=== PATIENT | female | born 1945 | race Caucasian/White ===

== ENCOUNTER 2016-12-10 10:51 | Outpatient (CLI) | payer MEDICARE | END 2016-12-10 10:52 | disposition home or self-care (01) | DX: Z12.31 Encounter for screening mammogram for malignant neoplasm of breast (principal) ==

== ENCOUNTER 2017-08-22 15:13 | Outpatient (CLI) | payer MEDICARE ==
[2017-08-22 12:23] LABS: BASOPHILS % (AUTO) 0.4 %; EOSINOPHILS # (AUTO) 0.1 10^3/uL (0.0-0.7); EOSINOPHILS % (AUTO) 1.9 %; HCT - HEMATOCRIT 38.7 % (37.0-47.0); HGB - HEMOGLOBIN 13.8 g/dL (12.0-16.0); LYMPHOCYTES # (AUTO) 2.2 10^3/uL (1.5-3.5); LYMPHOCYTES % (AUTO) 39.2 %; MEAN CORPUSCULAR HEMOGLOBIN 34.6 pg (27.0-31.0); MEAN CORPUSCULAR HGB CONC 35.5 g/dL (32.0-36.0); MEAN CORPUSCULAR VOLUME 97.4 fL (81.0-99.0); MONOCYTES # (AUTO) 0.4 10^3/uL (0.0-1.0); MONOCYTES % (AUTO) 7.7 %; NEUTROPHILS # (AUTO) 2.8 10^3/uL (1.5-6.6); NEUTROPHILS % (AUTO) 50.8 %; NUCLEATED RED BLOOD CELLS AUTO 0.1 /100WBC; RED BLOOD COUNT 3.98 10^6/uL (4.20-5.40); RED CELL DISTRIBUTION WIDTH 12.6 % (12.0-15.0); UNCORRECTED WHITE BLOOD COUNT 5.6 x10^3/uL; WHITE BLOOD COUNT 5.6 x10^3/uL (4.8-10.8)
[2017-08-22 12:40] LABS: ALBUMIN/GLOBULIN RATIO 1.3 (1.0-2.2); BILIRUBIN,TOTAL 0.5 mg/dL (0.2-1.0); BUN - BLOOD UREA NITROGEN 15 mg/dL (6-20); CALCIUM 9.1 mg/dL (8.5-10.3); CARBON DIOXIDE - CO2 28 mmol/L (21-32); CHLORIDE 103 mmol/L (101-111); CREATININE 0.9 mg/dL (0.4-1.0); GFR - MDRD 61 (>89); GLUCOSE 92 mg/dL (70-100); POTASSIUM 3.7 mmol/L (3.5-5.0); SODIUM 138 mmol/L (135-145)
== END 2017-08-22 15:14 | disposition home or self-care (01) ==
LOC: LAB.N 15:13
PROVIDERS: ATTEND Family Medicine
DX: E03.9 Hypothyroidism, unspecified (principal); I10 Essential (primary) hypertension; J44.9 Chronic obstructive pulmonary disease, unspecified
CPT/HCPCS: 36415; 80053; 84443; 85025

== ENCOUNTER 2018-02-12 07:00 | Outpatient (CLI) | payer MEDICARE ==
--- NOTE | 2018-02-12 17:02 | Mammography Report ---
SCREENING MAMMOGRAM: 02/12/2018 CLINICAL INDICATION: A 73-year-old with history of benign biopsies, for screening. COMPARISON: 12/2016, 12/2015, 06/2014, 06/2013, 06/2012, 02/2011, 01/2010. TECHNIQUE: Routine CC and MLO projections were obtained of the breasts. FINDINGS: The breasts demonstrate fatty replacement bilaterally. Coarse, typically benign calcifications are present. In the left upper outer central breast, just superior and posterior to the previous biopsy site, there is a possible new density. Further evaluation with spot compression views and possible left breast ultrasound is recommended. No mammographically suspicious findings are appreciated in the right breast. IMPRESSION: INCOMPLETE EXAMINATION. RECOMMENDATION: Additional evaluation of the left breast as above. BI-RADS CATEGORY 0, INCOMPLETE. STANDARD QUALIFYING STATEMENTS: 1. This examination was reviewed with the aid of Computer-Aided Detection (CAD). 2. A negative or benign imaging report should not delay biopsy if clinically suspicious findings are present. Consider surgical consultation if warranted. More than 5% of cancers are not identified by imaging. 3. Dense breasts may obscure an underlying neoplasm. TD: 02/12/2018 17:01
== END 2018-02-12 07:01 | disposition home or self-care (01) ==
LOC: DI 07:00
PROVIDERS: ATTEND Family Medicine
DX: Z12.31 Encounter for screening mammogram for malignant neoplasm of breast (principal)
CPT/HCPCS: 77067

== ENCOUNTER 2018-03-07 14:54 | Outpatient (CLI) | payer MEDICARE ==
--- NOTE | 2018-03-07 17:47 | Mammography Report ---
DIGITAL DIAGNOSTIC LEFT MAMMOGRAM: 03/07/2018 CLINICAL INDICATION: Possible nodule on screening. COMPARISON: 02/12/2018 TECHNIQUE: Left true lateral and spot compression views. FINDINGS: The left breast again demonstrates fatty replacement. The possible new density partially dissipates on additional compression. No associated calcifications are seen. Please also refer to left breast ultrasound of the same day. IMPRESSION: PROBABLE BENIGN FINDINGS. RECOMMENDATION: Diagnostic left mammogram in 6 months, to assure stability. BIRADS category: 3, probable benign findings. STANDARD QUALIFYING STATEMENTS 1. This examination was reviewed with the aid of Computed-Aided Detection (CAD). 2. A negative or benign imaging report should not delay biopsy if clinically suspicious findings are present. Consider surgical consultation if warranted. More than 5% of cancers are not identified by imaging. 3. Dense breasts may obscure an underlying neoplasm. TD: 03/07/2018 16:01
--- NOTE | 2018-03-07 17:50 | Ultrasound Report ---
LEFT BREAST ULTRASOUND: 03/07/2018 CLINICAL INDICATION: Density on diagnostic mammogram. TECHNIQUE: Real-time scanning was performed with apparel trimmings sales representative static images obtained. FINDINGS: Ultrasound of the left outer breast was performed. At the 2 o'clock position, 2 cm from the nipple, the calcified fibroadenoma present on multiple previous examinations is noted. No sonographically suspicious findings are seen more lateral at the 3 o'clock position, 7 cm from the nipple. IMPRESSION: BENIGN FINDINGS. RECOMMENDATION: Diagnostic left mammogram in 6 months, to assure stability. BIRADS category 2 benign findings. STANDARD QUALIFYING STATEMENTS 1. This examination was reviewed with the aid of Computed-Aided Detection (CAD). 2. A negative or benign imaging report should not delay biopsy if clinically suspicious findings are present. Consider surgical consultation if warranted. More than 5% of cancers are not identified by imaging. 3. Dense breasts may obscure an underlying neoplasm. TD: 03/07/2018 16:07
== END 2018-03-07 14:55 | disposition home or self-care (01) ==
LOC: DI 14:54
PROVIDERS: ATTEND Family Medicine
DX: N63.0 Unspecified lump in unspecified breast (principal); R92.8 Other abnormal and inconclusive findings on diagnostic imaging of breast
CPT/HCPCS: 76642

== ENCOUNTER 2018-05-27 12:08 | Outpatient (CLI) | payer MEDICARE ==
[2018-05-27] MEDS ORDERED: IOPAMIDOL-300 50 ML VIAL ONE (12:24)
[2018-05-27] MEDS ORDERED: IOPAMIDOL-300 100 ML VIAL ONE (12:24)
[2018-05-27 12:33] LABS: BASOPHILS % (AUTO) 0.4 %; EOSINOPHILS # (AUTO) 0.1 10^3/uL (0.0-0.7); EOSINOPHILS % (AUTO) 1.4 %; HGB - HEMOGLOBIN 9.8 g/dL (12.0-16.0); LYMPHOCYTES # (AUTO) 1.8 10^3/uL (1.5-3.5); LYMPHOCYTES % (AUTO) 19.4 %; MEAN CORPUSCULAR HEMOGLOBIN 29.6 pg (27.0-31.0); MEAN CORPUSCULAR HGB CONC 34.2 g/dL (32.0-36.0); MEAN CORPUSCULAR VOLUME 86.5 fL (81.0-99.0); MEAN PLATELET VOLUME 7.2 fL (7.9-10.8); MONOCYTES # (AUTO) 0.7 10^3/uL (0.0-1.0); MONOCYTES % (AUTO) 6.9 %; NEUTROPHILS # (AUTO) 6.8 10^3/uL (1.5-6.6); NEUTROPHILS % (AUTO) 71.9 %; PLT - PLATELET COUNT 489 10^3/uL (130-450); RED BLOOD COUNT 3.32 10^6/uL (4.20-5.40); RED CELL DISTRIBUTION WIDTH 14.8 % (12.0-15.0); WHITE BLOOD COUNT 9.5 x10^3/uL (4.8-10.8)
[2018-05-27 12:55] LABS: ALBUMIN 3.5 g/dL (3.2-5.5); ALBUMIN/GLOBULIN RATIO 0.9 (1.0-2.2); BILIRUBIN,TOTAL 0.6 mg/dL (0.2-1.0); CALCIUM 9.4 mg/dL (8.5-10.3); CREATININE 0.9 mg/dL (0.4-1.0); TOTAL PROTEIN 7.4 g/dL (6.7-8.2)
[2018-05-27] MEDS ORDERED: IOPAMIDOL-300 50 ML VIAL PO ONE (13:40)
[2018-05-27] MEDS ORDERED: IOPAMIDOL-300 100 ML VIAL IVP ONE (13:40)
--- NOTE | 2018-05-27 14:14 | CT Report ---
Procedure Date: 05/27/2018 Accession Number: [id number] / [id number] Procedure: CT - Abdomen/Pelvis W/ CPT Code: FULL RESULT: EXAM: CT ABDOMEN AND PELVIS EXAM DATE: 05/27/2018 01:33 PM. CLINICAL HISTORY: ABDOMINAL PAIN,RIGHT LOWER QUADRANT. COMPARISONS: None. TECHNIQUE: Routine helical CT imaging was performed through the abdomen and pelvis. IV contrast: ISOVUE 300 100mL. Enteric contrast: No. Reconstructions: Coronal and sagittal. In accordance with CT protocol optimization, one or more of the following dose reduction techniques were utilized for this exam: automated exposure control, adjustment of mA and/or KV based on patient size, or use of iterative reconstructive technique. FINDINGS: Lung Bases: Mild dependent atelectasis. Liver: There are 2 hypoattenuating lesions in the left lobe measuring 1.5 cm and 1.3 cm respectively (image 16 and 27 series 3). 5 mm subcapsular hypoattenuating focus in the subcapsular left lobe inferiorly (image 30). Gallbladder/Bile Ducts: Unremarkable. Spleen: Normal. Pancreas: Fatty atrophy. Adrenal Glands: Normal. Kidneys: No hydronephrosis. Peritoneal Cavity/Bowel: Small hiatal hernia. There is an irregular apple core mass involving the proximal ascending colon with associated luminal narrowing. Irregular masses extend into the adjacent peritoneum/mesentery measuring up to 6.0 x 2.9 cm (image 59 series 3). There are smaller additional adjacent peritoneal nodules. Enlarged lymph nodes or metastatic implants are present in the mesentery, for example a nodule near the second/third portion of the duodenum that measures 2.4 x 1.4 cm (image 39 series 3. There is an 8 mm nodule adjacent to the fundus of the gallbladder (image 35 series 3). An aortocaval node measures 16 mm in short axis (image 35). No bowel obstruction. Small amount of pelvic free fluid. No pneumoperitoneum. No acute inflammatory process. Sigmoid diverticulosis without evidence of acute diverticulitis. The appendix is within normal limits. Pelvic Organs: The uterus is absent. No adnexal mass. Vasculature: Moderate atherosclerosis. No aneurysm. Bones: No suspicious osseous lesion. Other: None. IMPRESSION: 1. Ascending colon mass as described with adjacent peritoneal/mesenteric masses. This likely represents adenocarcinoma with local metastatic disease. Multiple additional metastatic implants or lymph nodes in the abdomen. 2. Several hypoattenuating liver lesions are suspicious for metastatic disease. 3. No acute abnormality. RAD[facility] The call report notification system was initiated by Dr. Dinesh Ferrara at 13:58 hrs on 05/27/18. The above findings were discussed with Dr. Pepper by Dr. Dinesh Ferrara at 14:13 hrs on 05/27/18.
== END 2018-05-27 12:09 | disposition home or self-care (01) ==
LOC: LAB 12:08 → DI 12:09
PROVIDERS: ATTEND Family Medicine
DX: R10.31 Right lower quadrant pain (principal); K63.89 Other specified diseases of intestine
CPT/HCPCS: 36415; 74177; 80053; 83690; 85025; Q9967

== ENCOUNTER 2018-05-28 10:59 | Outpatient (CLI) | payer MEDICARE | END 2018-05-28 11:00 | disposition home or self-care (01) | LOC: LAB 10:59 | PROVIDERS: ATTEND Internal Medicine Gastroenterology | DX: C18.2 Malignant neoplasm of ascending colon (principal) | CPT/HCPCS: 36415; 82378; 93005 ==

== ENCOUNTER 2018-05-29 11:38 | Day surgery (SDC) | payer MEDICARE ==
[2018-05-29] MEDS ORDERED: LACTATED RINGERS 1,000 ML IV ONE (12:35)
[2018-05-29] MEDS ORDERED: fentaNYL 100 MCG/2 ML VIAL IVP ONE (13:44)
[2018-05-29] MEDS ORDERED: MIDAZOLAM 2 MG/2 ML VIAL IVP ONE (13:44)
[2018-05-29 15:49] VITALS: BP 103/44
== END 2018-05-29 11:39 | disposition home or self-care (01) ==
LOC: SDS 11:38
PROVIDERS: ATTEND Internal Medicine Gastroenterology
PROC: 0DBP8ZZ Excision of Rectum, Via Natural or Artificial Opening Endoscopic (ICD-10-PCS; 2018-05-29)
PROC: 0DBK8ZX Excision of Ascending Colon, Via Natural or Artificial Opening Endoscopic, Diagnostic (ICD-10-PCS; principal; 2018-05-29 13:00)
DX: C7A.1 Malignant poorly differentiated neuroendocrine tumors (principal); K62.1 Rectal polyp; K57.30 Diverticulosis of large intestine without perforation or abscess without bleeding; I10 Essential (primary) hypertension; F32.9 Major depressive disorder, single episode, unspecified; E89.0 Postprocedural hypothyroidism; K21.9 Gastro-esophageal reflux disease without esophagitis; M81.0 Age-related osteoporosis without current pathological fracture; E78.5 Hyperlipidemia, unspecified; J44.9 Chronic obstructive pulmonary disease, unspecified; F41.1 Generalized anxiety disorder; R00.0 Tachycardia, unspecified; Z79.82 Long term (current) use of aspirin; Z90.710 Acquired absence of both cervix and uterus; Z79.899 Other long term (current) drug therapy; Z87.891 Personal history of nicotine dependence
CPT/HCPCS: 45380; J7120; 88305; 88341; 88342

== ENCOUNTER 2018-05-30 09:00 | Outpatient (CLI) | payer MEDICARE ==
[2018-05-30] MEDS ORDERED: IOPAMIDOL-300 100 ML VIAL ONE (09:19)
[2018-05-30] MEDS ORDERED: IOPAMIDOL-300 100 ML VIAL IVP ONE (09:41)
--- NOTE | 2018-05-30 10:44 | CT Report ---
Reason: COLON CA,MALIGNANT NEOPLASM OF ASCENDING COLON Procedure Date: 05/30/2018 Accession Number: [id number] / [id number] Procedure: CT - Chest W/ CPT Code: FULL RESULT: EXAM: CT CHEST EXAM DATE: 05/30/2018 09:38 AM. CLINICAL HISTORY: Question pulmonary nodule or mass COMPARISONS: Abdomen pelvis CT 05/27/2018. TECHNIQUE: Routine helical CT imaging was performed through the chest. IV contrast: 80 cc Isovue-300. Reconstructions: Coronal, sagittal, and coronal MIP. In accordance with CT protocol optimization, one or more of the following dose reduction techniques were utilized for this exam: automated exposure control, adjustment of mA and/or KV based on patient size, or use of iterative reconstructive technique. FINDINGS: Lungs/Pleura: No nodules, bronchial thickening, consolidation, or edema. Pulmonary vasculature is normal. No pericardial or pleural effusion. No pneumothorax. There is bandlike opacity of the lower lungs, likely atelectasis. Mediastinum: No adenopathy or masses. The heart and great vessels appear normal. Bones: No bone lesions. Visualized Abdomen: Low attenuating lesions of the liver are again seen, concerning for metastatic disease. IMPRESSION: Low attenuating liver lesions are concerning for metastatic disease. There is no evidence of pulmonary metastasis. RADIA
== END 2018-05-30 09:01 | disposition home or self-care (01) ==
LOC: DI 09:00
PROVIDERS: ATTEND Surgery
DX: C18.2 Malignant neoplasm of ascending colon (principal); K76.9 Liver disease, unspecified
CPT/HCPCS: 71260; Q9967

== ENCOUNTER 2018-07-03 09:20 | Outpatient (CLI) | payer MEDICARE ==
[2018-07-03 09:47] LABS: ALBUMIN 2.9 g/dL (3.2-5.5); ALBUMIN/GLOBULIN RATIO 0.6 (1.0-2.2); BILIRUBIN,TOTAL 0.3 mg/dL (0.2-1.0); CALCIUM 9.2 mg/dL (8.5-10.3); TOTAL PROTEIN 7.5 g/dL (6.7-8.2)
[2018-07-03 10:01] LABS: BASOPHILS % (AUTO) 0.4 %; EOSINOPHILS % (AUTO) 0.4 %; HGB - HEMOGLOBIN 8.2 g/dL (12.0-16.0); LYMPHOCYTES # (AUTO) 1.1 10^3/uL (1.5-3.5); LYMPHOCYTES % (AUTO) 10.2 %; MEAN CORPUSCULAR HGB CONC 32.8 g/dL (32.0-36.0); MEAN CORPUSCULAR VOLUME 79.2 fL (81.0-99.0); MEAN PLATELET VOLUME 7.3 fL (7.9-10.8); MONOCYTES # (AUTO) 0.6 10^3/uL (0.0-1.0); NEUTROPHILS # (AUTO) 8.8 10^3/uL (1.5-6.6); PLT - PLATELET COUNT 791 10^3/uL (130-450); RED BLOOD COUNT 3.15 10^6/uL (4.20-5.40); WHITE BLOOD COUNT 10.6 x10^3/uL (4.8-10.8)
[2018-07-03 10:57] LABS: INR 1.2 (0.8-1.2); PT - PROTHROMBIN TIME 13.7 secs (9.9-12.6)
== END 2018-07-03 09:21 | disposition home or self-care (01) ==
LOC: LAB 09:20
PROVIDERS: ATTEND Internal Medicine Gastroenterology
DX: Z01.812 Encounter for preprocedural laboratory examination (principal); I10 Essential (primary) hypertension; C18.2 Malignant neoplasm of ascending colon
CPT/HCPCS: 36415; 80053; 85025; 85610

== ENCOUNTER 2018-07-03 09:29 | Outpatient (CLI) | payer MEDICARE ==
--- NOTE | 2018-07-03 12:16 | XRAY Report ---
Reason: MALIGNANT NEOPLASM OF ASCENDING COLON,COPD Procedure Date: 07/03/2018 Accession Number: [id number] / [id number] Procedure: XR - Chest 2 View X-Ray CPT Code: 71073 FULL RESULT: EXAM: CHEST RADIOGRAPHY EXAM DATE: 07/03/2018 09:42 AM. CLINICAL HISTORY: MALIGNANT NEOPLASM OF ASCENDING COLON,COPD. COMPARISON: Chest CT 05/30/2018. TECHNIQUE: 2 views. FINDINGS: Lungs/Pleura: There is blunting of the right costophrenic sulcus seen to advantage on the frontal view. This appears to be a new finding compared to prior CT of 05/30/2018. Mediastinum: Heart and mediastinal contours appear otherwise unremarkable. IMPRESSION: Interval blunting of the right costophrenic sulcus. Given the history, recommend repeat chest CT RAD[facility]
== END 2018-07-03 09:30 | disposition home or self-care (01) ==
LOC: DI 09:29
PROVIDERS: ATTEND Internal Medicine Gastroenterology
DX: C18.2 Malignant neoplasm of ascending colon (principal); J44.9 Chronic obstructive pulmonary disease, unspecified; Z01.812 Encounter for preprocedural laboratory examination; I10 Essential (primary) hypertension
CPT/HCPCS: 36415; 71046; 80053; 85025; 85610

== ENCOUNTER 2018-07-04 07:09 | Emergency (ER) | payer MEDICARE ==
--- NOTE | 2018-07-04 08:24 | ED Physician Documentation ---
PD HPI ABD PAIN - Stated complaint Stated Complaint: ABD PX - Chief complaint Chief Complaint: Abd Pain - History obtained from History obtained from: Patient - History of Present Illness Timing - onset: How many months ago (Onset about one month ago.) Timing - details: Waxing and waning Quality: Indigestion, Fullness/distended Location: All over / everywhere Worsened by: Eating Associated symptoms: Nausea. No: Fever, Vomiting, Diarrhea, Dysuria Similar symptoms before: Diagnosis (Colon cancer with liver mets, lung mets, and lymph.) - Treatment prior to arrival Treatment prior to arrival: Vicodin about one hour ago. - Additional information Additional information: She is a 73-year-old female who presents with abdominal pain that has been waxing and waning for the past month or so. There is nothing specifically different today but she states, "I can't do this anymore." She was recently diagnosed with colon cancer with large liver mass, pulmonary metastases, and ly mph node involvement. She is scheduled for Port-A-Cath placement on Saturday, 3 days from now, followed by liver biopsy, and then treatment of the tumor. She has been using Vicodin for pain, and took one tablet about one hour prior to arrival. She reports associated nausea, but denies vomiting. She denies fever, diarrhea, or dysuria. She has been able to eat only very small amounts at a time, and reports that eating makes her symptoms worse. Blood work was performed yesterday in anticipation of the upcoming procedures. Review of Systems Constitutional: denies: Fever Nose: denies: Congestion Throat: denies: Sore throat Cardiac: denies: Chest pain / pressure Respiratory: denies: Dyspnea, Cough GI: reports: Abdominal Pain, Nausea. denies: Vomiting, Constipation, Diarrhea : denies: Dysuria Skin: denies: Rash Musculoskeletal: denies: Back pain, Extremity pain Neurologic: denies: Focal weakness, Numbness, Headache PD PAST MEDICAL HISTORY - Past Medical History Past Medical History: Yes Cardiovascular: High cholesterol Respiratory: COPD Neuro: None Endocrine/Autoimmune: HyPOthyroidism GI: GERD : None HEENT: Chronic vision loss, Chronic hearing loss Psych: Depression, Anxiety Musculoskeletal: Osteoporosis Derm: None Other Past Medical History: colon CA with mets - Past Surgical History Past Surgical History: Yes General: Colonoscopy /VASCULAR TECHNOLOGIST SONOGRAPHER: Tubal ligation, Hysterectomy, Other HEENT: Cataracts, Tonsil/Adenoidectomy, Other - Present Medications Home Medications: Ambulatory Orders Medication Instructions Recorded Confirmed Alprazolam [Xanax] 0.25 mg PO TID PRN 05/29/18 07/04/18 Aspirin [Aspirin EC] 81 mg PO DAILY 05/29/18 07/04/18 Atenolol 25 mg PO DAILY 05/29/18 07/04/18 Calcium Carbonate [Tums (Calcium 500 mg PO PRN PRN 05/29/18 07/04/18 Carbonate 500mg)] Cyanocobalamin (Vitamin B-12) 1,000 mcg PO DAILY 05/29/18 07/04/18 [Vitamin B-12] Fluticasone/Salmeterol [Advair 1 inhaler PO BID 05/29/18 07/04/18 100-50 Diskus] Levothyroxine [Synthroid] 100 mcg PO DAILY 05/29/18 07/04/18 Losartan [Cozaar] 50 mg PO DAILY 05/29/18 07/04/18 [place]-3/Dha/Epa/Fish Oil [Fish Oil 1 each PO BID 05/29/18 07/04/18 1,000 mg Softgel] buPROPion [Wellbutrin Sr] 150 mg PO DAILY 05/29/18 07/04/18 HYDROcod/ACETAM 5/325 [[place] 5/325] 1 tab PO Q6H PRN 07/01/18 07/04/18 Ondansetron HCl [Zofran] 4 mg PO Q6HR PRN #20 tablet 07/04/18 07/04/18 oxyCODONE/ACET 5/325 [Percocet 5 1 - 2 tab PO Q4-6H PRN #30 tablet 07/04/18 07/04/18 mg/325 mg] - Allergies Allergies/Adverse Reactions: Allergies Allergy/AdvReac Type Severity Reaction Status Date / Time No Known Drug Allergies Allergy Verified 07/04/18 11:43 - Social History Does the pt smoke?: No Smoking Status: Never smoker Does the pt drink ETOH?: No Does the pt have substance abuse?: No - Immunizations Immunizations are current?: Yes - POLST Patient has POLST: No PD ED PE NORMAL - Vitals Vital signs reviewed: Yes (normal) - General General: Alert and oriented X 3, Well developed/nourished - HEENT HEENT: Atraumatic, Moist mucous membranes, Pharynx benign - Neck Neck: No adenopathy, No JVD - Cardiac Cardiac: RRR, No murmur - Respiratory Respiratory: No respiratory distress, Clear bilaterally - Abdomen Abdomen: Normal bowel sounds, Soft, Other (Mild tenderness to palpation in the right lower quadrant and right upper quadrant, without rebound tenderness or guarding.) - Back Back: No CVA TTP - Derm Derm: No rash - Extremities Extremities: No edema, No calf tenderness / cord - Neuro Neuro: Alert and oriented X 3, No motor deficit, Normal speech Results - Vitals Vitals: Vital Signs - 24 hr 07/04/18 09:04 Heart Rate 81 Respiratory 14 Rate Blood Pressure 120/51 L O2 Saturation 96 Oxygen O2 Source Room air PD MEDICAL DECISION MAKING - ED course Complexity details: reviewed old records, reviewed results, re-evaluated patient, considered differential, d/w patient, d/w family, d/w training consultant ED course: The patient's presentation is significant for abdominal symptoms associated with colon cancer with associated liver mass. There is no evidence of bowel obstruction, dehydration, or infectious process at this time. I reviewed the lab work that was performed yesterday, revealing anemia with a hemoglobin of 8.2 and hematocrit 25.0. This compares with a hemoglobin and hematocrit one month ago of 9.8 and 28.7. Liver enzymes are within normal limits, with bilirubin of 0.3 and alkaline phosphatase 64. I discussed her condition with the oncologist who is on-call for Dr. Jean. He agrees with symptomatic treatment at this time, and proceeding with the planned course of intervention. There is no clinical indication at this time for emergent intervention or hospitalization. I discussed this with the patient and her daughter, who appeared to be appropriately coming to terms with the severity of the underlying disease process. She is being discharged with prescriptions for Zofran and for Percocet. I discussed with them potentially worrisome signs or symptoms that should prompt reevaluation in the emergency department. - Sepsis Event Vital Signs: Vital Signs - 24 hr 07/04/18 09:04 Heart Rate 81 Respiratory 14 Rate Blood Pressure 120/51 L O2 Saturation 96 Oxygen O2 Source Room air Departure - Departure Disposition: 01 Home, Self Care Clinical Impression: Colon cancer metastasized to liver Abdominal pain Qualifiers: Abdominal location: generalized Qualified Code(s): R10.84 - Generalized abdominal pain Condition: Stable Instructions: Abdominal Pain Follow-Up: Justyn Saucedo MD [Provider Admit Priv/Credential] - Park Jean MD [Physician No Access] - Prescriptions: Ondansetron HCl [Zofran] 4 mg PO Q6HR PRN #20 tablet PRN Reason: Nausea / Vomiting oxyCODONE/ACET 5/325 [Percocet 5 mg/325 mg] 1 - 2 tab PO Q4-6H PRN #30 tablet PRN Reason: Pain Comments: You can use Percocet (oxycodone) instead of Vicodin hydrocodone) if needed for abdominal pain. Drink Ensure shakes or eat Ensure pudding to help with nutrition. Follow-up next week as scheduled for port placement, liver biopsy, and oncology follow-up. Return to the emergency department if you develop increasing abdominal pain, persistent vomiting, dehydration, or otherwise worsening symptoms. Discharge Date/Time: 07/04/18 09:05
[2018-07-04 09:05] VITALS: BP 120/51
== END 2018-07-04 09:05 | disposition home or self-care (01) ==
LOC: ED 07:09
DX: C18.9 Malignant neoplasm of colon, unspecified (principal); C78.7 Secondary malignant neoplasm of liver and intrahepatic bile duct; R10.84 Generalized abdominal pain; J44.9 Chronic obstructive pulmonary disease, unspecified
CPT/HCPCS: 99283

== ENCOUNTER 2018-07-07 09:37 | Day surgery (SDC) | payer MEDICARE ==
[2018-07-07] MEDS ORDERED: ceFAZolin 2 GM/50 ML 2 GM/50 ML BAG IV ONE (09:59)
[2018-07-07] MEDS ORDERED: LACTATED RINGERS 1,000 ML IV ONE ×2 (10:25→13:37)
[2018-07-07] MEDS ORDERED: PHENYLEPHRINE 50 MG/5 ML VIAL IV ONE (10:48)
[2018-07-07] MEDS ORDERED: LIDOCAINE-MPF 2% 5 ML VIAL IM ONE (10:48)
[2018-07-07] MEDS ORDERED: MIDAZOLAM 2 MG/2 ML VIAL IVP ONE (10:48)
[2018-07-07] MEDS ORDERED: ePHEDrine 50 MG/ML VIAL IVP ONE (10:48)
[2018-07-07] MEDS ORDERED: fentaNYL 100 MCG/2 ML VIAL IVP ONE (10:48)
[2018-07-07] MEDS ORDERED: KETOROLAC 30 MG/ML VIAL IVP ONE (10:48)
--- NOTE | 2018-07-07 10:48 | ANESTHESIA ---
Pre-Anesthesia VS, & Labs - Diagnosis colon cancer - Procedure portacath placement Vital Signs: Temp Pulse Resp BP Pulse Ox 36.5 C 81 15 114/41 L 98 07/07/18 09:50 07/07/18 09:50 07/07/18 09:50 07/07/18 09:50 07/07/18 09:50 Height 5 ft 3 in Weight (kg) 69.3 kg Body Mass Index 27.3 - NPO >8 hours - Is Patient ?: Not Applicable - Lab Results Lab results reviewed: Yes Home Medications and Allergies Home Medications: Ambulatory Orders Medication Instructions Recorded Confirmed Alprazolam [Xanax] 0.25 mg PO TID PRN 05/29/18 07/07/18 Aspirin [Aspirin EC] 81 mg PO DAILY 05/29/18 07/07/18 Atenolol 25 mg PO DAILY 05/29/18 07/07/18 Calcium Carbonate [Tums (Calcium 500 mg PO PRN PRN 05/29/18 07/07/18 Carbonate 500mg)] Cyanocobalamin (Vitamin B-12) 1,000 mcg PO DAILY 05/29/18 07/07/18 [Vitamin B-12] Fluticasone/Salmeterol [Advair 1 inhaler PO BID 05/29/18 07/07/18 100-50 Diskus] Levothyroxine [Synthroid] 100 mcg PO DAILY 05/29/18 07/07/18 Losartan [Cozaar] 50 mg PO DAILY 05/29/18 07/07/18 [place]-3/Dha/Epa/Fish Oil [Fish Oil 1 each PO BID 05/29/18 07/07/18 1,000 mg Softgel] buPROPion [Wellbutrin Sr] 150 mg PO DAILY 05/29/18 07/07/18 HYDROcod/ACETAM 5/325 [[place] 5/325] 1 tab PO Q6H PRN 07/01/18 07/04/18 Ondansetron HCl [Zofran] 4 mg PO Q6HR PRN #20 tablet 07/04/18 07/07/18 oxyCODONE/ACET 5/325 [Percocet 5 1 - 2 tab PO Q4-6H PRN #30 tablet 07/04/18 07/07/18 mg/325 mg] Alprazolam [Xanax] 0.25 mg PO TID PRN 05/29/18 Aspirin [Aspirin EC] 81 mg PO DAILY 05/29/18 Atenolol 25 mg PO DAILY 05/29/18 Calcium Carbonate [Tums (Calcium Carbonate 500mg)] 500 mg PO PRN PRN 05/29/18 Cyanocobalamin (Vitamin B-12) [Vitamin B-12] 1,000 mcg PO DAILY 05/29/18 Fluticasone/Salmeterol [Advair 100-50 Diskus] 1 inhaler PO BID 05/29/18 Levothyroxine [Synthroid] 100 mcg PO DAILY 05/29/18 Losartan [Cozaar] 50 mg PO DAILY 05/29/18 [place]-3/Dha/Epa/Fish Oil [Fish Oil 1,000 mg Softgel] 1 each PO BID 05/29/18 buPROPion [Wellbutrin Sr] 150 mg PO DAILY 05/29/18 HYDROcod/ACETAM 5/325 [[place] 5/325] 1 tab PO Q6H PRN 07/01/18 Allergies/Adverse Reactions: Allergies Allergy/AdvReac Type Severity Reaction Status Date / Time No Known Drug Allergies Allergy Verified 07/04/18 11:43 Anes History & Medical History - Anesthetic History Anesthesia Complications: reports: No previous complications Family history of Anesthesia Complications: Denies Family history of Malignant Hyperthermia: Denies - Medical History Cardiovascular: reports: High cholesterol Pulmonary: reports: COPD Gastrointestinal: reports: GERD, Other (colon cancer) Urinary: reports: None Neuro: reports: None Musculoskeletal: reports: Osteoporosis Endocrine/Autoimmune: reports: HyPOthyroidism Skin: reports: None Smoking Status: Never smoker - Surgical History General: Colonoscopy Eyes Ears Nose Throat (EENT): Cataracts, Tonsil/Adenoidectomy, Other Gynecologic: Tubal ligation, Hysterectomy, Other Exam General: Alert, Oriented x3, Cooperative, No acute distress Dental: Other (caps) Mouth Openin Fingerbreadth Mallampati classification: III Thyromental Distance: 4-6 cm Respiratory: Decreased breath sounds Cardiovascular: Regular rate, Normal S1, Normal S2, No murmurs Mental/Cognitive Status: Alert/Oriented X3, Normal for patient Cognitive Status: Within normal limits Plan Anesthesia Type: MAC Consent for Procedure(s) Verified and Reviewed: Yes Code Status: Attempt Resuscitation ASA classification: 3-Severe systemic disease Is this case an emergency?: No
[2018-07-07] MEDS ORDERED: ceFAZolin 1 GM VIAL ONE (11:57)
[2018-07-07] MEDS ORDERED: SODIUM CHLORIDE 0.9% 10 ML ONE (11:57)
[2018-07-07] MEDS ORDERED: LIDOCAINE 1% 50 ML MDV ONE (11:58)
[2018-07-07] MEDS ORDERED: LIDOCAINE 1% 50 ML MDV SUBQ ONE ×2 (13:46)
[2018-07-07] MEDS ORDERED: ceFAZolin 1 GM VIAL IR ONE (13:47)
[2018-07-07] MEDS ORDERED: IBUPROFEN 600 MG TABLET PO PRN (14:05)
[2018-07-07] MEDS ORDERED: ONDANSETRON 4 MG/2 ML VIAL IVP PRN (14:05)
[2018-07-07] MEDS ORDERED: oxyCODONE 5 MG TABLET PO PRN (14:05)
[2018-07-07] MEDS ORDERED: ACETAMINOPHEN 325 MG TABLET PO PRN (14:05)
--- NOTE | 2018-07-07 14:38 | XRAY Report ---
Reason: port placement Procedure Date: 07/07/2018 Accession Number: [id number] / [id number] Procedure: FL - OR C-Arm Procedure CPT Code: FULL RESULT: EXAM: FLUOROSCOPIC GUIDANCE EXAM DATE: 07/07/2018 12:36 PM. CLINICAL HISTORY: Port placement. COMPARISON: None. FINDINGS: The radiologist was not present. The single fluoroscopic view demonstrates the right lower hemithorax with a catheter tip projecting at the presumed juncture of the brachiocephalic vein and SVC. IMPRESSION: Fluoroscopic guidance provided for a port placement. Total fluoroscopy time: 3 seconds. Number of images: 1. RAD[facility]
--- NOTE | 2018-07-07 14:47 | XRAY Report ---
Reason: s/p port placement Procedure Date: 07/07/2018 Accession Number: [id number] / [id number] Procedure: XR - Chest 1 View X-Ray CPT Code: 69972 FULL RESULT: EXAM: CHEST RADIOGRAPHY EXAM DATE: 07/07/2018 02:40 PM. CLINICAL HISTORY: Status post port placement. COMPARISON: Chest 2 view 07/03/2018 9:33 AM. TECHNIQUE: 1 view. FINDINGS: Interval placement of a left subclavian vein chest port with the tip in the region of the superior cavoatrial junction. The remaining radiograph is normal and without pneumothorax, pleural effusion or pulmonary findings. IMPRESSION: Port placement without evidence of complication. RADIA
[2018-07-07] MEDS ORDERED: oxyCODONE 5 MG TABLET ONE (15:08)
[2018-07-07 15:38] VITALS: BP 112/44
--- NOTE | 2018-07-08 02:18 | OPERATIVE REPORT ---
DATE OF SERVICE: 07/07/2018 Physician: John Nguyễn MD PREOPERATIVE DIAGNOSIS: Stage IV colon carcinoma. POSTOPERATIVE DIAGNOSIS: Stage IV colon carcinoma. PROCEDURE PERFORMED: Insertion of PowerPort implantable port. ANESTHESIA: General LMA by Michelet Live CRNA, plus local. SURGEON: John Nguyễn MD ESTIMATED BLOOD LOSS: Minimal. COMPLICATIONS: None. FINDINGS: The left subclavian vein was used for access. Catheter tip was confirmed in the superior vena cava near its junction with the right atrium on fluoroscopy. A standard profile single-lumen Po werPort implantable port was used with the reservoir in the left infraclavicular fossa subcutaneous l ocation. INDICATIONS: Patient is a 73-year-old woman with a recent diagnosis of Stage IV colon cancer. To fa cilitate chemotherapy, she was interested in and advised to undergo placement of an implantable venou s access device. TECHNIQUE: After informed consent, the patient was taken to the operating room, where she was placed under general anesthesia. She was placed in the supine position. Preoperative preparation included application of sequential calf compression boots, administration of 2 grams of cefazolin intravenous ly within an hour of the incision. The anterior chest wall and left neck were prepared with ChloraPr ep solution and draped in the usual sterile fashion. Lidocaine plain 1% was used for local infiltrat ion anesthesia. Approximately 15 mL of the mixture was used. Using a percutaneous infraclavicular approach, needle and syringe were used to access the left subcla vian vein laterally in a percutaneous approach. The vein was accessed on the first pass. A guidewir e was passed into the central venous circulation. The guidewire tip was confirmed by fluoroscopy to be in the right atrium. The needle was replaced with a dilator and sheath. The guidewire was remove d, and the single-lumen 8-Persian catheter was then passed into the central venous circulation through the sheath, with the tip confirmed in the junction of the superior vena cava and right atrium. Excess catheter was trimmed and was connected to the reservoir in the appropriate fashion. The reser voir was placed in a subcutaneous pocket that was created adjacent to the exit site for the catheter. The reservoir was secured with two 3-0 Prolene sutures to the pectoral fascia. The pocket was irri gated with antibiotic solution containing 1 gram of cefazolin per liter. After hemostasis was assure d, wound closure was accomplished in layers using continuous 3-0 Vicryl to reapproximate subcutaneous tissue, followed by 4-0 Monocryl subcuticular skin closure and Dermabond. The reservoir was accessed percutaneously using a Ortiz needle where it was seen to aspirate blood an d flushed easily. The system was flushed with 10 mL of heparinized saline. The procedure was then t erminated, and the patient was transferred to the recovery room in satisfactory condition. Sponge an d needle counts were correct x2, and no drains were used. Followup upright portable chest x-ray is p ending to confirm catheter location and absence of complications. cc: Justyn Saucedo MD TD: 07/07/2018 14:25
== END 2018-07-07 09:38 | disposition home or self-care (01) ==
LOC: SDS 09:37
PROVIDERS: ATTEND Internal Medicine Gastroenterology
PROC: 02HV33Z Insertion of Infusion Device into Superior Vena Cava, Percutaneous Approach (ICD-10-PCS; 2018-07-07)
PROC: 0JH63WZ Insertion of Totally Implantable Vascular Access Device into Chest Subcutaneous Tissue and Fascia, Percutaneous Approach (ICD-10-PCS; principal; 2018-07-07 10:45)
DX: C18.2 Malignant neoplasm of ascending colon (principal); I10 Essential (primary) hypertension; J44.9 Chronic obstructive pulmonary disease, unspecified; F41.1 Generalized anxiety disorder; E89.0 Postprocedural hypothyroidism; E78.5 Hyperlipidemia, unspecified; K21.9 Gastro-esophageal reflux disease without esophagitis; Z79.899 Other long term (current) drug therapy; Z79.82 Long term (current) use of aspirin; Z87.891 Personal history of nicotine dependence
CPT/HCPCS: 36561; 71045; A9270; C1788; J0690; J7120

== ENCOUNTER 2018-07-17 16:07 | Emergency (ER) | payer MEDICARE ==
--- NOTE | 2018-07-17 16:36 | ED Physician Documentation ---
PD HPI ALTERED MENTAL STATUS - Stated complaint Stated Complaint: LOW HEMAGLOBIN - Chief complaint Chief Complaint: General - History obtained from History obtained from: Patient - History of Present Illness Timing - onset: How many days ago (few) Timing - duration: Days Timing - details: Gradual onset (She has had increasing general weakness over the past several days to a week. She is known to be anemic and is getting iron transfusions. She had a iron transfusion today at the [facility] and had a blood count showing hemoglobin 6.2. Her blood pressure was also slightly low at 91/45. She was referred to the ER for presumed transfusion. She denies any chest pain or dyspnea.), Still present Quality / character: Other (general weakness) Associated symptoms: Dyspnea, NVD (some loose stool, but not overt diarrhea. Denies melena. States some red blood with wiping at times.), General weakness. No: Fever, Headache, Cough Contributing factors: Cancer. No: Anticoagulated, Diabetic, Recent med change Basline status: Alert and oriented X 3, Ambulatory, Walker Similar symptoms before: Has not had sx before Recently seen: Clinic ([facility] with iron transfusion today.) Review of Systems Constitutional: reports: Fatigue. denies: Fever, Chills, Myalgias Nose: denies: Rhinorrhea / runny nose, Congestion Throat: denies: Sore throat Cardiac: denies: Chest pain / pressure Respiratory: reports: Dyspnea. denies: Cough GI: reports: Nausea. denies: Abdominal Pain, Vomiting, Hematemesis, Bloody / black stool (notes trace blood with wiping after BMs.) : denies: Dysuria, Frequency Neurologic: reports: Generalized weakness. 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: Tubal ligation, Hysterectomy, Other HEENT: Cataracts, Tonsil/Adenoidectomy, Other - Present Medications Home Medications: Ambulatory Orders Medication Instructions Recorded Confirmed Alprazolam [Xanax] 0.25 mg PO TID PRN 05/29/18 07/15/18 Aspirin [Aspirin EC] 81 mg PO DAILY 05/29/18 07/15/18 Atenolol 25 mg PO DAILY 05/29/18 07/15/18 Calcium Carbonate [Tums (Calcium 500 mg PO PRN PRN 05/29/18 07/15/18 Carbonate 500mg)] Cyanocobalamin (Vitamin B-12) 1,000 mcg PO DAILY 05/29/18 07/15/18 [Vitamin B-12] Fluticasone/Salmeterol [Advair 1 inhaler PO BID 05/29/18 07/15/18 100-50 Diskus] Levothyroxine [Synthroid] 100 mcg PO DAILY 05/29/18 07/15/18 Losartan [Cozaar] 50 mg PO DAILY 05/29/18 07/15/18 [place]-3/Dha/Epa/Fish Oil [Fish Oil 1 each PO BID 05/29/18 07/15/18 1,000 mg Softgel] buPROPion [Wellbutrin Sr] 150 mg PO DAILY 05/29/18 07/15/18 Ondansetron HCl [Zofran] 4 mg PO Q6HR PRN #20 tablet 07/04/18 07/15/18 oxyCODONE/ACET 5/325 [Percocet 5 1 - 2 tab PO Q4-6H PRN #30 tablet 07/04/18 07/15/18 mg/325 mg] - Allergies Allergies/Adverse Reactions: Allergies Allergy/AdvReac Type Severity Reaction Status Date / Time No Known Drug Allergies Allergy Verified 07/17/18 16:23 - Living Situation Living Situation: reports: With family Living Arrangement: reports: At home - Social History Does the pt smoke?: No Smoking Status: Never smoker Does the pt drink ETOH?: No Does the pt have substance abuse?: No - Immunizations Immunizations are current?: Yes - POLST Patient has POLST: No PD ED PE NORMAL - Vitals Vital signs reviewed: Yes - General General: Alert and oriented X 3, Well developed/nourished - HEENT HEENT: Pharynx benign - Neck Neck: Supple, no meningeal sign, No adenopathy, No JVD - Cardiac Cardiac: RRR, No murmur - Respiratory Respiratory: Clear bilaterally - Abdomen Abdomen: Normal bowel sounds, Soft, Non distended, No organomegaly - Rectal Rectal: Other (external normal. Small lump on digital c/w small hemorrhoid. Stool is brown and guiac negative. Trace of red on exam finger c/w hemorrhoid. ) - Derm Derm: Normal color, Warm and dry - Extremities Extremities: No tenderness to palpate, Normal ROM s pain - Neuro Neuro: Alert and oriented X 3, No motor deficit, Normal speech Eye Opening: Spontaneous Motor: Obeys Commands Verbal: Oriented GCS Score: 15 - Psych Psych: Normal mood Results - Vitals Vitals: Vital Signs - 24 hr 07/17/18 16:20 Temperature 36.0 C L Heart Rate 82 Respiratory 16 Rate Blood Pressure 91/45 L O2 Saturation 97 Oxygen O2 Source Room air Departure - Departure Disposition: Home, Self Care Clinical Impression: Generalized weakness Anemia Qualifiers: Anemia type: unspecified type Qualified Code(s): D64.9 - Anemia, unspecified Condition: Stable Record reviewed to determine appropriate education?: Yes Instructions: ED Anemia Type Not Specified Follow-Up: Justyn Saucedo MD [Primary Care Provider] - Comments: Continue usual medications. Drink lots of fluids. Follow-up with the [facility] as planned.
[2018-07-17] MEDS ORDERED: SODIUM CHLORIDE 0.9% 1,000 ML IV ONE (17:09)
[2018-07-17] MEDS ORDERED: ALPRAZolam 0.25 MG TABLET PO STA (20:41)
[2018-07-17] MEDS ORDERED: ACETAMINOPHEN 325 MG TABLET PO STA (21:51)
[2018-07-17 23:56] VITALS: BP 117/50
[2018-07-18 00:02] LABS: HGB - HEMOGLOBIN 7.6 g/dL (12.0-16.0)
== END 2018-07-18 01:00 | disposition home or self-care (01) ==
LOC: ED 16:07
DX: D64.9 Anemia, unspecified (principal); R53.1 Weakness; Z79.82 Long term (current) use of aspirin
CPT/HCPCS: 85014; 85018; 86850; 86900; 86901; 86920; 99284

== ENCOUNTER 2018-07-23 10:58 | Outpatient (CLI) | payer MEDICARE ==
--- NOTE | 2018-07-23 17:03 | CONSULTATION NOTE ---
Palliative Care Consultation - Referral Referring Provider: Dr. 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 She attributed it to advanced age, reports she had about 10 pound weight loss since onset. On CT scan and workup, was found to have an apple core mass of 6.0 x 2.9 cm as well as in follow-up PET/CT Scan 06/12 which showed large hyper metabolic mass in right lower quadrant of the abdomen consistent with known history of carcinoma. There were hypermetabolic lymph nodes in the chest and abdomen consistent with metastases. There were known pulmonary nodules, presumably metastatic. 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 Patient did have a liver biopsy 3. She has had a port placed, and is scheduled for paracentesis upcoming. The plan currently is for her to have FOLFOX6. She presented with severe anemia on 07/17, received 2 units of blood in the ED. Patient does understand she has s erious disease, and accepts treatment for palliative intent. On presentation, patient continues to complain of fairly severe right upper quadrant pain. She reports she is using 1-2 Percocet every 3-4 hours, with her most distressing symptom actually fatigue at 8/10. She reports she had been somewhat functional, though weak up to about 2 days ago. She did need the wheelchair to come in today. She does report mild shortness of breath, as well as depression and anxiety, and does perceive her quality of life is worsening. Palliative care consult to provide pain and symptom management as well as anticipatory guidance in the setting of Stage IV disease, with high symptom burden. 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 They have been taking turns staying with her. She does identify many friends and support in the community, but does live on a second story apartment with stairs, an then upstairs to her bedroom as well. Family History - Family History Family History: Mother: ( old age;heart dx; no cancer history), Father: Medications/Allergies - Medications Home Medications: Ambulatory Orders Medication Instructions Recorded Confirmed Alprazolam [Xanax] 0.25 mg PO TID PRN 05/29/18 07/22/18 Aspirin [Aspirin EC] 81 mg PO DAILY 05/29/18 07/22/18 Atenolol 25 mg PO DAILY 05/29/18 07/22/18 Calcium Carbonate [Tums (Calcium 500 mg PO PRN PRN 05/29/18 07/22/18 Carbonate 500mg)] Cyanocobalamin (Vitamin B-12) 1,000 mcg PO DAILY 05/29/18 07/22/18 [Vitamin B-12] Fluticasone/Salmeterol [Advair 1 inhaler PO BID 05/29/18 07/22/18 100-50 Diskus] Levothyroxine [Synthroid] 100 mcg PO DAILY 05/29/18 07/22/18 Losartan [Cozaar] 50 mg PO DAILY 05/29/18 07/22/18 [place]-3/Dha/Epa/Fish Oil [Fish Oil 1 each PO BID 05/29/18 07/22/18 1,000 mg Softgel] buPROPion [Wellbutrin Sr] 150 mg PO DAILY 05/29/18 07/22/18 Ondansetron HCl [Zofran] 4 mg PO Q6HR PRN #20 tablet 07/04/18 07/22/18 Dexamethasone 2 tab PO QDBREAKFAST #36 tablet 07/23/18 Prochlorperazine Maleate 10 mg PO Q6H PRN #30 tablet 07/23/18 [Compazine] fentaNYL 12 MCG PATCH [Duragesic 12 mcg TOP .Q3 DAYS MDD start 07/2407/25/18 07/25/18 12mcg patch] oxyCODONE [Roxicodone] 5 - 10 mg PO Q4HR PRN 07/25/18 07/25/18 - Allergies Allergies/Adverse Reactions: Allergies Allergy/AdvReac Type Severity Reaction Status Date / Time No Known Drug Allergies Allergy Verified 07/17/18 16:23 Review of Systems - Constitutional Constitutional: reports: Fatigue, Weakness, Poor appetite, Weight gain (Patient with weight gain the most likely related to ascites, does have some increased temporal and muscle wasting in her upper arms.). denies: Fever, Chills - Eyes Eyes: reports: Vision loss - Ears, Nose & Throat Ears, Nose & Throat: reports: Hearing loss (mild) - Cardiovascular Cardiovascular: reports: Exertional dyspnea, Decr. exercise tolerance - Respiratory Respiratory: reports: SOB with exertion. denies: Cough, Sputum production - Gastrointestinal Gastrointestinal: reports: Abdominal pain, Abdominal distention, Diarrhea (intermittent), Reflux/heartburn, Bloating, Poor appetite, Early satiety - Musculoskeletal Musculoskeletal: reports: Muscle weakness, Transfer issues (needed wheelchair yesterday and today secondary to weakness) - Integumentary Integumentary: reports: Dryness - Neurological Neurological: reports: General weakness, Memory problems (feels overwhelmed; difficulty tracking things; needs information written down) - Psychiatric Psychiatric: reports: Depression (Reports has history of depression, feels like she is doing okay right now. This was exacerbated by the of her 3 years ago. Denies any suicidality.), Anxiety - Endocrine Endocrine: reports: Hypothyroidism - Hematologic/Lymphatic Hematologic/Lymphatic: reports: Anemia (Patient on 07/17 WBC 25.2; hematocrit 23.5; 7.6 hemoglobin.). denies: Recurrent infections - All Other Systems All Other Systems: reports: Reviewed and negative Physical Exam - Vital Signs Temperature: 37.2 C Pulse Rate: 96 Respiratory Rate: 18 Blood Pressure: 110/57 - Physical Exam General Appearance: positive: Mild distress Eyes Bilateral: positive: Normal inspection Neck: positive: Trachea midline Cardiovascular: positive: Tachycardia Respiratory: positive: No respiratory distress, Diminished in bases. negative: Wheezes, Rales, Rhonchi Abdomen: positive: Abnml bowel sounds, Tenderness, Distended Skin: positive: Pallor, Dryness Extremities: positive: Pedal edema (1+ bilat) Neurologic/Psychiatric: positive: Oriented x3, Weakness, Depressed mood/affect, Flat affect Palliative Care - POLST Patient has POLST: Yes POLST Status: DNR, Comfort Measures Pain: Pain worsening, Location (right upper quadrant; radiating across abdomen) Tiredness/Fatigue: Severe (7-10) Drowsiness/Sedation: Severe (7-10) Nausea: Mild (1-3) Depression: Moderate (4-6) Anxiety: Moderate (4-6) Dyspnea: Moderate (4-6) Anorexia: Severe (7-10), Weight loss Sleep: Variable sleep pattern Constipation: No Feelings of wellbeing/Perceived Quality of Life: Poor, Worsening Performance Status: Patient has had declining functional status, does take a significant amount time to get up and get going. Everything needs to be paced secondary to her fatigue, pain, and weakness. She is unable to ambulate in the last 2 days, has needed the wheelchair. Is worried about how she is going to manage in her ap artment, is 1 flight up, and then again stairs to her bedroom where the shower is. - Palliative Care Discussion: Patient does recognize that she has very serious illness, she is hoping to get some reprieve as far as weeks to months. Her September 29 3 years ago, of a catastrophic stroke. She did take care of her at home with hospice, he had lasted about 7 or 8 days. They have been 55 years. This stays clear in her mind in the context of what is happening to herself and her family. She reports she has somewhat given this up as "God's plan for me". She says she will no when she is ready to quit. She does have a RUPALI ST with DNA R and comfort measures completed with Dr. Jean on 07-15-2018. As well as DPO A with Michelet Reyes [phone], and alteranative if unwillling or unable to serve stephanie [place] [phone]. Her directive also directs that she wants at near comfort care, not in a long term, and hospice until her . Results - Lab Results Lab results reviewed: Yes Lab and Imaging Results: Given patient's severe weakness, increased shortness of breath, and functional decline follow-up H&H was drawn with 8.6/26.5. Her WBC had dropped from 25.2 on 07/17-16.8. Patient denies dysuria, shortness of breath, or cough unclear etiology at this time. 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 She presents with high symptom burden of severe fatigue, functional decline, uncontrolled pain, anorexia, and generalized anxiety disorder. Palliative care to provide support regarding pain and symptom management, and anticipatory guidance. Recommendations/Counseling Done: 1. Anorexia. Patient reports early satiety, increased feeling of fullness, appears has having difficulty with food preparation. Denies nausea as part of it. Will revisit if needs to be on persistent Decadron, currently has some for post chemo, may have be assistance to patient longer term. 2. Pain of neoplastic origin. Patient with persistent and increasing pain, will initiate fentanyl 12 mcg patch, with oxycodone 1-2 tabs for breakthrough pain. This was reviewed with patient, regarding application, long-acting and short acting medications. This was written out for her. Prescriptions were provided for 12 mcg patch #10 and oxycodone 5 mg tabs 1-2 every 4 hours as needed for breakthrough pain #120. Patient to receive paracentesis, with goal to decrease discomfort. 3. Depression. Patient able to identify her high risk for recurrent depression, she does understand persistent depressive feelings. She reports currently now she is fluctuating, is feeling somewhat overwhelmed with the current process. But feeling grateful everything is moving so fast. Will reexplore and off for both medical palliative care social work coordinator as well as controls project engineer at next visit. 4. Advanced care planning. Patient does have DPOAE and RUPALI ST in place. Patient presents with poor prognostic factors, including high symptom burden, high tumor burden, and functional decline. We will continue to monitor and provide anticipatory guidance, at high risk for sequela of an event, fall, and/or hospitalization Time Spent: 60 minutes with greater than 50% of this done in counseling for pain and symptom management, setting rapport, and anticipatory guidance
== END 2018-07-23 10:59 | disposition home or self-care (01) ==
LOC: PC 10:58
PROVIDERS: ATTEND Nurse Practitioner Adult Health
DX: Z51.5 Encounter for palliative care (principal); R63.0 Anorexia; G89.3 Neoplasm related pain (acute) (chronic); C18.2 Malignant neoplasm of ascending colon; C78.7 Secondary malignant neoplasm of liver and intrahepatic bile duct; C77.8 Secondary and unspecified malignant neoplasm of lymph nodes of multiple regions; R91.8 Other nonspecific abnormal finding of lung field; F32.9 Major depressive disorder, single episode, unspecified; R06.02 Shortness of breath; F41.9 Anxiety disorder, unspecified; Z87.891 Personal history of nicotine dependence; Z79.82 Long term (current) use of aspirin; R18.8 Other ascites; R53.1 Weakness; Z66 Do not resuscitate
CPT/HCPCS: 99205

== ENCOUNTER 2018-07-28 10:36 | Emergency (ER) | payer MEDICARE ==
[2018-07-28 11:10] LABS: BASOPHILS % (AUTO) 0.6 %; EOSINOPHILS % (AUTO) 0.6 %; HGB - HEMOGLOBIN 9.4 g/dL (12.0-16.0); LYMPHOCYTES # (AUTO) 0.6 10^3/uL (1.5-3.5); MEAN CORPUSCULAR HEMOGLOBIN 26.4 pg (27.0-31.0); MEAN CORPUSCULAR HGB CONC 32.8 g/dL (32.0-36.0); MEAN CORPUSCULAR VOLUME 80.4 fL (81.0-99.0); MEAN PLATELET VOLUME 7.1 fL (7.9-10.8); MONOCYTES # (AUTO) 0.1 10^3/uL (0.0-1.0); MONOCYTES % (AUTO) 0.7 %; NEUTROPHILS # (AUTO) 7.3 10^3/uL (1.5-6.6); NEUTROPHILS % (AUTO) 91.1 %; PLT - PLATELET COUNT 635 10^3/uL (130-450); RED BLOOD COUNT 3.57 10^6/uL (4.20-5.40); RED CELL DISTRIBUTION WIDTH 21.5 % (12.0-15.0)
[2018-07-28 11:16] LABS: CALCIUM 8.1 mg/dL (8.5-10.3); CREATININE 0.6 mg/dL (0.4-1.0)
[2018-07-28 11:50] LABS: BILIRUBIN,URINE NEGATIVE (NEGATIVE); GLUCOSE, URINE (UA) NEGATIVE (NEGATIVE); KETONES,URINE (UA) NEGATIVE (NEGATIVE); LEUKOCYTE ESTERASE, URINE NEGATIVE (NEGATIVE); NITRITE,URINE NEGATIVE (NEGATIVE); OCCULT BLOOD,URINE TRACE-INTA (NEGATIVE); PROTEIN,URINE NEGATIVE (NEGATIVE); UROBILINOGEN,URINE 0.2 (NORMAL) E.U./dL (NORMAL)
[2018-07-28 11:51] LABS: CLARITY,URINE CLEAR (CLEAR)
--- NOTE | 2018-07-28 12:09 | ED Physician Documentation ---
History of Present Illness - Stated complaint Stated Complaint: WEAKNESS - Chief complaint Chief Complaint: Abd Pain - Additonal information Additional information: hx from pt 73 female reports she was from [facility] to ER for eval for possible SBO per EMR she was dx with metastatic cancer of large cell neuroendocrine origin about 1 m ago she had a liver bx 07/09 she had a port placed she was transfused 07/17 she was scheduled for paracentesis but no fluid per pt she had a Jen Gonzalez palliative care consult 07/24 she is DNR comfort care she is getting chemo she has only has small minimal BM with blood mucous for a few days and inc abd discomfort (though she also states her abd pain due to cancer is not new) pt denies fever and shaking chills no CP no cough no SOA no NV had dysuria but now better Review of Systems Constitutional: denies: Fever, Chills Cardiac: denies: Chest pain / pressure Respiratory: denies: Dyspnea, Cough GI: reports: Abdominal Pain, Constipation. 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) : None HEENT: Chronic vision loss, Chronic hearing loss Psych: Depression, Anxiety Musculoskeletal: Osteoporosis Derm: None - Past Surgical History Past Surgical History: Yes General: 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: Tubal ligation, Hysterectomy, Other (recent neg breast bx) HEENT: Cataracts, Tonsil/Adenoidectomy, Other - Present Medications Home Medications: Ambulatory Orders Medication Instructions Recorded Confirmed Alprazolam [Xanax] 0.25 mg PO TID PRN 05/29/18 07/22/18 Aspirin [Aspirin EC] 81 mg PO DAILY 05/29/18 07/22/18 Atenolol 25 mg PO DAILY 05/29/18 07/22/18 Calcium Carbonate [Tums (Calcium 500 mg PO PRN PRN 05/29/18 07/22/18 Carbonate 500mg)] Cyanocobalamin (Vitamin B-12) 1,000 mcg PO DAILY 05/29/18 07/22/18 [Vitamin B-12] Fluticasone/Salmeterol [Advair 1 inhaler PO BID 05/29/18 07/22/18 100-50 Diskus] Levothyroxine [Synthroid] 100 mcg PO DAILY 05/29/18 07/22/18 Losartan [Cozaar] 50 mg PO DAILY 05/29/18 07/22/18 [place]-3/Dha/Epa/Fish Oil [Fish Oil 1 each PO BID 05/29/18 07/22/18 1,000 mg Softgel] buPROPion [Wellbutrin Sr] 150 mg PO DAILY 05/29/18 07/22/18 Ondansetron HCl [Zofran] 4 mg PO Q6HR PRN #20 tablet 07/04/18 07/22/18 Dexamethasone 2 tab PO QDBREAKFAST #36 tablet 07/23/18 Prochlorperazine Maleate 10 mg PO Q6H PRN #30 tablet 07/23/18 [Compazine] fentaNYL 12 MCG PATCH [Duragesic 12 mcg TOP .Q3 DAYS MDD start 07/2407/25/18 07/25/18 12mcg patch] oxyCODONE [Roxicodone] 5 - 10 mg PO Q4HR PRN 07/25/18 07/25/18 Methylnaltrexone [place] [Relistor] 150 mg PO DAILY #30 tablet 07/28/18 Polyethylene Glycol 3350 [Miralax] 17 gm PO DAILY #60 packet 07/28/18 - Allergies Allergies/Adverse Reactions: Allergies Allergy/AdvReac Type Severity Reaction Status Date / Time No Known Drug Allergies Allergy Verified 07/28/18 10:49 - Social History Does the pt smoke?: No Smoking Status: Never smoker Does the pt drink ETOH?: No Does the pt have substance abuse?: No - Immunizations Immunizations are current?: Yes - POLST Patient has POLST: No PD ED PE NORMAL - Vitals Vital signs reviewed: Yes - General General: Alert and oriented X 3 - Cardiac Cardiac: RRR - Respiratory Respiratory: No respiratory distress - Abdomen Abdomen: Other (+ BS but dec, mod distension, TTP diffusely but mostly RLQ) - Derm Derm: Normal color - Neuro Neuro: Alert and oriented X 3 Results - Vitals Vitals: Vital Signs - 24 hr 07/28/18 07/28/18 10:47 12:32 Temperature 36.8 C 36.8 C Heart Rate 81 84 Respiratory 16 15 Rate Blood Pressure 130/45 L 142/61 H O2 Saturation 95 92 Oxygen O2 Source Room air - Labs Labs: Laboratory Tests 07/28/18 07/28/18 07/28/18 10:55 10:55 10:55 WBC 8.0 RBC 3.57 L Hgb 9.4 L Hct 28.7 L MCV 80.4 L MCH 26.4 L MCHC 32.8 RDW 21.5 H Plt Count 635 H MPV 7.1 L Neut # (Auto) 7.3 H Lymph # (Auto) 0.6 L [place] # (Auto) 0.1 Eos # (Auto) 0.0 Baso # (Auto) 0.0 Absolute Nucleated RBC 0.00 Nucleated RBC % 0.0 Sodium 134 L Potassium 3.6 Chloride 97 L Carbon Dioxide 28 Anion Gap 9.0 BUN 17 Creatinine 0.6 Estimated GFR (MDRD) 98 Glucose 110 H Calcium 8.1 L Troponin I < 0.04 Urine Color Urine Clarity Urine pH Ur Specific Reader Urine Protein Urine Glucose (UA) Urine Ketones Urine Occult Blood Urine Nitrite Urine Bilirubin Urine Urobilinogen Ur Leukocyte Esterase Ur Microscopic Review Urine Culture Comments 07/28/18 11:21 WBC RBC Hgb Hct MCV MCH MCHC RDW Plt Count MPV Neut # (Auto) Lymph # (Auto) [place] # (Auto) Eos # (Auto) Baso # (Auto) Absolute Nucleated RBC Nucleated RBC % Sodium Potassium Chloride Carbon Dioxide Anion Gap BUN Creatinine Estimated GFR (MDRD) Glucose Calcium Troponin I Urine Color YELLOW Urine Clarity CLEAR Urine pH 7.0 Ur Specific Reader 1.015 Urine Protein NEGATIVE Urine Glucose (UA) NEGATIVE Urine Ketones NEGATIVE Urine Occult Blood TRACE-INTA Urine Nitrite NEGATIVE Urine Bilirubin NEGATIVE Urine Urobilinogen 0.2 (NORMAL) Ur Leukocyte Esterase NEGATIVE Ur Microscopic Review NOT INDICATED Urine Culture Comments NOT INDICATED - Rads (name of study) CT AP Radiology: See rad report (see rad report - new pleural effusons, new pulm mets, prgression of hepatic disease, increased colon mass, increased omental mass, increased adenopathy, trace ascites - but no bowel osbtruction) Departure - Departure Disposition: 01 Home, Self Care Clinical Impression: Metastatic cancer Constipation Qualifiers: Constipation type: unspecified constipation type Qualified Code(s): K59.00 - Constipation, unspecified Condition: Good Instructions: ED Constipation Follow-Up: Justyn Saucedo MD [Primary Care Provider] - Park Jean MD [Physician No Access] - Prescriptions: Methylnaltrexone [place] [Relistor] 150 mg PO DAILY #30 tablet Polyethylene Glycol 3350 [Miralax] 17 gm PO DAILY #60 packet Comments: You were sent to the ER to evaluate for a bowel obstruction The CT does not show a bowel obstruction But the CT does show your cancer is spreading and worsening It is OK for you to go home for today I have prescribed medication to ease the constipation Start taking the relistor 150 once a day - the dose can be increased if needed to a max of 450 mg per day If not relief with the relistor, then you can add the miralax
--- NOTE | 2018-07-28 13:24 | CT Report ---
Reason: sent by MAC to eval for SBO Procedure Date: 07/28/2018 Accession Number: [id number] / [id number] Procedure: CT - Abdomen/Pelvis W/O CPT Code: FULL RESULT: EXAM: CT ABDOMEN AND PELVIS EXAM DATE: 07/28/2018 01:02 PM. CLINICAL HISTORY: Ascending colon mass diagnosed 05/27/2018. Abdominal distention. Limited bowel movements for the last several days. COMPARISONS: ABDOMEN/PELVIS W 05/27/2018 1:32 PM. TECHNIQUE: Routine helical CT imaging was performed through the abdomen and pelvis. IV contrast: None. Enteric contrast: Oral contrast. Reconstructions: Coronal and sagittal. In accordance with CT protocol optimization, one or more of the following dose reduction techniques were utilized for this exam: automated exposure control, adjustment of mA and/or KV based on patient size, or use of iterative reconstructive technique. FINDINGS: Lung Bases: Interval development of multiple 1.5 cm and smaller non-cavitating lung lesions bilaterally. New moderate right and small left pleural effusions. Liver: Numerous 4 cm and smaller aggressive ill-defined low densities throughout the normal-caliber liver. Index lesion left lobe axial image 15 series 3 currently measures 4.0 x 2.4 cm, previously 1.5 x 1.3 cm. Gallbladder/Bile Ducts: Unremarkable. Spleen: Normal. Pancreas: Normal. Adrenal Glands: Normal. Kidneys: Normal. No masses or hydronephrosis. Peritoneal Cavity/Bowel: Interval development of a small amount of free fluid. No free air. Marked interval increase in the retroperitoneal and mesenteric adenopathy. Oral contrast extends through to the rectum. Increasing caliber of an aggressive poorly defined mass proximal ascending colon immediately superior to the level of the ileocecal valve, difficult to measure, roughly 10 x 7.3 x 6.7 cm. Increasing satellite nodules in the adjacent mesentery and antimesenteric soft tissues. Increasing number and caliber of multiple omental masses, greatest right lower quadrant. Appendix not visualized. No free air. Pelvic Organs: New small amount of free pelvic fluid. No stones in the small caliber urinary bladder. Hysterectomy. No adnexal mass lesions. Vasculature: No aneurysms or other significant abnormality. Bones: No bony metastatic disease. Tarlov cyst left S1. Other: None. IMPRESSION: 1. New moderate right and small left pleural effusions. 2. New pulmonary metastases. Please note that septic emboli also included in the differential. 3. Progression of hepatic metastatic disease. 4. Increasing caliber of a large invasive ascending colon mass lesion with increasing satellite masses. 5. No bowel obstruction. 6. Increasing malignant appearing omental masses, retroperitoneal and mesenteric adenopathy. 7. Small amount of ascites. RADIA
[2018-07-28 15:26] VITALS: BP 146/62
== END 2018-07-28 15:24 | disposition home or self-care (01) ==
LOC: ED 10:36
DX: C7A.8 Other malignant neuroendocrine tumors (principal); C7B.8 Other secondary neuroendocrine tumors; K59.00 Constipation, unspecified; E78.00 Pure hypercholesterolemia, unspecified; E03.9 Hypothyroidism, unspecified; Z79.82 Long term (current) use of aspirin
CPT/HCPCS: 36415; 74176; 80048; 81001; 81003; 84484; 85025; 87086; 99283

== ENCOUNTER 2018-07-30 14:00 | Outpatient (CLI) | payer MEDICARE ==
--- NOTE | 2018-07-30 19:39 | CONSULTATION NOTE ---
Palliative Care Follow Up - Referral Referring Provider: Dr. Opal Jean Time of Visit: [id number] Referral setting: Home (Patient is seen in her home setting to facilitate family conference, daughter was at work unfortunately. 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 Palliative care met with her last week to initiate more aggressive pain management, with fentanyl 12 mcg patch and oxycodone for breakthrough pain. She was seen on 07/28/18 in the ED for concerns about constipation, weakness, and feeling poorly. At that point in time they had repeated a CT of the abdomen showing new pleural effusions, new pulmonary metastases, progression of her hepatic disease and increased colon and omental mass. She did not at that point in time have a bowel obstruction, she is continued to eat and drink, though she does have a anorexia, and her bowels move this morning. Patient received her first chemotherapy on 07/23, she is on modified FOLFOX6. She remains anemic, she is unable to get paracentesis as there is not enough ascitic fluid, it is mostly tumor burden. She reports her pain is improved somewhat, though she still needing oxycodone 5 mg every 3-4 hours. She is feeling overwhelmed with the news of progressive disease, and continues to struggle with adequate fluid and calorie intake. Social History - Living Situation Living arrangement: At home Living Situation: With family (lives with daughter and MARIA L in their home, for about a year. It is a two story townhouse with stairs up to main level and then again to her room. Her grandson and his are moving up to [place], and will be living at home short term anyway.) Medications/Allergies - Medications Home Medications: Ambulatory Orders Medication Instructions Recorded Confirmed Alprazolam [Xanax] 0.25 mg PO TID PRN 05/29/18 07/30/18 Aspirin [Aspirin EC] 81 mg PO DAILY 05/29/18 07/30/18 Atenolol 25 mg PO DAILY 05/29/18 07/30/18 Calcium Carbonate [Tums (Calcium 500 mg PO PRN PRN 05/29/18 07/30/18 Carbonate 500mg)] Cyanocobalamin (Vitamin B-12) 1,000 mcg PO DAILY 05/29/18 07/30/18 [Vitamin B-12] Fluticasone/Salmeterol [Advair 1 inhaler PO BID 05/29/18 07/30/18 100-50 Diskus] Levothyroxine [Synthroid] 100 mcg PO DAILY 05/29/18 07/30/18 [place]-3/Dha/Epa/Fish Oil [Fish Oil 1 each PO BID 05/29/18 07/30/18 1,000 mg Softgel] buPROPion [Wellbutrin Sr] 150 mg PO DAILY 05/29/18 07/30/18 Ondansetron HCl [Zofran] 4 mg PO Q6HR PRN #20 tablet 07/04/18 07/30/18 Dexamethasone 2 tab PO QDBREAKFAST #36 tablet 07/23/18 07/30/18 Prochlorperazine Maleate 10 mg PO Q6H PRN #30 tablet 07/23/18 07/30/18 [Compazine] fentaNYL 12 MCG PATCH [Duragesic 25 mcg TOP .Q3 DAYS MDD start 07/2407/25/18 07/30/18 12mcg patch] oxyCODONE [Roxicodone] 5 - 10 mg PO Q4HR PRN 07/25/18 07/30/18 Polyethylene Glycol 3350 [Miralax] 17 gm PO DAILY #60 packet 07/28/18 07/30/18 - Allergies Allergies/Adverse Reactions: Allergies Allergy/AdvReac Type Severity Reaction Status Date / Time No Known Drug Allergies Allergy Verified 07/28/18 10:49 Review of Systems - Constitutional Constitutional: reports: Fatigue, Weakness, Poor appetite, Weight loss. denies: Fever - Eyes Eyes: reports: Vision loss, Corrective lenses - Ears, Nose & Throat Ears, Nose & Throat: reports: Dry mouth - Cardiovascular Cardiovascular: reports: Edema, Exertional dyspnea, Decr. exercise tolerance. denies: Chest pain - Respiratory Respiratory: reports: Cough, SOB with exertion. denies: Wheezing, SOB at rest - Gastrointestinal Gastrointestinal: reports: Abdominal pain, Abdominal distention, Constipation, Bloating, Poor appetite, Early satiety. denies: Nausea - Genitourinary Genitourinary: denies: Incontinence - Musculoskeletal Musculoskeletal: reports: Muscle aches, Stiffness, Limited range of motion, Muscle weakness - Integumentary Integumentary: reports: Dryness - Neurological Neurological: reports: General weakness, Dizziness, Memory problems (with medications at times STM issues) - Psychiatric Psychiatric: reports: Depression, Anxiety - Endocrine Endocrine: reports: Hypothyroidism - Hematologic/Lymphatic Hematologic/Lymphatic: reports: Anemia - All Other Systems All Other Systems: reports: Reviewed and negative Physical Exam - Vital Signs Temperature: 98.0 C Pulse Rate: 73 Respiratory Rate: 18 O2 Saturation: 92 (ra @ rest) Blood Pressure: 120/58 - Physical Exam General Appearance: positive: Moderate distress, Anxious Eyes Bilateral: positive: Normal inspection ENT: negative: Pharyngeal erythema Neck: positive: No JVD, Trachea midline Cardiovascular: positive: Regular rate & rhythm Respiratory: positive: Diminished in bases. negative: Wheezes, Rales, Rhonchi Abdomen: positive: Nml bowel sounds, Tenderness, Distended, Other (firm; no fluid wave) Skin: positive: Pallor, Dryness Extremities: positive: Pedal edema (1-2+ up to knees) Neurologic/Psychiatric: positive: Oriented x3, Weakness, Depressed mood/affect, Flat affect Palliative Care - POLST Patient has POLST: Yes POLST Status: DNR, Comfort Measures Pain: Pain worsening, Location (right lower quadrant; radiating through groin. Some improvement with Fentanyl 12 mcg patch, but still needing oxycodone 5 mg every 4 hours 5-6 tab=30 mg oxycodone=45 Morphine equivalents.) Tiredness/Fatigue: Severe (7-10) Drowsiness/Sedation: Mild (1-3) Nausea: Mild (1-3) Depression: Moderate (4-6) Anxiety: Severe (7-10) Dyspnea: Moderate (4-6) Anorexia: Moderate (4-6), Weight loss Sleep: Sleeps well Constipation: Yes, Opoid induced, Unmanaged (Patient reports she had been passing hard pellets, had not been taking any of the bowel meds. Still had not picked up senna, nor the prescription of Relistor. She has [employer] insurance, reviewed most likely not paid for, recommended initiating senna first. She reports she had some fresh fruit this morning, and had loose bowels with relief of abdominal discomfort of constipation.) Feelings of wellbeing/Perceived Quality of Life: Poor, Worsening Performance Status: Patient is able to ambulate short distances, she is mostly spending time in her bedroom. They are looking at a lift track system for the stairways. She has poor activity tolerance, she is able currently to attend to her ADLs. - Palliative Care Discussion: Patient quite tearful through visit, was overwhelmed with the news her disease is progressing so quickly. She had not shared this information with her daughter, unclear how to even sit with it. We did have a long discussion given the context I had followed up with Dr. Jean her oncologist. It would be not unusual to see progressive disease given the seriousness of her cancer, and it is too soon to measure or predict response to her current chemo, she had only had 5 days previously. She does understand, though feeling quite overwhelmed, regarding her cancer. She expresses struggle, and uses her luis for coping "I need to be okay with God's plan". She has had multiple life changes over the last few years with her 's , including moving in with her daughter this last year. She has been very active and involved both physically going to [employer] exercises, and in the community with her spiritual "group" of friends. She feels like things are changing fairly quickly and difficult keeping up with this emotionally. 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 She continues with high symptom burden of fatigue, functional decline, pain, anorexia, and generalized anxiety disorder. Palliative care to provide support for pain and symptom management and anticipatory guidance. Recommendations/Counseling Done: 1.Pain of neoplastic origin. We have made some progress, but pain is still uncontrolled. Will increase fentanyl patch to 25 mcg patch. Instructed to put 212 mcg patches on tomorrow, and obtain prescription. Will use a 12 mcg patches later to titrate. Counseling provided again regarding using oxycodone 5 mg tablets for breakthrough pain, goals to decrease need to 2-3 tabs a day at most. Patient able to verbalize these instructions back. Her daughter is assisting her with patch application. 2. Constipation. Patient having difficulty following through, this point of the barriers is concerned regarding incontinence. She does have difficulty taking the MiraLAX given the volume of the water, did instruct can put in 4 ounces. Written instructions again to hot die picker senna, and start 1-2 tabs twice daily. Not to stop if has a bowel movement, but hold only for loose stools. 3. Anorexia. Patient continues to report early satiety, does have nutritional shakes in the house. Kitchen is downstairs from bedroom. Reviewed need to have food more readily available, small frequent meals through the day. Patient is attempting to push fluids to stay hydrated. 4. Depression. Patient is feeling overwhelmed with her current news, we did discuss in the context of expected disease progression, timing of scans to measu re response from chemotherapy. Patient currently still interested as far as her goals in pursuing chemotherapy and extending her quantity of life, hoping for improved quality as well. Agreed to medical palliative care social science instructor for counseling, given the aggressive nature of her disease, would suggest getting up there as soon as possible. Counseling provided to normalize current grief and loss feelings. 5. Advanced care planning. Patient does have DPO AA and RUPALI ST in place. Patient does present with poor prognostic factors, including high symptom burden, high tumor burden, and functional decline. Did initiate conversation as patient has had experience with her with hospice. Answered patient's questions that she is initiated the conversation. We will continue to monitor provide anticipatory guidance, remains at high risk for sequela of an event, fall, and/or/hospitalization. Patient's goals currently are continue to pursue palliative interventions to treat reversible conditions. Time Spent: 60 minutes with greater than 50% of this done in counseling regarding pain and symptom management, addressing depression, anticipatory guidance.
== END 2018-07-30 14:01 | disposition home or self-care (01) ==
LOC: PC 14:00
PROVIDERS: ATTEND Nurse Practitioner Adult Health
DX: Z51.5 Encounter for palliative care (principal); G89.3 Neoplasm related pain (acute) (chronic); C7A.8 Other malignant neuroendocrine tumors; C18.2 Malignant neoplasm of ascending colon; C78.7 Secondary malignant neoplasm of liver and intrahepatic bile duct; K59.03 Drug induced constipation; T40.2X5A Adverse effect of other opioids, initial encounter; R63.0 Anorexia; F32.9 Major depressive disorder, single episode, unspecified; C78.00 Secondary malignant neoplasm of unspecified lung; Z79.899 Other long term (current) drug therapy; Z79.82 Long term (current) use of aspirin; F41.9 Anxiety disorder, unspecified; Z91.14 Patient's other noncompliance with medication regimen; Z66 Do not resuscitate
CPT/HCPCS: 99350

== ENCOUNTER 2018-08-04 16:54 | Outpatient (CLI) | payer MEDICARE | END 2018-08-04 16:55 | disposition critical access hospital (66) | LOC: EMS 16:54 | PROVIDERS: ATTEND Surgery | DX: R53.1 Weakness (principal); R41.82 Altered mental status, unspecified | CPT/HCPCS: A0425; A0429 ==

== ENCOUNTER 2018-08-04 17:08 | Inpatient (IN) | payer MEDICARE ==
--- NOTE | 2018-08-04 17:21 | ED Physician Documentation ---
PD HPI ALTERED MENTAL STATUS - Stated complaint Stated Complaint: NEAR SYNCOPE - Chief complaint Chief Complaint: Neuro - History obtained from History obtained from: Patient, EMS - History of Present Illness Timing - onset: How many days ago (The patient has a general weakness, fatigue, difficulty walking and no appetite for the last 2 weeks since chemotherapy but the last few days in particular. She has not had any fevers cough or cold type symptoms. She was found by her daughter slumped on the floor awake but unable to get up today. She denied any injury from from it.) Timing - details: Gradual onset, Still present Quality / character: Less responsive, Other (general weakness) Associated symptoms: NVD, General weakness. No: Fever, Headache, Dyspnea, Cough Contributing factors: New medication (chemotherapy 13 days ago). No: Anticoagulated, Diabetic, Recent med change Basline status: Alert and oriented X 3, Ambulatory Similar symptoms before: Has not had sx before Recently seen: [place] [place] 13 [place], with general weakness and poor intake subsequently. Is due for Chemo again tomorrow.) Review of Systems Constitutional: denies: Fever Nose: denies: Rhinorrhea / runny nose, Congestion Throat: denies: Sore throat Cardiac: denies: Chest pain / pressure, Palpitations Respiratory: denies: Cough GI: reports: Nausea, Vomiting, Other (poor intake). denies: Abdominal Pain, Diarrhea, Bloody / black stool : denies: Dysuria, Frequency Skin: denies: Abrasion (s), Laceration (s) Neurologic: reports: Generalized weakness, Near syncope, Confused (for couple of weeks). 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 UTILITY: Tubal ligation, Hysterectomy, Other (recent neg breast bx) HEENT: Cataracts, Tonsil/Adenoidectomy, Other - Present Medications Home Medications: Ambulatory Orders Medication Instructions Recorded Confirmed Alprazolam [Xanax] 0.25 mg PO TID PRN 05/29/18 08/04/18 Aspirin [Aspirin EC] 81 mg PO DAILY 05/29/18 07/30/18 Atenolol 25 mg PO DAILY 05/29/18 08/04/18 Levothyroxine [Synthroid] 100 mcg PO DAILY 05/29/18 08/04/18 [place]-3/Dha/Epa/Fish Oil [Fish Oil 1 each PO BID 05/29/18 07/30/18 1,000 mg Softgel] buPROPion [Wellbutrin Sr] 150 mg PO DAILY 05/29/18 08/04/18 Ondansetron HCl [Zofran] 4 mg PO Q6HR PRN #20 tablet 07/04/18 08/04/18 Prochlorperazine Maleate 10 mg PO Q6H PRN #30 tablet 07/23/18 08/04/18 [Compazine] fentaNYL 12 MCG PATCH [Duragesic 25 mcg TOP .Q3 DAYS MDD start 07/2407/25/18 08/04/18 12mcg patch] oxyCODONE [Roxicodone] 5 - 10 mg PO Q4HR PRN 07/25/18 08/04/18 Polyethylene Glycol 3350 [Miralax] 17 gm PO DAILY #60 packet 07/28/18 07/30/18 - Allergies Allergies/Adverse Reactions: Allergies Allergy/AdvReac Type Severity Reaction Status Date / Time No Known Drug Allergies Allergy Verified 08/04/18 17:15 - Social History Does the pt smoke?: No Smoking Status: Never smoker Does the pt drink ETOH?: No Does the pt have substance abuse?: No - Immunizations Immunizations are current?: Yes - POLST Patient has POLST: Yes PD ED PE NORMAL - Vitals Vital signs reviewed: Yes - General General: Alert and oriented X 3, Well developed/nourished, Other (pale color) - HEENT HEENT: Pharynx benign. No: Moist mucous membranes - Neck Neck: Supple, no meningeal sign, No adenopathy - Cardiac Cardiac: RRR (tachycardic), No murmur - Respiratory Respiratory: Clear bilaterally - Abdomen Abdomen: Soft, Non tender - Female Female : Deferred - Rectal Rectal: Deferred - Back Back: No CVA TTP - Derm Derm: Warm and dry. No: Normal color (pale) - Extremities Extremities: No tenderness to palpate, Normal ROM s pain, No calf tenderness / cord, Other (2+ edema in both legs) - Neuro Neuro: Alert and oriented X 3, No motor deficit, Normal speech Eye Opening: Spontaneous Motor: Obeys Commands Verbal: Oriented GCS Score: 15 Results - Vitals Vitals: Vital Signs - 24 hr 08/04/18 17:10 Temperature 37.5 C Heart Rate 101 H Respiratory 20 Rate Blood Pressure 107/51 L O2 Saturation 94 Oxygen O2 Source Room air - Labs Labs: Laboratory Tests 08/04/18 08/04/18 08/04/18 18:20 18:20 18:20 WBC 1.6 L* RBC 2.73 L Hgb 7.0 L* Hct 21.7 L MCV 79.7 L MCH 25.9 L MCHC 32.4 RDW 23.0 H Plt Count 288 MPV 7.4 L Neut # (Auto) Not Reportable Lymph # (Auto) Not Reportable [place] # (Auto) Not Reportable Eos # (Auto) Not Reportable Baso # (Auto) Not Reportable Absolute Nucleated RBC Not Reportable Total Counted 100 Band Neuts % (Manual) 7 Abnorm Lymph % (Manual) 0 Nucleated RBC % Not Reportable Neutrophils # (Manual) 0.3 L* Lymphocytes # (Manual) 0.8 L Monocytes # (Manual) 0.5 Eosinophils # (Manual) 0.0 Basophils # (Manual) 0.0 Differential Comment MANUAL DIFFERENTIAL Manual Slide Review Indicated WBC Morphology TOXIC GRANULATION Platelet Estimate NORMAL (130-450,000) Platelet Morphology NORMAL APPEARANCE RBC Morph Micro Appear 1+ POLYCHROMASIA Sodium 129 L Potassium 2.9 L Chloride 91 L Carbon Dioxide 28 Anion Gap 10.0 BUN 18 Creatinine 1.1 H Estimated GFR (MDRD) 49 L Glucose 102 H Lactic Acid 0.8 Calcium 7.6 L Magnesium 1.6 L Total Bilirubin 0.8 AST 31 ALT 20 Alkaline Phosphatase 71 Total Protein 5.3 L Albumin 1.9 L Globulin 3.4 Albumin/Globulin Ratio 0.6 L Lipase 16 L Ethyl Alcohol < 5.0 - Rads (name of study) chest xray Radiology: Prelim report reviewed (infiltrates in lower lobes) head CT Radiology: Prelim report reviewed, Discussed with rads (no bleed. There is Right frontal mass with slight mass-effect consistent with metastatic brain tumor.) PD MEDICAL DECISION MAKING - ED course Complexity details: reviewed results (There are some infiltrative lesions on the chest x-ray which most likely represent the known lung metastases. There is not have obvious pneumonia type symptoms. There is a newly found brain metastasis on CT scan. There is no signs of intracranial bleeding from the fall. She has had a low blood count as well as white count. Her electrolytes are off with a low potassium as well as magnesium. She does appear dehydrated. These are all new findings on lab for her. We will give her IV fluids as well as electrolyte replacement. I asked her about blood transfusion and she is agreeable and will give her a unit of blood. I think she needs continued treatment with these beyond the typical ER timeframe and so I talked to the hospitalist for ongoing treatment. The patient is due for chemotherapy tomorrow and hospitalist can consult with oncology at the [facility] to see if that is an appropriate treatment. I talked with the patient and her daughter about their goals of care and they are both aware that her cancer is not curative and the current chemotherapy is to try to reduce tumor burden in a palliative way.), d/w patient, d/w family (The family and the patient are aware of her metastatic cancer and the goals of chemotherapy began symptomatic and palliative and not curative. She has a pulsed which directs comfort measures. At this point I think her symptoms are related to dehydration, electrolyte disorder, anemia and effects of chemotherapy. She is scheduled for chemotherapy tomorrow. However she still has general weakness and several abnormalities on blood tests. I think her goal of comfort and to keep her from having more falls can be achieved with overnight hospitalization with continued IV fluids and correction of the electrolyte abnormality and likely transfusion of a unit of blood. The family and patient are in line with this goal of treatment. They can follow-up with oncology tomorrow as was planned for here at [facility].) Departure - Departure Disposition: 66 [facility] DC/Xfer Clinical Impression: Generalized weakness, Electrolyte and fluid disorder, Dehydration, Colon cancer metastasized to multiple sites, Near syncope Anemia Qualifiers: Anemia type: other cause Other causes of anemia: antineoplastic chemotherapy Qualified Code(s): D64.81 - Anemia due to antineoplastic chemotherapy Condition: Stable Record reviewed to determine appropriate education?: Yes
[2018-08-04] MEDS ORDERED: SODIUM CHLORIDE 0.9% 1,000 ML IV ONE (17:44)
--- NOTE | 2018-08-04 18:19 | XRAY Report ---
Reason: near syncope today Procedure Date: 08/04/2018 Accession Number: [id number] / [id number] Procedure: XR - Chest 1 View X-Ray CPT Code: 78482 FULL RESULT: EXAM: CHEST RADIOGRAPHY EXAM DATE: 08/04/2018 05:55 PM. CLINICAL HISTORY: Near syncope today. COMPARISON: CHEST 1 VIEW 07/07/2018 2:30 PM CHEST W/ 05/30/2018 9:33 AM. TECHNIQUE: 1 view. FINDINGS: Lungs/Pleura: Bronchial wall thickening noted. Patchy densities present at the right lung base. No large effusions or pneumothorax. Mediastinum: Stable cardiomediastinal silhouette. Left sided port terminates in the lower SVC. Other: None. IMPRESSION: 1. Patchy bilateral lobe opacities. 2. No effusions or pneumothorax. 3. Stable port. RADIA
--- NOTE | 2018-08-04 18:37 | CT Report ---
Reason: near syncope; altered mentation today Procedure Date: 08/04/2018 Accession Number: [id number] / [id number] Procedure: CT - Head W/O CPT Code: FULL RESULT: EXAM: CT HEAD EXAM DATE: 08/04/2018 05:58 PM. CLINICAL HISTORY: Near syncope; altered mentation today. COMPARISON: CHEST 1 VIEW 08/04/2018 5:45 PM. TECHNIQUE: Multiaxial CT images were obtained from the foramen magnum to the vertex. Reformats: Sagittal and coronal. IV contrast: None. In accordance with CT protocol optimization, one or more of the following dose reduction techniques were utilized for this exam: automated exposure control, adjustment of mA and/or KV based on patient size, or use of iterative reconstructive technique. FINDINGS: Parenchyma: No intraparenchymal hemorrhage. No evidence of midline shift or CT findings of acute infarction. Martines-white differentiation is distinct. Diffuse chronic microangiopathic white matter changes are evident. 3 cm hypodense region in the right frontal lobe, image 3, 23. No midline shift or parenchymal hemorrhage. Potentially, this could be expansile raising the possibility for an underlying mass. Extraaxial Spaces: Normal for age. No subdural or epidural collections identified. Ventricles: The ventricles and cortical sulci are enlarged, consistent with age-related tissue loss. Sinuses and orbits: Imaged paranasal sinuses, orbits, and mastoids show no significant abnormality. Bones: No evidence of fracture or calvarial defect. Other: Status post bilateral cataract procedures. IMPRESSION: 1. Possible expansile right frontal lesion measuring 3 cm. Recommend MRI with and without contrast for definitive characterization. Subacute infarct would also be on the differential. 2. No midline shift. RADIA The above findings were discussed with Grabiel Shipley by Dr. Sylvie Jacques at 18:36 hrs on 08/04/18.
[2018-08-04 18:40] LABS: BASOPHILS % (AUTO) 1.2 %; EOSINOPHILS % (AUTO) 0.9 %; MEAN CORPUSCULAR HEMOGLOBIN 25.9 pg (27.0-31.0); MEAN CORPUSCULAR HGB CONC 32.4 g/dL (32.0-36.0); MEAN CORPUSCULAR VOLUME 79.7 fL (81.0-99.0); MEAN PLATELET VOLUME 7.4 fL (7.9-10.8); MONOCYTES % (AUTO) 40.4 %; NEUTROPHILS % (AUTO) 20.5 %; PLT - PLATELET COUNT 288 10^3/uL (130-450); RED BLOOD COUNT 2.73 10^6/uL (4.20-5.40)
[2018-08-04 18:43] LABS: ALBUMIN 1.9 g/dL (3.2-5.5); ALBUMIN/GLOBULIN RATIO 0.6 (1.0-2.2); ALKALINE PHOSPHATASE 71 IU/L (42-121); ALT ALANINE AMINOTRANSFERASE 20 IU/L (10-60); AST ASPARTATE AMINOTRANSFERASE 31 IU/L (10-42); BILIRUBIN,TOTAL 0.8 mg/dL (0.2-1.0); BUN - BLOOD UREA NITROGEN 18 mg/dL (6-20); CALCIUM 7.6 mg/dL (8.5-10.3); CARBON DIOXIDE - CO2 28 mmol/L (21-32); CHLORIDE 91 mmol/L (101-111); CREATININE 1.1 mg/dL (0.4-1.0); GFR - MDRD 49 (>89); GLUCOSE 102 mg/dL (70-100); LIPASE 16 U/L (22-51); MAGNESIUM 1.6 mg/dL (1.7-2.8); SODIUM 129 mmol/L (135-145); TOTAL PROTEIN 5.3 g/dL (6.7-8.2)
[2018-08-04 18:44] LABS: WHITE BLOOD COUNT 1.6 x10^3/uL (4.8-10.8)
[2018-08-04 18:46] LABS: ABNORMAL LYMPHS % (MANUAL) 0 %
[2018-08-04 19:07] LABS: BAND NEUTROPHILS % (MANUAL) 7 %; BASOPHILS % (MANUAL) 1 %; LYMPHOCYTES # (MANUAL) 0.8 10^3/uL (1.5-3.5); LYMPHOCYTES % (MANUAL) 50 %; MONOCYTES # (MANUAL) 0.5 10^3/uL (0.0-1.0); NEUTROPHILS % (MANUAL) 9 %
[2018-08-04] MEDS ORDERED: DEXAMETHASONE 10 MG/ML VIAL IVP STA (19:07)
[2018-08-04] MEDS ORDERED: ONDANSETRON 4 MG/2 ML VIAL IVP STA (19:07)
[2018-08-04] MEDS ORDERED: POTASSIUM CHLOR 10 MEQ/100 ML 10 MEQ/100 ML BAG IV ONE (19:07)
[2018-08-04] MEDS ORDERED: MAGNESIUM SULFATE 2 GRAM 2 GM/50 ML BAG IV ONE (19:07)
[2018-08-04 19:08] LABS: NEUTROPHILS # (MANUAL) 0.3 10^3/uL (1.5-6.6); PLATELET ESTIMATE, MANUAL NORMAL (130-450,000) (NORMAL); PLATELET MORPHOLOGY NORMAL APPEARANCE (NORMAL)
[2018-08-04 19:09] LABS: DIFFERENTIAL COMMENT MANUAL DIFFERENTIAL
[2018-08-04] MEDS ORDERED: MORPHINE 2 MG/ML CARPUJECT IVP PRN (20:12)
[2018-08-04] MEDS ORDERED: ACETAMINOPHEN 325 MG TABLET PO PRN (20:12)
[2018-08-04] MEDS ORDERED: oxyCODONE 5 MG TABLET PO PRN (20:26)
[2018-08-04] MEDS ORDERED: SODIUM CHLORIDE 0.9% 500 ML IV ONE (20:34)
[2018-08-04] MEDS: D5NS W/20 MEQ KCL 1,000 ML IV SCH (21:20)
[2018-08-04] MEDS: fentaNYL 25 MCG PATCH TOP SCH (21:50)
[2018-08-04 22:53] LABS: BILIRUBIN,URINE NEGATIVE (NEGATIVE); GLUCOSE, URINE (UA) NEGATIVE (NEGATIVE); KETONES,URINE (UA) NEGATIVE (NEGATIVE); LEUKOCYTE ESTERASE, URINE NEGATIVE (NEGATIVE); NITRITE,URINE NEGATIVE (NEGATIVE); OCCULT BLOOD,URINE TRACE-LYSE (NEGATIVE); PROTEIN,URINE NEGATIVE (NEGATIVE); UROBILINOGEN,URINE 0.2 (NORMAL) E.U./dL (NORMAL)
[2018-08-04 22:54] LABS: CLARITY,URINE CLEAR (CLEAR)
--- NOTE | 2018-08-05 00:39 | HISTORY & PHYSICAL EXAMINATION ---
DATE OF SERVICE: 08/04/2018 Physician: Talia Casanova MD HISTORY OF PRESENT ILLNESS: This is a 73-year-old white female with a history of colon cancer with metastasis to the lung and liver who underwent her first course of chemotherapy 13 days ago at the [facility] here. She is followed by Dr. Jean. The patient has not had blood tests in the 13 days. She is scheduled to have lab tests, doctor's visit and chemotherapy again tomorrow. Over the last several days, she has been veru weak. Over the last several weeks, she has been anorexic, hardly drinks any liquids, and eats very little, like a fruit cup for an entire meal. She lives with her daughter. This morning, the daughter went to find her mother and found her slumped against the door of the bathroom, was able to pry the door open to get in and then called an ambulance. The patient was extremely weak, awake and communicating but could not describe how she ended up on the floor. In the emergency room, she was also foggy and appeared very fatigued. The workup in the emergency room included a head CT because of the marked weakness and change in mentation, and this found a new brain mass, which is probably a metastasis. The patient was also found to have hyponatremia with a sodium of 129, hypokalemia with a potassium of 2.9, a chest x-ray that shows bilateral lung infiltrates, and also marked neutropenia with an absolute neutrophil count of 300. The patient is being admitted for management of all of the above. PAST MEDICAL HISTORY 1. 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 2. Chronic vision and hearing loss. 3. COPD. 4. Hypothyroidism. 5. GERD. 6. Depression and anxiety. 7. DJD. 8. Elevated cholesterol. PAST SURGICAL HISTORY 1. Colonoscopy. 2. Tubal ligation. 3. Hysterectomy. 4. Tonsils and adenoids removed 5. Cataract surgery ALLERGIES: NONE. MEDICATIONS 1. Alprazolam 0.25 mg t.i.d. p.r.n. anxiety. 2. Baby aspirin daily. 3. Atenolol 25 mg daily. 4. Synthroid 100 mcg daily. 5. [place]-3 fish oil capsule b.i.d. 6. Wellbutrin SR 100 mg daily. 7. Zofran p.r.n. 8. Compazine p.r.n. 9. Duragesic patch every 3 days topically. 10. Roxicodone p.r.n. 11. MiraLax daily. FAMILY HISTORY: No inherited diseases. SOCIAL HISTORY: The patient is a nonsmoker who never smoked, drinks no alcohol, uses no illicit drugs. REVIEW OF SYSTEMS: A comprehensive review of systems was performed by speaking to the daughter and from chart review, and the pertinent positives are in the HPI; the rest are negative. PHYSICAL EXAMINATION GENERAL: Pale and fatigued white female. She is supine in bed sleeping. She awakens to her name. She is appropriate, oriented x3. VITAL SIGNS: Current Blood pressure 119/40 with pulse of 84 in sinus rhythm, but in the ER blood pressure was 107/51 with a pulse of 101. She has had no fever, and room air saturation is 94%. HEENT: Mouth reveals severe mucous membrane dryness, otherwise unremarkable. NECK: No JVD or carotid bruits. CHEST: Clear. HEART: Heart sounds normal. No murmur. No RV heave. ABDOMEN: Soft, nontender. No organomegaly. Normal bowel sounds. EXTREMITIES: No clubbing, cyanosis or edema. NEUROLOGIC: Lethargic but otherwise grossly intact. LABORATORY DATA: Sodium 129, potassium 2.9, BUN 18, creatinine 1.1. Lactic acid 0.8. Magnesium 1.6. Normal bilirubin, AST, ALT and alkaline phosphatase. Albumin 1.9. Normal lipase. White blood count 1.6 with a differential showing 0.3% neutrophils, hemoglobin 7.0 with an MCV of 79, platelet count normal at 288. There was no INR done. Toxicology showed no blood alcohol level. Urinalysis shows pH of 6, specific gravity of 1.01, negative ketones, negative nitrites, negative leukocyte esterase, and no bacteria. DIAGNOSTIC STUDIES 1. Chest x-ray: Bilateral opacities in the bases. 2. CT of the head: A new mass in the right frontal area measuring 3 cm. No EKG was done. IMPRESSION/DIAGNOSES: 1. Syncope, unwitnessed. 2. Brain mass, probable metastasis.. 3. Bilateral community-acquired pneumonia (CAP). 4. Hypokalemia. 5. Neutropenia, after chemotherapy. 6. Anemia, after chemotherapy. 7. Dehydration. 8. Failure to thrive in adult. 9. Colon cancer with metastasis, on palliative chemotherapy. PLAN: Admit the patient to medical/surgical status on telemetry. Begin IV fluids. Begin a blood transfusion, given her symptomatic anemia; this was started in the ER. Obtain an Oncology consult regarding further plans regarding her chemotherapy given the current neutropenia, infection, and new brain mass, which is probably metastasis. Obtain a nutrition consult regarding improved protein calorie intake and fluid intake. Her diet should be neutropenia specific. Start reverse isolation because of the neutropenia. Replace her potassium IV and orally if she can take it. Replace her magnesium and follow this daily. Follow her electrolytes daily, and CBC daily. Obtain blood cultures. Begin IV antibiotics with iv Ceftriaxone and Zithromax for the pneumonia, along with Florastor. She will eventually need PT and OT evaluation, given the marked weakness. I discussed the plan with her daughter, who was at bedside. CODE STATUS: DNR. There is a POLST scanned into her record. DEEP VENOUS THROMBOSIS PROPHYLAXIS: SCDs. ATTESTATION: The patient is expected to be discharged or transferred to another facility within 96 hours: Yes. TD: 08/04/2018 23:59 HEATHER
[2018-08-05] MEDS: FAMOTIDINE 20 MG TABLET PO SCH ×3 (01:54→22:20)
[2018-08-05] MEDS: SODIUM CHLORIDE FLUSH 0.9% 10 ML SYRINGE IVP SCH ×3 (01:55→17:22)
[2018-08-05] MEDS ORDERED: SODIUM CHLORIDE FLUSH 0.9% 10 ML SYRINGE IVP PRN (02:42)
[2018-08-05] MEDS: SODIUM CHLORIDE FLUSH 0.9% 10 ML SYRINGE IVP PRN (03:25)
[2018-08-05 03:31] LABS: BASOPHILS % (AUTO) 0.7 %; EOSINOPHILS % (AUTO) 0.4 %; HGB - HEMOGLOBIN 7.5 g/dL (12.0-16.0); LYMPHOCYTES # (AUTO) 0.4 10^3/uL (1.5-3.5); LYMPHOCYTES % (AUTO) 31.6 %; MEAN CORPUSCULAR HGB CONC 33.4 g/dL (32.0-36.0); MEAN PLATELET VOLUME 7.3 fL (7.9-10.8); MONOCYTES # (AUTO) 0.4 10^3/uL (0.0-1.0); MONOCYTES % (AUTO) 30.3 %; PLT - PLATELET COUNT 268 10^3/uL (130-450); RED BLOOD COUNT 2.77 10^6/uL (4.20-5.40); RED CELL DISTRIBUTION WIDTH 21.7 % (12.0-15.0)
[2018-08-05 03:33] LABS: NEUTROPHILS # (AUTO) 0.5 10^3/uL (1.5-6.6); WHITE BLOOD COUNT 1.2 x10^3/uL (4.8-10.8)
[2018-08-05] MEDS: cefTRIAXone 1 GM in SODIUM CHLORIDE 0.9% MINIBAG 100 ML IV SCH ×2 (03:37→08:10)
[2018-08-05 03:41] LABS: ALBUMIN 1.9 g/dL (3.2-5.5); ALBUMIN/GLOBULIN RATIO 0.6 (1.0-2.2); BILIRUBIN,TOTAL 0.8 mg/dL (0.2-1.0); CALCIUM 7.5 mg/dL (8.5-10.3); CREATININE 0.7 mg/dL (0.4-1.0)
[2018-08-05 04:06] LABS: PLATELET ESTIMATE, MANUAL NORMAL (130-450,000) (NORMAL); PLATELET MORPHOLOGY NORMAL APPEARANCE (NORMAL)
[2018-08-05] MEDS: AZITHROMYCIN INJ 500 MG in SODIUM CHLORIDE 0.9% 250 ML IV SCH ×2 (04:16→09:07)
[2018-08-05] MEDS ORDERED: SACCHAROMYCES BOULARDII 250 MG CAPSULE PO SCH (08:00)
[2018-08-05] MEDS: POTASSIUM CHLORIDE 20 MEQ/15 ML UDC PO SCH (08:07)
[2018-08-05] MEDS: MAGNESIUM OXIDE 400 MG TABLET PO SCH (08:07)
[2018-08-05] MEDS: POLYETHYLENE GLYCOL 3350 17 GM PACKET PO SCH (09:03)
[2018-08-05] MEDS: ASPIRIN EC 81 MG TABLET PO SCH (09:03)
[2018-08-05] MEDS: LEVOTHYROXINE 100 MCG TABLET PO SCH (09:03)
[2018-08-05] MEDS: buPROPion SR 150 MG TABLET PO SCH (09:03)
[2018-08-05] MEDS: ALPRAZolam 0.25 MG TABLET PO PRN ×2 (11:21→19:19)
--- NOTE | 2018-08-05 13:56 | PROVIDER PROGRESS NOTE ---
Subjective - Prog Note Date Prog Note Date: 08/05/18 Prog Note Time: 13:53 - Subjective Pt reports feeling: No change Subjective: She and her daughter have had a very long talk with Jen Gonzalez. They have also been in contact with Sariah Eller, part of the medical ambulatory clinic for oncology. Current Medications - Current Medications Current Medications: Active Medications Acetaminophen (Tylenol) 650 mg PO Q4HR PRN PRN Reason: Pain or Fever > 38C (100.4F) Last Admin: 08/05/18 05:25 Dose: 650 mg Alprazolam (Xanax) 0.25 mg PO TID PRN PRN Reason: Anxiety Last Admin: 08/05/18 11:21 Dose: 0.25 mg Aspirin (Ecotrin) 81 mg PO DAILY ISABEL Last Admin: 08/05/18 09:03 Dose: 81 mg Bupropion HCl (Wellbutrin Sr) 150 mg PO DAILY ISABEL Last Admin: 08/05/18 09:03 Dose: 150 mg Famotidine (Pepcid) 20 mg PO BID ISABEL Last Admin: 08/05/18 09:03 Dose: 20 mg Fentanyl (Duragesic) 1 patch TOP Q3D ISABEL Last Admin: 08/04/18 21:50 Dose: 1 patch Heparin Sodium (Beef Lung) () 30 - 50 unit IVP PRN PRN PRN Reason: Port Protocol (<24 hours) Potassium Chloride/Dextrose/Sod Cl () 1,000 mls @ 100 mls/hr IV .Q10H ISABEL Last Infusion: 08/05/18 05:24 Dose: 100 mls/hr Azithromycin 500 mg/ Sodium (Chloride) 250 mls @ 250 mls/hr IV DAILY ISABEL Last Infusion: 08/05/18 10:50 Dose: Infused Ceftriaxone Sodium 1 gm/ (Sodium Chloride) 100 mls @ 200 mls/hr IV DAILY ISABEL Last Infusion: 08/05/18 09:07 Dose: Infused Levothyroxine Sodium (Synthroid) 100 mcg PO DAILY ISABEL Last Admin: 08/05/18 09:03 Dose: 100 mcg Magnesium Oxide (Mag Ox) 400 mg PO DAILYWM ISABEL Last Admin: 08/05/18 08:07 Dose: 400 mg Morphine Sulfate (Morphine (Carpuject)) 2 mg IVP Q2HR PRN PRN Reason: Pain 8 to 10 Oxycodone HCl (Roxicodone) 5 mg PO Q4HR PRN PRN Reason: PAIN Polyethylene Glycol (Miralax) 17 gm PO DAILY [facility] Last Admin: 08/05/18 09:03 Dose: 17 gm Potassium Chloride () [facility] Last Admin: 08/05/18 08:07 Dose: 20 meq Prochlorperazine Edisylate (Compazine Inj) 10 mg IVP Q6HR PRN PRN Reason: Nausea / Vomiting Sodium Chloride (Normal Saline Flush 0.9%) 10 ml IVP PRN PRN PRN Reason: NEEDED PER PROVIDER ORDERS Last Admin: 08/05/18 03:25 Dose: 10 ml Sodium Chloride (Normal Saline Flush 0.9%) 10 ml IVP 0100,0900,1700 [facility] Last Admin: 08/05/18 09:08 Dose: Not Given Sodium Chloride (Normal Saline Flush 0.9%) 20 ml IVP PRN PRN PRN Reason: After Blood Draw Last Admin: 08/05/18 03:25 Dose: 20 ml Alprazolam [Xanax] 0.25 mg PO Q8H PRN 05/29/18 Aspirin [Aspirin EC] 81 mg PO DAILY 05/29/18 Atenolol 25 mg PO DAILY 05/29/18 Levothyroxine [Synthroid] 100 mcg PO QDAC 05/29/18 [place]-3/Dha/Epa/Fish Oil [Fish Oil 1,000 mg Softgel] 1 gm PO BID 05/29/18 buPROPion [Wellbutrin Sr] 150 mg PO DAILY 05/29/18 fentaNYL 12 MCG PATCH [Duragesic 12mcg patch] 25 mcg TOP Q72H MDD start 07/2407/25/18 oxyCODONE [Roxicodone] 5 - 10 mg PO Q4HR PRN 07/25/18 Cyanocobalamin (Vitamin B-12) [Vitamin B-12 (500 mcg sublingual)] 500 mcg PO DAILY 08/05/18 Multivitamin [Theragran] 1 tab PO DAILY 08/05/18 Sennosides/Docusate Sodium [Senna-Docusate Sodium Tablet] 1 tab PO PRN PRN 08/05/18 raNITIdine HCl [Ranitidine HCl] 150 mg PO BID 08/05/18 Objective - Vital Signs/Intake & Output Reviewed Vital Signs: Yes Vital Signs: Vital Signs x48h Temp Pulse Resp BP BP Pulse Ox 08/05/18 12:00 36.3 C L 87 16 132/66 H 99 08/05/18 08:00 35.5 C L 65 16 100/44 L 97 Intake & Output: Intake & Output 08/02/18 08/03/18 08/04/18 08/05/18 23:59 23:59 23:59 23:59 Intake Total 027.928 9430.333 Output Total 900 Balance -061.771 8875.333 - Objective General Appearance: positive: Alert, Other (Psychomotor slowing is present but she is still participating in the conversation) Eyes Bilateral: positive: PERRL, EOMI ENT: positive: Pharynx nml Neck: positive: No JVD. negative: Stiff neck, Carotid bruit Respiratory: positive: Chest non-tender. negative: Wheezes, Rales, Rhonchi Cardiovascular: positive: Regular rate & rhythm. negative: Gallop/S4, Friction rub Abdomen: positive: Other (Mild diffuse abdominal distention, hypoactive bowel sounds, and no fluid wave right now. Liver edge is palpable below the costal margin. Mildly tender.) Skin: positive: Warm, Dry, Pallor Extremities: positive: Full ROM, Pedal edema Neurologic/Psychiatric: positive: Oriented x3, CN's nml (2-12), Motor nml, Slurred/abnml speech - Lab Results Fish Bones: 08/05/18 03:20 08/05/18 03:20 Other Labs: Lab Results x24hrs 08/05/18 08/05/18 08/05/18 Range/Units 03:20 03:20 03:20 WBC 1.2 L* (4.8-10.8) x10^3/uL RBC 2.77 L (4.20-5.40) 10^6/uL Hgb 7.5 L (12.0-16.0) g/dL Hct 22.4 L (37.0-47.0) % MCV 81.0 (81.0-99.0) fL MCH 27.0 (27.0-31.0) pg MCHC 33.4 (32.0-36.0) g/dL RDW 21.7 H (12.0-15.0) % Plt Count 268 (130-450) 10^3/uL MPV 7.3 L (7.9-10.8) fL Neut # (Auto) 0.5 L* Lymph # (Auto) 0.4 L [place] # (Auto) 0.4 Eos # (Auto) 0.0 Baso # (Auto) 0.0 Absolute Nucleated RBC 0.00 Total Counted Band Neuts % (Manual) (0 - 10) % Abnorm Lymph % (Manual) % Nucleated RBC % 0.1 Neutrophils # (Manual) (1.5-6.6) 10^3/uL Lymphocytes # (Manual) (1.5-3.5) 10^3/uL Monocytes # (Manual) (0.0-1.0) 10^3/uL Eosinophils # (Manual) (0-0.7) 10^3/uL Basophils # (Manual) (0-0.1) 10^3/uL Differential Comment Manual Slide Review Indicated WBC Morphology (NORMAL) Platelet Estimate NORMAL (130-450,000) (NORMAL) Platelet Morphology NORMAL APPEARANCE (NORMAL) RBC Morph Micro Appear 1+ MACROCYTOSIS (NORMAL) Sodium 134 L (135-145) mmol/L Potassium 3.2 L (3.5-5.0) mmol/L Chloride 97 L (101-111) mmol/L Carbon Dioxide 29 (21-32) mmol/L Anion Gap 8.0 (6-13) BUN 14 (6-20) mg/dL Creatinine 0.7 (0.4-1.0) mg/dL Estimated GFR (MDRD) 82 L (>89) Glucose 178 H (70-100) mg/dL Lactic Acid (0.5-2.2) mmol/L Calcium 7.5 L (8.5-10.3) mg/dL Magnesium 2.6 (1.7-2.8) mg/dL Total Bilirubin 0.8 (0.2-1.0) mg/dL AST 27 (10-42) IU/L ALT 19 (10-60) IU/L Alkaline Phosphatase 68 (42-121) IU/L Total Protein 5.0 L (6.7-8.2) g/dL Albumin 1.9 L (3.2-5.5) g/dL Globulin 3.1 (2.1-4.2) g/dL Albumin/Globulin Ratio 0.6 L (1.0-2.2) Lipase (22-51) U/L Urine Color Urine Clarity (CLEAR) Urine pH (5.0-7.5) PH Ur Specific [place] (1.002-1.030) Urine Protein (NEGATIVE) mg/dL Urine Glucose (UA) (NEGATIVE) mg/dL Urine Ketones (NEGATIVE) mg/dL Urine Occult Blood (NEGATIVE) Urine Nitrite (NEGATIVE) Urine Bilirubin (NEGATIVE) Urine Urobilinogen (NORMAL) E.U./dL Ur Leukocyte Esterase (NEGATIVE) Ur Microscopic Review Urine Culture Comments Ethyl Alcohol mg/dL Blood Type Antibody Screen Crossmatch IS Only 08/04/18 08/04/18 08/04/18 Range/Units 22:00 20:20 18:20 WBC (4.8-10.8) x10^3/uL RBC (4.20-5.40) 10^6/uL Hgb (12.0-16.0) g/dL Hct (37.0-47.0) % MCV (81.0-99.0) fL MCH (27.0-31.0) pg MCHC (32.0-36.0) g/dL RDW (12.0-15.0) % Plt Count (130-450) 10^3/uL MPV (7.9-10.8) fL Neut # (Auto) Lymph # (Auto) [place] # (Auto) Eos # (Auto) Baso # (Auto) Absolute Nucleated RBC Total Counted Band Neuts % (Manual) (0 - 10) % Abnorm Lymph % (Manual) % Nucleated RBC % Neutrophils # (Manual) (1.5-6.6) 10^3/uL Lymphocytes # (Manual) (1.5-3.5) 10^3/uL Monocytes # (Manual) (0.0-1.0) 10^3/uL Eosinophils # (Manual) (0-0.7) 10^3/uL Basophils # (Manual) (0-0.1) 10^3/uL Differential Comment Manual Slide Review WBC Morphology (NORMAL) Platelet Estimate (NORMAL) Platelet Morphology (NORMAL) RBC Morph Micro Appear (NORMAL) Sodium (135-145) mmol/L Potassium (3.5-5.0) mmol/L Chloride (101-111) mmol/L Carbon Dioxide (21-32) mmol/L Anion Gap (6-13) BUN (6-20) mg/dL Creatinine (0.4-1.0) mg/dL Estimated GFR (MDRD) (>89) Glucose (70-100) mg/dL Lactic Acid 0.8 (0.5-2.2) mmol/L Calcium (8.5-10.3) mg/dL Magnesium (1.7-2.8) mg/dL Total Bilirubin (0.2-1.0) mg/dL AST (10-42) IU/L ALT (10-60) IU/L Alkaline Phosphatase (42-121) IU/L Total Protein (6.7-8.2) g/dL Albumin (3.2-5.5) g/dL Globulin (2.1-4.2) g/dL Albumin/Globulin Ratio (1.0-2.2) Lipase (22-51) U/L Urine Color YELLOW Urine Clarity CLEAR (CLEAR) Urine pH 6.0 (5.0-7.5) PH Ur Specific [place] 1.010 (1.002-1.030) Urine Protein NEGATIVE (NEGATIVE) mg/dL Urine Glucose (UA) NEGATIVE (NEGATIVE) mg/dL Urine Ketones NEGATIVE (NEGATIVE) mg/dL Urine Occult Blood TRACE-LYSE (NEGATIVE) Urine Nitrite NEGATIVE (NEGATIVE) Urine Bilirubin NEGATIVE (NEGATIVE) Urine Urobilinogen 0.2 (NORMAL) (NORMAL) E.U./dL Ur Leukocyte Esterase NEGATIVE (NEGATIVE) Ur Microscopic Review NOT INDICATED Urine Culture Comments NOT INDICATED Ethyl Alcohol mg/dL Blood Type A POSITIVE Antibody Screen NEGATIVE Crossmatch IS Only See Detail 08/04/18 08/04/18 Range/Units 18:20 18:20 WBC 1.6 L* (4.8-10.8) x10^3/uL RBC 2.73 L (4.20-5.40) 10^6/uL Hgb 7.0 L* (12.0-16.0) g/dL Hct 21.7 L (37.0-47.0) % MCV 79.7 L (81.0-99.0) fL MCH 25.9 L (27.0-31.0) pg MCHC 32.4 (32.0-36.0) g/dL RDW 23.0 H (12.0-15.0) % Plt Count 288 (130-450) 10^3/uL MPV 7.4 L (7.9-10.8) fL Neut # (Auto) Not Reportable Lymph # (Auto) Not Reportable [place] # (Auto) Not Reportable Eos # (Auto) Not Reportable Baso # (Auto) Not Reportable Absolute Nucleated RBC Not Reportable Total Counted 100 Band Neuts % (Manual) 7 (0 - 10) % Abnorm Lymph % (Manual) 0 % Nucleated RBC % Not Reportable Neutrophils # (Manual) 0.3 L* (1.5-6.6) 10^3/uL Lymphocytes # (Manual) 0.8 L (1.5-3.5) 10^3/uL Monocytes # (Manual) 0.5 (0.0-1.0) 10^3/uL Eosinophils # (Manual) 0.0 (0-0.7) 10^3/uL Basophils # (Manual) 0.0 (0-0.1) 10^3/uL Differential Comment MANUAL DIFFERENTIAL Manual Slide Review Indicated WBC Morphology TOXIC GRANULATION (NORMAL) Platelet Estimate NORMAL (130-450,000) (NORMAL) Platelet Morphology NORMAL APPEARANCE (NORMAL) RBC Morph Micro Appear 1+ POLYCHROMASIA (NORMAL) Sodium 129 L (135-145) mmol/L Potassium 2.9 L (3.5-5.0) mmol/L Chloride 91 L (101-111) mmol/L Carbon Dioxide 28 (21-32) mmol/L Anion Gap 10.0 (6-13) BUN 18 (6-20) mg/dL Creatinine 1.1 H (0.4-1.0) mg/dL Estimated GFR (MDRD) 49 L (>89) Glucose 102 H (70-100) mg/dL Lactic Acid (0.5-2.2) mmol/L Calcium 7.6 L (8.5-10.3) mg/dL Magnesium 1.6 L (1.7-2.8) mg/dL Total Bilirubin 0.8 (0.2-1.0) mg/dL AST 31 (10-42) IU/L ALT 20 (10-60) IU/L Alkaline Phosphatase 71 (42-121) IU/L Total Protein 5.3 L (6.7-8.2) g/dL Albumin 1.9 L (3.2-5.5) g/dL Globulin 3.4 (2.1-4.2) g/dL Albumin/Globulin Ratio 0.6 L (1.0-2.2) Lipase 16 L (22-51) U/L Urine Color Urine Clarity (CLEAR) Urine pH (5.0-7.5) PH Ur Specific [place] (1.002-1.030) Urine Protein (NEGATIVE) mg/dL Urine Glucose (UA) (NEGATIVE) mg/dL Urine Ketones (NEGATIVE) mg/dL Urine Occult Blood (NEGATIVE) Urine Nitrite (NEGATIVE) Urine Bilirubin (NEGATIVE) Urine Urobilinogen (NORMAL) E.U./dL Ur Leukocyte Esterase (NEGATIVE) Ur Microscopic Review Urine Culture Comments Ethyl Alcohol < 5.0 mg/dL Blood Type Antibody Screen Crossmatch IS Only ABX Reporting Has patient been on IV antibiotics over the past 48 hours?: Yes Assessment/Plan - Problem List (1) Pneumonia Impression: Presented as near syncope. Very weak, tired. Blood cultures received and results pending. Chest x-ray with bilateral patchy infiltrates. She is 94% on room air, and occasionally nursing will put her on 2 L which makes her 99%. Plan: IV antibiotics, day #2 Rocephin and azithromycin Qualifiers: Pneumonia type: due to unspecified organism Laterality: bilateral Lung location: unspecified part of lung Qualified Code(s): J18.9 - Pneumonia, unspecified organism (2) Colon cancer metastasized to multiple sites Impression: She had known metastatic disease to liver and lung. On palliative chemotherapy and had her first course of chemotherapy 14 days ago. Was to get another course of chemotherapy this week. CT of the brain in the emergency room now shows metastatic disease to brain. But her oncologist is not here this week. Instead we spoke to oncology on-call, Dr. Corona. The patient and her daughter have a decision to make. They spent quite a bit of time speaking to Jen Gonzalez as well as Sariah Eller. They are trying to weigh continued palliative chemotherapy with now the addition of brain radiation therapy versus radiation therapy alone to the brain versus doing nothing. They are hoping to get some information and data that would let them help make this decisions. With Dr. Jean being out of town, Dr. Corona will be here tomorrow in clinic. She may come by and speak to the patient then. Plan: Start Decadron 4 mg 4 times daily per Sariah Eller Start Keppra 500 mg p.o. twice daily per Dr. Corona Consultation with Dr. Corona tomorrow to help this patient and her daughter decide which branch of a decision tree they will go down (3) Drug induced neutropenia Impression: ANC was 300 yesterday and 500 today. We will continue to monitor for fever. Under neutropenic precautions. (4) Dehydration Impression: Improved. BUN was 18 with creatinine 1.1 yesterday. Today, after IV fluids, 14 and 0.7. GFR is gone from 49-82. Plan: Continue IV fluids for 1 more liter. Assess to see if patient can do enough p.o. intake on her own. If she can, stop IV fluids. (5) Electrolyte and fluid disorder Impression: Hypokalemic at 2.9 yesterday, she is 3.2 today. Sodium was 129 and is now 134. Plan: Sodium has improved. Continue IV fluids for dehydration. Supplement p.o. potassium. (6) Moderate protein-calorie malnutrition Impression: Her nutritional intake has been less than 50% of recommended intake for over a week. She has had reduced functional capacity resulting in generalized weakness and falls. Weight has come down. Plan: Dietary consult. PT if appropriate Palliative care consult.
[2018-08-05] MEDS: D5NS W/20 MEQ KCL 1,000 ML IV SCH (14:00)
--- NOTE | 2018-08-05 16:59 | CONSULTATION NOTE ---
Palliative Care Follow Up - Referral Referring Provider: Ni Linton MD Time of Visit: [id number] Referral setting: Hospitalized patient Referral Reason: Met Colon Cancer Liver, Lung, now brain mets/goals of care - Information Sources Records reviewed: RN notes reviewed, Previous records reviewed History/Review of Systems obtained from: Patient, Family (daughter April at bedside) Exam limitations: Clinical condition (patient still with some difficulty tra cking conversation; STM issues; but able to engage and partipate) - History of Present Illness Update Brief HPI Update: This is a 73-year-old woman who was 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 She was doing poorly and was admitted to the ED on 07/28 and found to have on CT scan progressive disease with a CT of the abdomen showing new pleural effusions, new pulmonary metastases, and progression of her hepatic disease and increased in colon and omental masses. They had ruled out a bowel obstruction, she went home, but con tinued to do poorly. I did see her at her home setting on 07/30, she had uncontrolled pain, increased difficulty with her depression, anorexia, and ongoing functional decline. Unfortunately she continued to progress, with some increased confusion, altered mental status, we had increased her fentanyl from 12-25, they had removed the patch but did not end up resolving the problem. She did get admitted on 08/04 with acute confusion, had fallen at home, unknown if she had a seizure. They did find a 3 cm right frontal lobe mass, and alterations in her metabolic abnormalities, anemia, and a chest x-ray that showed bilateral lung infiltrates and neutropenia with a neutrophil count of 300. She has been transfused for her anemia, put on neutropenic precautions and being treated with antibiotics. I am meeting with patient and daughter, to discuss goals of care, have had 2 previous conversations with patient regarding goals and concerns. Her biggest worry has been the being a burden on her daughter and family, as well as how quickly things are going. She does understand that she has diagnosed with brain metastases, neither she nor her daughter understand the implications as far as future prognosis, but are weighing benefits and burdens as far as looking forward into care at transition home. They are hoping for more concrete information to be able to inform their decision. Patient currently has fentanyl 25 mcg patch on, reports she is not needing anything for breakthrough pain. As best she knows her bowels have not moved since 07/30, and has long-term been dealing with intermittent constipation. She continues with anorexia, taste changes, and overall generalized weakness and severe fatigue Social History - Living Situation Living arrangement: At home Living Situation: With family Support System: Patient has a bedroom on a second story of her daughter's house, she has been living there about a year. She has been for about 3 years, lost her to an acute stroke around Prem time which has informed her goals. Daughter does work full-time, and most recently grandson and his girlfriend moved in, is hoping to come up with a plan to be able to have patient return home Medications/Allergies - Medications Active Medication List: Active Medications Acetaminophen (Tylenol) 650 mg PO Q4HR PRN PRN Reason: Pain or Fever > 38C (100.4F) Last Admin: 08/05/18 05:25 Dose: 650 mg Alprazolam (Xanax) 0.25 mg PO TID PRN PRN Reason: Anxiety Last Admin: 08/05/18 11:21 Dose: 0.25 mg Aspirin (Ecotrin) 81 mg PO DAILY [facility] Last Admin: 08/05/18 09:03 Dose: 81 mg Bupropion HCl (Wellbutrin Sr) 150 mg PO DAILY [facility] Last Admin: 08/05/18 09:03 Dose: 150 mg Dexamethasone (Decadron) 4 mg PO QID [facility] Docusate Sodium (Colace 250mg Capsule) 250 - 500 mg PO DAILY [facility] Famotidine (Pepcid) 20 mg PO BID [facility] Last Admin: 08/05/18 09:03 Dose: 20 mg Fentanyl (Duragesic) 1 patch TOP Q3D [facility] Last Admin: 08/04/18 21:50 Dose: 1 patch Heparin Sodium (Beef Lung) () 30 - 50 unit IVP PRN PRN PRN Reason: Port Protocol (<24 hours) Potassium Chloride/Dextrose/Sod Cl () 1,000 mls @ 100 mls/hr IV .Q10H [facility] Last Admin: 08/05/18 14:00 Dose: 100 mls/hr Azithromycin 500 mg/ Sodium (Chloride) 250 mls @ 250 mls/hr IV DAILY [facility] Last Infusion: 08/05/18 10:50 Dose: Infused Ceftriaxone Sodium 1 gm/ (Sodium Chloride) 100 mls @ 200 mls/hr IV DAILY [facility] Last Infusion: 08/05/18 09:07 Dose: Infused Levetiracetam (Keppra) 500 mg PO BID [facility] Levothyroxine Sodium (Synthroid) 100 mcg PO DAILY [facility] Last Admin: 08/05/18 09:03 Dose: 100 mcg Magnesium Oxide (Mag Ox) 400 mg PO DAILYWM [facility] Last Admin: 08/05/18 08:07 Dose: 400 mg Morphine Sulfate (Morphine (Carpuject)) 2 mg IVP Q2HR PRN PRN Reason: Pain 8 to 10 Oxycodone HCl (Roxicodone) 5 mg PO Q4HR PRN PRN Reason: PAIN Polyethylene Glycol (Miralax) 17 gm PO DAILY [facility] Last Admin: 08/05/18 09:03 Dose: 17 gm Potassium Chloride () 20 meq PO DAILYWM [facility] Last Admin: 08/05/18 08:07 Dose: 20 meq Prochlorperazine Edisylate (Compazine Inj) 10 mg IVP Q6HR PRN PRN Reason: Nausea / Vomiting Senna (Senokot) 8.6 - 17.2 mg PO DAILY [facility] Sodium Chloride (Normal Saline Flush 0.9%) 10 ml IVP PRN PRN PRN Reason: NEEDED PER PROVIDER ORDERS Last Admin: 08/05/18 03:25 Dose: 10 ml Sodium Chloride (Normal Saline Flush 0.9%) 10 ml IVP 0100,0900,1700 [facility] Last Admin: 08/05/18 09:08 Dose: Not Given Sodium Chloride (Normal Saline Flush 0.9%) 20 ml IVP PRN PRN PRN Reason: After Blood Draw Last Admin: 08/05/18 03:25 Dose: 20 ml Alprazolam [Xanax] 0.25 mg PO Q8H PRN 05/29/18 Aspirin [Aspirin EC] 81 mg PO DAILY 05/29/18 Atenolol 25 mg PO DAILY 05/29/18 Levothyroxine [Synthroid] 100 mcg PO QDAC 05/29/18 [place]-3/Dha/Epa/Fish Oil [Fish Oil 1,000 mg Softgel] 1 gm PO BID 05/29/18 buPROPion [Wellbutrin Sr] 150 mg PO DAILY 05/29/18 fentaNYL 12 MCG PATCH [Duragesic 12mcg patch] 25 mcg TOP Q72H MDD start 07/2407/25/18 oxyCODONE [Roxicodone] 5 - 10 mg PO Q4HR PRN 07/25/18 Cyanocobalamin (Vitamin B-12) [Vitamin B-12 (500 mcg sublingual)] 500 mcg PO DAILY 08/05/18 Multivitamin [Theragran] 1 tab PO DAILY 08/05/18 Sennosides/Docusate Sodium [Senna-Docusate Sodium Tablet] 1 tab PO PRN PRN 08/05/18 raNITIdine HCl [Ranitidine HCl] 150 mg PO BID 08/05/18 - Allergies Allergies/Adverse Reactions: Allergies Allergy/AdvReac Type Severity Reaction Status Date / Time No Known Drug Allergies Allergy Verified 08/04/18 17:15 Review of Systems - Constitutional Constitutional: reports: Fatigue, Weakness, Poor appetite, Weight loss - Eyes Eyes: reports: Vision loss - Ears, Nose & Throat Ears, Nose & Throat: reports: Hearing loss (mild), Dry mouth - Cardiovascular Cardiovascular: reports: Decr. exercise tolerance. denies: Chest pain - Respiratory Respiratory: denies: Cough, Sputum production, SOB at rest - Gastrointestinal Gastrointestinal: reports: Constipation (last BM ), Bloating, Poor appetite, Early satiety. denies: Nausea, Reflux/heartburn - Musculoskeletal Musculoskeletal: reports: Muscle weakness - Integumentary Integumentary: reports: Dryness - Neurological Neurological: reports: General weakness, Memory problems (has been having trouble staying on task; some recall problems; but aware of situation but "missing" some details/conversations). denies: Headache, Seizures (patient denies seizure at time of fall/syncope; but does not recall details) - Psychiatric Psychiatric: reports: Depression, Anxiety - Hematologic/Lymphatic Hematologic/Lymphatic: reports: Anemia, Recurrent infections (new pneumonia; no respiratory symptoms/fever/ or chills prior to admission) - All Other Systems All Other Systems: reports: Reviewed and negative Physical Exam - Vital Signs Vital Signs: Vital Signs x48h Temp Pulse Resp BP BP Pulse Ox 08/05/18 15:46 36.3 C L 92 18 116/55 L 98 08/05/18 12:00 36.3 C L 87 16 132/66 H 99 - Physical Exam General Appearance: positive: No acute distress Eyes Bilateral: positive: Normal inspection Neck: positive: Trachea midline Respiratory: positive: No respiratory distress Skin: positive: Pallor, Dryness Neurologic/Psychiatric: positive: Disoriented to time, Depressed mood/affect, Flat affect Palliative Care - POLST Patient has POLST: Yes POLST Status: DNR, Comfort Measures Pain: Pain improved, Location (baseline pain has been abdominal; denies pain at time of visit) Tiredness/Fatigue: Severe (7-10) Drowsiness/Sedation: Moderate (4-6) Nausea: Mild (1-3) Depression: Moderate (4-6) Anxiety: Moderate (4-6) Constipation: Yes, Opoid induced, Unmanaged Feelings of wellbeing/Perceived Quality of Life: Poor, Worsening Performance Status: Patient's functional status has been declining over the last couple weeks, most acutely over the last few days. Patient has been bedbound since admitted to hospital, up once to bathroom with a maximum assist. Concerned about patient managing as she transition home, most likely is going to need assistance with bathing. Would benefit from physical therapy assessment to see patient's current baseline, depending on patient's goals of care, would recommend follow- up therapy in the home if does not transition to hospice - Palliative Care Discussion: Patient and daughter appropriately tearful, discussed current situation, patient with aggressive cancer, now with metastatic disease not only to the lung, increased metastases in the liver, but now to the brain worried about quality of Of life, not wanting to extend suffering, patient just wants to "go to sleep". We did discuss moving forward weighing benefits and burdens of treatment, patient expressing if continued to have severe side effects, feeling poorly, does not want to continue. We did discuss in the context of the brain metastases, may need to consider radiation which will add to the complexity of already stressed home situation. Both patient and daughter feel if have more information regarding prognosis, which she may or may not gain from interventions/treatment may better able to make a decision about transitioning either home with further treatment and/or home with hospice. Patient is expressed multiple times her concerns about being a burden on her family, adding more stress to her daughter, her daughter does need to work, would need to put together a plan where she would have support and supervision. Patient's coping is often defaulted to her spiritual journey, has put this in the context of "God's plan for her". But remains very tearful. It is for difficulty to keep patient on track regarding conversation, but is wanting to participate in the decision making. We did discuss in the context of two roads of the continuum, to discharge home, continue with treatment and follow-up for brain metastases versus home with hospice and focus on comfort. If patient were to be discharged home with further palliative treatment involved, would need to be followed by home health, daughter would feel better if patient was having ongoing monitoring and more close symptom management. Agreed exploring feelings and options, as well as fdc care options reviewed with daughter. Daughter feels strongly at this time does not want her place in group home. Family conference with daughter, Sariah Roger oncology nurse practitioner, is following up with Dr. Corona given family's request for increased information to assist with decision-making. Will treat with presumed brain metastases, with feedback for steroids and seizure medications. Will try and follow-up with Dr. Corona if can see patient or give more information for helping with decision- making tomorrow Results - Lab Results Lab results reviewed: Yes Fish Bones: 08/05/18 03:20 08/05/18 03:20 Lab and Imaging Results: Lab Results x24hrs 08/05/18 08/05/18 08/05/18 Range/Units 03:20 03:20 03:20 WBC 1.2 L* (4.8-10.8) x10^3/uL RBC 2.77 L (4.20-5.40) 10^6/uL Hgb 7.5 L (12.0-16.0) g/dL Hct 22.4 L (37.0-47.0) % MCV 81.0 (81.0-99.0) fL MCH 27.0 (27.0-31.0) pg MCHC 33.4 (32.0-36.0) g/dL RDW 21.7 H (12.0-15.0) % Plt Count 268 (130-450) 10^3/uL MPV 7.3 L (7.9-10.8) fL Neut # (Auto) 0.5 L* Lymph # (Auto) 0.4 L [place] # (Auto) 0.4 Eos # (Auto) 0.0 Baso # (Auto) 0.0 Absolute Nucleated RBC 0.00 Total Counted Band Neuts % (Manual) (0 - 10) % Abnorm Lymph % (Manual) % Nucleated RBC % 0.1 Neutrophils # (Manual) (1.5-6.6) 10^3/uL Lymphocytes # (Manual) (1.5-3.5) 10^3/uL Monocytes # (Manual) (0.0-1.0) 10^3/uL Eosinophils # (Manual) (0-0.7) 10^3/uL Basophils # (Manual) (0-0.1) 10^3/uL Differential Comment Manual Slide Review Indicated WBC Morphology (NORMAL) Platelet Estimate NORMAL (130-450,000) (NORMAL) Platelet Morphology NORMAL APPEARANCE (NORMAL) RBC Morph Micro Appear 1+ MACROCYTOSIS (NORMAL) Sodium 134 L (135-145) mmol/L Potassium 3.2 L (3.5-5.0) mmol/L Chloride 97 L (101-111) mmol/L Carbon Dioxide 29 (21-32) mmol/L Anion Gap 8.0 (6-13) BUN 14 (6-20) mg/dL Creatinine 0.7 (0.4-1.0) mg/dL Estimated GFR (MDRD) 82 L (>89) Glucose 178 H (70-100) mg/dL Lactic Acid (0.5-2.2) mmol/L Calcium 7.5 L (8.5-10.3) mg/dL Magnesium 2.6 (1.7-2.8) mg/dL Total Bilirubin 0.8 (0.2-1.0) mg/dL AST 27 (10-42) IU/L ALT 19 (10-60) IU/L Alkaline Phosphatase 68 (42-121) IU/L Total Protein 5.0 L (6.7-8.2) g/dL Albumin 1.9 L (3.2-5.5) g/dL Globulin 3.1 (2.1-4.2) g/dL Albumin/Globulin Ratio 0.6 L (1.0-2.2) Lipase (22-51) U/L Urine Color Urine Clarity (CLEAR) Urine pH (5.0-7.5) PH Ur Specific [place] (1.002-1.030) Urine Protein (NEGATIVE) mg/dL Urine Glucose (UA) (NEGATIVE) mg/dL Urine Ketones (NEGATIVE) mg/dL Urine Occult Blood (NEGATIVE) Urine Nitrite (NEGATIVE) Urine Bilirubin (NEGATIVE) Urine Urobilinogen (NORMAL) E.U./dL Ur Leukocyte Esterase (NEGATIVE) Ur Microscopic Review Urine Culture Comments Ethyl Alcohol mg/dL Blood Type Antibody Screen Crossmatch IS Only 08/04/18 08/04/18 08/04/18 Range/Units 22:00 20:20 18:20 WBC (4.8-10.8) x10^3/uL RBC (4.20-5.40) 10^6/uL Hgb (12.0-16.0) g/dL Hct (37.0-47.0) % MCV (81.0-99.0) fL MCH (27.0-31.0) pg MCHC (32.0-36.0) g/dL RDW (12.0-15.0) % Plt Count (130-450) 10^3/uL MPV (7.9-10.8) fL Neut # (Auto) Lymph # (Auto) [place] # (Auto) Eos # (Auto) Baso # (Auto) Absolute Nucleated RBC Total Counted Band Neuts % (Manual) (0 - 10) % Abnorm Lymph % (Manual) % Nucleated RBC % Neutrophils # (Manual) (1.5-6.6) 10^3/uL Lymphocytes # (Manual) (1.5-3.5) 10^3/uL Monocytes # (Manual) (0.0-1.0) 10^3/uL Eosinophils # (Manual) (0-0.7) 10^3/uL Basophils # (Manual) (0-0.1) 10^3/uL Differential Comment Manual Slide Review WBC Morphology (NORMAL) Platelet Estimate (NORMAL) Platelet Morphology (NORMAL) RBC Morph Micro Appear (NORMAL) Sodium (135-145) mmol/L Potassium (3.5-5.0) mmol/L Chloride (101-111) mmol/L Carbon Dioxide (21-32) mmol/L Anion Gap (6-13) BUN (6-20) mg/dL Creatinine (0.4-1.0) mg/dL Estimated GFR (MDRD) (>89) Glucose (70-100) mg/dL Lactic Acid 0.8 (0.5-2.2) mmol/L Calcium (8.5-10.3) mg/dL Magnesium (1.7-2.8) mg/dL Total Bilirubin (0.2-1.0) mg/dL AST (10-42) IU/L ALT (10-60) IU/L Alkaline Phosphatase (42-121) IU/L Total Protein (6.7-8.2) g/dL Albumin (3.2-5.5) g/dL Globulin (2.1-4.2) g/dL Albumin/Globulin Ratio (1.0-2.2) Lipase (22-51) U/L Urine Color YELLOW Urine Clarity CLEAR (CLEAR) Urine pH 6.0 (5.0-7.5) PH Ur Specific [place] 1.010 (1.002-1.030) Urine Protein NEGATIVE (NEGATIVE) mg/dL Urine Glucose (UA) NEGATIVE (NEGATIVE) mg/dL Urine Ketones NEGATIVE (NEGATIVE) mg/dL Urine Occult Blood TRACE-LYSE (NEGATIVE) Urine Nitrite NEGATIVE (NEGATIVE) Urine Bilirubin NEGATIVE (NEGATIVE) Urine Urobilinogen 0.2 (NORMAL) (NORMAL) E.U./dL Ur Leukocyte Esterase NEGATIVE (NEGATIVE) Ur Microscopic Review NOT INDICATED Urine Culture Comments NOT INDICATED Ethyl Alcohol mg/dL Blood Type A POSITIVE Antibody Screen NEGATIVE Crossmatch IS Only See Detail 08/04/18 08/04/18 Range/Units 18:20 18:20 WBC 1.6 L* (4.8-10.8) x10^3/uL RBC 2.73 L (4.20-5.40) 10^6/uL Hgb 7.0 L* (12.0-16.0) g/dL Hct 21.7 L (37.0-47.0) % MCV 79.7 L (81.0-99.0) fL MCH 25.9 L (27.0-31.0) pg MCHC 32.4 (32.0-36.0) g/dL RDW 23.0 H (12.0-15.0) % Plt Count 288 (130-450) 10^3/uL MPV 7.4 L (7.9-10.8) fL Neut # (Auto) Not Reportable Lymph # (Auto) Not Reportable [place] # (Auto) Not Reportable Eos # (Auto) Not Reportable Baso # (Auto) Not Reportable Absolute Nucleated RBC Not Reportable Total Counted 100 Band Neuts % (Manual) 7 (0 - 10) % Abnorm Lymph % (Manual) 0 % Nucleated RBC % Not Reportable Neutrophils # (Manual) 0.3 L* (1.5-6.6) 10^3/uL Lymphocytes # (Manual) 0.8 L (1.5-3.5) 10^3/uL Monocytes # (Manual) 0.5 (0.0-1.0) 10^3/uL Eosinophils # (Manual) 0.0 (0-0.7) 10^3/uL Basophils # (Manual) 0.0 (0-0.1) 10^3/uL Differential Comment MANUAL DIFFERENTIAL Manual Slide Review Indicated WBC Morphology TOXIC GRANULATION (NORMAL) Platelet Estimate NORMAL (130-450,000) (NORMAL) Platelet Morphology NORMAL APPEARANCE (NORMAL) RBC Morph Micro Appear 1+ POLYCHROMASIA (NORMAL) Sodium 129 L (135-145) mmol/L Potassium 2.9 L (3.5-5.0) mmol/L Chloride 91 L (101-111) mmol/L Carbon Dioxide 28 (21-32) mmol/L Anion Gap 10.0 (6-13) BUN 18 (6-20) mg/dL Creatinine 1.1 H (0.4-1.0) mg/dL Estimated GFR (MDRD) 49 L (>89) Glucose 102 H (70-100) mg/dL Lactic Acid (0.5-2.2) mmol/L Calcium 7.6 L (8.5-10.3) mg/dL Magnesium 1.6 L (1.7-2.8) mg/dL Total Bilirubin 0.8 (0.2-1.0) mg/dL AST 31 (10-42) IU/L ALT 20 (10-60) IU/L Alkaline Phosphatase 71 (42-121) IU/L Total Protein 5.3 L (6.7-8.2) g/dL Albumin 1.9 L (3.2-5.5) g/dL Globulin 3.4 (2.1-4.2) g/dL Albumin/Globulin Ratio 0.6 L (1.0-2.2) Lipase 16 L (22-51) U/L Urine Color Urine Clarity (CLEAR) Urine pH (5.0-7.5) PH Ur Specific [place] (1.002-1.030) Urine Protein (NEGATIVE) mg/dL Urine Glucose (UA) (NEGATIVE) mg/dL Urine Ketones (NEGATIVE) mg/dL Urine Occult Blood (NEGATIVE) Urine Nitrite (NEGATIVE) Urine Bilirubin (NEGATIVE) Urine Urobilinogen (NORMAL) E.U./dL Ur Leukocyte Esterase (NEGATIVE) Ur Microscopic Review Urine Culture Comments Ethyl Alcohol < 5.0 mg/dL Blood Type Antibody Screen Crossmatch IS Only Impression and Recommendations - Palliative Care Impression: This is a 73-year-old woman who has metastatic large cell neuroendocrine carcinoma arising from the ascending colon, progressive liver metastases, pulmonary nodules and lymph nodes in chest and abdomen. She has increasing confusion and functional decline, newly diagnosed most likely brain metastases. She has been hospitalized With neutropenia after chemotherapy, dehydration, failure to thrive, as well as bilateral community-acquired pneumonia. Palliative care to provide ongoing support for pain and symptom management as well as goals of care Recommendations/Counseling Done: 1. Pain of neoplastic origin. Patient currently on fentanyl 25 mcg patch, does feel she is much more comfortable, denies abdominal pain or discomfort other than symptoms of constipation. She does have oxycodone for breakthrough pain, has not felt necessary to use it at this point in time. 2. Constipation. Patient is best we know has not had a bowel movement since 07/30. She is going to need a more aggressive bowel program, would recommend to senna every 4-6 hours until her bowels have moved to as well as adding MiraLAX 17 g 1 capful daily. Patient does have significant tumor burden, concern for obstruction. 3. Presumed brain metastases dx on CT. Follow-up with oncologist/radiation oncologist if further workup to began as far as recommendations to follow-up on MRI. Patient has been started on Decadron 4 mg 4 times daily, as well as Keppra. We will recheck radiation oncologist regarding which treatment schedule and recommendations would be to be able to better inform daughter and patient tomorrow. 4. Advanced care planning. Daughter and patient struggling with acute hospitalization, now progressive disease with brain metastases, patient was just diagnosed in the last 2 months, still whirling as far as new diagnosis and the severity of her illness. Ongoing discussion regarding goals of care, home health with palliative treatment versus hospice. We will continue to weigh benefits and burdens of both options moving forward, hopefully patient will improve her clarity, though able to participate in conversation, unclear how much can weight the benefits/burdens in the context of her goals. Hopefully, Dr. Corona will be able to add to the information/conversation tomorrow. Time Spent: 60 minutes with greater than 50% of this done in counseling and family counseling as well as anticipatory guidance and review of symptoms.
[2018-08-05] MEDS: PROCHLORPERAZINE 10 MG/2 ML VIAL IVP PRN (17:22)
[2018-08-05] MEDS: DEXAMETHASONE 4 MG TABLET PO SCH ×2 (17:52→22:21)
[2018-08-05] MEDS ORDERED: DOCUSATE SODIUM 250 MG CAPSULE PO SCH (19:00)
[2018-08-05] MEDS: SENNA 8.6 MG TABLET PO SCH (19:13)
[2018-08-05] MEDS: DOCUSATE SODIUM 250 MG CAPSULE PO SCH (19:13)
[2018-08-05] MEDS ORDERED: levETIRAcetam 100 MG/ML 473ML BOTTLE PO SCH (21:00)
[2018-08-05] MEDS: levETIRAcetam 250 MG TABLET PO SCH (22:21)
[2018-08-06] MEDS: D5NS W/20 MEQ KCL 1,000 ML IV SCH (00:33)
[2018-08-06] MEDS: SODIUM CHLORIDE FLUSH 0.9% 10 ML SYRINGE IVP SCH ×3 (02:59→19:00)
--- NOTE | 2018-08-06 04:16 | ONCOLOGY / HEMATOLOGY ---
DATE OF SERVICE: 08/05/2018 Physician: Sariah Roger, ORDER PICKER/ASSEMBLER, [place], [facility] ONCOLOGY CONSULTATION DIAGNOSES 1. Metastatic large cell neuroendocrine carcinoma from the ascending colon with liver metastasis. 2. Abdominal pain, fatigue, lack of appetite. 3. New onset confusion and brain metastasis. INTERVAL HISTORY: The patient was due to be here in the clinic for evaluation prior to her second cycle of chemotherapy. She was due for her second cycle of chemotherapy with oxaliplatin, leucovorin, and 5-FU. She was admitted with pneumonia and neutropenic fever, and a CT scan showed that she has new brain metastasis with a 3 cm lesion in the right frontal lobe. There is no midline shift, but this certainly explained some of her intermittent confusion and difficulty with tracking over the last several weeks. I was called to consult and discuss next steps in treatment. Clearly with her pneumonia and neutropenia, she is not a candidate for chemotherapy this week. Jen Gonzalez of palliative care has also been following her. Jen spent more time with the daughter, and they have some questions and concerns about prognosis, the efficacy of treatment and what are the upcoming options with regards to the new brain metastasis. I consulted with Dr. Corona, who is covering for Dr. Jean today, and a radiation consult would certainly be an option if the patient and daughter are interested. In the meantime, with her confusion, we can go ahead and treat that with dexamethasone. If she is not symptomatic, and it does not show there is any cerebral edema, we could start her off with dexamethasone 4 mg b.i.d. If she is more symptomatic, we can start her with dexamethasone with 4 mg 4 times a day. Since she is more confused and has difficulty tracking, we will start it at 16 mg a day in 4 doses, 4 mg 4 times a day. We will also start her on Keppra 500 mg b.i.d. as prophylaxis for potential for seizure activity. I will have Dr. Corona review the chart more tomorrow for additional recommendations. Clearly she is not able to do radiation consult until her current illness is resolved and, if she chooses, we can do that. We did have discussion with the daughter about the action of radiation. The radiation could potentially, because of the action on the brain metastasis, add 3 months to her lifespan. However, she cannot receive any chemotherapy while she is neutropenic or ill to deal with the abdominal neuroendocrine cancer. She is unfortunately in a hard position along with her daughter in trying to figure out what the plans are. Patient had wanted to try to be alive through the holidays, and we will continue to have discussion about what her goals of treatment are in collaboration with Jen with palliative care. cc: DO Ni Reyes MD TD: 08/05/2018 18:31 MTDD
[2018-08-06 06:14] LABS: BASOPHILS % (AUTO) 0.2 %; EOSINOPHILS % (AUTO) 0.2 %; LYMPHOCYTES % (AUTO) 24.2 %; MEAN CORPUSCULAR HEMOGLOBIN 26.2 pg (27.0-31.0); MEAN CORPUSCULAR HGB CONC 31.6 g/dL (32.0-36.0); MEAN CORPUSCULAR VOLUME 82.8 fL (81.0-99.0); MEAN PLATELET VOLUME 7.4 fL (7.9-10.8); MONOCYTES % (AUTO) 21.9 %; NEUTROPHILS % (AUTO) 53.5 %; PLT - PLATELET COUNT 332 10^3/uL (130-450); RED BLOOD COUNT 3.04 10^6/uL (4.20-5.40); RED CELL DISTRIBUTION WIDTH 21.8 % (12.0-15.0); WHITE BLOOD COUNT 3.1 x10^3/uL (4.8-10.8)
[2018-08-06 06:22] LABS: ALBUMIN 1.7 g/dL (3.2-5.5); ALBUMIN/GLOBULIN RATIO 0.6 (1.0-2.2); BILIRUBIN,TOTAL 0.4 mg/dL (0.2-1.0); CALCIUM 7.3 mg/dL (8.5-10.3); CREATININE 0.5 mg/dL (0.4-1.0); TOTAL PROTEIN 4.6 g/dL (6.7-8.2)
[2018-08-06 06:25] LABS: ABNORMAL LYMPHS % (MANUAL) 0 %
[2018-08-06 06:46] LABS: BAND NEUTROPHILS % (MANUAL) 15 %; DIFFERENTIAL COMMENT MANUAL DIFFERENTIAL; LYMPHOCYTES # (MANUAL) 0.7 10^3/uL (1.5-3.5); LYMPHOCYTES % (MANUAL) 24 %; METAMYELOCYTES % (MANUAL) 2 %; MONOCYTES # (MANUAL) 0.3 10^3/uL (0.0-1.0); MYELOCYTES % (MANUAL) 2 %; NEUTROPHILS # (MANUAL) 1.9 10^3/uL (1.5-6.6); NEUTROPHILS % (MANUAL) 46 %; PLATELET ESTIMATE, MANUAL NORMAL (130-450,000) (NORMAL)
[2018-08-06] MEDS: POTASSIUM CHLORIDE 20 MEQ/15 ML UDC PO SCH (08:42)
[2018-08-06] MEDS: POLYETHYLENE GLYCOL 3350 17 GM PACKET PO SCH (08:42)
[2018-08-06] MEDS: DOCUSATE SODIUM 250 MG CAPSULE PO SCH (08:43)
[2018-08-06] MEDS: buPROPion SR 150 MG TABLET PO SCH (08:43)
[2018-08-06] MEDS: FAMOTIDINE 20 MG TABLET PO SCH ×2 (08:43→22:07)
[2018-08-06] MEDS: DEXAMETHASONE 4 MG TABLET PO SCH ×4 (08:43→22:07)
[2018-08-06] MEDS: SENNA 8.6 MG TABLET PO SCH (08:43)
[2018-08-06] MEDS: ASPIRIN EC 81 MG TABLET PO SCH (08:43)
[2018-08-06] MEDS: LEVOTHYROXINE 100 MCG TABLET PO SCH (08:43)
[2018-08-06] MEDS: levETIRAcetam 250 MG TABLET PO SCH ×2 (08:43→22:06)
[2018-08-06] MEDS: MAGNESIUM OXIDE 400 MG TABLET PO SCH (08:43)
[2018-08-06] MEDS: cefTRIAXone 1 GM in SODIUM CHLORIDE 0.9% MINIBAG 100 ML IV SCH (08:46)
[2018-08-06] MEDS ORDERED: SENNA 8.6 MG TABLET PO SCH (09:00)
--- NOTE | 2018-08-06 09:00 | PROVIDER PROGRESS NOTE ---
Subjective - Prog Note Date Prog Note Date: 08/06/18 Prog Note Time: 09:08 - Subjective Pt reports feeling: No change Subjective: She denies fever, chills. Appetite comes and goes. This morning she actually liked her breakfast. No abdominal pain. However she has pain in the left lower rib cage mid axillary line. Mildly pleuritic. Is been chronic and constant for over a week now. Nonradiating. Hurts to lay on that side. Current Medications - Current Medications Current Medications: Active Medications Acetaminophen (Tylenol) 650 mg PO Q4HR PRN PRN Reason: Pain or Fever > 38C (100.4F) Last Admin: 08/05/18 05:25 Dose: 650 mg Alprazolam (Xanax) 0.25 mg PO TID PRN PRN Reason: Anxiety Last Admin: 08/05/18 19:19 Dose: 0.25 mg Aspirin (Ecotrin) 81 mg PO DAILY [facility] Last Admin: 08/06/18 08:43 Dose: 81 mg Bupropion HCl (Wellbutrin Sr) 150 mg PO DAILY [facility] Last Admin: 08/06/18 08:43 Dose: 150 mg Dexamethasone (Decadron) 4 mg PO QID [facility] Last Admin: 08/06/18 08:43 Dose: 4 mg Docusate Sodium (Colace 250mg Capsule) 250 - 500 mg PO DAILY [facility] Last Admin: 08/06/18 08:43 Dose: 250 mg Famotidine (Pepcid) 20 mg PO BID [facility] Last Admin: 08/06/18 08:43 Dose: 20 mg Fentanyl (Duragesic) 1 patch TOP Q3D [facility] Last Admin: 08/04/18 21:50 Dose: 1 patch Heparin Sodium (Beef Lung) () 30 - 50 unit IVP PRN PRN PRN Reason: Port Protocol (<24 hours) Azithromycin 500 mg/ Sodium (Chloride) 250 mls @ 250 mls/hr IV DAILY [facility] Last Infusion: 08/05/18 10:50 Dose: Infused Ceftriaxone Sodium 1 gm/ (Sodium Chloride) 100 mls @ 200 mls/hr IV DAILY [facility] Last Admin: 08/06/18 08:46 Dose: 100 mls/hr Levetiracetam (Keppra) 500 mg PO BID [facility] Last Admin: 08/06/18 08:43 Dose: 500 mg Levothyroxine Sodium (Synthroid) 100 mcg PO DAILY [facility] Last Admin: 08/06/18 08:43 Dose: 100 mcg Magnesium Oxide (Mag Ox) 400 mg PO DAILYWM [facility] Last Admin: 08/06/18 08:43 Dose: 400 mg Morphine Sulfate (Morphine (Carpuject)) 2 mg IVP Q2HR PRN PRN Reason: Pain 8 to 10 Oxycodone HCl (Roxicodone) 5 mg PO Q4HR PRN PRN Reason: PAIN Polyethylene Glycol (Miralax) 17 gm PO DAILY [facility] Last Admin: 08/06/18 08:42 Dose: 17 gm Potassium Chloride () 20 meq PO DAILYWM [facility] Last Admin: 08/06/18 08:42 Dose: 20 meq Prochlorperazine Edisylate (Compazine Inj) 10 mg IVP Q6HR PRN PRN Reason: Nausea / Vomiting Last Admin: 08/05/18 17:22 Dose: 10 mg Senna (Senokot) 8.6 - 17.2 mg PO DAILY [facility] Last Admin: 08/06/18 08:43 Dose: 8.6 mg Sodium Chloride (Normal Saline Flush 0.9%) 10 ml IVP PRN PRN PRN Reason: NEEDED PER PROVIDER ORDERS Last Admin: 08/05/18 03:25 Dose: 10 ml Sodium Chloride (Normal Saline Flush 0.9%) 10 ml IVP 0100,0900,1700 [facility] Last Admin: 08/06/18 08:44 Dose: Not Given Sodium Chloride (Normal Saline Flush 0.9%) 20 ml IVP PRN PRN PRN Reason: After Blood Draw Last Admin: 08/05/18 03:25 Dose: 20 ml Alprazolam [Xanax] 0.25 mg PO Q8H PRN 05/29/18 Aspirin [Aspirin EC] 81 mg PO DAILY 05/29/18 Atenolol 25 mg PO DAILY 05/29/18 Levothyroxine [Synthroid] 100 mcg PO QDAC 05/29/18 Blanchard-3/Dha/Epa/Fish Oil [Fish Oil 1,000 mg Softgel] 1 gm PO BID 05/29/18 buPROPion [Wellbutrin Sr] 150 mg PO DAILY 05/29/18 fentaNYL 12 MCG PATCH [Duragesic 12mcg patch] 25 mcg TOP Q72H MDD start 07/2407/25/18 oxyCODONE [Roxicodone] 5 - 10 mg PO Q4HR PRN 07/25/18 Cyanocobalamin (Vitamin B-12) [Vitamin B-12 (500 mcg sublingual)] 500 mcg PO DAILY 08/05/18 Multivitamin [Theragran] 1 tab PO DAILY 08/05/18 Sennosides/Docusate Sodium [Senna-Docusate Sodium Tablet] 1 tab PO PRN PRN 08/05/18 raNITIdine HCl [Ranitidine HCl] 150 mg PO BID 08/05/18 Objective - Vital Signs/Intake & Output Reviewed Vital Signs: Yes Vital Signs: Vital Signs x48h Temp Pulse Resp BP BP Pulse Ox 08/06/18 08:00 36.3 C L 68 16 127/57 L 97 08/06/18 05:45 36.2 C L 77 16 104/47 L 95 Intake & Output: Intake & Output 08/03/18 08/04/18 08/05/18 08/06/18 23:59 23:59 23:59 23:59 Intake Total 748.555 1439.667 1300 Output Total 900 300 250 Balance -230.568 6950.667 1050 - Objective General Appearance: positive: No acute distress, Alert, Other (Pale appearing, slow psychomotor appearance with speech, white female) Eyes Bilateral: positive: PERRL Eyes: OU Scleral icterus (Very early, mild) Neck: positive: No JVD. negative: Stiff neck, Carotid bruit Respiratory: positive: Chest non-tender, Other (Slow, shallow, unlabored respiration). negative: Breath sounds nml (Diminished at the bases), Wheezes, Rales, Rhonchi Cardiovascular: positive: Regular rate & rhythm. negative: Systolic murmur, Gallop/S4, Friction rub Abdomen: positive: No organomegaly (But liver edge palpable below the costal margin), Nml bowel sounds, No distention, Tenderness (Over the left upper quadrant and into the left mid axillary line). negative: Guarding, Rebound Skin: positive: Warm, Dry. negative: Color nml Extremities: positive: Full ROM, No pedal edema Neurologic/Psychiatric: positive: Oriented x3, CN's nml (2-12), Motor nml, Slurred/abnml speech - Lab Results Fish Bones: 08/06/18 05:45 08/06/18 05:45 Other Labs: Lab Results x24hrs 08/06/18 08/06/18 08/06/18 Range/Units 05:45 05:45 05:45 WBC 3.1 L (4.8-10.8) x10^3/uL RBC 3.04 L (4.20-5.40) 10^6/uL Hgb 8.0 L (12.0-16.0) g/dL Hct 25.2 L (37.0-47.0) % MCV 82.8 (81.0-99.0) fL MCH 26.2 L (27.0-31.0) pg MCHC 31.6 L (32.0-36.0) g/dL RDW 21.8 H (12.0-15.0) % Plt Count 332 (130-450) 10^3/uL MPV 7.4 L (7.9-10.8) fL Neut # (Auto) Not Reportable Lymph # (Auto) Not Reportable Edgar # (Auto) Not Reportable Eos # (Auto) Not Reportable Baso # (Auto) Not Reportable Absolute Nucleated RBC Not Reportable Total Counted 100 Band Neuts % (Manual) 15 H (0 - 10) % Abnorm Lymph % (Manual) 0 % Metamyelocytes % 2 H ( - 0) % Myelocytes % 2 H ( - 0) % Nucleated RBC % Not Reportable Neutrophils # (Manual) 1.9 (1.5-6.6) 10^3/uL Lymphocytes # (Manual) 0.7 L (1.5-3.5) 10^3/uL Monocytes # (Manual) 0.3 (0.0-1.0) 10^3/uL Eosinophils # (Manual) 0.0 (0-0.7) 10^3/uL Basophils # (Manual) 0.0 (0-0.1) 10^3/uL Differential Comment MANUAL DIFFERENTIAL Platelet Estimate NORMAL (130-450,000) (NORMAL) RBC Morph Micro Appear 1+ MICROCYTOSIS (NORMAL) Sodium 136 (135-145) mmol/L Potassium 4.2 (3.5-5.0) mmol/L Chloride 103 (101-111) mmol/L Carbon Dioxide 27 (21-32) mmol/L Anion Gap 6.0 (6-13) BUN 13 (6-20) mg/dL Creatinine 0.5 (0.4-1.0) mg/dL Estimated GFR (MDRD) 121 (>89) Glucose 169 H (70-100) mg/dL Calcium 7.3 L (8.5-10.3) mg/dL Magnesium 2.5 (1.7-2.8) mg/dL Total Bilirubin 0.4 (0.2-1.0) mg/dL AST 22 (10-42) IU/L ALT 21 (10-60) IU/L Alkaline Phosphatase 60 (42-121) IU/L Total Protein 4.6 L (6.7-8.2) g/dL Albumin 1.7 L (3.2-5.5) g/dL Globulin 2.9 (2.1-4.2) g/dL Albumin/Globulin Ratio 0.6 L (1.0-2.2) Blood Type Antibody Screen Crossmatch IS Only 08/04/18 Range/Units 20:20 WBC (4.8-10.8) x10^3/uL RBC (4.20-5.40) 10^6/uL Hgb (12.0-16.0) g/dL Hct (37.0-47.0) % MCV (81.0-99.0) fL MCH (27.0-31.0) pg MCHC (32.0-36.0) g/dL RDW (12.0-15.0) % Plt Count (130-450) 10^3/uL MPV (7.9-10.8) fL Neut # (Auto) Lymph # (Auto) Edgar # (Auto) Eos # (Auto) Baso # (Auto) Absolute Nucleated RBC Total Counted Band Neuts % (Manual) (0 - 10) % Abnorm Lymph % (Manual) % Metamyelocytes % ( - 0) % Myelocytes % ( - 0) % Nucleated RBC % Neutrophils # (Manual) (1.5-6.6) 10^3/uL Lymphocytes # (Manual) (1.5-3.5) 10^3/uL Monocytes # (Manual) (0.0-1.0) 10^3/uL Eosinophils # (Manual) (0-0.7) 10^3/uL Basophils # (Manual) (0-0.1) 10^3/uL Differential Comment Platelet Estimate (NORMAL) RBC Morph Micro Appear (NORMAL) Sodium (135-145) mmol/L Potassium (3.5-5.0) mmol/L Chloride (101-111) mmol/L Carbon Dioxide (21-32) mmol/L Anion Gap (6-13) BUN (6-20) mg/dL Creatinine (0.4-1.0) mg/dL Estimated GFR (MDRD) (>89) Glucose (70-100) mg/dL Calcium (8.5-10.3) mg/dL Magnesium (1.7-2.8) mg/dL Total Bilirubin (0.2-1.0) mg/dL AST (10-42) IU/L ALT (10-60) IU/L Alkaline Phosphatase (42-121) IU/L Total Protein (6.7-8.2) g/dL Albumin (3.2-5.5) g/dL Globulin (2.1-4.2) g/dL Albumin/Globulin Ratio (1.0-2.2) Blood Type A POSITIVE Antibody Screen NEGATIVE Crossmatch IS Only See Detail ABX Reporting Has patient been on IV antibiotics over the past 48 hours?: Yes Assessment/Plan - Problem List (1) Pneumonia Impression: Presented as near syncope. Very weak, tired. Blood cultures received And 2 sets of peripheral blood cultures with one set from the port are negative. Chest x-ray with bilateral patchy infiltrates. She is 97% on 3 liters today where she was 94% on RA yesterday am. Plan: IV antibiotics, day #3 Rocephin and azithromycin. Consider change to po today or tomorrow am. Qualifiers: Pneumonia type: due to unspecified organism Laterality: bilateral Lung location: unspecified part of lung Qualified Code(s): J18.9 - Pneumonia, unspecified organism (2) Colon cancer metastasized to multiple sites Impression: She had known metastatic disease to liver and lung. On palliative chemotherapy and had her first course of chemotherapy 15 days ago. Was to get another course of chemotherapy this week. CT of the brain in the emergency room now shows metastatic disease to brain. But her oncologist is not here this week. Instead we spoke to oncology on-call, Dr. Corona 08/05. The patient and her daughter have a decision to make. They spent quite a bit of time speaking to Jen Gonzalez as well as Sariah Eller on 08/05. They are trying to weigh continued palliative chemotherapy with now the addition of brain radiation therapy versus radiation therapy alone to the brain versus doing nothing. They are hoping to get some information and data that would let them help make this decisions. With Dr. Jean being out of town, Dr. Corona will be here today in clinic. She may come by and speak to the patient then. Plan: Started Decadron 4 mg 4 times daily on 08/05 per Sariah Eller Start Keppra 500 mg p.o. twice daily 0n 08/[address] Corona Consultation with Dr. Corona today to help this patient and her daughter decide which branch of a decision tree they will go down (3) Drug induced neutropenia Impression: ANC was 300>500>465 today. We will continue to monitor for fever. Under neutropenic precautions. (4) Dehydration Impression: Improved. BUN was 18 with creatinine 1.1 08/04. After IV fluids went to 14 and 0.7>13 and 0.5. GFR is gone from 49-82. Plan: Continue IV fluids for 1 more liter. Can do enough p.o. intake on her own. Stop IV fluids. (5) Electrolyte and fluid disorder Impression: Hypokalemic at 2.9 >3.2 > 4.2 today. Sodium was 129 > 134 >136. Plan: Sodium has improved. Stop IV fluids for dehydration. Supplement p.o. potassium prn (6) Moderate protein-calorie malnutrition Impression: Her nutritional intake has been less than 50% of recommended intake for over a week. She has had reduced functional capacity resulting in generalized weakness and falls. Weight has come down. Eating anywhere from 25% to 100% of meals here in last day. Plan: Dietary consult. PT if appropriate Palliative care consult.
[2018-08-06] MEDS: AZITHROMYCIN INJ 500 MG in SODIUM CHLORIDE 0.9% 250 ML IV SCH (10:05)
[2018-08-06] MEDS: ALPRAZolam 0.25 MG TABLET PO PRN ×2 (10:17→18:47)
[2018-08-06] MEDS: SODIUM CHLORIDE FLUSH 0.9% 10 ML SYRINGE IVP PRN ×2 (11:20→19:00)
--- NOTE | 2018-08-06 13:44 | CONSULTATION NOTE ---
Palliative Care Follow Up - Referral Referring Provider: Ni Linton Time of Visit: [id number] Referral setting: Hospitalized patient Referral Reason: Met Colon Cancer with liver/brain mets - Information Sources Records reviewed: Previous records reviewed History/Review of Systems obtained from: Patient Exam limitations: Clinical condition (patient still with mild intermittent confusion/STM issues but improved) - History of Present Illness Update Brief HPI Update: This is a 73-year-old woman with metastatic colon cancer to the liver, lung, now with new identified brain lesion on CT. Patient has improved in the last 24 hours, with some increase in clarity, though still has some short-term memory issues and intermittent and fluctuating confusion. She is speaking clear, has poor recall of the previous day's events, but is able to engage and converse. She reports she is feeling somewhat stronger, she is sitting in the chair eating lunch, reports her pain is fairly well controlled with the lower abdomen, but has left rib thoracic pain, but not enough to ask for some breakthrough pain medication. She remains quite conflicted as far as whether to continue treatment or focus on supportive/comfort care. Social History - Living Situation Living arrangement: At home Living Situation: With family Support System: She lives with her daughter who works full-time, she has been with them about a year. This is been an adjustment for both of them. Her grandson recently moved in in the last few days with his girlfriend, hopes will be increased support in the home as well as wanting to spend as much time as possible with his grandmother. She does have a daughter in [place], awaiting on decision, family supportive of patient per report of which ever way she decides to go. [place] does [place], reports there is a way to get to second floor, making arrangements for lift to top floor where her bedroom is. Medications/Allergies - Medications Active Medication List: Active Medications Acetaminophen (Tylenol) 650 mg PO Q4HR PRN PRN Reason: Pain or Fever > 38C (100.4F) Last Admin: 08/05/18 05:25 Dose: 650 mg Alprazolam (Xanax) 0.25 mg PO TID PRN PRN Reason: Anxiety Last Admin: 08/06/18 10:17 Dose: 0.25 mg Aspirin (Ecotrin) 81 mg PO DAILY [facility] Last Admin: 10/31/18 08:43 Dose: 81 mg Bupropion HCl (Wellbutrin Sr) 150 mg PO DAILY [facility] Last Admin: 08/06/18 08:43 Dose: 150 mg Dexamethasone (Decadron) 4 mg PO QID [facility] Last Admin: 08/06/18 13:19 Dose: 4 mg Docusate Sodium (Colace 250mg Capsule) 250 - 500 mg PO DAILY [facility] Last Admin: 08/06/18 08:43 Dose: 250 mg Famotidine (Pepcid) 20 mg PO BID [facility] Last Admin: 08/06/18 08:43 Dose: 20 mg Fentanyl (Duragesic) 1 patch TOP Q3D [facility] Last Admin: 08/04/18 21:50 Dose: 1 patch Heparin Sodium (Beef Lung) () 30 - 50 unit IVP PRN PRN PRN Reason: Port Protocol (<24 hours) Last Admin: 08/06/18 11:19 Dose: 50 unit Azithromycin 500 mg/ Sodium (Chloride) 250 mls @ 250 mls/hr IV DAILY [facility] Last Infusion: 08/06/18 11:06 Dose: Infused Ceftriaxone Sodium 1 gm/ (Sodium Chloride) 100 mls @ 200 mls/hr IV DAILY [facility] Last Infusion: 08/06/18 11:01 Dose: Infused Levetiracetam (Keppra) 500 mg PO BID [facility] Last Admin: 08/06/18 08:43 Dose: 500 mg Levothyroxine Sodium (Synthroid) 100 mcg PO DAILY [facility] Last Admin: 08/06/18 08:43 Dose: 100 mcg Magnesium Oxide (Mag Ox) 400 mg PO DAILYWM [facility] Last Admin: 08/06/18 08:43 Dose: 400 mg Morphine Sulfate (Morphine (Carpuject)) 2 mg IVP Q2HR PRN PRN Reason: Pain 8 to 10 Oxycodone HCl (Roxicodone) 5 mg PO Q4HR PRN PRN Reason: PAIN Polyethylene Glycol (Miralax) 17 gm PO DAILY [facility] Last Admin: 08/06/18 08:42 Dose: 17 gm Potassium Chloride () 20 meq PO DAILYWM [facility] Last Admin: 08/06/18 08:42 Dose: 20 meq Prochlorperazine Edisylate (Compazine Inj) 10 mg IVP Q6HR PRN PRN Reason: Nausea / Vomiting Last Admin: 08/05/18 17:22 Dose: 10 mg Senna (Senokot) 8.6 - 17.2 mg PO DAILY [facility] Last Admin: 08/06/18 08:43 Dose: 8.6 mg Sodium Chloride (Normal Saline Flush 0.9%) 10 ml IVP PRN PRN PRN Reason: NEEDED PER PROVIDER ORDERS Last Admin: 08/06/18 11:20 Dose: 10 ml Sodium Chloride (Normal Saline Flush 0.9%) 10 ml IVP 0100,0900,1700 [facility] Last Admin: 08/06/18 08:44 Dose: Not Given Sodium Chloride (Normal Saline Flush 0.9%) 20 ml IVP PRN PRN PRN Reason: After Blood Draw Last Admin: 08/05/18 03:25 Dose: 20 ml Alprazolam [Xanax] 0.25 mg PO Q8H PRN 05/29/18 Aspirin [Aspirin EC] 81 mg PO DAILY 05/29/18 Atenolol 25 mg PO DAILY 05/29/18 Levothyroxine [Synthroid] 100 mcg PO QDAC 05/29/18 Tenmile-3/Dha/Epa/Fish Oil [Fish Oil 1,000 mg Softgel] 1 gm PO BID 05/29/18 buPROPion [Wellbutrin Sr] 150 mg PO DAILY 05/29/18 fentaNYL 12 MCG PATCH [Duragesic 12mcg patch] 25 mcg TOP Q72H MDD start 07/2407/25/18 oxyCODONE [Roxicodone] 5 - 10 mg PO Q4HR PRN 07/25/18 Cyanocobalamin (Vitamin B-12) [Vitamin B-12 (500 mcg sublingual)] 500 mcg PO DAILY 08/05/18 Multivitamin [Theragran] 1 tab PO DAILY 08/05/18 Sennosides/Docusate Sodium [Senna-Docusate Sodium Tablet] 1 tab PO PRN PRN 08/05/18 raNITIdine HCl [Ranitidine HCl] 150 mg PO BID 08/05/18 - Allergies Allergies/Adverse Reactions: Allergies Allergy/AdvReac Type Severity Reaction Status Date / Time No Known Drug Allergies Allergy Verified 08/04/18 17:15 Review of Systems - Constitutional Constitutional: reports: Fatigue, Poor appetite. denies: Fever - Eyes Eyes: reports: Vision loss, Corrective lenses - Ears, Nose & Throat Ears, Nose & Throat: reports: Hearing loss, Dry mouth - Cardiovascular Cardiovascular: reports: Decr. exercise tolerance. denies: Chest pain - Respiratory Respiratory: reports: Other (still on oxygen). denies: Cough, SOB at rest - Gastrointestinal Gastrointestinal: reports: Constipation (bowels moved but still hard), Bloating, Early satiety. denies: Abdominal pain (pain controlled), Nausea - Genitourinary Genitourinary: reports: Incontinence - Musculoskeletal Musculoskeletal: reports: Stiffness, Muscle weakness, Assistive devices (using walker) - Integumentary Integumentary: reports: Dryness - Neurological Neurological: reports: General weakness, Memory problems. denies: Headache, Dizziness, Slurred speech - Psychiatric Psychiatric: reports: Depression (very tearful) - Hematologic/Lymphatic Hematologic/Lymphatic: reports: Anemia Physical Exam - Vital Signs Vital Signs: Vital Signs x48h Temp Pulse Resp BP BP Pulse Ox 08/06/18 13:42 36.4 C L 80 18 122/55 L 98 08/06/18 08:00 36.3 C L 68 16 127/57 L 97 08/06/18 05:45 36.2 C L 77 16 104/47 L 95 - Physical Exam General Appearance: positive: No acute distress Eyes Bilateral: positive: Normal inspection ENT: negative: Pharyngeal erythema Neck: positive: No JVD, Trachea midline Respiratory: positive: No respiratory distress Skin: positive: Pallor Extremities: positive: Pedal edema (trace bila) Neurologic/Psychiatric: positive: Oriented x3, Weakness Palliative Care - POLST Patient has POLST: Yes POLST Status: DNR, Comfort Measures Pain: Pain improved, Location (lower abdominal pain controlled; c/o some L rib pain) Tiredness/Fatigue: Severe (7-10) Drowsiness/Sedation: Mild (1-3) Nausea: None Depression: Moderate (4-6) Anxiety: Moderate (4-6) (improved) Constipation: Yes, Opoid induced, Unmanaged - Palliative Care Discussion: Met with patient, though she is much more clear, though does have some short- term memory issues and some scattered thinking. She is able to track, engage, and answer questions appropriately. She is oriented x3, has poor recall of the last couple days, but is able to ask appropriate questions today. We reviewed her goals of care, currently she is still weighing benefits and burdens of moving forward with treatment, she is hoping for information from oncology to be able to help with this decision making. She understands her days are "limited", wants is to be of quality, does not want to be a burden on her family, as well as does not want to be experiencing side effects of chemotherapy that might impact her ability to enjoy what time she has left. She does want to have time to be able to say goodbye to her friends and family, is feeling some urgency in the context of her new diagnosis of brain metastases. Daughter is supportive of patient no matter what decision she makes. Spoke briefly to daughter on phone, plan is for them to meet with Dr. Corona at 4:00 today. Feel that this would help them as far as her decision-making, and better understanding of where they are heading next. Did creep patient will need follow-up on discharge, please see previous note, recommend home health services on discharge. Results - Lab Results Lab results reviewed: Yes Fish Bones: 08/06/18 05:45 08/06/18 05:45 Lab and Imaging Results: Lab Results x24hrs 08/06/18 08/06/18 08/06/18 Range/Units 05:45 05:45 05:45 WBC 3.1 L (4.8-10.8) x10^3/uL RBC 3.04 L (4.20-5.40) 10^6/uL Hgb 8.0 L (12.0-16.0) g/dL Hct 25.2 L (37.0-47.0) % MCV 82.8 (81.0-99.0) fL MCH 26.2 L (27.0-31.0) pg MCHC 31.6 L (32.0-36.0) g/dL RDW 21.8 H (12.0-15.0) % Plt Count 332 (130-450) 10^3/uL MPV 7.4 L (7.9-10.8) fL Neut # (Auto) Not Reportable Lymph # (Auto) Not Reportable Rogers # (Auto) Not Reportable Eos # (Auto) Not Reportable Baso # (Auto) Not Reportable Absolute Nucleated RBC Not Reportable Total Counted 100 Band Neuts % (Manual) 15 H (0 - 10) % Abnorm Lymph % (Manual) 0 % Metamyelocytes % 2 H ( - 0) % Myelocytes % 2 H ( - 0) % Nucleated RBC % Not Reportable Neutrophils # (Manual) 1.9 (1.5-6.6) 10^3/uL Lymphocytes # (Manual) 0.7 L (1.5-3.5) 10^3/uL Monocytes # (Manual) 0.3 (0.0-1.0) 10^3/uL Eosinophils # (Manual) 0.0 (0-0.7) 10^3/uL Basophils # (Manual) 0.0 (0-0.1) 10^3/uL Differential Comment MANUAL DIFFERENTIAL Platelet Estimate NORMAL (130-450,000) (NORMAL) RBC Morph Micro Appear 1+ MICROCYTOSIS (NORMAL) Sodium 136 (135-145) mmol/L Potassium 4.2 (3.5-5.0) mmol/L Chloride 103 (101-111) mmol/L Carbon Dioxide 27 (21-32) mmol/L Anion Gap 6.0 (6-13) BUN 13 (6-20) mg/dL Creatinine 0.5 (0.4-1.0) mg/dL Estimated GFR (MDRD) 121 (>89) Glucose 169 H (70-100) mg/dL Calcium 7.3 L (8.5-10.3) mg/dL Magnesium 2.5 (1.7-2.8) mg/dL Total Bilirubin 0.4 (0.2-1.0) mg/dL AST 22 (10-42) IU/L ALT 21 (10-60) IU/L Alkaline Phosphatase 60 (42-121) IU/L Total Protein 4.6 L (6.7-8.2) g/dL Albumin 1.7 L (3.2-5.5) g/dL Globulin 2.9 (2.1-4.2) g/dL Albumin/Globulin Ratio 0.6 L (1.0-2.2) Blood Type Antibody Screen Crossmatch IS Only 08/04/18 Range/Units 20:20 WBC (4.8-10.8) x10^3/uL RBC (4.20-5.40) 10^6/uL Hgb (12.0-16.0) g/dL Hct (37.0-47.0) % MCV (81.0-99.0) fL MCH (27.0-31.0) pg MCHC (32.0-36.0) g/dL RDW (12.0-15.0) % Plt Count (130-450) 10^3/uL MPV (7.9-10.8) fL Neut # (Auto) Lymph # (Auto) Rogers # (Auto) Eos # (Auto) Baso # (Auto) Absolute Nucleated RBC Total Counted Band Neuts % (Manual) (0 - 10) % Abnorm Lymph % (Manual) % Metamyelocytes % ( - 0) % Myelocytes % ( - 0) % Nucleated RBC % Neutrophils # (Manual) (1.5-6.6) 10^3/uL Lymphocytes # (Manual) (1.5-3.5) 10^3/uL Monocytes # (Manual) (0.0-1.0) 10^3/uL Eosinophils # (Manual) (0-0.7) 10^3/uL Basophils # (Manual) (0-0.1) 10^3/uL Differential Comment Platelet Estimate (NORMAL) RBC Morph Micro Appear (NORMAL) Sodium (135-145) mmol/L Potassium (3.5-5.0) mmol/L Chloride (101-111) mmol/L Carbon Dioxide (21-32) mmol/L Anion Gap (6-13) BUN (6-20) mg/dL Creatinine (0.4-1.0) mg/dL Estimated GFR (MDRD) (>89) Glucose (70-100) mg/dL Calcium (8.5-10.3) mg/dL Magnesium (1.7-2.8) mg/dL Total Bilirubin (0.2-1.0) mg/dL AST (10-42) IU/L ALT (10-60) IU/L Alkaline Phosphatase (42-121) IU/L Total Protein (6.7-8.2) g/dL Albumin (3.2-5.5) g/dL Globulin (2.1-4.2) g/dL Albumin/Globulin Ratio (1.0-2.2) Blood Type A POSITIVE Antibody Screen NEGATIVE Crossmatch IS Only See Detail Impression and Recommendations - Palliative Care Impression: This is a 73-year-old woman with metastatic colon cancer to the liver lung and now brain. She presents with functional and cognitive decline, weight loss, fatigue, anorexia, and pain. Patient with chemotherapy-induced neutropenia, community-acquired pneumonia, and admitted with altered mental status is improving. Palliative care to provide support for pain and symptom management and counseling for transitions and anticipatory guidance Recommendations/Counseling Done: 1. Pain of neoplastic origin, patient currently being managed with fentanyl 25 mcg patch, has been fairly well controlled. Would continue current plan on discharge. 2. Constipation. Patient did move her bowels, but hard and small. Given patient's tumor burden and high risk for obstruction, patient continues to need aggressive bowel regimen, continue with the MiraLAX and increase the senna to 2 tabs twice daily. 3. Advanced care planning. Patient awaiting input from oncologist, counseling provided regarding the continuum of care from home health and hospice, addressed patient's questions and follow-up questions with daughter on the phone. Would recommend home health care if patient does not transition to hospice. Palliative care can continue to follow. [id number] patient is homebound secondary is considerable and taxing effort for the patient leave the home related to fatigue, lower extremity weakness, and dyspnea on exertion. Patient would benefit from home health nursing, for oversight for pain and symptom management, management of bowels, and medication adherence. PT for home safety, strengthening program, and equipment recommendations. Home health aide for bathing services secondary considerable effort at this point in time for patient to bathe independently.SENSORY SCIENTIST for long- term care planning, follow-up on [employer] application, as well as counseling for adjustment to illness Time Spent: 45 minutes was given 50% of this done in counseling regarding goals of care, c ontinuum of care and anticipatory guidance
[2018-08-07] MEDS: SODIUM CHLORIDE FLUSH 0.9% 10 ML SYRINGE IVP SCH ×2 (00:57→08:38)
[2018-08-07] MEDS: ALPRAZolam 0.25 MG TABLET PO PRN ×2 (02:03→08:56)
[2018-08-07] MEDS ORDERED: GADOBUTROL 10 MMOL/10 ML VIAL ONE (07:02)
[2018-08-07] MEDS ORDERED: GADOBUTROL 10 MMOL/10 ML VIAL IVP ONE ×2 (07:54)
[2018-08-07] MEDS: PROCHLORPERAZINE 10 MG/2 ML VIAL IVP PRN (08:38)
[2018-08-07] MEDS: cefTRIAXone 1 GM in SODIUM CHLORIDE 0.9% MINIBAG 100 ML IV SCH (08:43)
[2018-08-07] MEDS: POLYETHYLENE GLYCOL 3350 17 GM PACKET PO SCH (08:56)
[2018-08-07] MEDS: POTASSIUM CHLORIDE 20 MEQ/15 ML UDC PO SCH (08:56)
[2018-08-07] MEDS: SENNA 8.6 MG TABLET PO SCH (08:57)
[2018-08-07] MEDS: MAGNESIUM OXIDE 400 MG TABLET PO SCH (08:57)
[2018-08-07] MEDS: FAMOTIDINE 20 MG TABLET PO SCH (08:57)
[2018-08-07] MEDS: ASPIRIN EC 81 MG TABLET PO SCH (08:57)
[2018-08-07] MEDS: levETIRAcetam 250 MG TABLET PO SCH (08:57)
[2018-08-07] MEDS: buPROPion SR 150 MG TABLET PO SCH (08:57)
[2018-08-07] MEDS: DEXAMETHASONE 4 MG TABLET PO SCH ×2 (08:57→13:41)
[2018-08-07] MEDS: DOCUSATE SODIUM 250 MG CAPSULE PO SCH (08:57)
[2018-08-07] MEDS: LEVOTHYROXINE 100 MCG TABLET PO SCH (08:57)
--- NOTE | 2018-08-07 09:02 | MRI Report ---
Reason: new mets to brain Procedure Date: 08/07/2018 Accession Number: [id number] / [id number] Procedure: MRI - Brain W/WO CPT Code: FULL RESULT: EXAM: MRI BRAIN WITHOUT AND WITH CONTRAST EXAM DATE: 08/07/2018 07:59 AM. CLINICAL HISTORY: New metastatic disease to brain COMPARISON: HEAD W/O 08/04/2018 5:59 PM. TECHNIQUE: Multiplanar, multisequence T1-weighted and fluid-sensitive MR sequences of the brain were performed. Sequences optimized for routine evaluation. Other: None. IV Contrast: Yes 8 mL Gadavist. FINDINGS: Brain Volume: Normal for age. Parenchyma: There is no restricted diffusion to suggest acute infarct. In the right superior medial frontal lobe there is a ring-enhancing nodule measuring 11 x 12 mm. There is an 18 x 33 mm area of adjacent vasogenic edema. No additional enhancing abnormality and no additional areas of edema. No evidence of prior large vascular territory infarct. Ventricles/Cisterns: No hydrocephalus. No abnormal extra-axial fluid collection or hemorrhage. Orbits: Symmetric and unremarkable. Sella Turcica: Unremarkable. IAC: Symmetric and unremarkable. Vasculature: Normal signal flow void is seen in the major arterial structures at the skull base. The dural sinuses are patent and enhance normally. Sinuses: No acute sinus disease. Bones: There is a 6 mm enhancing focus in the left frontal calvarium (series 1103, image 46). Other: None. IMPRESSION: 1. 1.2 cm right frontal brain metastasis. 2. Indeterminate 6 mm left frontal skull enhancing focus. RADIA
[2018-08-07 09:21] LABS: ALBUMIN 2.2 g/dL (3.2-5.5); ALBUMIN/GLOBULIN RATIO 0.6 (1.0-2.2); BILIRUBIN,TOTAL 0.5 mg/dL (0.2-1.0); CREATININE 0.6 mg/dL (0.4-1.0); TOTAL PROTEIN 5.7 g/dL (6.7-8.2)
[2018-08-07 09:23] LABS: BASOPHILS % (AUTO) 0.2 %; EOSINOPHILS % (AUTO) 0.2 %; HGB - HEMOGLOBIN 10.3 g/dL (12.0-16.0); MEAN CORPUSCULAR HEMOGLOBIN 26.8 pg (27.0-31.0); MEAN CORPUSCULAR HGB CONC 32.4 g/dL (32.0-36.0); MEAN CORPUSCULAR VOLUME 82.6 fL (81.0-99.0); MEAN PLATELET VOLUME 7.5 fL (7.9-10.8); NEUTROPHILS % (AUTO) 71.6 %; PLT - PLATELET COUNT 462 10^3/uL (130-450); RED BLOOD COUNT 3.85 10^6/uL (4.20-5.40); RED CELL DISTRIBUTION WIDTH 21.7 % (12.0-15.0); WHITE BLOOD COUNT 8.4 x10^3/uL (4.8-10.8)
[2018-08-07 09:28] LABS: ABNORMAL LYMPHS % (MANUAL) 0 %
--- NOTE | 2018-08-07 09:32 | Discharge Plan ---
Discharge Plan Disposition: Home Health Service Condition: Poor Prescriptions: Amoxicillin 500 mg PO BID #8 capsule Azithromycin 250 mg PO DAILY #2 tablet Dexamethasone [Decadron] 4 mg PO BID #60 tablet levETIRAcetam [Keppra] 500 mg PO BID #60 tablet Diet: Regular Activity Restrictions: Activity as Tolerated Shower Restrictions: No Driving Restrictions: No Assistance Devices: Walker No Smoking: If you smoke, Please STOP! Call for help. Follow-up with: Jen Gonzalez ARNP [Provider Admit Priv/Credential] -
[2018-08-07 10:30] LABS: BAND NEUTROPHILS % (MANUAL) 7 %; LYMPHOCYTES # (MANUAL) 2.4 10^3/uL (1.5-3.5); LYMPHOCYTES % (MANUAL) 28 %; METAMYELOCYTES % (MANUAL) 1 %; MONOCYTES # (MANUAL) 0.9 10^3/uL (0.0-1.0); MYELOCYTES % (MANUAL) 6 %; NEUTROPHILS # (MANUAL) 4.5 10^3/uL (1.5-6.6); NEUTROPHILS % (MANUAL) 47 %
[2018-08-07 10:31] LABS: DIFFERENTIAL COMMENT MANUAL DIFFERENTIAL
[2018-08-07] MEDS: AZITHROMYCIN INJ 500 MG in SODIUM CHLORIDE 0.9% 250 ML IV SCH (11:00)
[2018-08-07] MEDS: fentaNYL 25 MCG PATCH TOP SCH (11:03)
--- NOTE | 2018-08-07 11:06 | DISCHARGE SUMMARY ---
"Discharge Summary Admit Date: 08/04/18 Discharge Date: 08/07/18 Discharging Provider: iN Linton MD Primary Care Provider: Justyn Saucedo MD Code Status: Do Not Attempt Resuscitation Condition at Discharge: Poor Discharge Disposition: 06 Home Health Service - DIAGNOSES Discharge Diagnoses with Status of Each Condition: 1. Community-acquired pneumonia, resolving 2. Colon cancer metastasized to multiple sites including lung liver and now brain 3. Neutropenia and anemia secondary to neoplastic drugs 4. Dehydration, resolved 5. Acute kidney injury, resolved 6. Electrolyte and fluid disorder with hypokalemia and hyponatremia, resolved 7. Moderate protein calorie malnutrition ongoing 8. Failure to thrive as an adult ongoing 9. Orthostatic syncope resolved - HPI History of Present Illness: 73-year-old white female with a history of colon cancer with metastases to the lung and liver who underwent her first course of chemotherapy 13 days ago at the medical oncology ambulatory clinic here. She is followed by [facility] oncology, Dr. Burr. She was scheduled to have follow-up labs and a doctor visit tomorrow. But over the last several days she has been very weak. Over the last several weeks she has had decreasing p.o. intake, drinking hardly anything, and will eat a fruit cup as an entire meal. She does live with her daughter. This morning, the daughter went to go find her mother when she was not responding to her voice. She found her mother slumped against the door of the bathroom, was able to pry the door open and to get in and then call an ambulance. The patient was extremely weak, but awake and communicating. She could not describe how she ended up on the floor. In the emergency room she was confused, lethargic and very fatigued. On examination there were no focal deficits and she appeared to be encephalopathic. Labs showed a sodium of 129, potassium 2.9, a chest x-ray with bilateral lower lung infiltrates, marked neutropenia with an ANC of 300. CT of the head showed a new brain mass which is probably metastatic disease. - CONSULTS | PROCEDURES Consultations: 1. Palliative care, Jen Gonzalez 2. Oncology visit by Dr. Marcie Corona Procedures: 1. Chest x-ray with patchy bilateral lower lobe opacities, no effusions or pneumothorax, stable port 2. Head CT with no intraparenchymal hemorrhage. No midline shift. No evidence of acute infarct. 3 cm hypodense region in the right frontal lobe. 3. Brain MRI with and without contrast looking for edema showing no restricted diffusion signal to suggest acute infarct. Right superior medial frontal lobe there is a ring-enhancing nodule measuring 11 x 12 mm. There is an 18 x 33 mm area of adjacent vasogenic edema. No additional enhancing abnormality and no additional areas of edema. 4. Blood cultures x3 sets negative after 3 days, one blood culture from port - HOSPITAL COURSE Hospital Course: She was admitted with pneumonia causing orthostatic syncope from dehydration, electrolyte disorders from her dehydration including acute kidney injury, hyponatremia and hypokalemia. She was also found to have a new metastatic focus in her brain from her colon cancer. Treatment consisted of Rocephin and azithromycin for the pneumonia and IVF for the dehydration. She has been normotensive and afebrile throughout her stay. Oxygen requirement was minimal. She is 96% on room air at discharge. She is to complete her therapy for pneumonia in the outpatient setting with 2 more days of azithromycin to complete 2000 mg of azithromycin therapy. And she will need 4 more days of Amoxil. Sodium was initially 129 and admission. Normalized to 136 on August 05 and was 136 on the day of discharge. Potassium was 2.9 on admission and with multiple K riders and oral supplementation her potassium was 4 on the day of discharge. The patient lives with her daughter. She has a very good support system with family and daughter. This new diagnosis of metastatic disease to the brain was very upsetting to her. There would be moments of tearfulness and depression. Eventually, a physician representing her oncologist was able to see her. Options were discussed whether she should continue the chemotherapy, and radiation therapy to the brain, or transition to hospice. The patient is still not sure what she would like to do. She wants to go home. She already has palliative care consultation with Jen Gonzalez and will be followed up with her. It is anticipated that she will most likely transition to hospice. The daughter and she are doubtful that they would [place] the patient has not completely ruled out out at the time of discharge. It was interesting that she did not want to discuss the MRI report. She said that getting the report from the CT of the head was upsetting enough and she did not want to discuss the MRI report until next week. She is sent home on Keppra and Decadron. Initially she was started on Decadron 4 times daily. It has been decreased to twice daily. Dr. Corona or Dr. Burr [place] [facility] - ALLERGIES Allergies/Adverse Reactions: Allergies Allergy/AdvReac Type Severity Reaction Status Date / Time No Known Drug Allergies Allergy Verified 08/04/18 17:15 - MEDICATIONS Home Medications: Ambulatory Orders Medication Instructions Recorded Confirmed Alprazolam [Xanax] 0.25 mg PO Q8H PRN 05/29/18 08/05/18 Aspirin [Aspirin EC] 81 mg PO DAILY 05/29/18 08/05/18 Atenolol 25 mg PO DAILY 05/29/18 08/05/18 Levothyroxine [Synthroid] 100 mcg PO QDAC 05/29/18 08/05/18 Dunnegan-3/Dha/Epa/Fish Oil [Fish Oil 1 gm PO BID 05/29/18 08/05/18 1,000 mg Softgel] buPROPion [Wellbutrin Sr] 150 mg PO DAILY 05/29/18 08/05/18 Ondansetron HCl [Zofran] 4 mg PO Q6HR PRN #20 tablet 07/04/18 08/05/18 Prochlorperazine Maleate 10 mg PO Q6H PRN #30 tablet 07/23/18 08/05/18 [Compazine] fentaNYL 12 MCG PATCH [Duragesic 25 mcg TOP Q72H MDD start 07/2407/25/18 08/05/18 12mcg patch] oxyCODONE [Roxicodone] 5 - 10 mg PO Q4HR PRN 07/25/18 08/05/18 Cyanocobalamin (Vitamin B-12) 500 mcg PO DAILY 08/05/18 08/05/18 [Vitamin B-12 (500 mcg sublingual)] Multivitamin [Theragran] 1 tab PO DAILY 08/05/18 08/05/18 Sennosides/Docusate Sodium 1 tab PO PRN PRN 08/05/18 08/05/18 [Senna-Docusate Sodium Tablet] raNITIdine HCl [Ranitidine HCl] 150 mg PO BID 08/05/18 08/05/18 Amoxicillin 500 mg PO BID #8 capsule 08/07/18 Azithromycin 250 mg PO DAILY #2 tablet 08/07/18 Dexamethasone [Decadron] 4 mg PO BID #60 tablet 08/07/18 levETIRAcetam [Keppra] 500 mg PO BID #60 tablet 08/07/18 - PHYSICAL EXAM AT DISCHARGE General Appearance: positive: No acute distress, Alert, Other (She is not lethargic but she has psychomotor slowing, slow cognitive responses) Eyes Bilateral: positive: PERRL ENT: positive: Pharynx nml Neck: positive: No JVD. negative: Stiff neck, Carotid bruit Respiratory: positive: Chest non-tender. negative: Wheezes, Rales, Rhonchi Cardiovascular: positive: Regular rate & rhythm, Systolic murmur. negative: Gallop/S4, Friction rub Peripheral Pulses: positive: 1+ Abdomen: positive: Non-tender, No organomegaly, Nml bowel sounds, No distention Skin: positive: Warm, Dry Extremities: positive: Full ROM, Pedal edema Neurologic/Psychiatric: positive: Oriented x3, CN's nml (2-12), Motor nml (But generalized weakness causes her to require standby assist, sometimes 1 person assist to get out of bed. Needs a walker for balance. Again, severe psycho motor slowing that is new for her), Depressed mood/affect (I had wanted to discuss the findings of the MRI report with her. She is adamant that she does not want to know the results of that report until she gets home, and has been home a few days. So she will be looking toward Dr. Saucedo or Jen Gonzalez to share with her what that showed.) - LABS Result Diagrams: 08/07/18 09:02 08/07/18 09:02 - FOLLOW UP Follow Up: I am having her follow-up with Dr. Saucedo in the next 1-2 weeks. Jen Gonzalez will most likely see her in the next week. Plan is to transition her to hospice when she is ready. - TIME SPENT Time Spent in Discharge (Minutes): 40"
[2018-08-07 15:55] VITALS: BP 138/56
--- NOTE | 2018-08-09 15:58 | ONCOLOGY / HEMATOLOGY ---
DATE OF SERVICE: 08/06/2018 Physician: Marcie Corona MD INPATIENT CONSULT NOTE HISTORY OF PRESENT ILLNESS: Patient is an unfortunate female who has known metastatic large cell neuroendocrine carcinoma. Patient is status post 1 cycle of chemotherapy. She has been admitted in the hospital for confusion and neutropenia. The patient had a CT head done which was consistent with a 3 cm metastatic lesion in the brain. Ppatient was started on dexamethasone and Keppra with some improvement in her confusion. Her neutrophil count is now improving. Oncology was called in to discuss further treatment options and also for prognostic discussion. Patient reports feeling a bit better today. She denies any headache. No new weakness or numbness in any part of the body. Patient voiced that she does not want to be sick, especially with nausea with the chemotherapy. She did relate that she tolerated the last cycle of chemotherapy fairly well without any nausea issues. REVIEW OF SYSTEMS: As per HPI, all others negative. ECOG performance status 2. PAST MEDICAL HISTORY Significant for: 1. Hypertension and hyperparathyroidism. 2. Hypercholesterolemia. 3. Osteoporosis. 4. GERD. 5. Dyslipidemia. 6. Hypothyroidism. 7. COPD. 8. Anxiety. FAMILY HISTORY AND SOCIAL HISTORY: Reviewed and as per Dr. Jean's note from 07/08/2018. PHYSICAL EXAMINATION VITAL SIGNS: Reviewed as per chart. GENERAL: Patient pale looking, lying in bed. HEENT: Pallor present. Oral mucosa moist. LYMPHATICS: No cervical or supraclavicular lymphadenopathy noted. HEART: S1 and S2 heard. Regular rate and rhythm. LUNGS: Bilateral air entry equal and adequate. ABDOMEN: Soft, nontender. No organomegaly. SKIN: No rash, no bruising. EXTREMITIES: Arthritic changes present. Trace bilateral ankle edema. PSYCHIATRIC: The patient is very anxious and tearful during the conversation. NEUROLOGIC: No focal findings. RESULTS REVIEWED: I reviewed the results of the CT brain, which was consistent with new metastases from her known large cell neuroendocrine cancer. ASSESSMENT AND PLAN 1. Patient is a pleasant female with large cell neuroendocrine carcinoma, BRAF V600 mutation negative, KRAS mutation negative. Patient is status post cycle 1 FOLFOX. She has been admitted for confusion and neutropenia. Unfortunately, she has new brain metastases. I agree with the primary team to get a better picture of her brain and doing an MRI of the brain. Patient should be referred to Radiation Oncology. Patient would like to go to [facility]. We will make arrangements for the same. Patient will see Dr. Jean in clinic in 1 week for consideration of further chemotherapy. 2. Neutropenia. This is improving, this is secondary to the chemotherapy. Going forward she might need G-CSF support, given severe neutropenia with cycle 1 of FOLFOX-6. 3. Anemia. This is stable. 4. Malignant ascites. Patient had a PET therapeutic paracentesis in July and has been doing fine with abdominal distention since then. Ppatient was reassured. I discussed with her and her daughter about her prognosis, possible further treatment options and treatment plan going forward, which should include Radiation Oncology consult and going back to the clinic for further consideration of chemotherapy. At this point, patient would like to continue with the treatments. Patient was reassured. All questions and concerns answered. I spent 60 minutes, more than 50% of which was face to face in direct patient consultation and formulating a treatment plan. TD: 08/09/2018 13:01 HEATHER
== END 2018-08-07 17:20 | disposition home health service (06) | DRG 194 ==
LOC: EDUNIT# → ED 17:08 → MS2 20:12
PROVIDERS: ADMIT Internal Medicine; ATTEND Specialist
PROC: 30243N1 Transfusion of Nonautologous Red Blood Cells into Central Vein, Percutaneous Approach (ICD-10-PCS; principal; 2018-08-04)
DX: R53.1 Weakness (principal); J18.9 Pneumonia, unspecified organism; N17.9 Acute kidney failure, unspecified; E87.8 Other disorders of electrolyte and fluid balance, not elsewhere classified; E87.1 Hypo-osmolality and hyponatremia; E44.0 Moderate protein-calorie malnutrition; C7A.8 Other malignant neuroendocrine tumors; C7B.8 Other secondary neuroendocrine tumors; J44.0 Chronic obstructive pulmonary disease with (acute) lower respiratory infection; R18.0 Malignant ascites; G89.3 Neoplasm related pain (acute) (chronic); E86.0 Dehydration; D70.1 Agranulocytosis secondary to cancer chemotherapy; D64.81 Anemia due to antineoplastic chemotherapy; T45.1X5A Adverse effect of antineoplastic and immunosuppressive drugs, initial encounter; E87.6 Hypokalemia; R62.7 Adult failure to thrive; R55 Syncope and collapse; K59.03 Drug induced constipation; T40.2X5A Adverse effect of other opioids, initial encounter; E03.9 Hypothyroidism, unspecified; I10 Essential (primary) hypertension; E78.5 Hyperlipidemia, unspecified; K21.9 Gastro-esophageal reflux disease without esophagitis; F32.9 Major depressive disorder, single episode, unspecified; F41.9 Anxiety disorder, unspecified; Z51.5 Encounter for palliative care; Z66 Do not resuscitate; Z79.82 Long term (current) use of aspirin; Z68.28 Body mass index [BMI] 28.0-28.9, adult; Z79.899 Other long term (current) drug therapy; Z79.891 Long term (current) use of opiate analgesic; Z91.81 History of falling; Z74.01 Bed confinement status
CPT/HCPCS: 36415; 70450; 70553; 71045; 80053; 80320; 81001; 81003; 82272; 83605; 83690; 83735; 85025; 86850; 86900; 86901; 86920; 87040; 87086; 96365; 96368; 96375; 99233; 99283; 99284

== ENCOUNTER 2018-08-08 14:30 | Outpatient (CLI) | payer MEDICARE ==
--- NOTE | 2018-08-09 15:31 | CONSULTATION NOTE ---
Palliative Care Follow Up - Referral Referring Provider: Dr. Opal Jean Time of Visit: Saturday08/08/2018 [id number] Referral setting: Home - Information Sources Records reviewed: RN notes reviewed, Previous records reviewed History/Review of Systems obtained from: Patient, Family (met with daughter April end of visit) Exam limitations: Clinical condition (patient with STM issues;) - History of Present Illness Update Brief HPI Update: This is a 73-year-old woman with metastatic colon cancer to the liver, lung, now identified with brain metastases. She did have an MRI without and with contrast that did confirm a 1.2 cm right frontal brain metastases, and an indeterminate 6 mm left frontal skull enhancing focus. Patient was hospitalized from 08/04- 1 after she presented with significant weakness, and was found on the floor. She had decreased intake, increasing confusion, and was admitted with community- acquired pneumonia, neutropenia and anemia secondary to chemotherapy, dehydration, acute kidney injury, metabolic abnormalities, and ongoing moderate protein calorie malnutrition. I am seeing patient in the home setting to follow-up, secondary to patient's failure to thrive and poor functional status. She has been weighing benefits and burdens of moving forward with treatment, currently is planning to meet with her oncologist next week Dr. Opal Robledo as well as has an appointment on 08/14 with a radiation oncologist Dr. Orlando. Patient still presents with decreased intake, poor appetite, her pain though is currently controlled on fentanyl 25 mcg patch, continues with underlying anxiety disorder, daughter is monitoring her use of alprazolam as she does tend to overuse. She does have support in the home, she is currently receiving supervision. She presents today is quite weak, still somewhat overwhelmed, and still tearful. She does have decreased breath sounds in her bases, her O2 sats are 90%, no crackles or wheezing. She continues on antibiotic, she does present with oral candidiasis, she also reveals to me today, that she does have significant rectal prolapse and struggles with managing bowel movements regarding this. Social History - Living Situation Living arrangement: At home Living Situation: With family Support System: Patient's daughter April, came home at end of visit. She does work full-time this is been very stressful and trying to manage the balance of work and mother's needs. Her grandson recently moved in, with her girlfriend so there is some increased help in the home but not for personal care. Patient does live in daughter's house, they have had this arrangement for about a year. Patient has many friends from her hindu community, she has been for about 3 years, struggles with being a burden on her family. Medications/Allergies - Medications Home Medications: Ambulatory Orders Medication Instructions Recorded Confirmed Alprazolam [Xanax] 0.25 mg PO Q8H PRN 05/29/18 08/11/18 Aspirin [Aspirin EC] 81 mg PO DAILY 05/29/18 08/11/18 Atenolol 25 mg PO DAILY MDD finish 08/0905/29/18 08/11/18 Levothyroxine [Synthroid] 100 mcg PO QDAC 05/29/18 08/11/18 Bruington-3/Dha/Epa/Fish Oil [Fish Oil 1 gm PO BID 05/29/18 08/11/18 1,000 mg Softgel] buPROPion [Wellbutrin Sr] 150 mg PO DAILY 05/29/18 08/11/18 Ondansetron HCl [Zofran] 4 mg PO Q6HR PRN #20 tablet 07/04/18 08/11/18 Prochlorperazine Maleate 10 mg PO Q6H PRN #30 tablet 07/23/18 08/11/18 [Compazine] oxyCODONE [Roxicodone] 5 - 10 mg PO Q4HR PRN 07/25/18 08/11/18 Cyanocobalamin (Vitamin B-12) 500 mcg PO DAILY 08/05/18 08/11/18 [Vitamin B-12 (500 mcg sublingual)] Multivitamin [Theragran] 1 tab PO DAILY 08/05/18 08/11/18 Sennosides/Docusate Sodium 1 tab PO PRN PRN 08/05/18 08/11/18 [Senna-Docusate Sodium Tablet] raNITIdine HCl [Ranitidine HCl] 150 mg PO BID 08/05/18 08/11/18 Amoxicillin 500 mg PO BID #8 capsule MDD 4 days 08/07/18 08/11/18 Azithromycin 250 mg PO DAILY #2 tablet 08/07/18 08/11/18 Dexamethasone [Decadron] 4 mg PO BID #60 tablet 08/07/18 08/11/18 levETIRAcetam [Keppra] 500 mg PO BID #60 tablet 08/07/18 08/11/18 Nystatin 5 ml PO QID 08/11/18 08/11/18 fentaNYL [Fentanyl 25mcg patch] 25 mcg TOP .3DAYS 08/11/18 08/11/18 - Allergies Allergies/Adverse Reactions: Allergies Allergy/AdvReac Type Severity Reaction Status Date / Time No Known Drug Allergies Allergy Verified 08/04/18 17:15 Review of Systems - Constitutional Constitutional: reports: Fatigue, Weakness, Poor appetite. denies: Fever - Eyes Eyes: reports: Vision loss, Corrective lenses - Ears, Nose & Throat Ears, Nose & Throat: reports: Hearing loss, Nasal congestion, Dry mouth - Cardiovascular Cardiovascular: reports: Lightheadedness, Decr. exercise tolerance - Respiratory Respiratory: reports: SOB with exertion. denies: Cough, Wheezing, SOB at rest - Gastrointestinal Gastrointestinal: reports: Constipation, Poor appetite, Early satiety, Other (admits today about rectal prolapse; difficulty with bowel incontinence and managing). denies: Abdominal pain, Nausea, Vomiting - Genitourinary Genitourinary: reports: Frequency - Musculoskeletal Musculoskeletal: reports: Stiffness, Muscle weakness - Integumentary Integumentary: reports: Dryness - Neurological Neurological: reports: General weakness, Memory problems - Psychiatric Psychiatric: reports: Depression, Anxiety - Hematologic/Lymphatic Hematologic/Lymphatic: reports: Anemia, Recurrent infections (recent dx of CAP in the setting of neutropenia) - All Other Systems All Other Systems: reports: Reviewed and negative Physical Exam - Vital Signs Temperature: 97.3 C Pulse Rate: 75 Respiratory Rate: 18 O2 Saturation: 90 (ra @ rest) - Physical Exam General Appearance: positive: Alert Eyes Bilateral: positive: Normal inspection ENT: positive: Other (patient with white patches on tongue and buccally; bright red; peeling lips) Neck: positive: No JVD, Trachea midline Cardiovascular: positive: Regular rate & rhythm Respiratory: positive: Diminished in bases. negative: Wheezes, Rales, Rhonchi Abdomen: positive: Nml bowel sounds, Distended, Taut, Other (lemon size rectal prolapse when patient stands; easily reduced; swollen but no bleeding) Skin: positive: Pallor, Dryness Extremities: positive: Pedal edema (1-2 + up to mid calf; some sacral edema) Neurologic/Psychiatric: positive: Oriented x3, Weakness, Depressed mood/affect Palliative Care - POLST Patient has POLST: Yes POLST Status: DNR, Comfort Measures Pain: Pain improved, Location (lower abdomen; Fentanyl 25 mcg patch effective; no need for BTP) Tiredness/Fatigue: Severe (7-10) Drowsiness/Sedation: Moderate (4-6) Nausea: None Depression: Moderate (4-6) Anxiety: Severe (7-10) (Discussion with daugther; has overused alprazalom in past; is monitoring for supervision as presecribed; has used from before husbands ; alcohol use has been problematic as well) Dyspnea: Moderate (4-6) Anorexia: Severe (7-10) Sleep: Sleeps poorly (feeling very "jumpy" legs restless;) Constipation: Yes, Opoid induced, Unmanaged Feelings of wellbeing/Perceived Quality of Life: Poor, Worsening Performance Status: Patient is quite weak, some difficulty getting sitting to stand. Has been able to ambulate to the bathroom, but is unable to bathe independently feels too shaky. Patient was able to make it up the stairs with frequent rest periods continue to be discouraged, encouraged to increase activity slowly. First concern is definitely safety. - Palliative Care Discussion: Patient remains somewhat ambivalent regarding continuing treatment, is willing to have further conversation with her oncologist as well as radiation oncologist. Her goal is not to be miserable, and sick for the last part of her life journey. She did understand from Dr. Corona, could modify treatment, and still could extend both quantity of life and improve quality of life. Patient though functional status is of concern, patient continues with high symptom burden, and symptoms of progressive disease. Patient remains quite tearful, though much less confused and able to be present during the current conversation. Met with daughter, reviewed medications, daughter's concern regarding patient's coping in future. Discussed the continuum of care, home health is currently pending, is committed to keeping mother at home, but is somewhat confused regarding weighing benefits and burdens of moving towards defining prognosis so can plan for future, and care needs. Impression and Recommendations - Palliative Care Impression: This is a 73-year-old woman with metastatic colon cancer to the liver, lung, and now brain. She presents with functional decline, improved cognitive status, weight loss, fatigue, anorexia, and oral candidiasis. She does reveal today she has had ongoing trouble with rectal prolapse, which is now a quality of life issue. She is recovering from community-acquired pneumonia, her O2 sats are sitting at 90%, and counts are improving from her neutropenia. Palliative care to continue provide support for pain and symptom management as well as anticip atory guidance Recommendations/Counseling Done: 1. Community-acquired pneumonia. Patient is scheduled to finish her antibiotics, she does not present with shortness of breath, productive cough, but she does have diminished breath sounds in the bases. Her O2 sats are 90%, using incentive spirometer can get them up to 92%. Patient has been instructed on using incentive spirometer at least 4 times a day, and rationale. 2. Oral candidiasis. Patient's poor intake certainly impacted by her sore mouth, taste changes, will go ahead and initiate nystatin 5 mils 4 times daily. Counseling provided regarding proper use of swish and swallow, and to continue for 10-14 days. 3. Pain of neoplastic origin. Patient currently pain well controlled on fentanyl 25 mcg patch, has not needed anything for breakthrough pain. 4. Rectal prolapse. Counseling provided regarding managing with depends, baby wipes, keeping her bowels soft and moving on a regular basis, as well as managing personal care. 5. Metastases to the brain. Patient currently on Decadron 4 mg twice daily, as well as new Keppra. Patient is much clearer today, though does have short-term memory issues and easily distracted. Patient has pending appointment on , is somewhat worried about "an mask", and concern about adding further burden with appointments for her daughter. Patient though has agreed to follow- up on consult. We will continue Decadron 4 mg twice daily until meets with radiation oncologist. 6. Anorexia. Patient may get some benefit from being on the Decadron with her appetite, encourage small frequent meals, pushing fluid intake to avoid dehydration, as well as use of oral supplements. 7. Generalized weakness. Encourage patient to be ambulatory to the bathroom, encouraged to come down for at least one meal a day, decrease social isolation as long as patient feels safe. Will have home health PT, pending also chair lift. Daughter has obtained [employer], awaiting delivery. 8. Advanced care planning. Patient does have RUPALI ST in place, continue to gather information and making decisions for the future, currently is choosing to proceed with treatment and follow-up with oncology and radiation oncology. Home health RN, home health aide, PT, and BANK CONSULTANT to be starting in the next week. Time Spent: Time spent 60 minutes with getting 50% of this done in counseling regarding management of symptoms, rectal prolapse, anticipatory guidance.
== END 2018-08-08 14:31 | disposition home or self-care (01) ==
LOC: PC 14:30
PROVIDERS: ATTEND Nurse Practitioner Adult Health
DX: Z51.5 Encounter for palliative care (principal); J18.9 Pneumonia, unspecified organism; B37.0 Candidal stomatitis; G89.3 Neoplasm related pain (acute) (chronic); C18.9 Malignant neoplasm of colon, unspecified; C78.7 Secondary malignant neoplasm of liver and intrahepatic bile duct; C78.00 Secondary malignant neoplasm of unspecified lung; C79.31 Secondary malignant neoplasm of brain; K62.3 Rectal prolapse; R63.0 Anorexia; R53.1 Weakness; R62.7 Adult failure to thrive; F41.9 Anxiety disorder, unspecified; Z79.82 Long term (current) use of aspirin; F32.9 Major depressive disorder, single episode, unspecified; K59.03 Drug induced constipation; T40.2X5D Adverse effect of other opioids, subsequent encounter; Z66 Do not resuscitate
CPT/HCPCS: 99350

== ENCOUNTER 2018-08-26 10:32 | Outpatient (CLI) | payer MEDICARE ==
--- NOTE | 2018-08-26 13:30 | CONSULTATION NOTE ---
Palliative Care Follow Up - Referral Referring Provider: Dr. 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 She is going to receive her third treatment of FOL-JEAN-6, tomorrow. She is somewhat stressed as they have rescheduled her chemo for tomorrow, she does have significant transportation issues. She had met with radiation oncology, had her simulation and MRI on Saturday, and review of the MRI still shows in her medial right frontal lobe a 12 by 10 mm x 11 cm area, similar to previous scan, but does say it is associated with some edema. She currently is not on prednisone, will follow up with radiation oncologist on his recommendations. Patient continues to have kind of vague abdominal pain across her lower abdomen, has been managed on fentanyl 25 mcg patch, has only needed intermittent oxycodone 5 mg tabs. She does have intermittent constipation, but has been managed with senna 1 tab twice daily, reports it is formed and manageable despite her rectal prolapse. She is learning to manage this better. She is being seen by home health, though with all her frequent appointments have yet to really establish ongoing program. Patient continues to have intermittent difficulty tracking, some mild confusion, patient does have some insight into this. She continues with high anxiety, she uses alprazolam on at least 3 times a day. She reports her most significant symptom continues to be fatigue. She is feeling somewhat more encouraged and bright, less depressed and feels like she and her daughter are doing better. Social History - Living Situation Living arrangement: At home Living Situation: With family (lives with daughter/MARIA L and grandson and girlfriend) Medications/Allergies - Medications Home Medications: Ambulatory Orders Medication Instructions Recorded Confirmed Alprazolam [Xanax] 0.25 mg PO Q8H PRN 05/29/18 08/26/18 Aspirin [Aspirin EC] 81 mg PO DAILY 05/29/18 08/26/18 Atenolol 25 mg PO DAILY MDD finish 08/0905/29/18 08/26/18 Levothyroxine [Synthroid] 100 mcg PO QDAC 05/29/18 08/26/18 [place]-3/Dha/Epa/Fish Oil [Fish Oil 1 gm PO BID 05/29/18 08/26/18 1,000 mg Softgel] buPROPion [Wellbutrin Sr] 150 mg PO DAILY 05/29/18 08/26/18 Ondansetron HCl [Zofran] 4 mg PO Q6HR PRN #20 tablet 07/04/18 08/26/18 Prochlorperazine Maleate 10 mg PO Q6H PRN #30 tablet 07/23/18 08/26/18 [Compazine] oxyCODONE [Roxicodone] 5 - 10 mg PO Q4HR PRN 07/25/18 08/26/18 Cyanocobalamin (Vitamin B-12) 500 mcg PO DAILY 08/05/18 08/26/18 [Vitamin B-12 (500 mcg sublingual)] Multivitamin [Theragran] 1 tab PO DAILY 08/05/18 08/26/18 Sennosides/Docusate Sodium 1 tab PO BID 08/05/18 08/26/18 [Senna-Docusate Sodium Tablet] raNITIdine HCl [Ranitidine HCl] 150 mg PO BID 08/05/18 08/26/18 Nystatin 5 ml PO QID 08/11/18 08/26/18 fentaNYL [Fentanyl 25mcg patch] 25 mcg TOP .3DAYS 08/11/18 08/26/18 Dexamethasone [Decadron] 4 mg PO DAILY 08/15/18 08/26/18 - Allergies Allergies/Adverse Reactions: Allergies Allergy/AdvReac Type Severity Reaction Status Date / Time No Known Drug Allergies Allergy Verified 08/04/18 17:15 Review of Systems - Constitutional Constitutional: reports: Fatigue, Weakness, Poor appetite, Weight loss (145 today; 08/04 on discharge from hospital 161). denies: Fever, Chills - Eyes Eyes: reports: Vision loss - Ears, Nose & Throat Ears, Nose & Throat: reports: Hearing loss (mild), Dry mouth (improved with nystatin) - Cardiovascular Cardiovascular: reports: Lightheadedness, Decr. exercise tolerance - Respiratory Respiratory: reports: SOB with exertion. denies: Cough, SOB at rest - Gastrointestinal Gastrointestinal: reports: Abdominal pain (vague; controlled currently with Fentanyl), Nausea (intermittent using ondansetron 1-2 / day), Bloating, Poor appetite, Early satiety. denies: Constipation, Diarrhea, Vomiting, Reflux/heartburn - Genitourinary Genitourinary: reports: Frequency, Urgency (no new) - Musculoskeletal Musculoskeletal: reports: Stiffness, Muscle weakness, Transfer issues (using wheelchair for extended distances; has chair lift now in home helping manage a bit more independently) - Integumentary Integumentary: reports: Dryness, Hair changes - Neurological Neurological: reports: General weakness, Memory problems, Slurred speech (slight) - Psychiatric Psychiatric: reports: Anxiety - Hematologic/Lymphatic Hematologic/Lymphatic: reports: Anemia, Recurrent infections (recent pneumonia) - All Other Systems All Other Systems: reports: Reviewed and negative Physical Exam - Vital Signs Temperature: 37.2 C Pulse Rate: 74 Respiratory Rate: 18 Blood Pressure: 108/52 - Physical Exam General Appearance: positive: No acute distress, Lethargic (reports very fatigued) Eyes Bilateral: positive: Normal inspection ENT: positive: Other (residual white on tongue from candidiasis) Neck: positive: Trachea midline Cardiovascular: positive: Regular rate & rhythm Respiratory: positive: Diminished in bases Abdomen: positive: Soft, Tenderness, Distended Skin: positive: Pallor, Dryness Extremities: positive: Pedal edema (2+ up to mid calf) Neurologic/Psychiatric: positive: Oriented x3, Weakness, Flat affect Palliative Care - POLST Patient has POLST: Yes POLST Status: DNR, Comfort Measures Pain: Pain unchanged Tiredness/Fatigue: Moderate (4-6) Drowsiness/Sedation: Moderate (4-6) Nausea: Mild (1-3) Depression: Moderate (4-6) Anxiety: Moderate (4-6) Dyspnea: Mild (1-3) Anorexia: Moderate (4-6), Weight loss Sleep: Sleeps well Constipation: Yes, Opoid induced, Intermittent constipation Feelings of wellbeing/Perceived Quality of Life: Fair, Improved Performance Status: Patient continues with significant fatigue, reports she is ambulating some around the house. For longer distances using the wheelchair. She is getting assistance from home health for bathing. I would put her at a PPS of 50% - Palliative Care Discussion: Patient reports feeling little bit more positive, has been somewhat overwhelmed with multiple appointments and services. Is hopeful to make it through the holidays without any further incident or hospitalization. Feels like she is getting along better with her daughter, that things are settling down some. Continues to hope for the best, is somewhat nervous about pending radiation, has not heard about schedule. 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 She is improved from her community-acquired pneumonia, counts are recovered, and scheduled to receive chemotherapy tomorrow. Patient continues with moderate to high symptom burden, with continued weight loss, intermittent cognitive issues. Palliative care to continue provide support for pain and symptom management as well as anticipatory guidance Recommendations/Counseling Done: 1. Community-acquired pneumonia. Patient does appear to have improved, no further cough, has some baseline shortness of breath. Patient's has completed antibiotics. 2. All candidiasis. Patient with some residual white patches, has not been totally adherent to the schedule, counseling provided to finish nystatin swish and swallow, will let me know if does not clear. Patient may need a dose of Diflucan. 3. Pain of neoplastic origin. Patient currently controlled on fentanyl 25 mcg patch, has used only intermittent oxycodone 5 mg for breakthrough pain. Counseling provided regarding safe storage and monitoring of opioids. 4. Rectal prolapse, reports better managing this, though remains somewhat problematic. Reviewed may need to increase her senna, for more frequent bowel movements. 5. Metastases to the brain. Patient has met with radiation oncology, currently is not on any Decadron. Other than her post chemotherapy Decadron. Will follow up with Dr. suarez if patient should be on baseline as MRI does show some associated edema. Patient is unclear what her schedule is going to be, will confirm with radiation oncology. 6. Anorexia. Patient continues with weight loss, reports she is trying to i ncrease calories, family is monitoring and encouraging her. Patient also being followed by home health nursing, will follow-up for further strategies. 7. Generalized weakness. Patient is finding more freedom and independence with chair lift. She is able to get to the kitchen and do some meal prep for herself. Does have home health PT, will follow up on current program. 8. Advanced care planning. Patient does have a RUPALI ST in place, patient's current goals are to enjoy the holidays, is currently proceeding with treatment. Is being followed by home health RN, aide, PT and [employer]. ADDENDUM: Call in follow-up to radiation oncologist, regarding MRI scan and edema. Reports it is not significant enough to need at this point in time Decadron, they will reevaluate that as she initiates treatment. This will be initiated next week either on or Saturday. This information was shared with patient today they will be hearing from them early next week. Time Spent: 30 minutes with greater than 50% of this done in counseling regarding opioid safety, pain and symptom management, and anticipatory guidance
== END 2018-08-26 10:33 | disposition home or self-care (01) ==
LOC: PC 10:32
PROVIDERS: ATTEND Nurse Practitioner Adult Health
DX: Z51.5 Encounter for palliative care (principal); B37.0 Candidal stomatitis; G89.3 Neoplasm related pain (acute) (chronic); C7A.022 Malignant carcinoid tumor of the ascending colon; C7B.02 Secondary carcinoid tumors of liver; C78.00 Secondary malignant neoplasm of unspecified lung; C79.31 Secondary malignant neoplasm of brain; K62.3 Rectal prolapse; R10.9 Unspecified abdominal pain; K59.03 Drug induced constipation; T40.2X5D Adverse effect of other opioids, subsequent encounter; Z79.899 Other long term (current) drug therapy; R63.0 Anorexia; R53.1 Weakness; Z79.82 Long term (current) use of aspirin; Z79.891 Long term (current) use of opiate analgesic; F32.9 Major depressive disorder, single episode, unspecified; F41.9 Anxiety disorder, unspecified
CPT/HCPCS: 99214

== ENCOUNTER 2018-09-03 08:00 | Outpatient (CLI) | payer MEDICARE ==
[2018-09-03 19:31] LABS: BILIRUBIN,URINE NEGATIVE (NEGATIVE); GLUCOSE, URINE (UA) NEGATIVE (NEGATIVE); KETONES,URINE (UA) NEGATIVE (NEGATIVE); LEUKOCYTE ESTERASE, URINE NEGATIVE (NEGATIVE); NITRITE,URINE NEGATIVE (NEGATIVE); OCCULT BLOOD,URINE NEGATIVE (NEGATIVE); PROTEIN,URINE NEGATIVE (NEGATIVE); UROBILINOGEN,URINE 0.2 (NORMAL) E.U./dL (NORMAL)
[2018-09-03 19:36] LABS: CLARITY,URINE CLEAR (CLEAR)
== END 2018-09-03 08:01 | disposition home or self-care (01) ==
LOC: LAB.R 08:00
PROVIDERS: ATTEND Nurse Practitioner Adult Health
DX: N39.0 Urinary tract infection, site not specified (principal)
CPT/HCPCS: 81001; 81003; 87086

== ENCOUNTER 2018-09-09 12:28 | Outpatient (CLI) | payer MEDICARE ==
--- NOTE | 2018-09-09 16:58 | CONSULTATION NOTE ---
Palliative Care Follow Up - Referral Referring Provider: Dr. 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 She just completed her brain irradiation, though she was quite anxious it went quite well. She denies any headache, only mild vision changes, and no change in her short-term memory or confusion at this point. She is quite disappointed with her neutropenia, unable to receive her treatment today. Her hemoglobin is 7.6, hematocrit 23.3, WBC 2.2, and 0.2 neutrophils. She reports her pain is currently controlled on her fentanyl 37.5 mcg patch, only needing oxycodone maybe once or twice a week, her bowel movements have been soft and regular, with some intermittent diarrhea. She continues to struggle with rectal prolapse, but reports no further irritation or bleeding. Her goal is to make it through [place] without any kind of trauma, she is starting to be a little bit more active at home, she continues to struggle with anorexia and attributes this to early satiety and taste changes. Social History - Living Situation Living arrangement: At home Living Situation: With family Support System: She lives with her daughter and her , currently her grandson and his girlfriend are there. This does assist as far as having supervision and assistance for her. She has enjoyed getting to know her grandson better. She also has home health nursing supervising and providing support, she has had multiple appointments, so also has social services assistant and physical therapy available but has been having difficulty not feeling overwhelmed. Medications/Allergies - Medications Home Medications: Ambulatory Orders Medication Instructions Recorded Confirmed Alprazolam [Xanax] 0.25 mg PO Q8H PRN 05/29/18 09/10/18 Aspirin [Aspirin EC] 81 mg PO DAILY 05/29/18 09/10/18 Atenolol 25 mg PO DAILY MDD finish 08/0905/29/18 09/10/18 Levothyroxine [Synthroid] 100 mcg PO QDAC 05/29/18 09/10/18 [place]-3/Dha/Epa/Fish Oil [Fish Oil 1 gm PO BID 05/29/18 09/10/18 1,000 mg Softgel] buPROPion [Wellbutrin Sr] 150 mg PO DAILY 05/29/18 09/10/18 Ondansetron HCl [Zofran] 4 mg PO Q6HR PRN #20 tablet 07/04/18 09/10/18 Prochlorperazine Maleate 10 mg PO Q6H PRN #30 tablet 07/23/18 09/10/18 [Compazine] oxyCODONE [Roxicodone] 5 - 10 mg PO Q4HR PRN 07/25/18 09/10/18 Cyanocobalamin (Vitamin B-12) 500 mcg PO DAILY 08/05/18 09/10/18 [Vitamin B-12 (500 mcg sublingual)] Multivitamin [Theragran] 1 tab PO DAILY 08/05/18 09/10/18 Sennosides/Docusate Sodium 1 tab PO BID PRN 08/05/18 09/10/18 [Senna-Docusate Sodium Tablet] raNITIdine HCl [Ranitidine HCl] 150 mg PO BID 08/05/18 09/10/18 Nystatin 5 ml PO QID 08/11/18 09/10/18 fentaNYL [Fentanyl 25mcg patch] 37.5 mcg TOP .3DAYS 08/11/18 09/10/18 Dexamethasone [Decadron] 4 mg PO DAILY MDD chemo only 08/15/18 09/10/18 - Allergies Allergies/Adverse Reactions: Allergies Allergy/AdvReac Type Severity Reaction Status Date / Time No Known Drug Allergies Allergy Verified 08/04/18 17:15 Review of Systems - Constitutional Constitutional: reports: Fatigue, Night sweats (improved), Weight loss. denies: Fever, Chills - Eyes Eyes: reports: Vision loss, Corrective lenses - Ears, Nose & Throat Ears, Nose & Throat: denies: Mouth lesions - Cardiovascular Cardiovascular: reports: Edema (improved) - Respiratory Respiratory: reports: SOB with exertion. denies: SOB at rest - Gastrointestinal Gastrointestinal: reports: Abdominal pain (right groin area radiates across to pubic area), Nausea, Early satiety. denies: Rectal bleeding - Genitourinary Genitourinary: reports: Dysuria (intermittent; urine negative) - Musculoskeletal Musculoskeletal: reports: Stiffness, Muscle weakness - Integumentary Integumentary: reports: Dryness - Neurological Neurological: reports: General weakness, Memory problems - Psychiatric Psychiatric: reports: Depression, Anxiety - Endocrine Endocrine: reports: Hypothyroidism - Hematologic/Lymphatic Hematologic/Lymphatic: reports: Anemia - All Other Systems All Other Systems: reports: Reviewed and negative Physical Exam - Vital Signs Temperature: 37.0 C Pulse Rate: 77 Respiratory Rate: 18 O2 Saturation: 98 (ra @ rest) Blood Pressure: 118/45 - Physical Exam General Appearance: positive: Mild distress Eyes Bilateral: positive: Normal inspection Neck: positive: Trachea midline Cardiovascular: positive: Regular rate & rhythm Respiratory: positive: Diminished in bases. negative: Wheezes, Rales, Rhonchi Abdomen: positive: Soft Skin: positive: Pallor Extremities: positive: Pedal edema (trace only, much improved) Neurologic/Psychiatric: positive: Oriented x3, Mood/affect nml, Flat affect Palliative Care - POLST Patient has POLST: Yes POLST Status: DNR, Comfort Measures Pain: Pain improved, Location (Pain is centered in her right groin area through the right pubis. She reports currently it is well controlled, she also has intermittent lower back pain, this comes and goes. She gives it a severity rating of 3/10 which is acceptable) Tiredness/Fatigue: Moderate (4-6) Drowsiness/Sedation: Moderate (4-6) Nausea: Mild (1-3) Depression: Moderate (4-6) Anxiety: Moderate (4-6) Dyspnea: Mild (1-3) Anorexia: Moderate (4-6) Sleep: Sleeps well Constipation: Yes, Opoid induced, Managed Feelings of wellbeing/Perceived Quality of Life: Fair, Acceptable, No change Performance Status: Patient did have a lift put in her home, she does live in a two-story townhouse. She is doing more independent meal prep and is starting to be more independent in her breathing. She is still receiving home health assistance with bathing, mostly supervision for safety. She continues with poor activity tolerance, though this is reflective in her counts today. - Palliative Care Discussion: Patient continues to express disappointment, her goal is to continue her chemo with increasing her quantity of time. Her goal is to make it through [place], this has much to do with her family and the fact her on Prem [place]. She does feel like she is moving to some normalcy, she is done a little bit of laundry. She is starting to feel better, though was very anxious about radiation, reports it was "not that bad". She admits to being introvert, not wanting to really "process". We did discuss in the context of palliative care or conversations are to provide her support, a place to discuss if wanted there were not expectations, she does have a medical palliative social services assistant following up as well. She has been working on getting her affairs in order, does have a RUPALI ST as well as her daughter is her D POA which is April Carlson [phone]. 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 She presents today with neutropenia, will have her chemotherapy delayed, she is significantly depressed regarding this. She has completed radiation for her brain metastases, is relieved that this is over and found it a positive experience. Patient's pain is currently well controlled, continues to have significant anorexia, and intermittent cognitive issues. Palliative care to continue to provide support for pain and symptom management as well as anticipatory guidance. Recommendations/Counseling Done: 1. Pain of neoplastic origin. Patient currently controlled on her fentanyl 37.5 mcg, only needing occasional breakthrough pain medication. She is satisfied with her current regimen no changes made. 2. Constipation. Patient currently only needing intermittent MiraLAX, does know how to titrate both her MiraLAX and senna. She reports she is better managing her rectal prolapse, and keeping her bowels soft. 3. Generalized weakness. Patient now presents with significant anemia, is receiving transfusion today. Hopefully this will improve her activity tolerance and strength. Patient is starting to improve as far as performance status at home. 4. Anorexia. Patient presents with taste changes, reports she is trying to improve her nutritional intake, though her total protein remains low at 5.7 and albumin 2.9. Counseling provided again regarding strategies to increase her calorie intake, she does have multiple people "nagging her" at home. She also presents with early satiety. 5. Neutropenia. Patient has been recently hospitalized with community-acquired pneumonia, patient has been instructed both by myself and ecology nurses regarding neutropenic precautions, signs and symptoms of infection, to limit exposure. 6. Anxiety. Patient continues to use her alprazolam on a regular basis, this is a lifelong pattern as well as her history of depression. Patient's perception is she is managing actually improved over her baseline. Counseling provided to normalize grief and loss process, particularly with pending holidays, recognizing this may be the last one with her family. 7. Advanced care planning. Patient does have a RUPALI ST in place, patient's current goals are to enjoy the holidays, is hoping to continue with treatment to improve both her quality and quantity of life. She is being followed by home health services as well. Time Spent: 45 minutes was given 50% of this done in counseling regarding pain and symptom management, anticipatory guidance, [facility] home health
== END 2018-09-09 12:29 | disposition home or self-care (01) ==
LOC: PC 12:28
PROVIDERS: ATTEND Nurse Practitioner Adult Health
DX: Z51.5 Encounter for palliative care (principal); G89.3 Neoplasm related pain (acute) (chronic); C7A.8 Other malignant neuroendocrine tumors; C78.7 Secondary malignant neoplasm of liver and intrahepatic bile duct; C78.00 Secondary malignant neoplasm of unspecified lung; C79.31 Secondary malignant neoplasm of brain; R53.1 Weakness; R63.0 Anorexia; D70.9 Neutropenia, unspecified; Z79.899 Other long term (current) drug therapy; K59.00 Constipation, unspecified; K62.3 Rectal prolapse; F41.9 Anxiety disorder, unspecified
CPT/HCPCS: 99215

== ENCOUNTER 2018-09-24 12:00 | Outpatient (CLI) | payer MEDICARE ==
[2018-09-24 19:26] LABS: CALCIUM 9.1 mg/dL (8.5-10.3); CREATININE 0.6 mg/dL (0.4-1.0)
[2018-09-24 19:33] LABS: BASOPHILS % (AUTO) 0.4 %; HGB - HEMOGLOBIN 11.1 g/dL (12.0-16.0); LYMPHOCYTES % (AUTO) 35.7 %; MEAN CORPUSCULAR HEMOGLOBIN 29.2 pg (27.0-31.0); MEAN CORPUSCULAR HGB CONC 32.4 g/dL (32.0-36.0); MEAN CORPUSCULAR VOLUME 90.2 fL (81.0-99.0); MEAN PLATELET VOLUME 8.4 fL (7.9-10.8); MONOCYTES % (AUTO) 4.7 %; NEUTROPHILS % (AUTO) 58.2 %; PLT - PLATELET COUNT 78 10^3/uL (130-450); RED BLOOD COUNT 3.79 10^6/uL (4.20-5.40); RED CELL DISTRIBUTION WIDTH 21.3 % (12.0-15.0); WHITE BLOOD COUNT 4.1 x10^3/uL (4.8-10.8)
[2018-09-24 19:37] LABS: ABNORMAL LYMPHS % (MANUAL) 0 %
[2018-09-24 20:04] LABS: BAND NEUTROPHILS % (MANUAL) 10 %; LYMPHOCYTES # (MANUAL) 1.6 10^3/uL (1.5-3.5); LYMPHOCYTES % (MANUAL) 38 %; MONOCYTES # (MANUAL) 0.2 10^3/uL (0.0-1.0); NEUTROPHILS # (MANUAL) 2.3 10^3/uL (1.5-6.6); NEUTROPHILS % (MANUAL) 47 %; PLATELET ESTIMATE, MANUAL DECREASED (<130,000) (NORMAL); PLATELET MORPHOLOGY NORMAL APPEARANCE (NORMAL); RBC MORPHOLOGY (MULTIPLE) 2+ ANISOCYTOSIS (NORMAL)
[2018-09-24 20:05] LABS: DIFFERENTIAL COMMENT MANUAL DIFFERENTIAL
== END 2018-09-24 23:59 | disposition home or self-care (01) ==
LOC: LAB.R 12:00
PROVIDERS: ATTEND Nurse Practitioner Adult Health
DX: C18.9 Malignant neoplasm of colon, unspecified (principal)
CPT/HCPCS: 80048; 85025

== ENCOUNTER 2018-09-26 12:30 | Outpatient (CLI) | payer MEDICARE ==
--- NOTE | 2018-09-26 19:04 | CONSULTATION NOTE ---
Palliative Care Follow Up - Referral Referring Provider: Dr. Opal Jean Time of Visit: [id number] Referral setting: Home (Patient is seen in her home setting secondary to taxing considerable effort for the patient to leave the home related to fatigue and weakness. 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 She did experience some significant diarrhea, and distress at the beginning of the week, was given instructions as far as using Imodium, pushing hydration, and management of chemotherapy side effects. Patient reports she is feeling better, no further diarrhea, she did have a bowel movement today after 2 days. Patient continues to struggle with rectal prolapse and sequela of this, denies bleeding, with recent diarrheal episodes. Given patient's report of feeling diaphoretic, weak, and dehydrated with diarrhea, labs were ordered, her potassium was 3.5, no other abnormalities found, her hemoglobin was 11.1, WBC 4.1 and neutrophils at 2.3. On exam today she actually looks much improved, her abdomen is softer, appears with less ascites, she does though have had about a 10 pound weight loss over this last week, but her lower extremity edema has resolved, her pain is remained somewhat stable. We are currently managing on fentanyl 37.5 mcg, with only occasional oxycodone use. Her pain is located in her right lower quadrant, she did have some increase in cramping and discomfort with the diarrhea earlier this week. She continues with poor appetite, feels this is improved now the diarrhea is resolved Social History - Living Situation Living arrangement: At home Living Situation: With family Support System: Patient lives in a townhouse with her daughter and her . Currently her grandson and his girlfriend are living with them her grandsons girlfriend is providing support as far as assistance with household tasks and other things that might be of help to her. Grandson is providing transportation for appo intments, this is help decrease the stress on her daughter. They are preparing for the holidays, she does have fluctuating fatigue. She is looking forward to a fairly quiet celebration. Medications/Allergies - Medications Home Medications: Ambulatory Orders Medication Instructions Recorded Confirmed Alprazolam [Xanax] 0.25 mg PO Q8H PRN 05/29/18 09/26/18 Aspirin [Aspirin EC] 81 mg PO DAILY 05/29/18 09/26/18 Atenolol 25 mg PO DAILY MDD finish 08/0905/29/18 09/26/18 Levothyroxine [Synthroid] 100 mcg PO QDAC 05/29/18 09/26/18 [place]-3/Dha/Epa/Fish Oil [Fish Oil 1 gm PO BID 05/29/18 09/26/18 1,000 mg Softgel] buPROPion [Wellbutrin Sr] 150 mg PO DAILY 05/29/18 09/26/18 Ondansetron HCl [Zofran] 4 mg PO Q6HR PRN #20 tablet 07/04/18 09/26/18 Prochlorperazine Maleate 10 mg PO Q6H PRN #30 tablet 07/23/18 09/26/18 [Compazine] oxyCODONE [Roxicodone] 5 - 10 mg PO Q4HR PRN 07/25/18 09/26/18 Cyanocobalamin (Vitamin B-12) 500 mcg PO DAILY 08/05/18 09/26/18 [Vitamin B-12 (500 mcg sublingual)] Multivitamin [Theragran] 1 tab PO DAILY 08/05/18 09/26/18 Sennosides/Docusate Sodium 1 tab PO BID PRN 08/05/18 09/26/18 [Senna-Docusate Sodium Tablet] raNITIdine HCl [Ranitidine HCl] 150 mg PO BID 08/05/18 09/26/18 fentaNYL [Fentanyl 25mcg patch] 37.5 mcg TOP .3DAYS 08/11/18 09/26/18 Dexamethasone [Decadron] 4 mg PO DAILY MDD chemo only 08/15/18 09/26/18 Loperamide HCl [Imodium A-D] 2 mg PO Q4HR PRN 09/26/18 09/26/18 - Allergies Allergies/Adverse Reactions: Allergies Allergy/AdvReac Type Severity Reaction Status Date / Time No Known Drug Allergies Allergy Verified 08/04/18 17:15 Review of Systems - Constitutional Constitutional: reports: Fatigue, Chills (Saturday since resolved), Weight loss (about 10 pounds). denies: Fever - Eyes Eyes: reports: Vision loss, Corrective lenses - Ears, Nose & Throat Ears, Nose & Throat: denies: Mouth lesions - Cardiovascular Cardiovascular: reports: Decr. exercise tolerance. denies: Chest pain - Respiratory Respiratory: reports: SOB with exertion. denies: SOB at rest - Gastrointestinal Gastrointestinal: reports: Abdominal pain, Constipation (recent BM but had not moved for 2 days), Diarrhea (last through Saturday), Reflux/heartburn, Poor appetite, Early satiety. denies: Nausea - Genitourinary Genitourinary: reports: Frequency - Musculoskeletal Musculoskeletal: reports: Muscle weakness - Integumentary Integumentary: reports: Dryness - Neurological Neurological: reports: General weakness. denies: Dizziness - Psychiatric Psychiatric: reports: Depression, Anxiety - Hematologic/Lymphatic Hematologic/Lymphatic: reports: Anemia - All Other Systems All Other Systems: reports: Reviewed and negative Physical Exam - Vital Signs Temperature: 96.9 C Pulse Rate: 75 Respiratory Rate: 18 O2 Saturation: 98 (ra @ rest) Blood Pressure: 112/62 - Physical Exam General Appearance: positive: No acute distress Eyes Bilateral: positive: Normal inspection ENT: positive: No signs of dehydration Neck: positive: No JVD, Trachea midline Cardiovascular: positive: Regular rate & rhythm Respiratory: positive: Breath sounds nml, Diminished in bases Abdomen: positive: Soft, Tenderness (LLQ), Other (decreased firmness/ascitic). negative: Guarding, Mass Skin: positive: Pallor, Dryness Extremities: positive: Pedal edema (trace in ankles only) Neurologic/Psychiatric: positive: Oriented x3, Mood/affect nml Palliative Care - POLST Patient has POLST: Yes POLST Status: DNR, Comfort Measures Pain: Pain improved Tiredness/Fatigue: Moderate (4-6) Drowsiness/Sedation: Mild (1-3) Nausea: None Depression: Mild (1-3) Anxiety: Mild (1-3) Dyspnea: None Anorexia: Moderate (4-6), Weight loss Sleep: Variable sleep pattern Constipation: Yes, Opoid induced, Intermittent constipation, Comment (difficulty finding norm, now with Chemo induced) Feelings of wellbeing/Perceived Quality of Life: Fair, Acceptable, Improved Performance Status: Patient still with assistance from home health aide for bathing, is feeling somewhat more independent. Is using lift to go up and down stairs, but is ambulating short distances in her home. She does get easily fatigue, but is feeling stronger overall. - Palliative Care Discussion: Patient feeling some relief, she is coming on the holidays and is still doing "good enough". She actually presents with some improvement, with decreased ascites, lower extremity edema resolving, and pain currently controlled. We did discuss what would be the next goal, her other daughter is retiring and coming in November for month. She does recognize the seriousness of her illness, is hoping more for more quality and quantity of time, but only if she is able to maintain some quality of life. Patient does not perceive herself as depressed but is doing fairly well emotionally, willing to talk more about her feelings regarding what is currently going on. Results - Lab Results Lab results reviewed: Yes Lab and Imaging Results: Reviewed current labs, recommended could take an extra few potassium as it is on the low normal. Currently does not present with any significant drop in hemoglobin or neutropenic, but still is not at her marissa yet. She does have a doctor's appointment next Saturday, is quite disappointed she will have to go back yet again for another appointment. Transportation is quite onerous for her, but recognizes coming into the holiday season. Impression and Recommendations - Palliative Care Impression: This is a 73-year-old woman with metastatic large cell neuroendocrine cancer of the ascending colon, metastases to liver, lung, and brain. Patient's pain is currently well controlled, does show a clinical response to her chemotherapy, continues though with significant anorexia and weight loss. Palliative care to continue provide support for pain and symptom management as well as anticipatory guidance Recommendations/Counseling Done: 1. Pain of neoplastic origin. Patient currently controlled on her fentanyl 37.5 mcg patch, only needing occasional oxycodone for breakthrough pain. No changes were made. Numerous crypts in for 37.5 mg #10 patches provided. 2. Constipation secondary to opioids. Patient has added complexity related to diarrhea induced by chemotherapy. She does feel she is better managing with her rectal prolapse, though this last round of diarrhea added some challenges and irritation. She is working on titrating her MiraLAX and senna to keep her bowels soft. 3. Generalized weakness. Patient has improved performance status, and endurance, though does fatigue quite easily. She does have physical therapy, hopefully to resume after holidays. 4. Anorexia. Patient continues present with taste changes, has been working on her nutritional intake, though lost ground with recent bout of diarrhea. Fearful to eat as she was having everything "Annie through her". Again counseling provided regarding strategies to increase her calorie intake. She also presents with early satiety. 5. Depression. Patient does report she is coping somewhat better, she does use her spiritual support as a coping mechanism. She does seem to be much clearer and able to articulate better some of her feelings. We did discuss setting new goals, she was quite anxious about making it to the holidays. The anniversary of her 's is on . 6. Advanced care planning. Patient does have a RUPALI ST in place, patient's goals are to continue to enjoy her current holidays, hoping to improve her quality of life and quantity of life, at this point in time weighing benefits and burdens wants to continue with treatment. She is being followed by home health services as well Time Spent: 60 minutes with greater than 50% of this done in counseling regarding pain and symptom management, anticipatory guidance, and coordination of care with home health [facility] home health
== END 2018-09-26 12:31 | disposition home or self-care (01) ==
LOC: PC 12:30
PROVIDERS: ATTEND Nurse Practitioner Adult Health
DX: Z51.5 Encounter for palliative care (principal); G89.3 Neoplasm related pain (acute) (chronic); C18.2 Malignant neoplasm of ascending colon; C78.00 Secondary malignant neoplasm of unspecified lung; C78.7 Secondary malignant neoplasm of liver and intrahepatic bile duct; C79.31 Secondary malignant neoplasm of brain; K59.03 Drug induced constipation; T40.2X5D Adverse effect of other opioids, subsequent encounter; K52.1 Toxic gastroenteritis and colitis; T45.1X5D Adverse effect of antineoplastic and immunosuppressive drugs, subsequent encounter; R53.1 Weakness; R63.0 Anorexia; F32.9 Major depressive disorder, single episode, unspecified; R35.0 Frequency of micturition; Z66 Do not resuscitate; Z79.82 Long term (current) use of aspirin
CPT/HCPCS: 99350

== ENCOUNTER 2018-10-21 12:18 | Outpatient (CLI) | payer MEDICARE ==
--- NOTE | 2018-10-21 17:57 | CONSULTATION NOTE ---
Palliative Care Follow Up - Referral Referring Provider: Dr. 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 She is continue to lose weight, most recently 4 pounds in last 2 weeks, she attributes this to anorexia, early satiety, and taste changes. On recent examination by home health nurse, she was found to have oral candidiasis, she is currently midway through treatment of this, with still some scattered white patches. Palliative care is seen her for her pain management. She is currently managed on fentanyl 37.5 mcg every 3 days topically, with 2-3 5 mg oxycodone for breakthrough pain. Her pain remains located in her right lower quadrant, fluctuating most often related to bowel movements. Of interest her rectal prolapse is improved, she no longer has pressure or prolapse symptoms, and her bowels have been moving without difficulty. She did have a "tweak" in her right upper thoracic area, does attribute to a twisting motion, and has slowly improved. Suspect muscle strain, but will continue to monitor. Meeting with patient in the clinic, she is initiate her sixth cycle. She is starting to complain of some fatigue regarding her chemotherapy, and has high anxiety she did have an incident where her tubing got caught, discussed with [facility] nurse regarding patient's concerns and she will address on discharge. Social History - Living Situation Living arrangement: At home Living Situation: With family Support System: Patient lives with her daughter and son-in-law, as well as grandson and girlfriend who provides support. Patient's other daughter is coming to visit on 11/17 is looking forward to this visit. Patient has supervision 24 as well as home health support Medications/Allergies - Medications Home Medications: Ambulatory Orders Medication Instructions Recorded Confirmed Alprazolam [Xanax] 0.25 mg PO Q8H PRN 05/29/18 10/21/18 Aspirin [Aspirin EC] 81 mg PO DAILY 05/29/18 10/21/18 Atenolol 25 mg PO DAILY MDD finish 08/0905/29/18 10/21/18 Levothyroxine [Synthroid] 100 mcg PO QDAC 05/29/18 10/21/18 [place]-3/Dha/Epa/Fish Oil [Fish Oil 1 gm PO BID 05/29/18 10/21/18 1,000 mg Softgel] buPROPion [Wellbutrin Sr] 150 mg PO DAILY 05/29/18 10/21/18 Ondansetron HCl [Zofran] 4 mg PO Q6HR PRN #20 tablet 07/04/18 10/21/18 Prochlorperazine Maleate 10 mg PO Q6H PRN #30 tablet 07/23/18 10/21/18 [Compazine] oxyCODONE [Roxicodone] 5 mg PO Q3HR PRN 07/25/18 10/21/18 Cyanocobalamin (Vitamin B-12) 500 mcg PO DAILY 08/05/18 10/21/18 [Vitamin B-12 (500 mcg sublingual)] Multivitamin [Theragran] 1 tab PO DAILY 08/05/18 10/21/18 Sennosides/Docusate Sodium 1 tab PO BID PRN 08/05/18 10/21/18 [Senna-Docusate Sodium Tablet] raNITIdine HCl [Ranitidine HCl] 150 mg PO BID 08/05/18 10/21/18 fentaNYL [Fentanyl 25mcg patch] 37.5 mcg TOP .3DAYS 08/11/18 10/21/18 Dexamethasone [Decadron] 4 mg PO DAILY MDD chemo only 08/15/18 10/21/18 Loperamide HCl [Imodium A-D] 2 mg PO Q4HR PRN 09/26/18 10/21/18 Nystatin 5 ml PO QID 10/21/18 10/21/18 Fluticasone/Salmeterol [Advair 1 puffs INH BID 10/22/18 10/22/18 250-50 Diskus] Potassium Chloride [Klor-Con M20] 20 meq PO BID 10/22/18 10/22/18 - Allergies Allergies/Adverse Reactions: Allergies Allergy/AdvReac Type Severity Reaction Status Date / Time No Known Drug Allergies Allergy Verified 10/03/18 10:54 Review of Systems - Constitutional Constitutional: reports: Fatigue, Poor appetite, Weight loss (141 10/06; 137 10/21). denies: Fever, Chills - Eyes Eyes: reports: Vision loss, Corrective lenses - Ears, Nose & Throat Ears, Nose & Throat: reports: Hearing loss (mild), Mouth lesions (improved with Nystatin), Dry mouth - Cardiovascular Cardiovascular: reports: Decr. exercise tolerance - Respiratory Respiratory: reports: SOB with exertion. denies: SOB at rest - Gastrointestinal Gastrointestinal: reports: Abdominal pain, Reflux/heartburn, Bloating, Early satiety, Other (attributes anorexia to taste changes/early satiety; reports rec danilo prolapse has not been problematic and improved;). denies: Constipation, Nausea - Genitourinary Genitourinary: reports: Frequency. denies: Dysuria - Musculoskeletal Musculoskeletal: reports: Back pain ("tweaked back" right side earlier in week; is improving), Muscle weakness - Integumentary Integumentary: reports: Dryness - Neurological Neurological: reports: General weakness. denies: Headache, Dizziness, Numbness - Psychiatric Psychiatric: reports: Depression (improved), Anxiety (very anxious pending pump infusion;) - Hematologic/Lymphatic Hematologic/Lymphatic: reports: Anemia. denies: Recurrent infections - All Other Systems All Other Systems: reports: Reviewed and negative Physical Exam - Vital Signs Temperature: 36.8 C Pulse Rate: 64 Respiratory Rate: 18 Blood Pressure: 110/60 - Physical Exam General Appearance: positive: No acute distress, Anxious (pending chemotherapy; "didn't want to do it today") Eyes Bilateral: positive: Normal inspection ENT: positive: No signs of dehydration, Oral lesions (continues with scattered white areas of candidiasis; will finish Nystatin) Neck: positive: No JVD, Trachea midline Respiratory: positive: No respiratory distress Abdomen: positive: Tenderness Skin: positive: Pallor, Dryness Extremities: positive: Pedal edema (trace in ankles only; much improved) Neurologic/Psychiatric: positive: Oriented x3, Mood/affect nml, Flat affect Palliative Care - POLST Patient has POLST: Yes POLST Status: DNR, Comfort Measures Pain: Pain unchanged, Location (Patient on fentanyl 37.5 mcg Since August, is using oxycodone 5 mg 2-3 tabs in 24 hours for intermittent fluctuating pain. This is often related to bowel movements. Patient does have right lower quadrant pain deep into the pelvic groin area. She does report this is manageable. She reports new pain right thoracic area, with twisting, this is improving, suspect muscle strain. Patient currently finds pain regimen acceptable no changes made) Tiredness/Fatigue: Moderate (4-6) Drowsiness/Sedation: Moderate (4-6) Nausea: None Depression: Moderate (4-6) Anxiety: Moderate (4-6) Dyspnea: Mild (1-3) Anorexia: Moderate (4-6), Weight loss Sleep: Variable sleep pattern Constipation: Yes, Opoid induced, Managed Feelings of wellbeing/Perceived Quality of Life: Good, Acceptable, Improved Performance Status: Patient uses wheelchair for visit secondary to fatigue. Patient is ambulatory in her home, does have a stair lift as does get fatigued with stairs. She is working with physical therapy home health. She continues to need assistance with bathing, I would put her at a PPS of 60% - Palliative Care Discussion: Patient does report some anxiety regarding pending CT scan. She does understand her numbers are better, her symptoms have improved, and clinically she is doing well. She is glad she is made it past Prem, she has had no further significant complications. She does profess to some depression and anxiety, particularly regarding the continuous infusion afraid of needles going to pop out. She reports her and her daughter are doing well, does get tired of constant attention and perceived "nagging". But knows it is all done in her best interest. Does profess the schedule of ongoing treatment, starting to become wearing. Results - Lab Results Lab results reviewed: Yes Impression and Recommendations - Palliative Care Impression: This is a 73-year-old woman with metastatic large cell neuroendocrine cancer of the ascending colon, with metastasis to the liver, lung, and brain. Patient's pain is currently controlled and acceptable level, is showing clinical response to chemotherapy, but is continuing to have fatigue and weight loss. Palliative care to continue provide support for pain and symptom management as well as anticipatory guidance Recommendations/Counseling Done: 1. Pain of neoplastic origin. Patient currently controlled on her fentanyl 37.5 mcg patch, only needing occasional oxycodone for breakthrough pain. No changes were made. Prescriptions provided for 37.5 mcg fentanyl patch #10, as well as oxycodone 5 mg tabs 1 tab every 4 hours as needed for breakthrough pain #90 2. Oral candidiasis. Patient is taking nystatin 5 mils 4 times daily, is having some improvement, but still with symptoms. She has been instructed to finish the whole bottle. 3. Constipation secondary to opioids. Patient has complexity related to diarrhea induced by chemotherapy alternating with opioids-induced constipation. She is working titrating her MiraLAX and senna to keep her bowels soft, reports her rectal prolapse currently is not problematic. 4. Anorexia. Patient continues to present with taste changes, early satiety, continues to work on nutritional intake. If patient continues with weight loss, make consider adding mirtazapine, she has not done well previously on high doses of Decadron, nor is she a candidate for Megace secondary to concern for from the lytic event. 5. Depression. Patient does appear doing fairly well, she does have her spiritual support as a coping mechanism. She has set new goals as her daughter is coming in November, looking forward to that visit. Is somewhat anxious regarding pending CT scan. 6. Advanced care planning. Patient does have a RUPALI ST in place, patient's goals are continue to enjoy and improve her quality of life, extended quantity of life as long as the benefits outweigh the burdens. She is also being followed by home health services. Time Spent: 45 minutes with getting 50% of this done in counseling regarding pain and symptom management, addressing depression and anxiety, as well as coordination of care with staff and anticipatory guidance cc Home health
== END 2018-10-21 12:19 | disposition home or self-care (01) ==
LOC: PC 12:18
PROVIDERS: ATTEND Nurse Practitioner Adult Health
DX: Z51.5 Encounter for palliative care (principal); G89.3 Neoplasm related pain (acute) (chronic); C18.2 Malignant neoplasm of ascending colon; C79.31 Secondary malignant neoplasm of brain; C78.7 Secondary malignant neoplasm of liver and intrahepatic bile duct; C78.00 Secondary malignant neoplasm of unspecified lung; R63.0 Anorexia; F32.9 Major depressive disorder, single episode, unspecified; B37.0 Candidal stomatitis; K59.03 Drug induced constipation; T40.2X5A Adverse effect of other opioids, initial encounter; Z66 Do not resuscitate; Z79.891 Long term (current) use of opiate analgesic; Z79.899 Other long term (current) drug therapy; Z79.82 Long term (current) use of aspirin; H54.7 Unspecified visual loss
CPT/HCPCS: 99215

== ENCOUNTER 2018-10-29 14:05 | Outpatient (CLI) | payer MEDICARE ==
[2018-10-29] MEDS ORDERED: IOVERSOL 320 50 ML VIAL ONE (14:16)
[2018-10-29] MEDS ORDERED: IOVERSOL 320 100 ML VIAL IVP ONE ×2 (14:16→15:19)
[2018-10-29] MEDS ORDERED: IOVERSOL 320 50 ML VIAL PO ONE (15:19)
--- NOTE | 2018-10-30 10:40 | CT Report ---
Reason: COLON CA Procedure Date: 10/29/2018 Accession Number: [id number] / [id number] Procedure: CT - Abdomen/Pelvis W/ CPT Code: FULL RESULT: EXAM: CT CHEST, ABDOMEN AND PELVIS EXAM DATE: 10/29/2018 02:57 PM. CLINICAL HISTORY: Colon cancer. COMPARISONS: Chest w/contrast 05/30/2018 9:33 AM. Abdomen/pelvis w/o contrast 07/28/2018 12:25 PM. Abdomen/pelvis w/contrast 05/27/2018 1:32 PM. TECHNIQUE: Routine helical CT imaging was performed through the chest, abdomen, and pelvis. IV contrast: Optiray 320, 90 mL. Enteric contrast: Yes. Reconstructions: Coronal and sagittal. In accordance with CT protocol optimization, one or more of the following dose reduction techniques were utilized for this exam: automated exposure control, adjustment of mA and/or KV based on patient size, or use of iterative reconstructive technique. FINDINGS: Lungs/Pleura: Interval progression in size and number of pulmonary nodules, for example a 7 mm nodule at the right lung base just above the diaphragm previously measured 4 mm (image 48 series 3 and image 23 series 5). Examples of possibly new nodules include a 1.1 cm diaphragm-based nodule on image 48 series 3, also seen on image 23 series 5 as well as a 5 mm right lower lobe nodule on image 41 series 3. A few nodules are possibly stable, for example in the left upper lobe on image 17 series 3, a 4 mm nodule previously measured similar in size. Mediastinum: Normal. No adenopathy or masses. Liver: Compared to May 2018, hypodense lesions have increased in number and size. For example, the segment Ayush lesion on image 51 series 2 now measures 2.6 x 1.5 cm compared to 2.1 x 1.6 cm when remeasured in similar fashion. Of note, the lesion demonstrates less exophytic capsular distention than in May and measured at least 3.6 x 3.3 cm on the noncontrast examination in July. This is most consistent with interval evolution representing a combination of progression until July and subsequent treatment response. Examples of interval development of hypodense masses in the liver include a 1.9 x 1.4 cm segment VII lesion on image 50 series 2, which was not demonstrated in May but likely measured 2.4 x 3.4 cm on the noncontrast July study within the obvious limitations without contrast. Again, apparent progression followed by treatment response. Remaining numerous liver lesions follow the same pattern over time. Gallbladder/Bile Ducts: Unremarkable. Spleen: Normal. Pancreas: Normal. Adrenal Glands: Normal. Kidneys: Normal. No masses or hydronephrosis. Peritoneal Cavity/Bowel: The primary colonic mass in the right lower quadrant and its peritoneal satellite lesions form a conglomerate which is difficult to measure accurately but has clearly decreased in size when compared to 07/28/2018, on image 53 series 3 the mass complex measured 6.2 x 5.4 cm, previously 10.6 x 9.0 cm when remeasured in similar fashion. The metastatic burden from the primary mass along the mesenteric root is best seen on image 18 series 5, prior comparison is image 26 series 5, 05/27/2018. The intraperitoneal burden is also clearly decreased, for example the mesenteric implant on image 17 series 5 now measures 1.0 x 1.9 cm, previously 1.5 x 1.9 cm on image 22 series 5. Pelvic Organs: Bladder is unremarkable and iliac chain lymph nodes are within normal limits for size. Vasculature: No aneurysms or other significant abnormality. Bones: No significant abnormality. Other: None. IMPRESSION: Compared to May 2018, progression of suspicious pulmonary nodules in the chest. Hepatic lesions notable for progression compared to May 2018, followed by treatment response when compared to 07/28/2018 despite noncontrast limitations of that study. Peritoneal/mesenteric metastases and the primary lesion demonstrate treatment response. RADIA
== END 2018-10-29 14:06 | disposition home or self-care (01) ==
LOC: DI 14:05
PROVIDERS: ATTEND Internal Medicine Hematology & Oncology
DX: C7A.1 Malignant poorly differentiated neuroendocrine tumors (principal); C78.6 Secondary malignant neoplasm of retroperitoneum and peritoneum; R91.8 Other nonspecific abnormal finding of lung field; K76.9 Liver disease, unspecified
CPT/HCPCS: 71260; 74177; Q9967

== ENCOUNTER 2018-11-04 11:07 | Outpatient (CLI) | payer MEDICARE | END 2018-11-04 11:08 | disposition home or self-care (01) | LOC: PC 11:07 | PROVIDERS: ATTEND Nurse Practitioner Adult Health | DX: Z53.9 Procedure and treatment not carried out, unspecified reason (principal) ==

== ENCOUNTER 2018-11-06 11:09 | Outpatient (CLI) | payer MEDICARE ==
--- NOTE | 2018-11-06 19:33 | CONSULTATION NOTE ---
Palliative Care Follow Up - Referral Referring Provider: Dr. 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 She remains weight neutral from 10/21 at 136, continues to struggle with early satiety, taste changes, and residual oral candidiasis. She has had some impro vement in her functional status, is trying to engage and be more active, she is limited in that she lives in a [facility]. Patient is feeling somewhat encouraged, her recent teeth CT scan of her chest abdomen and pelvis, though have mixed results, do show/demonstrate treatment response as far as her peritoneal/mesenteric metastases and primary lesion, but does have progression of suspicious pulmonary nodules in her chest.Patient's pain has remained fairly stable, she is currently managed on fentanyl 37.5 mcg topically every 72 hours, she uses 2-3 oxycodone 5 mg for breakthrough pain, with good results. She does feel though currently her depression has exacerbated, though she denies persistent tearfulness, suicidal ideation, she does perceive herself is sleeping poorly, feeling more block, is hoping to get a bit of a "perked me up" to get out. She had actually previously been on Wellbutrin 150 mg twice daily, previous to this diagnosis had been titrated down. Patient also reports some increased anxiety, is using less of her alprazolam on, but does report symptoms of jaw clenching and tightness. Patient currently denies any vision changes hearing changes or dizziness. Currently remains asymptomatic from her right frontal lobe brain metastases. Social History - Living Situation Living arrangement: At home Living Situation: With family Support System: Patient lives in [facility] with her daughter and son-in-law, grandson and his girlfriend. Her daughter from [place] who just retired, is coming for a month to stay. She is looking forward to her visit in November. Medications/Allergies - Medications Home Medications: Ambulatory Orders Medication Instructions Recorded Confirmed Alprazolam [Xanax] 0.25 mg PO Q8H PRN 05/29/18 11/06/18 Aspirin [Aspirin EC] 81 mg PO DAILY 05/29/18 11/06/18 Atenolol 25 mg PO DAILY 05/29/18 11/06/18 Levothyroxine [Synthroid] 100 mcg PO QDAC 05/29/18 11/06/18 Effort-3/Dha/Epa/Fish Oil [Fish Oil 1 gm PO BID 05/29/18 11/06/18 1,000 mg Softgel] buPROPion [Wellbutrin Sr] 150 mg PO BID 05/29/18 11/06/18 Ondansetron HCl [Zofran] 4 mg PO Q6HR PRN #20 tablet 07/04/18 11/06/18 Prochlorperazine Maleate 10 mg PO Q6H PRN #30 tablet 07/23/18 11/06/18 [Compazine] oxyCODONE [Roxicodone] 5 mg PO Q3HR PRN 07/25/18 11/06/18 Cyanocobalamin (Vitamin B-12) 500 mcg PO DAILY 08/05/18 11/06/18 [Vitamin B-12 (500 mcg sublingual)] Multivitamin [Theragran] 1 tab PO DAILY 08/05/18 11/06/18 Sennosides/Docusate Sodium 1 tab PO BID PRN 08/05/18 11/06/18 [Senna-Docusate Sodium Tablet] raNITIdine HCl [Ranitidine HCl] 150 mg PO BID 08/05/18 11/06/18 fentaNYL [Fentanyl 25mcg patch] 37.5 mcg TOP .3DAYS 08/11/18 11/06/18 Dexamethasone [Decadron] 4 mg PO DAILY MDD chemo only 08/15/18 11/03/18 Loperamide HCl [Imodium A-D] 2 mg PO Q4HR PRN 09/26/18 11/06/18 Fluticasone/Salmeterol [Advair 1 puffs INH BID 10/22/18 11/06/18 250-50 Diskus] Potassium Chloride [Klor-Con M20] 20 meq PO BID 10/22/18 11/06/18 Fluconazole [Diflucan] 100 mg PO DAILY #8 tablet MDD 7 11/03/18 11/06/18 days Polyethylene Glycol 3350 [Miralax] 17 gm PO DAILY PRN 11/06/18 11/06/18 - Allergies Allergies/Adverse Reactions: Allergies Allergy/AdvReac Type Severity Reaction Status Date / Time No Known Drug Allergies Allergy Verified 10/03/18 10:54 Review of Systems - Constitutional Constitutional: reports: Fatigue, Weight stable (136). denies: Fever - Eyes Eyes: reports: Vision loss, Corrective lenses - Ears, Nose & Throat Ears, Nose & Throat: reports: Mouth lesions (improved), Dry mouth - Respiratory Respiratory: reports: SOB with exertion. denies: SOB at rest - Gastrointestinal Gastrointestinal: reports: Bloating, Early satiety, Other (rectal prolapse currently not problematic). denies: Constipation, Nausea, Reflux/heartburn - Musculoskeletal Musculoskeletal: reports: Muscle weakness, Other (walked in today; did not use wheelchair) - Integumentary Integumentary: reports: Dryness - Neurological Neurological: reports: General weakness - Psychiatric Psychiatric: reports: Depression, Anxiety - Endocrine Endocrine: reports: Hypothyroidism - Hematologic/Lymphatic Hematologic/Lymphatic: reports: Anemia - All Other Systems All Other Systems: reports: Reviewed and negative Physical Exam - Vital Signs Pulse Rate: 68 Respiratory Rate: 18 O2 Saturation: 97 (ra @ rest) Blood Pressure: 99/61 - Physical Exam General Appearance: positive: No acute distress Eyes Bilateral: positive: Normal inspection ENT: negative: No signs of dehydration (patient with poor intake this am; given 8 ounces water at visit) Neck: positive: Trachea midline Cardiovascular: positive: Regular rate & rhythm Respiratory: positive: No respiratory distress Abdomen: positive: Non-tender, Soft Skin: positive: Pallor, Dryness Extremities: positive: Pedal edema (trace bilat up mid calf) Neurologic/Psychiatric: positive: Oriented x3, Mood/affect nml, Weakness Palliative Care - POLST Patient has POLST: Yes POLST Status: DNR, Comfort Measures Pain: Pain unchanged, Location (right groin area; radiating to back; worse today as slept in chair as worried about chemotherapy unplugging) Tiredness/Fatigue: Moderate (4-6) Drowsiness/Sedation: Moderate (4-6) Nausea: None Depression: Moderate (4-6) Anxiety: Moderate (4-6) Dyspnea: Mild (1-3) Anorexia: Mild (1-3) Sleep: Variable sleep pattern Constipation: Yes, Opoid induced, Managed Feelings of wellbeing/Perceived Quality of Life: Good, Acceptable, Improved Performance Status: Patient is able to participate more in household tasks, though does fatigue easily. She has been getting bathing assist to the home health team, she has "graduated from this". She continues to have home health RN support for this follow-up on symptom management, has home exercise program and is discharged from home PT. Patient is not interested in outpatient PT for ongoing support. - Palliative Care Discussion: Discussion today included processing feelings regarding recent scans, about continued treatment, weighing benefits and burdens of decision-making. She is encouraged and feels current quality of life does support her continuing with treatment. Discussed patient's feelings of depression and anxiety as well as pending daughter's visit. She is "glad for her kids" that she still has more time, and feels currently she is doing better managing overall. Results - Lab Results Lab results reviewed: Yes Impression and Recommendations - Palliative Care Impression: This is a erik 73-year-old woman with metastatic large cell neuroendocrine cancer of the ascending colon, with metastatic disease to liver, lung, and brain. Patient is showing both a clinical response and now confirmed though mixed regarding recent CT scans. Palliative care to continue provide support for pain and symptom management, anticipatory guidance, and counseling for depression and anxiety Recommendations/Counseling Done: 1. Pain of neoplastic origin. Counseling provided regarding weighing benefits and burdens of increasing current patch, given patient's with low breakthrough dosing, and wanting to improve functional status and decreased fatigue will leave at 37.5 mcg. She is satisfied with her current regimen will contact me if otherwise. 2. Oral candidiasis. Patient has been switched to Diflucan, has initiated this, still has white coating on her tongue, but does feel that it has improved overall. 3. Depression. Counseling regarding benefits and burdens of doubling up on her Wellbutrin, medication she is used to being on and has been effective in the past. Versus trialing new medication. Patient will go ahead and increase her Wellbutrin 250 mg SR in a.m. and p.m., prescription sent to [facility] she just recently had it filled, but will need new dosing. 4. Anorexia. Patient reports taste changes have improved somewhat, continues with early satiety, and some bloating. Patient is weight neutral compared to 2 weeks ago, will continue to monitor. 5. Anxiety. Counseling provided to normalize her current grief and loss process, particularly in the face of feelings of anxiety regarding progression of disease/treatment decisions, encouraged increasing Wellbutrin may also address some of this exacerbation. Reviewed other psychosocial supports that she can access, she is quite connected to her orthodox/spiritual community, finds her family quite supportive, and is looking forward to spending time with her daughter from [place]. 6. Advanced care planning. Patient does have a RUPALI ST in place, patient's goals are to continue to enjoy improve her quality of life, extending quantity of life as long as benefits outweigh the burdens of treatment plan. She currently still being followed by home health nursing services. Time Spent: 45 minutes with greater than 50% of this done in counseling regarding depressi on, anxiety, pain management and anticipatory guidance. [facility] home health
== END 2018-11-06 11:10 | disposition home or self-care (01) ==
LOC: PC 11:09
PROVIDERS: ATTEND Nurse Practitioner Adult Health
DX: Z51.5 Encounter for palliative care (principal); G89.3 Neoplasm related pain (acute) (chronic); C18.2 Malignant neoplasm of ascending colon; B37.0 Candidal stomatitis; C78.7 Secondary malignant neoplasm of liver and intrahepatic bile duct; C79.31 Secondary malignant neoplasm of brain; C78.00 Secondary malignant neoplasm of unspecified lung; F32.9 Major depressive disorder, single episode, unspecified; F41.9 Anxiety disorder, unspecified; R63.0 Anorexia; R68.81 Early satiety; E03.9 Hypothyroidism, unspecified; H54.7 Unspecified visual loss; Z66 Do not resuscitate; Z79.891 Long term (current) use of opiate analgesic; Z79.82 Long term (current) use of aspirin
CPT/HCPCS: 99215

== ENCOUNTER 2018-11-13 19:46 | Inpatient (IN) | payer MEDICARE ==
[2018-11-13] MEDS ORDERED: ACETAMINOPHEN 325 MG TABLET PO STA (20:00)
[2018-11-13 20:35] LABS: BASOPHILS % (AUTO) 0.6 %; EOSINOPHILS % (AUTO) 0.9 %; HGB - HEMOGLOBIN 9.8 g/dL (12.0-16.0); LYMPHOCYTES % (AUTO) 61.1 %; MEAN CORPUSCULAR HEMOGLOBIN 33.5 pg (27.0-31.0); MEAN CORPUSCULAR HGB CONC 33.9 g/dL (32.0-36.0); MEAN PLATELET VOLUME 8.5 fL (7.9-10.8); MONOCYTES % (AUTO) 21.5 %; NEUTROPHILS % (AUTO) 15.9 %; RED BLOOD COUNT 2.92 10^6/uL (4.20-5.40); RED CELL DISTRIBUTION WIDTH 19.4 % (12.0-15.0)
[2018-11-13 20:40] LABS: PLT - PLATELET COUNT 27 10^3/uL (130-450); WHITE BLOOD COUNT 0.8 x10^3/uL (4.8-10.8)
[2018-11-13 20:41] LABS: ABNORMAL LYMPHS % (MANUAL) 0 %
[2018-11-13 20:44] LABS: ALBUMIN 3.3 g/dL (3.2-5.5); ALBUMIN/GLOBULIN RATIO 1.1 (1.0-2.2); BILIRUBIN,TOTAL 0.8 mg/dL (0.2-1.0); CALCIUM 8.6 mg/dL (8.5-10.3); CREATININE 0.7 mg/dL (0.4-1.0); TOTAL PROTEIN 6.3 g/dL (6.7-8.2)
[2018-11-13] MEDS ORDERED: VANCOMYCIN INJ 1 GM in SODIUM CHLORIDE 0.9% 500 ML IV STA (20:49)
[2018-11-13] MEDS ORDERED: CEFEPIME 1 GM in SODIUM CHLORIDE 0.9% MINIBAG 100 ML IV STA (20:49)
[2018-11-13 20:53] LABS: NEUTROPHILS % (MANUAL) 18 %
[2018-11-13] MEDS ORDERED: ONDANSETRON ODT 4 MG TABLET TL PRN (20:53)
[2018-11-13 20:54] LABS: BAND NEUTROPHILS % (MANUAL) 1 %; LYMPHOCYTES # (MANUAL) 0.5 10^3/uL (1.5-3.5); LYMPHOCYTES % (MANUAL) 63 %; MONOCYTES # (MANUAL) 0.1 10^3/uL (0.0-1.0); NEUTROPHILS # (MANUAL) 0.2 10^3/uL (1.5-6.6); PLATELET ESTIMATE, MANUAL DECREASED (<130,000) (NORMAL); PLATELET MORPHOLOGY NORMAL APPEARANCE (NORMAL); RBC MORPHOLOGY (MULTIPLE) 2+ ANISOCYTOSIS (NORMAL)
[2018-11-13 20:55] LABS: DIFFERENTIAL COMMENT MANUAL DIFFERENTIAL
[2018-11-13] MEDS ORDERED: SODIUM CHLORIDE 0.9% 1,000 ML IV ONE ×2 (20:58)
--- NOTE | 2018-11-13 20:59 | ED Physician Documentation ---
PD HPI FEVER - Stated complaint Stated Complaint: FEVER - Chief complaint Chief Complaint: Fever - History obtained from History obtained from: Patient, Family - History of Present Illness Timing - onset: Today Timing duration: Hours (3) Pain level max: 5 Pain level now: 5 Associated symptoms: Abdominal pain (chronic, unchanged). No: Chills, Sweats, Nasal congestion, Rhinorrhea, Dry cough Contributing factors: Immunocompromised - Additional information Additional information: 73-year-old female presents to the emergency department stating that she had a fever of 101 degrees at home today. Denies any rhinorrhea, congestion, cough, vomiting, diarrhea. No urinary symptoms. She is on chemotherapy for a neuroendocrine carcinoma, metastatic. Last chemotherapy was a week ago. She does have a port in the left upper chest. Review of Systems Ten Systems: 10 systems reviewed and negative Constitutional: reports: Fever, Chills Throat: denies: Sore throat Cardiac: denies: Chest pain / pressure Respiratory: denies: Cough, Wheezing Skin: denies: Rash Musculoskeletal: denies: Neck pain, Back pain Neurologic: denies: Focal weakness, Numbness, Headache PD PAST MEDICAL HISTORY - Past Medical History Cardiovascular: High cholesterol Respiratory: COPD Neuro: None Endocrine/Autoimmune: HyPOthyroidism GI: GERD, Other MANAGER ALLIANCE: None : Incontinence HEENT: Chronic vision loss, Chronic hearing loss Psych: Depression, Anxiety Musculoskeletal: Osteoporosis Derm: None - Past Surgical History Past Surgical History: Yes General: Colonoscopy /MANAGER ALLIANCE: Tubal ligation, Hysterectomy, Other HEENT: Cataracts, Tonsil/Adenoidectomy, Other - Present Medications Home Medications: Ambulatory Orders Medication Instructions Recorded Confirmed Alprazolam [Xanax] 0.25 mg PO Q8H PRN 05/29/18 11/06/18 Aspirin [Aspirin EC] 81 mg PO DAILY 05/29/18 11/06/18 Atenolol 25 mg PO DAILY 05/29/18 11/06/18 Levothyroxine [Synthroid] 100 mcg PO QDAC 05/29/18 11/06/18 [place]-3/Dha/Epa/Fish Oil [Fish Oil 1 gm PO BID 05/29/18 11/06/18 1,000 mg Softgel] buPROPion [Wellbutrin Sr] 250 mg PO BID 05/29/18 11/07/18 Ondansetron HCl [Zofran] 4 mg PO Q6HR PRN #20 tablet 07/04/18 11/06/18 Prochlorperazine Maleate 10 mg PO Q6H PRN #30 tablet 07/23/18 11/06/18 [Compazine] oxyCODONE [Roxicodone] 5 mg PO Q3HR PRN 07/25/18 11/06/18 Cyanocobalamin (Vitamin B-12) 500 mcg PO DAILY 08/05/18 11/06/18 [Vitamin B-12 (500 mcg sublingual)] Multivitamin [Theragran] 1 tab PO DAILY 08/05/18 11/06/18 Sennosides/Docusate Sodium 1 tab PO BID PRN 08/05/18 11/06/18 [Senna-Docusate Sodium Tablet] raNITIdine HCl [Ranitidine HCl] 150 mg PO BID 08/05/18 11/06/18 fentaNYL [Fentanyl 25mcg patch] 37.5 mcg TOP .3DAYS 08/11/18 11/06/18 Dexamethasone [Decadron] 4 mg PO DAILY MDD chemo only 08/15/18 11/03/18 Loperamide HCl [Imodium A-D] 2 mg PO Q4HR PRN 09/26/18 11/06/18 Fluticasone/Salmeterol [Advair 1 puffs INH BID 10/22/18 11/06/18 250-50 Diskus] Potassium Chloride [Klor-Con M20] 20 meq PO BID 10/22/18 11/06/18 Fluconazole [Diflucan] 100 mg PO DAILY #8 tablet MDD 7 11/03/18 11/06/18 days Polyethylene Glycol 3350 [Miralax] 17 gm PO DAILY PRN 11/06/18 11/06/18 - Allergies Allergies/Adverse Reactions: Allergies Allergy/AdvReac Type Severity Reaction Status Date / Time No Known Drug Allergies Allergy Verified 11/13/18 19:59 - Social History Does the pt smoke?: No Smoking Status: Never smoker Does the pt drink ETOH?: No Does the pt have substance abuse?: No - Immunizations Immunizations are current?: Yes - POLST Patient has POLST: Yes PD ED PE NORMAL - Vitals Vital signs reviewed: Yes - General General: Alert and oriented X 3, No acute distress, Well developed/nourished - HEENT HEENT: PERRL, Ears normal, Moist mucous membranes, Pharynx benign - Neck Neck: Supple, no meningeal sign, No adenopathy - Cardiac Cardiac: RRR, Strong equal pulses - Respiratory Respiratory: No respiratory distress, Clear bilaterally, Other (Port in the left chest wall, no signs of infection) - Abdomen Abdomen: Soft, Non tender, Non distended - Back Back: No CVA TTP, No spinal TTP - Derm Derm: Warm and dry, No rash - Extremities Extremities: No edema, No calf tenderness / cord - Neuro Neuro: Alert and oriented X 3 - Psych Psych: Normal mood, Normal affect Results - Vitals Vitals: Vital Signs - 24 hr 11/13/18 11/13/18 19:50 20:16 Temperature 37.9 C H 37.6 C H Heart Rate 100 94 Respiratory 18 14 Rate Blood Pressure 111/46 L 123/52 L O2 Saturation 99 97 Oxygen O2 Source Room air - Labs Labs: Laboratory Tests 11/13/18 11/13/18 11/13/18 20:24 20:24 20:24 WBC 0.8 L* RBC 2.92 L Hgb 9.8 L Hct 28.9 L MCV 99.0 MCH 33.5 H MCHC 33.9 RDW 19.4 H Plt Count 27 L* MPV 8.5 Neut # (Auto) Not Reportable Lymph # (Auto) Not Reportable [place] # (Auto) Not Reportable Eos # (Auto) Not Reportable Baso # (Auto) Not Reportable Absolute Nucleated RBC Not Reportable Total Counted 100 Band Neuts % (Manual) 1 Abnorm Lymph % (Manual) 0 Nucleated RBC % Not Reportable Neutrophils # (Manual) 0.2 L* Lymphocytes # (Manual) 0.5 L Monocytes # (Manual) 0.1 Eosinophils # (Manual) 0.0 Basophils # (Manual) 0.0 Nucleated RBCs 1 Differential Comment MANUAL DIFFERENTIAL Manual Slide Review Indicated WBC Morphology 3+ TOXIC GRANULATION Platelet Estimate DECREASED (<130,000) Platelet Morphology NORMAL APPEARANCE RBC Morph Micro Appear 2+ ANISOCYTOSIS Sodium 131 L Potassium 3.6 Chloride 96 L Carbon Dioxide 25 Anion Gap 10.0 BUN 21 H Creatinine 0.7 Estimated GFR (MDRD) 82 L Glucose 128 H Lactic Acid 1.9 Calcium 8.6 Total Bilirubin 0.8 AST 27 ALT 26 Alkaline Phosphatase 78 Total Protein 6.3 L Albumin 3.3 Globulin 3.0 Albumin/Globulin Ratio 1.1 Lipase 23 - Rads (name of study) Chest x-ray Radiology: Prelim report reviewed, EMP read contemporaneously, See rad report (No acute abnormality) PD MEDICAL DECISION MAKING - ED course Complexity details: reviewed results, re-evaluated patient, considered differential, d/w patient, d/w family, d/w wig 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 ANC is 200. Blood cultures drawn. Lactate normal. Unclear source. Given IV antibiotics and will admit for further care. Discussed the case with Dr. Linton, hospitalist who accepts This document was made in part using voice recognition software. While efforts are made to proofread this document, sound alike and grammatical errors may occur. Departure - Departure Disposition: [facility] DC/[facility] Clinical Impression: Neutropenic fever Condition: Stable Discharge Date/Time: 11/13/18 22:09
[2018-11-13] MEDS ORDERED: ALPRAZolam 0.25 MG TABLET PO PRN (21:00)
--- NOTE | 2018-11-13 21:04 | HISTORY & PHYSICAL EXAMINATION ---
Chief Complaint - Chief Complaint Chief Complaint: fever and lethargy History of Present Illness - Admitted From Admitted From:: Home/ER - [facility] History obtained from: Patient, Dr. Guardado, [facility] Exam Limitations: none - History of Present Illness HPI Comment/Other: This is a erik 73-year-old female who presented with a change in bowel habits and weight loss in the summer 2017 and was found to have an apple core mass in the right lower quadrant consistent with a known history of carcinoma. She had hypermetabolic lymph nodes in the chest and abdomen consistent with metastatic disease. She was treated with FOLFOX6. She is has persistent right upper quadrant pain, right mid abdominal pain for which she is on fentanyl. She is followed by palliative patient centered care specialist, Jen Gonzalez. She has had blood transfusions in July. She was also hospitalized for pneumonia in July. While hospitalized for pneumonia she was identified as having metastatic disease to the brain. She is continued to be on her chemotherapy. She finished cycle 7 November 03. She is also had stereotactic radiation for 3 doses August 2018. Yesterday family noted that she was little bit sleepier than usual. She tends to sleep in the afternoons and has been less and less mobile over the course of the last year. But she does simple small project such as folding laundry. Helping a little bit with housework. Yesterday she slept more than usual and into today. While she has a chronic vasomotor rhinorrhea, there has been no change in that. No sore throat, no eustachian tube dysfunction. She denies cough, chest congestion. She is chronic right upper quadrant and right mid abdominal pain that is unchanged. There is no new diarrhea. No blood in her stool. She has no new joint pain. She has a new perineal rash is been treated with Diflucan. There are no headaches. No nuchal rigidity. She denies urgency, frequency, dysuria. Denies hematuria. Today she had a fever of 101 and was brought to the emergency room. She does have a port in the left upper chest that is not tender or uncomfortable. There is no axillary pain or neck pain. In the emergency room temperature was 37 9, heart rate was 100. Blood pressure 110/46 and she was oxygenating normally on room air. White cell count is 0.8 with toxic granulation seen on slide. She is also thrombocytopenic at 27 and anemic at 9.8. Her electrolytes are stable. Lactic acid is 1.9. Chest x-ray does not show any acute changes. 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 And a left IJ Port-A-Cath. While urinalysis has been ordered, she has not been able to give us a specimen. She is now admitted for neutropenic fever. History - Past Medical History Cardiovascular: reports: High cholesterol Respiratory: reports: COPD Neuro: reports: Other (Metastatic cancer to brain) Endocrine/Autoimmune: reports: HyPOthyroidism GI: reports: GERD, Other FACULTY HEAD: reports: Other () : reports: Incontinence HEENT: reports: Chronic vision loss, Chronic hearing loss Psych: reports: Depression, Anxiety Musculoskeletal: reports: Osteoporosis Derm: reports: None MRSA Hx?: No - Past Surgical History General: reports: Colonoscopy /FACULTY HEAD: reports: Tubal ligation, Hysterectomy, Other HEENT: reports: Cataracts, Tonsil/Adenoidectomy, Other - Family & Social History Family History Comment/Other: Mom at age 93 of old age. Dad at age 67 of complications of smoking with COPD. One brother of COPD. 2 sisters. One of COPD and dementia. The other sister of heart disease. 3 children are completely healthy. Living arrangement: At home Living Situation: With family Social History Notes: She is originally from [place] and then moved to [facility]. Met her when she was in her late teens, early 20s when she was living in the [place] area. After a full life, he decided he wanted to retire to the [place] because that is where his family is from and he always wanted to live here. They came to live to [facility] around 30 years ago. She started smoking at the age of 14 and smoked 1-1/2 packs/day and quit approximately 1992. She has no history of alcohol abuse or recreational substance abuse. Her 3 years ago. She is been living with her daughter for about a year and a half. - Substance History Use: Uses substance without health or social issues: NONE Abuse: Recurrent use of substance despite neg consequences: NONE Dependence: Experiences withdrawal or developed tolerances: NONE - POLST Patient has POLST: Yes POLST Status: DNR Meds/Allgy - Home Medications Home Medications: Ambulatory Orders Medication Instructions Recorded Confirmed Alprazolam [Xanax] 0.25 mg PO Q8H PRN 05/29/18 11/06/18 Aspirin [Aspirin EC] 81 mg PO DAILY 05/29/18 11/06/18 Atenolol 25 mg PO DAILY 05/29/18 11/06/18 Levothyroxine [Synthroid] 100 mcg PO QDAC 05/29/18 11/06/18 [place]-3/Dha/Epa/Fish Oil [Fish Oil 1 gm PO BID 05/29/18 11/06/18 1,000 mg Softgel] buPROPion [Wellbutrin Sr] 250 mg PO BID 05/29/18 11/07/18 Ondansetron HCl [Zofran] 4 mg PO Q6HR PRN #20 tablet 07/04/18 11/06/18 Prochlorperazine Maleate 10 mg PO Q6H PRN #30 tablet 07/23/18 11/06/18 [Compazine] oxyCODONE [Roxicodone] 5 mg PO Q3HR PRN 07/25/18 11/06/18 Cyanocobalamin (Vitamin B-12) 500 mcg PO DAILY 08/05/18 11/06/18 [Vitamin B-12 (500 mcg sublingual)] Multivitamin [Theragran] 1 tab PO DAILY 08/05/18 11/06/18 Sennosides/Docusate Sodium 1 tab PO BID PRN 08/05/18 11/06/18 [Senna-Docusate Sodium Tablet] raNITIdine HCl [Ranitidine HCl] 150 mg PO BID 08/05/18 11/06/18 fentaNYL [Fentanyl 25mcg patch] 37.5 mcg TOP .3DAYS 08/11/18 11/06/18 Dexamethasone [Decadron] 4 mg PO DAILY MDD chemo only 08/15/18 11/03/18 Loperamide HCl [Imodium A-D] 2 mg PO Q4HR PRN 09/26/18 11/06/18 Fluticasone/Salmeterol [Advair 1 puffs INH BID 10/22/18 11/06/18 250-50 Diskus] Potassium Chloride [Klor-Con M20] 20 meq PO BID 10/22/18 11/06/18 Fluconazole [Diflucan] 100 mg PO DAILY #8 tablet MDD 7 11/03/18 11/06/18 days Polyethylene Glycol 3350 [Miralax] 17 gm PO DAILY PRN 11/06/18 11/06/18 - Allergies Allergies/Adverse Reactions: Allergies Allergy/AdvReac Type Severity Reaction Status Date / Time No Known Drug Allergies Allergy Verified 11/13/18 19:59 Review of Systems - Constitutional Constitutional: reports: Fatigue, Fever, Chills, Malaise, Weakness, Poor appetite, Weight loss. denies: Diaphoresis, Night sweats - Eyes Eyes: reports: Blurred vision. denies: Pain, Irritation, Amaurosis, Spots in vision, Field loss, Vision loss - Ears, Nose & Throat Ears, Nose & Throat: reports: Hearing loss, Postnasal drainage, Mouth lesions (From candidiasis diagnosed this month). denies: Ear pain, Hearing aids, Tinnitus, Vertigo, Nasal pain, Nasal discharge, Nasal obstruction, Nasal congestion, Dentures, Sore throat, Hoarseness - Cardiovascular Cariovascular: reports: Decr. exercise tolerance. denies: Irregular heart rate, Palpitations, Chest pain, Edema, Lightheadedness, Syncope, Exertional dyspnea - Respiratory Respiratory: denies: Cough, Sputum production, Wheezing, Snoring, Hemoptysis, Orthopnea - Gastrointestinal Gastrointestinal: reports: Abdominal pain (Chronic in the right mid abdomen and right upper quadrant and right lower quadrant), Abdominal distention, Diarrhea (Occasionally. Unchanged pattern. No blood.). denies: Constipation, Change in bowel habits, Rectal bleeding, Black stools, Bloody stools, Nausea, Vomiting - Genitourinary Genitourinary: reports: Incontinence, Other (Candidiasis of the perineum). denies: Dysuria, Frequency, Urgency, Flank pain - Musculoskeletal Musculoskeletal: reports: Back pain. denies: Muscle pain, Muscle aches, Stiffness, Gout, Joint pain - Integumentary Integumentary: reports: Rash. denies: Pruritis, Lesions, Dryness - Neurological Neurological: reports: General weakness. denies: Focal weakness, Headache, Dizziness, Numbness, Memory problems, Pre-existing deficit - Psychiatric Psychiatric: reports: Depression (Started on Wellbutrin this month), Anxiety (Recent increase in alprazolam). denies: Suicidal, Delusions - Endocrine Endocrine: denies: Polyuria, Polydypsia - Hematologic/Lymphatic Hematologic/Lymphatic: reports: Anemia, Bruising, Lymphadenopathy. denies: Petechiae, Blood clots Prior Level of Functionality: She lives with her daughter. They live in their own home. She is ambulatory and does not need any durable medical goods. On a good day she is still able to do light housework such as folding laundry. She does all of her activities of daily living. She spends most of her days sitting or sleeping however. She says that she feels guilty because she knows that if she loses strength she loses ground but cannot seem to do the physical therapy exercises prescribed. Exam - Vital Signs Reviewed Vital Signs: Yes Vital Signs: Vital Signs x48h Temp Pulse Resp BP Pulse Ox 11/13/18 20:16 37.6 C H 94 14 123/52 L 97 11/13/18 19:50 37.9 C H 100 18 111/46 L 99 - Physical Exam General Appearance: positive: No acute distress, Alert, Other (Elderly, quiet, female who is sitting quietly in bed, and only discomfort is that of her abdominal pain when she rolls over) Eyes Bilateral: positive: PERRL, EOMI, Conjunctivae nml, No scleral icterus ENT: positive: No signs of dehydration, Other (Rhinorrhea that is clear and constant during my exam). negative: Purulent nasal drainage, Pharyngeal erythema, Oral lesions Neck: negative: Thyroid nml, No JVD, Stiff neck Respiratory: positive: No respiratory distress. negative: Chest non-tender, Wheezes, Rales, Rhonchi Cardiovascular: positive: Regular rate & rhythm, Systolic murmur, Other (Port-A-Cath in place in left chest wall, no fluctuance, no tenderness. No redness. No heat.). negative: Gallop/S4, Friction rub Peripheral Pulses: positive: 1+ Abdomen: positive: Nml bowel sounds, No distention, Tenderness (Right side of her abdomen), Hepatomegaly Skin: positive: Warm, Dry, Pallor Extremities: positive: Non-tender, Full ROM, No pedal edema Neurologic/Psychiatric: positive: Oriented x3, CN's nml (2-12), Motor nml, Weakness. negative: Facial droop, Slurred/abnml speech Conclusion/Plan - Problem List (1) Neutropenic fever Conclusion/Plan: This is her second episode. The first was associated with pneumonia. On current review of systems I am not able to locate an ENT, pulmonary, GI or source. We are still waiting for urine to be produced to give us a urinalysis. She has been placed on broad-spectrum antibiotics after blood cultures have been done. They were done through the line. Plan: Inpatient admission Broad-spectrum antibiotics and per [place] antibiotic guidelines are we are using cefepime and vancomycin. Monitor BUN and creatinine in the face of the use of vancomycin. Daily CBCs. If we can identify the source, we can narrow down her antibiotic coverage and possibly be done with IV antibiotics in 3-5 days for her to complete oral antibiotics for a total of 7-10 days. If we cannot identify the source, she may be on empiric antibiotic therapy for up to 7 days. If she continues to have fever, pancytopenia, she may need to be covered with antifungal therapy. (2) Pancytopenia due to antineoplastic chemotherapy Conclusion/Plan: Continue to monitor her CBC on a daily basis. She will need a platelet transfusion if she drops below 20,000 since she is febrile. Plan on transfusing if hemoglobin goes below 8 g of hemoglobin. She has been prescribed Neulasta accompanying her chemotherapy. We will verify if she got an injection last week, and will give an injection tomorrow morning. Neutropenic precautions instituted. 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 Has had 7 cycles so far. Complications include neutropenia secondary to chemotherapy requiring Neulasta support. Anemia requiring blood transfusions. She has been felt to be responding well to chemotherapy. They are planning to do radiation after her chemotherapy. Her abdominal pain, which is chronic, is followed by palliative care. At this point in time, her results of been mixed. She has had tumor shrinkage with regards to her peritoneal and mesenteric metastatic disease and her primary lesion. However she has had prog ression of suspicious pulmonary nodules. Plan:Advance care planning conversation held. Under separate dictation. Continue Decadron 4 mg p.o. daily (4) Candidiasis Conclusion/Plan: Oral. To continue Diflucan (5) Candidiasis of genitalia in female Conclusion/Plan: To continue Diflucan (6) Chronic pain due to malignant neoplastic disease Conclusion/Plan: She is due for a new fentanyl patch. That will be started tonight. She is also on oxycodone for breakthrough pain. That will be continued. (7) Generalized weakness Conclusion/Plan: She is supposed to be doing exercises at home. But just has not had the energy or the emotional wherewithal to proceed. I have gently encouraged her please get up in the room. Walk around the room. Sit up in her chair as much as possible. She is not a candidate for physical therapy and that she is ambulating without assist. There is no skilled need. (8) Moderate protein-calorie malnutrition Conclusion/Plan: Nutrition services consult. She is on neutropenic precautions and dietary has been advised. On exam she does have muscle wasting, and has had less than 50% of recommended intake for several weeks now, with more than 7.5% weight loss in the last 3 months. (9) Depression with anxiety Conclusion/Plan: Her Wellbutrin and alprazolam will be continued while here. - Lab Results Fish Bones: 11/13/18 20:24 11/13/18 20:24 - Diagnostic Imaging Results Diagnostic Imaging Results: positive: Final report reviewed Diagnostic Imaging Results Comments: CHEST RADIOGRAPHY EXAM DATE: 11/13/2018 09:00 PM. CLINICAL HISTORY: Fever. COMPARISON: CHEST 1 VIEW 08/04/2018 5:45 PM. TECHNIQUE: 1 view. FINDINGS: Lungs/Pleura: No focal opacities evident. No pleural effusion. No pneumothorax. Mediastinum: Within exam limitations, the cardiomediastinal contour is normal. Other: There is a right hemidiaphragm eventration. Left IJ Port-A-Cath device projects over the lower SVC. IMPRESSION: No acute cardiopulmonary abnormality demonstrated.
--- NOTE | 2018-11-13 21:18 | XRAY Report ---
Reason: fever Procedure Date: 11/13/2018 Accession Number: [id number] / [id number] Procedure: XR - Chest 1 View X-Ray CPT Code: 35641 FULL RESULT: EXAM: CHEST RADIOGRAPHY EXAM DATE: 11/13/2018 09:00 PM. CLINICAL HISTORY: Fever. COMPARISON: CHEST 1 VIEW 08/04/2018 5:45 PM. TECHNIQUE: 1 view. FINDINGS: Lungs/Pleura: No focal opacities evident. No pleural effusion. No pneumothorax. Mediastinum: Within exam limitations, the cardiomediastinal contour is normal. Other: There is a right hemidiaphragm eventration. Left IJ Port-A-Cath device projects over the lower SVC. IMPRESSION: No acute cardiopulmonary abnormality demonstrated. RADIA
[2018-11-13] MEDS ORDERED: fentaNYL 25 MCG PATCH TOP SCH (22:00)
[2018-11-13] MEDS ORDERED: fentaNYL 12 MCG PATCH TOP SCH (22:00)
[2018-11-13] MEDS: ACETAMINOPHEN 325 MG TABLET PO SCH (22:21)
[2018-11-13] MEDS: SODIUM CHLORIDE FLUSH 0.9% 10 ML SYRINGE IVP SCH (22:22)
[2018-11-13] MEDS: ONDANSETRON 4 MG/2 ML VIAL IVP PRN (22:22)
[2018-11-13] MEDS: SODIUM CHLORIDE 0.9% 1,000 ML IV SCH (22:22)
[2018-11-14] MEDS: SODIUM CHLORIDE FLUSH 0.9% 10 ML SYRINGE IVP SCH ×3 (01:01→18:04)
[2018-11-14 01:53] LABS: BILIRUBIN,URINE NEGATIVE (NEGATIVE); GLUCOSE, URINE (UA) NEGATIVE (NEGATIVE); KETONES,URINE (UA) NEGATIVE (NEGATIVE); LEUKOCYTE ESTERASE, URINE NEGATIVE (NEGATIVE); NITRITE,URINE NEGATIVE (NEGATIVE); OCCULT BLOOD,URINE NEGATIVE (NEGATIVE); PH,URINE 6.5 PH (5.0-7.5); PROTEIN,URINE NEGATIVE (NEGATIVE); UROBILINOGEN,URINE 0.2 (NORMAL) E.U./dL (NORMAL)
[2018-11-14 01:54] LABS: CLARITY,URINE CLEAR (CLEAR)
--- NOTE | 2018-11-14 02:42 | ADVANCE CARE PLANNING NOTE ---
Advance Care Planning - Date/Time Date: 11/13/18 Time: 21:00 - Purpose of encounter Text: Reiterate goals of care for this admission in a patient who is already seeing palliative care - Parties in attendance Parties in attendance: Patient and hospitalist - Decisional capacity Decisional capacity of: Patient is intact. Lucid. Occasional forgetfulness with word finding - Subjective/Patient's story Subjective/Patient's story: She regarded herself as a relatively healthy person. She has been sad at the loss of her and occasionally lonely. Over life is been good. She felt that overall things were going well until September 2018 when she developed weight loss that she attributed to just "getting older". Unfortunately she was found to have colon cancer from a neuroendocrine source. It is no metastatic to liver and brain. She is undergone FOLFOX6 chemotherapy and is completed 7 cycles. She says that this is left her tired, anxious. Understandably depressed. The tumor has caused chronic mid abdominal pain especially on the right side. If she lays on the wrong way really does hurt. She is been placed on fentanyl for this. She has been taking vitamins. She has had blood transfusions. Has been in the hospital a couple of times for neutropenic fever, and pneumonia. She is currently living with her daughter for the last year and a half. It is a good relationship. She notes that both her daughter and son are very good and dutiful children and are excellent caregivers of their mom. She and her da katerynahter have had extensive talks about end-of-life. While she is fearful, and wants to live life as long as possible, she has luis. She is connected to her taoist and her taoist friends. She does not believe in with dignity and that she does not want to be "euthanized". She is willing to accept some of the discomfort that will, as her disease progresses and just wants to be kept as comfortable as possible. She has not decided or discussed with her daughter what disability would cause her to stop ongoing treatment. At this point in time, the side effects, fatigue, while at times unbearable, make her grateful that she has had as much time she has had. She is mainly independent with regards to activities of daily living. Still does a few chores around the house such as folding her laundry, and needs minimal help. She spends most of her day sleeping. She knows that she is supposed to be exercising. - Objective/Medical story Objective/Medical Story: This is a erik 73-year-old female who presented with a change in bowel habits and weight loss in the summer 2017 and was found to have an apple core mass in the right lower quadrant consistent with a known history of carcinoma. She had hypermetabolic lymph nodes in the chest and abdomen consistent with metastatic disease. She was treated with FOLFOX6. She is has persistent right upper quadrant pain, right mid abdominal pain for which she is on fentanyl. She is followed by palliative palliative care nurse, Jen Gonzalez. She has had blood transfusions in July. She was also hospitalized for pneumonia in July. While hospitalized for pneumonia she was identified as having metastatic disease to the brain. She is continued to be on her chemotherapy. She finished cycle 7 November 03. She is also had stereotactic radiation for 3 doses August 2018. Yesterday family noted that she was little bit sleepier than usual. She tends to sleep in the afternoons and has been less and less mobile over the course of the last year. But she does simple small project such as folding laundry. Helping a little bit with housework. Yesterday she slept more than usual and into today. While she has a chronic vasomotor rhinorrhea, there has been no change in that. No sore throat, no eustachian tube dysfunction. She denies cough, chest congestion. She is chronic right upper quadrant and right mid abdominal pain that is unchanged. There is no new diarrhea. No blood in her stool. She has no new joint pain. She has a new perineal rash is been treated with Diflucan. There are no headaches. No nuchal rigidity. She denies urgency, frequency, dysuria. Denies hematuria. Today she had a fever of 101 and was brought to the emergency room. She does have a port in the left upper chest that is not tender or uncomfortable. There is no axillary pain or neck pain. In the emergency room temperature was 37 9, heart rate was 100. Blood pressure 110/46 and she was oxygenating normally on room air. White cell count is 0.8 with toxic granulation seen on slide. She is also thrombocytopenic at 27 and anemic at 9.8. Her electrolytes are stable. Lactic acid is 1.9. Chest x-ray does not show any acute changes. 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 And a left IJ Port-A-Cath. While urinalysis has been ordered, she has not been able to give us a specimen. She is now admitted for neutropenic fever. - Goals of Care Goals of care determinations: She would like to continue chemotherapy for as long as it is offered She might start talking to her palliative palliative care nurse, Jen Gonzalez, and her daughter about what end of life would look like - Plan Plan: Continued antibiotics during this stay to complete treatment for neutropenic fever. Continued chemotherapy depending on her next CT scan. Unfortunately she has had some progression of disease with lung nodules, but regression or stability of disease in her abdomen. - Code Status Code Status: Do Not Attempt Resuscitation - Time Spent on Advance Care Planning Time spent on advance care plannin minutes
[2018-11-14] MEDS: oxyCODONE 5 MG TABLET PO PRN (02:46)
[2018-11-14] MEDS: ACETAMINOPHEN 325 MG TABLET PO SCH ×5 (02:48→21:18)
[2018-11-14] MEDS: SODIUM CHLORIDE 0.9% 1,000 ML IV SCH (03:36)
[2018-11-14] MEDS: CEFEPIME 1 GM in SODIUM CHLORIDE 0.9% MINIBAG 100 ML IV SCH ×3 (05:55→21:18)
[2018-11-14] MEDS: LEVOTHYROXINE 100 MCG TABLET PO SCH (06:28)
[2018-11-14] MEDS ORDERED: PEGFILGRASTIM 6 MG/0.6 ML SYRINGE SUBQ ONE (08:30)
[2018-11-14] MEDS ORDERED: buPROPion SR 100 MG TABLET PO SCH (09:00)
[2018-11-14] MEDS: POLYETHYLENE GLYCOL 3350 17 GM PACKET PO SCH (09:10)
[2018-11-14] MEDS: ATENOLOL 25 MG TABLET PO SCH (09:11)
[2018-11-14] MEDS: buPROPion SR 150 MG TABLET PO SCH ×2 (09:12→21:17)
[2018-11-14] MEDS: DEXAMETHASONE 4 MG TABLET PO SCH (09:12)
[2018-11-14] MEDS: VANCOMYCIN INJ 1 GM in SODIUM CHLORIDE 0.9% 250 ML IV SCH ×2 (10:06→21:59)
[2018-11-14] MEDS: FORMOTEROL FUMARATE NEB 20 MCG/2 ML INH SCH ×2 (11:50→20:06)
[2018-11-14] MEDS: BUDESONIDE 0.5 MG/2 ML NEB INH SCH ×2 (11:50→20:06)
--- NOTE | 2018-11-14 12:41 | PROVIDER PROGRESS NOTE ---
Subjective - Prog Note Date Prog Note Date: 11/14/18 Prog Note Time: 12:30 - Subjective Subjective: Patient reports feeling OK today. Has a fair appetite. No fevers since admission. Received a dose of neulasta today Current Medications - Current Medications Current Medications: Active Medications Acetaminophen (Tylenol) 650 mg PO Q6H [facility] Stop: 11/15/18 15:01 Last Admin: 11/14/18 09:11 Dose: 650 mg Alprazolam (Xanax) 0.25 mg PO TID PRN PRN Reason: Anxiety Atenolol (Tenormin) 25 mg PO DAILY [facility] Last Admin: 11/14/18 09:11 Dose: 25 mg Budesonide (Pulmicort) 0.5 mg INH RTBID [facility] Last Admin: 11/14/18 11:50 Dose: 0.5 mg Bupropion HCl (Wellbutrin Sr) 150 mg PO BID [facility] Last Admin: 11/14/18 09:12 Dose: 150 mg Dexamethasone (Decadron) 4 mg PO DAILY [facility] Last Admin: 11/14/18 09:12 Dose: 4 mg Fentanyl (Duragesic) 1 patch TOP Q3D [facility] Last Admin: 11/13/18 23:04 Dose: 1 patch Fentanyl (Duragesic) 1 patch TOP Q3D [facility] Last Admin: 11/13/18 23:04 Dose: 1 patch Formoterol Fumarate (Perforomist) 20 mcg INH RTBID [facility] Last Admin: 11/14/18 11:50 Dose: 20 mcg Cefepime HCl 1 gm/ Sodium (Chloride) 100 mls @ 200 mls/hr IV TID [facility] Last Infusion: 11/14/18 06:41 Dose: Infused Sodium Chloride (Normal Saline 0.9%) 1,000 mls @ 100 mls/hr IV .Q10H [facility] Stop: 11/14/18 16:59 Last Infusion: 11/14/18 06:41 Dose: 100 mls/hr Vancomycin HCl 1 gm/ Sodium (Chloride) 250 mls @ 167 mls/hr IV Q12H [facility] Last Infusion: 11/14/18 12:32 Dose: Infused Levothyroxine Sodium (Synthroid) 100 mcg PO QDAC [facility] Last Admin: 11/14/18 06:28 Dose: 100 mcg Ondansetron HCl (Zofran Inj) 4 mg IVP Q6HR PRN PRN Reason: Nausea / Vomiting Last Admin: 11/13/18 22:22 Dose: 4 mg Ondansetron HCl (Zofran Odt) 4 mg TL Q6HR PRN PRN Reason: Nausea / Vomiting Oxycodone HCl (Roxicodone) 5 mg PO Q4HR PRN PRN Reason: Pain 5 to 7 Last Admin: 11/14/18 02:46 Dose: 5 mg Polyethylene Glycol (Miralax) 17 gm PO DAILY [facility] Last Admin: 11/14/18 09:10 Dose: 17 gm Sodium Chloride (Normal Saline Flush 0.9%) 10 ml IVP PRN PRN PRN Reason: NEEDED PER PROVIDER ORDERS Sodium Chloride (Normal Saline Flush 0.9%) 10 ml IVP 0100,0900,1700 [facility] Last Admin: 11/14/18 01:01 Dose: Not Given Home Medications: Alprazolam [Xanax] 0.25 mg PO Q8H PRN 05/29/18 Aspirin [Aspirin EC] 81 mg PO DAILY 05/29/18 Atenolol 25 mg PO DAILY 05/29/18 Levothyroxine [Synthroid] 100 mcg PO QDAC 05/29/18 [place]-3/Dha/Epa/Fish Oil [Fish Oil 1,000 mg Softgel] 1 gm PO BID 05/29/18 buPROPion [Wellbutrin Sr] 150 mg PO DAILY 05/29/18 oxyCODONE [Roxicodone] 5 mg PO Q3HR PRN 07/25/18 Cyanocobalamin (Vitamin B-12) [Vitamin B-12 (500 mcg sublingual)] 1,000 mcg PO DAILY 08/05/18 Multivitamin [Theragran] 1 tab PO DAILY 08/05/18 Sennosides/Docusate Sodium [Senna-Docusate Sodium Tablet] 1 tab PO BID PRN 08/05/18 raNITIdine HCl [Ranitidine HCl] 150 mg PO BID 08/05/18 fentaNYL [Fentanyl 25mcg patch] 37.5 mcg TOP .3DAYS 08/11/18 Dexamethasone [Decadron] 4 mg PO DAILY PRN MDD chemo only 08/15/18 Loperamide HCl [Imodium A-D] 2 mg PO Q4HR PRN 09/26/18 Potassium Chloride [Klor-Con M20] 20 meq PO BID 10/22/18 Polyethylene Glycol 3350 [Miralax] 17 gm PO DAILY PRN 11/06/18 Fluticasone/Salmeterol [Advair 100-50 Diskus] 1 puffs INH BID 11/14/18 Objective - Vital Signs/Intake & Output Reviewed Vital Signs: Yes Vital Signs: Vital Signs x48h Temp Pulse Pulse Resp BP Pulse Ox 11/14/18 11:50 75 12 11/14/18 08:00 36.6 C 74 18 113/48 L 100 Intake & Output: Intake & Output 11/11/18 11/12/18 11/13/18 11/14/18 23:59 23:59 23:59 23:59 Intake Total 9982.870 8838.000 Output Total 50 700 Balance 4681.010 9391.000 - Objective General Appearance: positive: No acute distress, Alert, Other (Sitting up in bed eating lunch) Eyes Bilateral: positive: Normal inspection, PERRL ENT: positive: ENT inspection nml, Pharynx nml. negative: No signs of dehydration Neck: positive: Nml inspection, Trachea midline Respiratory: positive: No respiratory distress, Breath sounds nml. negative: Wheezes, Rales, Rhonchi Cardiovascular: positive: Regular rate & rhythm, Systolic murmur Peripheral Pulses: 2+ Dorsalis pedis (R), 2+ Dorsalis pedis (L) Abdomen: positive: Non-tender, Nml bowel sounds, No distention Skin: positive: Warm, Dry Extremities: positive: Full ROM, Pedal edema Neurologic/Psychiatric: positive: Oriented x3, Motor nml, Sensation nml - Lab Results Fish Bones: 11/13/18 20:24 11/13/18 20:24 Other Labs: Lab Results x24hrs 11/14/18 11/13/18 11/13/18 Range/Units 01:43 21:36 20:24 WBC (4.8-10.8) x10^3/uL RBC (4.20-5.40) 10^6/uL Hgb (12.0-16.0) g/dL Hct (37.0-47.0) % MCV (81.0-99.0) fL MCH (27.0-31.0) pg MCHC (32.0-36.0) g/dL RDW (12.0-15.0) % Plt Count (130-450) 10^3/uL MPV (7.9-10.8) fL Neut # (Auto) Lymph # (Auto) Patrick # (Auto) Eos # (Auto) Baso # (Auto) Absolute Nucleated RBC Total Counted Band Neuts % (Manual) (0 - 10) % Abnorm Lymph % (Manual) % Nucleated RBC % Neutrophils # (Manual) (1.5-6.6) 10^3/uL Lymphocytes # (Manual) (1.5-3.5) 10^3/uL Monocytes # (Manual) (0.0-1.0) 10^3/uL Eosinophils # (Manual) (0-0.7) 10^3/uL Basophils # (Manual) (0-0.1) 10^3/uL Nucleated RBCs % Differential Comment Manual Slide Review WBC Morphology (NORMAL) Platelet Estimate (NORMAL) Platelet Morphology (NORMAL) RBC Morph Micro Appear (NORMAL) Sodium (135-145) mmol/L Potassium (3.5-5.0) mmol/L Chloride (101-111) mmol/L Carbon Dioxide (21-32) mmol/L Anion Gap (6-13) BUN (6-20) mg/dL Creatinine (0.4-1.0) mg/dL Estimated GFR (MDRD) (>89) Glucose (70-100) mg/dL Lactic Acid 1.9 (0.5-2.2) mmol/L Calcium (8.5-10.3) mg/dL Total Bilirubin (0.2-1.0) mg/dL AST (10-42) IU/L ALT (10-60) IU/L Alkaline Phosphatase (42-121) IU/L Total Protein (6.7-8.2) g/dL Albumin (3.2-5.5) g/dL Globulin (2.1-4.2) g/dL Albumin/Globulin Ratio (1.0-2.2) Lipase (22-51) U/L Urine Color YELLOW Urine Clarity CLEAR (CLEAR) Urine pH 6.5 (5.0-7.5) PH Ur Specific [place] 1.010 (1.002-1.030) Urine Protein NEGATIVE (NEGATIVE) mg/dL Urine Glucose (UA) NEGATIVE (NEGATIVE) mg/dL Urine Ketones NEGATIVE (NEGATIVE) mg/dL Urine Occult Blood NEGATIVE (NEGATIVE) Urine Nitrite NEGATIVE (NEGATIVE) Urine Bilirubin NEGATIVE (NEGATIVE) Urine Urobilinogen 0.2 (NORMAL) (NORMAL) E.U./dL Ur Leukocyte Esterase NEGATIVE (NEGATIVE) Ur Microscopic Review NOT INDICATED Urine Culture Comments NOT INDICATED Influenza A (Rapid) Negative (Negative) Influenza B (Rapid) Negative (Negative) 11/13/18 11/13/18 Range/Units 20:24 20:24 WBC 0.8 L* (4.8-10.8) x10^3/uL RBC 2.92 L (4.20-5.40) 10^6/uL Hgb 9.8 L (12.0-16.0) g/dL Hct 28.9 L (37.0-47.0) % MCV 99.0 (81.0-99.0) fL MCH 33.5 H (27.0-31.0) pg MCHC 33.9 (32.0-36.0) g/dL RDW 19.4 H (12.0-15.0) % Plt Count 27 L* (130-450) 10^3/uL MPV 8.5 (7.9-10.8) fL Neut # (Auto) Not Reportable Lymph # (Auto) Not Reportable Patrick # (Auto) Not Reportable Eos # (Auto) Not Reportable Baso # (Auto) Not Reportable Absolute Nucleated RBC Not Reportable Total Counted 100 Band Neuts % (Manual) 1 (0 - 10) % Abnorm Lymph % (Manual) 0 % Nucleated RBC % Not Reportable Neutrophils # (Manual) 0.2 L* (1.5-6.6) 10^3/uL Lymphocytes # (Manual) 0.5 L (1.5-3.5) 10^3/uL Monocytes # (Manual) 0.1 (0.0-1.0) 10^3/uL Eosinophils # (Manual) 0.0 (0-0.7) 10^3/uL Basophils # (Manual) 0.0 (0-0.1) 10^3/uL Nucleated RBCs 1 % Differential Comment MANUAL DIFFERENTIAL Manual Slide Review Indicated WBC Morphology 3+ TOXIC GRANULATION (NORMAL) Platelet Estimate DECREASED (<130,000) (NORMAL) Platelet Morphology NORMAL APPEARANCE (NORMAL) RBC Morph Micro Appear 2+ ANISOCYTOSIS (NORMAL) Sodium 131 L (135-145) mmol/L Potassium 3.6 (3.5-5.0) mmol/L Chloride 96 L (101-111) mmol/L Carbon Dioxide 25 (21-32) mmol/L Anion Gap 10.0 (6-13) BUN 21 H (6-20) mg/dL Creatinine 0.7 (0.4-1.0) mg/dL Estimated GFR (MDRD) 82 L (>89) Glucose 128 H (70-100) mg/dL Lactic Acid (0.5-2.2) mmol/L Calcium 8.6 (8.5-10.3) mg/dL Total Bilirubin 0.8 (0.2-1.0) mg/dL AST 27 (10-42) IU/L ALT 26 (10-60) IU/L Alkaline Phosphatase 78 (42-121) IU/L Total Protein 6.3 L (6.7-8.2) g/dL Albumin 3.3 (3.2-5.5) g/dL Globulin 3.0 (2.1-4.2) g/dL Albumin/Globulin Ratio 1.1 (1.0-2.2) Lipase 23 (22-51) U/L Urine Color Urine Clarity (CLEAR) Urine pH (5.0-7.5) PH Ur Specific [place] (1.002-1.030) Urine Protein (NEGATIVE) mg/dL Urine Glucose (UA) (NEGATIVE) mg/dL Urine Ketones (NEGATIVE) mg/dL Urine Occult Blood (NEGATIVE) Urine Nitrite (NEGATIVE) Urine Bilirubin (NEGATIVE) Urine Urobilinogen (NORMAL) E.U./dL Ur Leukocyte Esterase (NEGATIVE) Ur Microscopic Review Urine Culture Comments Influenza A (Rapid) (Negative) Influenza B (Rapid) (Negative) ABX Reporting Has patient been on IV antibiotics over the past 48 hours?: Yes Assessment/Plan - Problem List (1) Neutropenic fever Impression: This is her second episode. The first was associated with pneumonia. CXR and UA negative. She is on broad-spectrum antibiotics after blood cultures were completed. She has been afebrile since admission. Plan: continue broad-spectrum antibiotics cefepime and vancomycin. Monitor BUN and creatinine in the face of the use of vancomycin. Daily CBCs. If the source is identified, will narrow down her antibiotic coverage and possibly be done with IV antibiotics in 3-5 days for her to complete oral antibiotics for a total of 7-10 days. If source is not identified, she may be on empiric antibiotic therapy for up to 7 days. If she continues to have fever, pancytopenia, she may need to be covered with antifungal therapy. (2) Pancytopenia due to antineoplastic chemotherapy Plan: continue to monitor her CBC on a daily basis. platelet transfusion if she drops below 20,000 since she is febrile. transfuse if hemoglobin goes below 8 g of hemoglobin. neulasta today neutropenic precautions instituted. 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 Has had 7 cycles so far. Complications include neutropenia secondary to chemotherapy requiring Neulasta support. Anemia requiring blood transfusions. They are planning to do radiation after her chemotherapy. Her abdominal pain, which is chronic, is followed by palliative care. Plan: continue Decadron 4 mg p.o. daily (4) Candidiasis, oral (5) Candidiasis of genitalia in female Impression: Oral. Was placed on outpatient treatment 11/03/2018 (6) Chronic pain due to malignant neoplastic disease Impression: Followed by palliative care outpatient. Plan: continue fentanyl patch and oxycodone (7) Generalized weakness Plan: encourage patient to get out of the bed for meal. (8) Moderate protein-calorie malnutrition Impression: On exam she does have muscle wasting, and has had less than 50% of recommended intake for several weeks now, with more than 7.5% weight loss in the last 3 months. Plan: dietary consult (9) Depression with anxiety Impression: Plan: continue welbutrin and alprazolam
[2018-11-14] MEDS ORDERED: SODIUM CHLORIDE 0.9% 500 ML IV ONE (16:20)
[2018-11-14] MEDS: SODIUM CHLORIDE 0.9% 500 ML IV PRN (16:20)
[2018-11-14] MEDS: ONDANSETRON 4 MG/2 ML VIAL IVP PRN (18:53)
[2018-11-14] MEDS ORDERED: VANCOMYCIN INJ 0.75 GM in SODIUM CHLORIDE 0.9% 250 ML IV SCH (21:00)
[2018-11-14] MEDS ORDERED: VANCOMYCIN PER PHARMACY 100 GM in SODIUM CHLORIDE 0.9% 250 ML IV SCH (21:00)
[2018-11-15] MEDS: oxyCODONE 5 MG TABLET PO PRN ×3 (02:40→20:53)
[2018-11-15] MEDS: SODIUM CHLORIDE FLUSH 0.9% 10 ML SYRINGE IVP SCH ×3 (02:42→15:29)
[2018-11-15] MEDS: ACETAMINOPHEN 325 MG TABLET PO SCH ×3 (03:26→14:08)
[2018-11-15] MEDS: CEFEPIME 1 GM in SODIUM CHLORIDE 0.9% MINIBAG 100 ML IV SCH ×3 (05:12→21:29)
[2018-11-15 06:38] LABS: BASOPHILS % (AUTO) 0.1 %; HGB - HEMOGLOBIN 8.2 g/dL (12.0-16.0); LYMPHOCYTES # (AUTO) 0.7 10^3/uL (1.5-3.5); LYMPHOCYTES % (AUTO) 40.8 %; MEAN CORPUSCULAR HEMOGLOBIN 33.5 pg (27.0-31.0); MEAN CORPUSCULAR VOLUME 98.6 fL (81.0-99.0); MEAN PLATELET VOLUME 9.2 fL (7.9-10.8); MONOCYTES # (AUTO) 0.3 10^3/uL (0.0-1.0); NEUTROPHILS # (AUTO) 0.8 10^3/uL (1.5-6.6); NEUTROPHILS % (AUTO) 41.1 %; RED BLOOD COUNT 2.43 10^6/uL (4.20-5.40)
[2018-11-15 06:44] LABS: PLT - PLATELET COUNT 31 10^3/uL (130-450); WHITE BLOOD COUNT 1.8 x10^3/uL (4.8-10.8)
[2018-11-15 06:47] LABS: CALCIUM 7.9 mg/dL (8.5-10.3); CREATININE 0.5 mg/dL (0.4-1.0)
[2018-11-15] MEDS: DIPHENOX/ATROPINE 2.5/0.025 MG TABLET PO PRN ×2 (06:51→13:01)
[2018-11-15] MEDS ORDERED: MAGNESIUM SULFATE 2 GRAM 2 GM/50 ML BAG IV ONE (07:20)
[2018-11-15] MEDS: BUDESONIDE 0.5 MG/2 ML NEB INH SCH ×2 (07:21→20:15)
[2018-11-15] MEDS: FORMOTEROL FUMARATE NEB 20 MCG/2 ML INH SCH ×2 (07:21→20:14)
[2018-11-15] MEDS: LEVOTHYROXINE 100 MCG TABLET PO SCH (08:22)
[2018-11-15] MEDS: DEXAMETHASONE 4 MG TABLET PO SCH (08:22)
[2018-11-15] MEDS: buPROPion SR 150 MG TABLET PO SCH ×2 (08:22→20:53)
[2018-11-15] MEDS: FLUCONAZOLE 100 MG TABLET PO SCH (08:22)
[2018-11-15] MEDS: ATENOLOL 25 MG TABLET PO SCH (08:28)
[2018-11-15] MEDS: POTASSIUM CHLORIDE 20 MEQ TABLET PO SCH ×2 (08:29→12:38)
[2018-11-15] MEDS: POLYETHYLENE GLYCOL 3350 17 GM PACKET PO SCH (08:29)
[2018-11-15 08:48] LABS: RBC MORPHOLOGY (MULTIPLE) 3+ ANISOCYTOSIS (NORMAL)
[2018-11-15 10:14] LABS: VANCOMYCIN,TROUGH 13.8 ug/mL (10.0-20.0)
[2018-11-15] MEDS: VANCOMYCIN INJ 1 GM in SODIUM CHLORIDE 0.9% 250 ML IV SCH ×2 (10:17→22:00)
--- NOTE | 2018-11-15 14:27 | PROVIDER PROGRESS NOTE ---
Subjective - Prog Note Date Prog Note Date: 11/15/18 Prog Note Time: 11:30 - Subjective Subjective: Patient feels well. She has been afebrile since the night of admission. Blood cultures no growth to date. ANC 0.8 today c/o diarrhea. c. diff negative. she received a dose of lomotil Appetite is fair. Current Medications - Current Medications Current Medications: Active Medications Acetaminophen (Tylenol) 650 mg PO Q6H [facility] Stop: 11/15/18 15:01 Last Admin: 11/15/18 14:08 Dose: 650 mg Alprazolam (Xanax) 0.25 mg PO TID PRN PRN Reason: Anxiety Atenolol (Tenormin) 25 mg PO DAILY [facility] Last Admin: 11/15/18 08:28 Dose: Not Given Budesonide (Pulmicort) 0.5 mg INH RTBID [facility] Last Admin: 11/15/18 07:21 Dose: 0.5 mg Bupropion HCl (Wellbutrin Sr) 150 mg PO BID [facility] Last Admin: 11/15/18 08:22 Dose: 150 mg Dexamethasone (Decadron) 4 mg PO DAILY [facility] Last Admin: 11/15/18 08:22 Dose: 4 mg Diphenoxylate HCl/Atropine (Lomotil) 1 tab PO QID PRN PRN Reason: Diarrhea Last Admin: 11/15/18 13:01 Dose: 1 tab Fentanyl (Duragesic) 1 patch TOP Q3D [facility] Last Admin: 11/13/18 23:04 Dose: 1 patch Fentanyl (Duragesic) 1 patch TOP Q3D [facility] Last Admin: 11/13/18 23:04 Dose: 1 patch Fluconazole (Diflucan) 100 mg PO DAILY [facility] Last Admin: 11/15/18 08:22 Dose: 100 mg Formoterol Fumarate (Perforomist) 20 mcg INH RTBID [facility] Last Admin: 11/15/18 07:21 Dose: 20 mcg Cefepime HCl 1 gm/ Sodium (Chloride) 100 mls @ 200 mls/hr IV TID [facility] Last Admin: 11/15/18 14:08 Dose: 200 mls/hr Vancomycin HCl 1 gm/ Sodium (Chloride) 250 mls @ 167 mls/hr IV Q12H [facility] Last Infusion: 11/15/18 12:14 Dose: Infused Sodium Chloride (Normal Saline 0.9%) 500 mls @ 0 mls/hr IV Q24H PRN PRN Reason: TKO RATE Last Infusion: 11/15/18 05:44 Dose: 20 mls/hr Levothyroxine Sodium (Synthroid) 100 mcg PO QDAC [facility] Last Admin: 11/15/18 08:22 Dose: 100 mcg Ondansetron HCl (Zofran Inj) 4 mg IVP Q6HR PRN PRN Reason: Nausea / Vomiting Last Admin: 11/14/18 18:53 Dose: 4 mg Ondansetron HCl (Zofran Odt) 4 mg TL Q6HR PRN PRN Reason: Nausea / Vomiting Oxycodone HCl (Roxicodone) 5 mg PO Q4HR PRN PRN Reason: Pain 5 to 7 Last Admin: 11/15/18 02:40 Dose: 5 mg Polyethylene Glycol (Miralax) 17 gm PO DAILY [facility] Last Admin: 11/15/18 08:29 Dose: Not Given Sodium Chloride (Normal Saline Flush 0.9%) 10 ml IVP PRN PRN PRN Reason: NEEDED PER PROVIDER ORDERS Sodium Chloride (Normal Saline Flush 0.9%) 10 ml IVP 0100,0900,1700 [facility] Last Admin: 11/15/18 14:11 Dose: Not Given Home Medications: Alprazolam [Xanax] 0.25 mg PO Q8H PRN 05/29/18 Aspirin [Aspirin EC] 81 mg PO DAILY 05/29/18 Atenolol 25 mg PO DAILY 05/29/18 Levothyroxine [Synthroid] 100 mcg PO QDAC 05/29/18 [place]-3/Dha/Epa/Fish Oil [Fish Oil 1,000 mg Softgel] 1 gm PO BID 05/29/18 buPROPion [Wellbutrin Sr] 150 mg PO DAILY 05/29/18 oxyCODONE [Roxicodone] 5 mg PO Q3HR PRN 07/25/18 Cyanocobalamin (Vitamin B-12) [Vitamin B-12 (500 mcg sublingual)] 1,000 mcg PO DAILY 08/05/18 Multivitamin [Theragran] 1 tab PO DAILY 08/05/18 Sennosides/Docusate Sodium [Senna-Docusate Sodium Tablet] 1 tab PO BID PRN 08/05/18 raNITIdine HCl [Ranitidine HCl] 150 mg PO BID 08/05/18 fentaNYL [Fentanyl 25mcg patch] 37.5 mcg TOP .3DAYS 08/11/18 Dexamethasone [Decadron] 4 mg PO DAILY PRN MDD chemo only 08/15/18 Loperamide HCl [Imodium A-D] 2 mg PO Q4HR PRN 09/26/18 Potassium Chloride [Klor-Con M20] 20 meq PO BID 10/22/18 Polyethylene Glycol 3350 [Miralax] 17 gm PO DAILY PRN 11/06/18 Fluticasone/Salmeterol [Advair 100-50 Diskus] 1 puffs INH BID 11/14/18 Objective - Vital Signs/Intake & Output Reviewed Vital Signs: Yes Vital Signs: Vital Signs x48h Temp Pulse Pulse Resp BP Pulse Ox 11/15/18 08:00 36.4 C L 67 16 98/60 98 11/15/18 07:23 74 16 Intake & Output: Intake & Output 11/12/18 11/13/18 11/14/18 11/15/18 23:59 23:59 23:59 23:59 Intake Total 9561.751 1385.334 1312.667 Output Total 50 1550 150 Balance 1072.555 8372.334 1162.667 - Objective General Appearance: positive: No acute distress, Alert Eyes Bilateral: positive: Normal inspection, PERRL, EOMI ENT: positive: No signs of dehydration Neck: positive: Nml inspection, Trachea midline Respiratory: positive: Chest non-tender, No respiratory distress, Breath sounds nml Cardiovascular: positive: Regular rate & rhythm Peripheral Pulses: 2+ Dorsalis pedis (R), 2+ Dorsalis pedis (L) Abdomen: positive: Non-tender, Nml bowel sounds, No distention. negative: Guarding, Rebound Skin: positive: Color nml, Warm, Dry Extremities: positive: Non-tender Neurologic/Psychiatric: positive: Oriented x3, CN's nml (2-12), Motor nml, Sensation nml, Mood/affect nml - Lab Results Fish Bones: 11/15/18 05:57 11/15/18 05:57 Other Labs: Lab Results x24hrs 11/15/18 11/15/18 11/15/18 Range/Units 09:39 05:57 05:57 WBC 1.8 L* (4.8-10.8) x10^3/uL RBC 2.43 L (4.20-5.40) 10^6/uL Hgb 8.2 L (12.0-16.0) g/dL Hct 24.0 L (37.0-47.0) % MCV 98.6 (81.0-99.0) fL MCH 33.5 H (27.0-31.0) pg MCHC 34.0 (32.0-36.0) g/dL RDW 20.0 H (12.0-15.0) % Plt Count 31 L* (130-450) 10^3/uL MPV 9.2 (7.9-10.8) fL Neut # (Auto) 0.8 L (1.5-6.6) 10^3/uL Lymph # (Auto) 0.7 L (1.5-3.5) 10^3/uL Frio # (Auto) 0.3 (0.0-1.0) 10^3/uL Eos # (Auto) 0.0 (0.0-0.7) 10^3/uL Baso # (Auto) 0.0 (0.0-0.1) 10^3/uL Absolute Nucleated RBC 0.00 x10^3/uL Nucleated RBC % 0.3 /100WBC Manual Slide Review Indicated RBC Morph Micro Appear 3+ ANISOCYTOSIS (NORMAL) Sodium 133 L (135-145) mmol/L Potassium 2.6 L (3.5-5.0) mmol/L Chloride 103 (101-111) mmol/L Carbon Dioxide 24 (21-32) mmol/L Anion Gap 6.0 (6-13) BUN 15 (6-20) mg/dL Creatinine 0.5 (0.4-1.0) mg/dL Estimated GFR (MDRD) 121 (>89) Glucose 110 H (70-100) mg/dL Calcium 7.9 L (8.5-10.3) mg/dL Last Dose Date UNK Last Dose Time UNK Vancomycin Trough 13.8 (10.0-20.0) ug/mL C. difficile Tox B Gene (NEGATIVE) 11/14/18 Range/Units 18:35 WBC (4.8-10.8) x10^3/uL RBC (4.20-5.40) 10^6/uL Hgb (12.0-16.0) g/dL Hct (37.0-47.0) % MCV (81.0-99.0) fL MCH (27.0-31.0) pg MCHC (32.0-36.0) g/dL RDW (12.0-15.0) % Plt Count (130-450) 10^3/uL MPV (7.9-10.8) fL Neut # (Auto) (1.5-6.6) 10^3/uL Lymph # (Auto) (1.5-3.5) 10^3/uL Frio # (Auto) (0.0-1.0) 10^3/uL Eos # (Auto) (0.0-0.7) 10^3/uL Baso # (Auto) (0.0-0.1) 10^3/uL Absolute Nucleated RBC x10^3/uL Nucleated RBC % /100WBC Manual Slide Review RBC Morph Micro Appear (NORMAL) Sodium (135-145) mmol/L Potassium (3.5-5.0) mmol/L Chloride (101-111) mmol/L Carbon Dioxide (21-32) mmol/L Anion Gap (6-13) BUN (6-20) mg/dL Creatinine (0.4-1.0) mg/dL Estimated GFR (MDRD) (>89) Glucose (70-100) mg/dL Calcium (8.5-10.3) mg/dL Last Dose Date Last Dose Time Vancomycin Trough (10.0-20.0) ug/mL C. difficile Tox B Gene NEGATIVE (NEGATIVE) ABX Reporting Has patient been on IV antibiotics over the past 48 hours?: Yes Assessment/Plan - Problem List (1) Neutropenic fever Impression: This is her second episode. The first was associated with pneumonia. CXR , UA, and blood negative. C diff negative. She has been afebrile since admission. Plan: Continue broad-spectrum antibiotics cefepime and vancomycin. Monitor BUN and creatinine as she is on vancomycin Daily CBCs. So far, a source has not been located. She may be on empiric antibiotic therapy for up to 7 days, pending improvement in her bone marrow. (2) Pancytopenia due to antineoplastic chemotherapy Impression: She received neulasta 11/14/2018. Patient's ANC is impoving to 0.8 today from 0.2 admission. Continue to monitor her CBC on a daily basis. Platelet transfusion if she drops below 20,000 since she is febrile. Transfuse if hemoglobin goes below 8 g of hemoglobin. Neulasta today Neutropenic precautions instituted. 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 Has had 7 cycles so far. Complications include neutropenia secondary to chemotherapy requiring Neulasta support. Anemia requiring blood transfusions. They are planning to do radiation after her chemotherapy. Her abdominal pain, which is chronic, is followed by palliative care. Plan: Continue Decadron 4 mg p.o. daily (4) Candidiasis, oral (5) Candidiasis of genitalia in female Impression: Oral. Was placed on outpatient treatment 11/03/2018 Plan: Continue diflucan (6) Chronic pain due to malignant neoplastic disease Impression: Followed by palliative care outpatient. Plan: Continue fentanyl patch and oxycodone (7) Generalized weakness Plan: Encourage patient to get out of the bed for meal. (8) Moderate protein-calorie malnutrition Impression: On exam she does have muscle wasting, and has had less than 50% of recommended intake for several weeks now, with more than 7.5% weight loss in the last 3 months. Plan: Dietary consult (9) Depression with anxiety Impression: stable Plan: Continue welbutrin and alprazolam (10) Hypokalemia: Impression: K 2.6 today Plan: Replace with KCL today Repeat K level
[2018-11-15] MEDS: SODIUM CHLORIDE FLUSH 0.9% 10 ML SYRINGE IVP PRN ×2 (15:29→22:18)
[2018-11-15] MEDS ORDERED: POTASSIUM CHLORIDE 20 MEQ TABLET PO ONE (17:13)
[2018-11-15] MEDS: ONDANSETRON 4 MG/2 ML VIAL IVP PRN (22:18)
[2018-11-16] MEDS: SODIUM CHLORIDE FLUSH 0.9% 10 ML SYRINGE IVP SCH ×2 (01:08→11:44)
[2018-11-16] MEDS: oxyCODONE 5 MG TABLET PO PRN (01:14)
[2018-11-16] MEDS: SODIUM CHLORIDE 0.9% 500 ML IV PRN (01:15)
[2018-11-16] MEDS: CEFEPIME 1 GM in SODIUM CHLORIDE 0.9% MINIBAG 100 ML IV SCH (05:58)
[2018-11-16] MEDS: LEVOTHYROXINE 100 MCG TABLET PO SCH (06:02)
[2018-11-16] MEDS: BUDESONIDE 0.5 MG/2 ML NEB INH SCH (07:02)
[2018-11-16] MEDS: FORMOTEROL FUMARATE NEB 20 MCG/2 ML INH SCH (07:02)
[2018-11-16] MEDS: buPROPion SR 150 MG TABLET PO SCH (07:49)
[2018-11-16] MEDS: DEXAMETHASONE 4 MG TABLET PO SCH (07:49)
[2018-11-16] MEDS: ATENOLOL 25 MG TABLET PO SCH (07:49)
[2018-11-16] MEDS: POLYETHYLENE GLYCOL 3350 17 GM PACKET PO SCH (07:49)
[2018-11-16] MEDS: FLUCONAZOLE 100 MG TABLET PO SCH (07:49)
[2018-11-16 08:27] LABS: BASOPHILS % (AUTO) 0.1 %; HGB - HEMOGLOBIN 9.5 g/dL (12.0-16.0); LYMPHOCYTES % (AUTO) 11.7 %; MEAN CORPUSCULAR HGB CONC 34.4 g/dL (32.0-36.0); MEAN CORPUSCULAR VOLUME 98.8 fL (81.0-99.0); MEAN PLATELET VOLUME 8.8 fL (7.9-10.8); MONOCYTES % (AUTO) 6.3 %; NEUTROPHILS % (AUTO) 81.9 %; PLT - PLATELET COUNT 55 10^3/uL (130-450); RED BLOOD COUNT 2.79 10^6/uL (4.20-5.40); RED CELL DISTRIBUTION WIDTH 20.8 % (12.0-15.0); WHITE BLOOD COUNT 10.9 x10^3/uL (4.8-10.8)
[2018-11-16 08:38] LABS: CALCIUM 8.3 mg/dL (8.5-10.3); CREATININE 0.5 mg/dL (0.4-1.0)
[2018-11-16 08:42] LABS: ABNORMAL LYMPHS % (MANUAL) 0 %
[2018-11-16 08:46] LABS: BAND NEUTROPHILS % (MANUAL) 16 %; DIFFERENTIAL COMMENT MANUAL DIFFERENTIAL; LYMPHOCYTES # (MANUAL) 1.3 10^3/uL (1.5-3.5); LYMPHOCYTES % (MANUAL) 2 %; MONOCYTES # (MANUAL) 0.9 10^3/uL (0.0-1.0); NEUTROPHILS # (MANUAL) 8.7 10^3/uL (1.5-6.6); NEUTROPHILS % (MANUAL) 64 %; RBC MORPHOLOGY (MULTIPLE) 4+ ANISOCYTOSIS (NORMAL)
[2018-11-16] MEDS: VANCOMYCIN INJ 1 GM in SODIUM CHLORIDE 0.9% 250 ML IV SCH (10:00)
--- NOTE | 2018-11-16 10:55 | Discharge Plan ---
Discharge Plan Disposition: 01 Home, Self Care Condition: Fair Prescriptions: Fluconazole [Diflucan] 100 mg PO DAILY 7 Days #7 tablet Diet: Regular Activity Restrictions: No Restrictions Shower Restrictions: No Driving Restrictions: No Weight Bearing: Full Weight Instruction Topics: Neutropenia Additional Instructions or Follow Up instructions: You were admitted for neutropenic fever. You were treated with antibiotics. All cultures came back negative. No source of infection was identified. You did not have a fever and your WBC and absolute neutrophil count improved. You are discharging with a 7 day supply of fluconazole for thrush. Please make sure you wash your hands and keep your distance from sick individuals. Follow-up with your primary care provider in 7-10 days. Follow-up with your oncology provider as scheduled. If you develop fever/chills, nausea/vomitting/diarrhea please seek medical attention. No Smoking: If you smoke, Please STOP! Call for help. Follow-up with: Justyn Saucedo MD [Primary Care Provider] -
--- NOTE | 2018-11-16 10:55 | Discharge Plan ---
Discharge Plan Condition: Stable Instruction Topics: Neutropenia No Smoking: If you smoke, Please STOP! Call for help. Follow-up with: Justyn Saucedo MD [Primary Care Provider] -
--- NOTE | 2018-11-16 10:56 | DISCHARGE SUMMARY ---
"Discharge Summary Admit Date: 11/13/18 Discharge Date: 11/16/18 Discharging Provider: Priscilla eRid [facility] Primary Care Provider: Dr. Justyn Saucedo Code Status: Attempt Resuscitation Condition at Discharge: Fair Discharge Disposition: 01 Home, Self Care - DIAGNOSES Admission Diagnoses: Neutropenic Fever Pancytopenia due to antineoplastic chemotherapy Colon cancer metastasized to multiple sites Candidiasis, oral Candidiasis of genitalia in female Generalized weakness Moderate protein-calorie malnutrition Depression and anxiety Discharge Diagnoses with Status of Each Condition: Neutropenic Fever, resolved Pancytopenia due to antineoplastic chemotherapy, improved Colon cancer metastasized to multiple sites, stable Candidiasis, oral, improved Candidiasis of genitalia in female, improved Generalized weakness, ongoing Moderate protein-calorie malnutrition, ongoing Depression and anxiety, stable - HPI History of Present Illness: Per Dr. Paige's H&P dated 11/13/2018: 'This is a erik 73-year-old female who presented with a change in bowel habits and weight loss in the summer 2017 and was found to have an apple core mass in the right lower quadrant consistent with a known history of carcinoma. She had hypermetabolic lymph nodes in the chest and abdomen consistent with metastatic disease. She was treated with FOLFOX6. She is has persistent right upper quadrant pain, right mid abdominal pain for which she is on fentanyl. She is followed by palliative career development facilitator, Jen Gonzalez. She has had blood transfusions in July. She was also hospitalized for pneumonia in July. While hospitalized for pneumonia she was identified as having metastatic disease to the brain. She is continued to be on her chemotherapy. She finished cycle 7 November 03. She is also had stereotactic radiation for 3 doses August 2018. Yesterday family noted that she was little bit sleepier than usual. She tends to sleep in the afternoons and has been less and less mobile over the course of the last year. But she does simple small project such as folding laundry. Helping a little bit with housework. Yesterday she slept more than usual and into today. While she has a chronic vasomotor rhinorrhea, there has been no change in that. No sore throat, no eustachian tube dysfunction. She denies cough, chest congestion. She is chronic right upper quadrant and right mid abdo truman pain that is unchanged. There is no new diarrhea. No blood in her stool. She has no new joint pain. She has a new perineal rash is been treated with Diflucan. There are no headaches. No nuchal rigidity. She denies urgency, frequency, dysuria. Denies hematuria. Today she had a fever of 101 and was brought to the emergency room. She does have a port in the left upper chest that is not tender or uncomfortable. There is no axillary pain or neck pain. In the emergency room temperature was 37 9, heart rate was 100. Blood pressure 110/46 and she was oxygenating normally on room air. White cell count is 0.8 with toxic granulation seen on slide. She is also thrombocytopenic at 27 and anemic at 9.8. Her electrolytes are stable. Lactic acid is 1.9. Chest x-ray does not show any acute changes. 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 And a left IJ Port-A-Cath. While urinalysis has been ordered, she has not been able to give us a specimen. She is now admitted for neutropenic fever.' - CONSULTS | PROCEDURES Consultations: None - HOSPITAL COURSE Hospital Course: Ms. Davis was admitted for neutropenic fever. CXR, UA and blood cultures were negative. She complained of diarrhea and her C. diff was negative. She remained afebrile during her admission. She was treated with cefepime and vancomycin. She received neulasta 11/14/2018 for her neutropenia. Her ANC improved, as did her WBC and platelets. Empiric antibiotics were discontinued as no source of infection was found and she remained afebrile for over 48 hours. She was started on diflucan for her oral and genital wilberto. She was discharged on a 7 day course of fluconazole. Her home medications were continued during hospitalization. Her potassium was low at 2.6 and repleted with an increase in her potassium level to 3.8. She is stable for discharge today to continue close outpatient monitoring by her primary care provider and oncology specialists. - ALLERGIES Allergies/Adverse Reactions: Allergies Allergy/AdvReac Type Severity Reaction Status Date / Time No Known Drug Allergies Allergy Verified 11/13/18 19:59 - MEDICATIONS Home Medications: Ambulatory Orders Medication Instructions Recorded Confirmed Alprazolam [Xanax] 0.25 mg PO Q8H PRN 05/29/18 11/14/18 Aspirin [Aspirin EC] 81 mg PO DAILY 05/29/18 11/14/18 Atenolol 25 mg PO DAILY 05/29/18 11/14/18 Levothyroxine [Synthroid] 100 mcg PO QDAC 05/29/18 11/14/18 [place]-3/Dha/Epa/Fish Oil [Fish Oil 1 gm PO BID 05/29/18 11/14/18 1,000 mg Softgel] buPROPion [Wellbutrin Sr] 150 mg PO DAILY 05/29/18 11/14/18 Ondansetron HCl [Zofran] 4 mg PO Q6HR PRN #20 tablet 07/04/18 11/14/18 Prochlorperazine Maleate 10 mg PO Q6H PRN #30 tablet 07/23/18 11/14/18 [Compazine] oxyCODONE [Roxicodone] 5 mg PO Q3HR PRN 07/25/18 11/14/18 Cyanocobalamin (Vitamin B-12) 1,000 mcg PO DAILY 08/05/18 11/14/18 [Vitamin B-12 (500 mcg sublingual)] Multivitamin [Theragran] 1 tab PO DAILY 08/05/18 11/14/18 Sennosides/Docusate Sodium 1 tab PO BID PRN 08/05/18 11/14/18 [Senna-Docusate Sodium Tablet] raNITIdine HCl [Ranitidine HCl] 150 mg PO BID 08/05/18 11/14/18 fentaNYL [Fentanyl 25mcg patch] 37.5 mcg TOP .3DAYS 08/11/18 11/14/18 Dexamethasone [Decadron] 4 mg PO DAILY PRN MDD chemo only 08/15/18 11/14/18 Loperamide HCl [Imodium A-D] 2 mg PO Q4HR PRN 09/26/18 11/14/18 Potassium Chloride [Klor-Con M20] 20 meq PO BID 10/22/18 11/14/18 Fluconazole [Diflucan] 100 mg PO DAILY #8 tablet MDD 7 11/03/18 11/14/18 days Polyethylene Glycol 3350 [Miralax] 17 gm PO DAILY PRN 11/06/18 11/14/18 Fluticasone/Salmeterol [Advair 1 puffs INH BID 11/14/18 11/14/18 100-50 Diskus] Fluconazole [Diflucan] 100 mg PO DAILY 7 Days #7 tablet 11/16/18 - PHYSICAL EXAM AT DISCHARGE General Appearance: positive: No acute distress, Alert, Other (Sitting up in bed) Eyes Bilateral: positive: Normal inspection, PERRL, EOMI, No scleral icterus ENT: positive: ENT inspection nml, No signs of dehydration, Other (improving thrush on tongue) Respiratory: positive: No respiratory distress, Breath sounds nml. negative: Ch est non-tender, Wheezes, Rales, Rhonchi Cardiovascular: positive: Regular rate & rhythm, Systolic murmur, Other (Port-A-Cath to left chest wall -- without tenderness, erythema or fluctuance). negative: Tachycardia Peripheral Pulses: positive: 2+ Abdomen: positive: Non-tender, Nml bowel sounds, No distention. negative: Gua rding, Rebound Skin: positive: Warm, Dry, Pallor Extremities: positive: Non-tender, Full ROM, Pedal edema (YAMINI hose on) Neurologic/Psychiatric: positive: Oriented x3, CN's nml (2-12), Motor nml, Sensation nml, Weakness, Other (flat affect) - LABS Result Diagrams: 11/16/18 08:15 11/16/18 08:15 - DIAGNOSTIC IMAGING Diagnostic Imaging Results: Final report reviewed Diagnostic Imaging Results Comments: CHEST RADIOGRAPHY EXAM DATE: 11/13/2018 09:00 PM. CLINICAL HISTORY: Fever. COMPARISON: CHEST 1 VIEW 08/04/2018 5:45 PM. TECHNIQUE: 1 view. FINDINGS: Lungs/Pleura: No focal opacities evident. No pleural effusion. No pneumothorax. Mediastinum: Within exam limitations, the cardiomediastinal contour is normal. Other: There is a right hemidiaphragm eventration. Left IJ Port-A-Cath device projects over the lower SVC. IMPRESSION: No acute cardiopulmonary abnormality demonstrated. - FOLLOW UP Follow Up: Follow-up with primary care provider within 7-10 days. Follow-up with oncology specialists as scheduled. - TIME SPENT Time Spent in Discharge (Minutes): 45"
[2018-11-16 12:11] VITALS: BP 114/52
== END 2018-11-16 12:55 | disposition home or self-care (01) | DRG 809 ==
LOC: ED 19:46 → MS2 20:53
PROVIDERS: ADMIT Specialist; ATTEND Nurse Practitioner
DX: D70.9 Neutropenia, unspecified (principal); D61.810 Antineoplastic chemotherapy induced pancytopenia; C18.9 Malignant neoplasm of colon, unspecified; G89.29 Other chronic pain; C78.7 Secondary malignant neoplasm of liver and intrahepatic bile duct; C7A.8 Other malignant neuroendocrine tumors; C79.9 Secondary malignant neoplasm of unspecified site; Z79.82 Long term (current) use of aspirin; C78.6 Secondary malignant neoplasm of retroperitoneum and peritoneum; C79.31 Secondary malignant neoplasm of brain; B37.0 Candidal stomatitis; B37.49 Other urogenital candidiasis; E44.0 Moderate protein-calorie malnutrition; T45.1X5A Adverse effect of antineoplastic and immunosuppressive drugs, initial encounter; R50.81 Fever presenting with conditions classified elsewhere; Z68.23 Body mass index [BMI] 23.0-23.9, adult; F41.8 Other specified anxiety disorders; Z92.21 Personal history of antineoplastic chemotherapy; Z92.3 Personal history of irradiation; E78.00 Pure hypercholesterolemia, unspecified; J44.9 Chronic obstructive pulmonary disease, unspecified; E03.9 Hypothyroidism, unspecified; K21.9 Gastro-esophageal reflux disease without esophagitis; R32 Unspecified urinary incontinence; H54.7 Unspecified visual loss; H91.90 Unspecified hearing loss, unspecified ear; M81.0 Age-related osteoporosis without current pathological fracture; Z90.710 Acquired absence of both cervix and uterus; Z87.891 Personal history of nicotine dependence; G89.3 Neoplasm related pain (acute) (chronic); R10.9 Unspecified abdominal pain; R19.7 Diarrhea, unspecified; E87.6 Hypokalemia; R21 Rash and other nonspecific skin eruption
CPT/HCPCS: 36415; 71045; 80048; 80053; 80202; 81001; 81003; 83605; 83690; 83735; 84132; 85025; 87040; 87086; 87275; 87276; 87493; 94640; 99283; 99285

== ENCOUNTER 2018-11-21 09:46 | Emergency (ER) | payer MEDICARE ==
--- NOTE | 2018-11-21 12:57 | ED Physician Documentation ---
PD HPI Fall - Stated complaint Stated Complaint: FALL, HIT HIP SHOULDER, HEAD - Chief complaint Chief Complaint: Ext Problem - History obtained from History obtained from: Patient, Family (daughter) - History of Present Illness Mechanism of injury: Tripped, Lost balance Fall distance: Sitting position Where injury occurred: Home Injury(ies) location: Back (Across her shoulders.) Recently seen: Admitted - Additional information Additional information: The patient is a 73-year-old female who fell this morning while she was leaning over to lift a tray. She lost her balance, and had a low-impact fall. She didn't hit her head on a shelf. She denies loss of consciousness. She has been ambulatory since the incident occurred. She presents now because of soreness across her shoulders. She denies headache, neck pain, nausea or vomiting. Her medical history is significant for metastatic colon cancer for which she has been taking chemotherapy. She was hospitalized here one week ago with a neutropenic fever. Review of Systems Constitutional: denies: Fever Ears: denies: Tinnitus/ringing Nose: denies: Congestion Throat: denies: Sore throat Cardiac: denies: Chest pain / pressure Respiratory: denies: Dyspnea, Cough GI: denies: Abdominal Pain, Nausea, Vomiting : denies: Dysuria Skin: denies: Rash Musculoskeletal: reports: Back pain. denies: Neck pain, Extremity pain Neurologic: reports: Head injury. denies: Focal weakness, Numbness, Altered mental status, Headache, LOC PD PAST MEDICAL HISTORY - Past Medical History Past Medical History: Yes Cardiovascular: High cholesterol Respiratory: COPD Neuro: Other Endocrine/Autoimmune: HyPOthyroidism GI: GERD, Other SENIOR CLINICAL DATA COORDINATOR: Other : Incontinence HEENT: Chronic vision loss, Chronic hearing loss Psych: Depression, Anxiety Musculoskeletal: Osteoporosis Derm: None Other Past Medical History: Colon CA with metastases - Past Surgical History Past Surgical History: Yes General: Colonoscopy /SENIOR CLINICAL DATA COORDINATOR: Tubal ligation, Hysterectomy, Other HEENT: Cataracts, Tonsil/Adenoidectomy, Other - Present Medications Home Medications: Ambulatory Orders Medication Instructions Recorded Confirmed Alprazolam [Xanax] 0.25 mg PO Q8H PRN 05/29/18 11/18/18 Aspirin [Aspirin EC] 81 mg PO DAILY 05/29/18 11/18/18 Atenolol 25 mg PO DAILY 05/29/18 11/18/18 Levothyroxine [Synthroid] 100 mcg PO QDAC 05/29/18 11/18/18 [place]-3/Dha/Epa/Fish Oil [Fish Oil 1 gm PO BID 05/29/18 11/18/18 1,000 mg Softgel] buPROPion [Wellbutrin Sr] 150 mg PO DAILY 05/29/18 11/18/18 Ondansetron HCl [Zofran] 4 mg PO Q6HR PRN #20 tablet 07/04/18 11/18/18 Prochlorperazine Maleate 10 mg PO Q6H PRN #30 tablet 07/23/18 11/18/18 [Compazine] oxyCODONE [Roxicodone] 5 mg PO Q3HR PRN 07/25/18 11/18/18 Cyanocobalamin (Vitamin B-12) 1,000 mcg PO DAILY 08/05/18 11/18/18 [Vitamin B-12 (500 mcg sublingual)] Multivitamin [Theragran] 1 tab PO DAILY 08/05/18 11/18/18 Sennosides/Docusate Sodium 1 tab PO BID PRN 08/05/18 11/18/18 [Senna-Docusate Sodium Tablet] raNITIdine HCl [Ranitidine HCl] 150 mg PO BID 08/05/18 11/18/18 fentaNYL [Fentanyl 25mcg patch] 37.5 mcg TOP .3DAYS 08/11/18 11/18/18 Dexamethasone [Decadron] 4 mg PO DAILY PRN MDD chemo only 08/15/18 11/18/18 Loperamide HCl [Imodium A-D] 2 mg PO Q4HR PRN 09/26/18 11/18/18 Potassium Chloride [Klor-Con M20] 20 meq PO BID 10/22/18 11/18/18 Fluconazole [Diflucan] 100 mg PO DAILY #8 tablet MDD 7 11/03/18 11/14/18 days Polyethylene Glycol 3350 [Miralax] 17 gm PO DAILY PRN 11/06/18 11/18/18 Fluticasone/Salmeterol [Advair 1 puffs INH BID 11/14/18 11/18/18 100-50 Diskus] Fluconazole [Diflucan] 100 mg PO DAILY 7 Days #7 tablet 11/16/18 11/18/18 - Allergies Allergies/Adverse Reactions: Allergies Allergy/AdvReac Type Severity Reaction Status Date / Time No Known Drug Allergies Allergy Verified 11/21/18 09:54 - Social History Does the pt smoke?: No Smoking Status: Never smoker Does the pt drink ETOH?: No Does the pt have substance abuse?: No - Immunizations Immunizations are current?: Yes - POLST Patient has POLST: Yes POLST Status: DNR PD ED PE NORMAL - Vitals Vital signs reviewed: Yes (normal) - General General: Alert and oriented X 3, Well developed/nourished - HEENT HEENT: PERRL, EOMI, Pharynx benign, Other (There is slight tenderness to palpation on the right occipital scalp. There is no scalp hematoma, laceration, or bony step-off palpated.) - Neck Neck: No bony TTP, Other (Cervical range of motion, without tenderness.) - Cardiac Cardiac: RRR - Respiratory Respiratory: No respiratory distress, Clear bilaterally - Abdomen Abdomen: Soft, Non tender - Back Back: No CVA TTP, No spinal TTP, Other (There is no tenderness to palpation along the cervical, thoracic or lumbar spine.) - Derm Derm: No rash - Extremities Extremities: No tenderness to palpate, Normal ROM s pain, Other (The patient is able to raise her arms above her head, without discomfort. There is no bony tenderness to palpation of her shoulders.) - Neuro Neuro: Alert and oriented X 3, No motor deficit, No sensory deficit, Normal speech Results - Vitals Vitals: Oxygen O2 Source Room air PD MEDICAL DECISION MAKING - ED course Complexity details: re-evaluated patient, considered differential, d/w patient, d/w family ED course: On physical examination, the patient appears to have low-impact injury from her fall. I think head CT would be very low yield study. I discussed this with the patient and her daughter, advising that I could make an argument for either case. The patient decided she would prefer not to undergo CT scanning. I discussed with her and the daughter potentially worrisome signs or symptoms that should prompt reevaluation. Departure - Departure Disposition: 01 Home, Self Care Clinical Impression: Colon cancer metastasized to multiple sites Fall Qualifiers: Encounter type: initial encounter Qualified Code(s): W19.XXXA - Unspecified fall, initial encounter Scalp contusion Qualifiers: Encounter type: initial encounter Qualified Code(s): S00.03XA - Contusion of scalp, initial encounter Condition: Stable Instructions: ED Mechanical Fall Follow-Up: Derrell Baptiste DO [Provider Admit Priv/Credential] - Comments: You can use Tylenol if needed for headache or muscle discomfort. Follow-up with your primary physician as planned. Return to the emergency department if you develop increasing headache, persistent vomiting, or otherwise worsening symptoms. Discharge Date/Time: 11/21/18 13:16
[2018-11-21 13:02] VITALS: BP 115/55
== END 2018-11-21 13:16 | disposition home or self-care (01) ==
LOC: ED 09:46
DX: S00.03XA Contusion of scalp, initial encounter (principal); W01.0XXA Fall on same level from slipping, tripping and stumbling without subsequent striking against object, initial encounter; Y92.009 Unspecified place in unspecified non-institutional (private) residence as the place of occurrence of the external cause; C18.9 Malignant neoplasm of colon, unspecified; C79.9 Secondary malignant neoplasm of unspecified site; E78.00 Pure hypercholesterolemia, unspecified; E03.9 Hypothyroidism, unspecified; Z79.82 Long term (current) use of aspirin
CPT/HCPCS: 99282; 99283

== ENCOUNTER 2018-11-25 10:22 | Outpatient (CLI) | payer MEDICARE ==
--- NOTE | 2018-11-25 18:03 | CONSULTATION NOTE ---
Palliative Care Follow Up - Referral Referring Provider: Dr. 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 She was recently hospitalized 11/13-11/16/18 with neutropenic fever, pancytopenia and candidiasis. Did have to have her chemotherapy delayed a week, related to her pancytopenia. She is very anxious regarding this, as she has been having some improvement with her chemotherapy. She is here for cycle 8, her last CT scan showed mixed results. Patient presents today with a new area of discomfort, her baseline pain has mostly been her right lower quadrant, she reports increased pain and discomfort up in her left upper quadrant, this comes and goes and is most often fluctuating with bowel movements. She is on fentanyl 37.5 mcg patch, is using 2-3 oxycodone 5 mg for breakthrough pain, though does sound at this point in time in her description she is probably under medicating. We did increase her Wellbutrin last visit, she does feel like this is helped some, but she does report significant increased anxiety, though she is using less of her alprazolam, she is having more symptoms and is somewhat distressed by this. We did spend quite a bit of time exploring this, and I will refer her on to the palliative care double ending machine operator.She has had some weight loss since last visit, she was at 136, she is down to 131.34, she reports good appetite, she does have some early satiety, denies any nausea impacting this. She continues with fatigue but does interfere with her activity tolerance, she has felt like she lost some of her strength and endurance, home health is going to restart the home health aide. Social History - Living Situation Living arrangement: At home Living Situation: With family Support System: She lives with her daughter April, and her as well as her grandson and his girlfriend. Her daughter Carolynn from [place] is currently visiting for the month, she is still receiving support through RN, and now [employer]. Medications/Allergies - Medications Home Medications: Ambulatory Orders Medication Instructions Recorded Confirmed Alprazolam [Xanax] 0.25 mg PO Q8H PRN 05/29/18 11/18/18 Aspirin [Aspirin EC] 81 mg PO DAILY 05/29/18 11/18/18 Atenolol 25 mg PO DAILY 05/29/18 11/18/18 Levothyroxine [Synthroid] 100 mcg PO QDAC 05/29/18 11/18/18 [place]-3/Dha/Epa/Fish Oil [Fish Oil 1 gm PO BID 05/29/18 11/18/18 1,000 mg Softgel] buPROPion [Wellbutrin Sr] 150 mg PO DAILY 05/29/18 11/18/18 Ondansetron HCl [Zofran] 4 mg PO Q6HR PRN #20 tablet 07/04/18 11/18/18 Prochlorperazine Maleate 10 mg PO Q6H PRN #30 tablet 07/23/18 11/18/18 [Compazine] oxyCODONE [Roxicodone] 5 mg PO Q3HR PRN 07/25/18 11/18/18 Cyanocobalamin (Vitamin B-12) 1,000 mcg PO DAILY 08/05/18 11/18/18 [Vitamin B-12 (500 mcg sublingual)] Multivitamin [Theragran] 1 tab PO DAILY 08/05/18 11/18/18 Sennosides/Docusate Sodium 1 tab PO BID PRN 08/05/18 11/18/18 [Senna-Docusate Sodium Tablet] raNITIdine HCl [Ranitidine HCl] 150 mg PO BID 08/05/18 11/18/18 fentaNYL [Fentanyl 25mcg patch] 37.5 mcg TOP .3DAYS 08/11/18 11/18/18 Dexamethasone [Decadron] 4 mg PO DAILY PRN MDD chemo only 08/15/18 11/18/18 Loperamide HCl [Imodium A-D] 2 mg PO Q4HR PRN 09/26/18 11/18/18 Potassium Chloride [Klor-Con M20] 20 meq PO BID 10/22/18 11/18/18 Fluconazole [Diflucan] 100 mg PO DAILY #8 tablet MDD 7 11/03/18 11/14/18 days Polyethylene Glycol 3350 [Miralax] 17 gm PO DAILY PRN 11/06/18 11/18/18 Fluticasone/Salmeterol [Advair 1 puffs INH BID 11/14/18 11/18/18 100-50 Diskus] Fluconazole [Diflucan] 100 mg PO DAILY 7 Days #7 tablet 11/16/18 11/18/18 - Allergies Allergies/Adverse Reactions: Allergies Allergy/AdvReac Type Severity Reaction Status Date / Time No Known Drug Allergies Allergy Verified 11/21/18 09:54 Review of Systems - Constitutional Constitutional: reports: Fatigue, Weight loss (133). denies: Fever, Chills - Eyes Eyes: reports: Vision loss (feels vision has been steadily changing; has pending eye appointment), Corrective lenses - Ears, Nose & Throat Ears, Nose & Throat: reports: Dry mouth (completed diflucan). denies: Mouth lesions - Cardiovascular Cardiovascular: reports: Exertional dyspnea, Decr. exercise tolerance - Respiratory Respiratory: reports: SOB with exertion. denies: SOB at rest - Gastrointestinal Gastrointestinal: reports: Abdominal pain (LUQ new;), Rectal bleeding (intermittent; reports rectal prolapse continues to be okay), Bloating, Early satiety. denies: Diarrhea, Nausea - Musculoskeletal Musculoskeletal: reports: Muscle weakness - Integumentary Integumentary: reports: Dryness, Hair changes (noting thinning) - Neurological Neurological: reports: General weakness - Psychiatric Psychiatric: reports: Depression, Anxiety - Hematologic/Lymphatic Hematologic/Lymphatic: reports: Anemia, Recurrent infections (recent admission for neutropenic fever; no source of infection identified) - All Other Systems All Other Systems: reports: Reviewed and negative Physical Exam - Vital Signs Temperature: 36.5 C Pulse Rate: 70 Respiratory Rate: 16 Blood Pressure: 109/52 - Physical Exam General Appearance: positive: No acute distress, Alert, Anxious Eyes Bilateral: positive: Normal inspection ENT: positive: Other (still with coating on tongue but no buccal lesions) Neck: positive: No JVD, Trachea midline Cardiovascular: positive: Regular rate & rhythm Respiratory: positive: Diminished in bases. negative: Wheezes, Rales, Rhonchi Abdomen: positive: Soft, Tenderness, Distended Skin: positive: Pallor, Dryness Extremities: positive: Pedal edema (Trace in ankles) Neurologic/Psychiatric: positive: Oriented x3, Weakness, Flat affect Palliative Care - POLST Patient has POLST: Yes POLST Status: DNR, Comfort Measures Pain: Pain worsening, Location (new pain left side LUQ; see HPI) Tiredness/Fatigue: Moderate (4-6) Drowsiness/Sedation: Mild (1-3) Nausea: None Depression: Moderate (4-6) Anxiety: Severe (7-10) Dyspnea: Mild (1-3) Anorexia: Mild (1-3), Weight loss Sleep: Variable sleep pattern Constipation: Yes, Opoid induced, Intermittent constipation - Palliative Care Discussion: Patient with recent hospitalization, patient is feeling quite vulnerable and significant anxiety. Discussion ensued regarding the underlying source of her anxiety, she does understand the seriousness of her illness, she has had and been grateful for her extended and positive response. She is "waiting for the other shoe to drop". We did discuss in the context of some of her existential distress, patient was quite tearful, agreed to meet with a palliative double ending machine operator. Patient does have POLST in place it is a DNA R and comfort measures. Her D POA is her son Michelet Reyes in [place] [phone]. Results - Lab Results Lab results reviewed: Yes Impression and Recommendations - Palliative Care Impression: This is a erik 73-year-old woman with metastatic large cell neuroendocrine cancer of the ascending colon, with metastatic disease to the liver, lung, and b rain. Patient with recent hospitalization for each of the next fever and pancytopenia, she continues with some residual fatigue from this. Patient presents with fairly high symptom burden of increasing pain, depression, anxiety, anorexia, and ongoing weight loss. Palliative care to continue to provide support for pain and symptom management and anticipatory guidance, and counseling for depression and anxiety Recommendations/Counseling Done: 1. Pain of neoplastic origin. Counseling provided regarding weighing benefits and burdens of increasing current patch, patient is having some increased discomfort in her left upper quadrant, but it is intermittent and not persistent in nature. She is using heat with some relief. Patient has been encouraged to use increased oxycodone 5 mg with threshold of 20-25 mg total to bump up patch from 37.5 mcg to 50 mcg. She is currently satisfied with this regimen, she will contact me if her pain continues to escalate. 2. Weight loss. Patient has lost another 2 or 3 pounds. Patient denies it is impacted by nausea, she does have early satiety. She has been recently in the hospital. Counseling provided again regarding strategies to address with small frequent meals, increased use of health shakes, or oral candidiasis is improving so this is improved her taste. Patient is having some bloating, and abdomen is somewhat distended. Concern for re-accumulation of ascites. 3. Anxiety. Counseling provided explored some more of her existential issues, will make referral to the medical palliative care double ending machine operator. Patient using only occasional alprazolam 1-2 in 24 hours. 4. Depression. Patient has increased her Wellbutrin to 150 mg in a.m. and p.m., does feel this has helped elevate her mood some she has involved joint her visit from her daughter Carolynn who is with her today. 5. Advanced care planning. Patient does have a RUPALI ST in place, patient's goals are to continue to enjoy improve her quality of life and extending quantity as long as benefits outweigh the burdens of the treatment plan. She is exhibiting some fatigue regarding living in this space with serious illness. She is still being followed by home health nursing services. Time Spent: 45 minutes with getting 50% of this done in counseling regarding anxiety depression, pain management and coordination of care with clinical staff and referral to palliative double ending machine operator report given
== END 2018-11-25 10:23 | disposition home or self-care (01) ==
LOC: PC 10:22
PROVIDERS: ATTEND Nurse Practitioner Adult Health
DX: Z51.5 Encounter for palliative care (principal); G89.3 Neoplasm related pain (acute) (chronic); C7A.1 Malignant poorly differentiated neuroendocrine tumors; C7B.8 Other secondary neuroendocrine tumors; R63.4 Abnormal weight loss; R68.81 Early satiety; R14.0 Abdominal distension (gaseous); F32.9 Major depressive disorder, single episode, unspecified; F41.9 Anxiety disorder, unspecified; R53.83 Other fatigue; Z79.891 Long term (current) use of opiate analgesic; Z79.899 Other long term (current) drug therapy; Z66 Do not resuscitate; Z86.2 Personal history of diseases of the blood and blood-forming organs and certain disorders involving the immune mechanism
CPT/HCPCS: 99215

== ENCOUNTER 2018-12-28 08:19 | Emergency (ER) | payer MEDICARE ==
[2018-12-28] MEDS ORDERED: SODIUM CHLORIDE 0.9% 1,000 ML IV ONE (09:28)
--- NOTE | 2018-12-28 09:37 | ED Physician Documentation ---
PD HPI ABD PAIN - Stated complaint Stated Complaint: ABD PX - Chief complaint Chief Complaint: Abd Pain - History obtained from History obtained from: Patient, Family (daughter) - History of Present Illness Timing - onset: How many days ago (4) Timing - duration: Days (4) Timing - details: Waxing and waning Quality: Pain Location: RUQ, Epigastric Associated symptoms: Nausea. No: Fever, Vomiting, Diarrhea, Dysuria Similar symptoms before: Has not had sx before Recently seen: Clinic (Chemotherapy 2 weeks ago.) - Treatment prior to arrival Treatment prior to arrival: Ondansetron and Oxycodone. - Additional information Additional information: The patient is a 73-year-old female with history of neuroendocrine cancer stage IV, 2 weeks status post chemotherapy, who presents with upper abdominal pain that has been waxing and waning for the past 4 days. She reports associated nausea, without vomiting or fever. She denies diarrhea or dysuria. She took ondansetron and oxycodone this morning. She denies history of similar symptoms in the past. Review of Systems Constitutional: denies: Fever Nose: denies: Congestion Throat: denies: Sore throat Cardiac: denies: Chest pain / pressure Respiratory: denies: Dyspnea, Cough GI: reports: Abdominal Pain, Nausea. 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 MACHINE CATCHER: Other : Incontinence HEENT: Chronic vision loss, Chronic hearing loss Psych: Depression, Anxiety Musculoskeletal: Osteoporosis Derm: None Other Past Medical History: Neuroendocrine CA with mets to liver and colon - Past Surgical History Past Surgical History: Yes General: Colonoscopy /EDGING MACHINE CATCHER: Tubal ligation, Hysterectomy, Other HEENT: Cataracts, Tonsil/Adenoidectomy, Other - Present Medications Home Medications: Ambulatory Orders Medication Instructions Recorded Confirmed Alprazolam [Xanax] 0.25 mg PO Q8H PRN 05/29/18 12/09/18 Aspirin [Aspirin EC] 81 mg PO DAILY 05/29/18 12/09/18 Atenolol 25 mg PO DAILY 05/29/18 12/09/18 Levothyroxine [Synthroid] 100 mcg PO QDAC 05/29/18 12/09/18 [place]-3/Dha/Epa/Fish Oil [Fish Oil 1 gm PO BID 05/29/18 12/09/18 1,000 mg Softgel] buPROPion [Wellbutrin Sr] 150 mg PO DAILY 05/29/18 12/09/18 Ondansetron HCl [Zofran] 4 mg PO Q6HR PRN #20 tablet 07/04/18 12/09/18 Prochlorperazine Maleate 10 mg PO Q6H PRN #30 tablet 07/23/18 12/09/18 [Compazine] oxyCODONE [Roxicodone] 5 mg PO Q3HR PRN 07/25/18 12/09/18 Cyanocobalamin (Vitamin B-12) 1,000 mcg PO DAILY 08/05/18 12/09/18 [Vitamin B-12 (500 mcg sublingual)] Multivitamin [Theragran] 1 tab PO DAILY 08/05/18 12/09/18 Sennosides/Docusate Sodium 1 tab PO BID PRN 08/05/18 12/09/18 [Senna-Docusate Sodium Tablet] raNITIdine HCl [Ranitidine HCl] 150 mg PO BID 08/05/18 12/09/18 fentaNYL [Fentanyl 25mcg patch] 37.5 mcg TOP .3DAYS 08/11/18 12/09/18 Dexamethasone [Decadron] 4 mg PO DAILY PRN MDD chemo only 08/15/18 12/09/18 Loperamide HCl [Imodium A-D] 2 mg PO Q4HR PRN 09/26/18 12/09/18 Potassium Chloride [Klor-Con M20] 20 meq PO BID 10/22/18 12/09/18 Polyethylene Glycol 3350 [Miralax] 17 gm PO DAILY PRN 11/06/18 12/09/18 Fluticasone/Salmeterol [Advair 1 puffs INH BID 11/14/18 12/09/18 100-50 Diskus] Magnesium 250 mg PO DAILY 12/28/18 12/28/18 - Allergies Allergies/Adverse Reactions: Allergies Allergy/AdvReac Type Severity Reaction Status Date / Time No Known Drug Allergies Allergy Verified 11/21/18 09:54 - Social History Does the pt smoke?: No Smoking Status: Never smoker Does the pt drink ETOH?: No Does the pt have substance abuse?: No - Immunizations Immunizations are current?: Yes - POLST Patient has POLST: Yes POLST Status: DNR PD ED PE NORMAL - Vitals Vital signs reviewed: Yes (Normal) - General General: Alert and oriented X 3, Well developed/nourished - HEENT HEENT: Atraumatic, EOMI, Moist mucous membranes, Pharynx benign - Neck Neck: Supple, no meningeal sign, No adenopathy, No JVD - Cardiac Cardiac: RRR, No murmur - Respiratory Respiratory: No respiratory distress, Clear bilaterally - Abdomen Abdomen: Soft, Other (Gurgling bowel tones, soft with mild periumbilical tenderness to palpation, without rebound or guarding. No focal tenderness.) - Back Back: No CVA TTP - Derm Derm: No rash - Extremities Extremities: No edema, No calf tenderness / cord - Neuro Neuro: Alert and oriented X 3, No motor deficit, Normal speech Results - Vitals Vitals: Vital Signs - 24 hr 12/28/18 12:16 Heart Rate 87 Respiratory 16 Rate Blood Pressure 112/46 L O2 Saturation 96 Oxygen O2 Source Room air - Labs Labs: Microbiology 12/28/18 11:22 Urine Culture - Final Urine,Clean Catch >100,000 COLONIES/ML Polymicrobial growth including potential pathogens. This is suggestive of skin or other contamination. Laboratory Tests 12/28/18 12/28/18 12/28/18 09:51 09:51 11:22 WBC 6.8 RBC 3.46 L Hgb 12.6 Hct 36.4 L MCV 105.4 H MCH 36.6 H MCHC 34.7 RDW 18.1 H Plt Count 89 L MPV 8.6 Neut # (Auto) 4.8 Lymph # (Auto) 1.2 L [place] # (Auto) 0.7 Eos # (Auto) 0.0 Baso # (Auto) 0.0 Absolute Nucleated RBC 0.00 Nucleated RBC % 0.0 Sodium 135 Potassium 3.9 Chloride 99 L Carbon Dioxide 28 Anion Gap 8.0 BUN 22 H Creatinine 0.6 Estimated GFR (MDRD) 98 Glucose 133 H Calcium 8.9 Total Bilirubin 0.8 AST 24 ALT 20 Alkaline Phosphatase 81 Total Protein 5.9 L Albumin 3.3 Globulin 2.6 Albumin/Globulin Ratio 1.3 Lipase 23 Urine Color DARK YELLOW Urine Clarity HAZY Urine pH 7.0 Ur Specific [place] 1.015 Urine Protein NEGATIVE Urine Glucose (UA) NEGATIVE Urine Ketones NEGATIVE Urine Occult Blood NEGATIVE Urine Nitrite NEGATIVE Urine Bilirubin NEGATIVE Urine Urobilinogen 0.2 (NORMAL) Ur Leukocyte Esterase SMALL H Urine RBC 0-5 Urine WBC 0-3 Ur Squamous Epith Cells FEW Squamous Urine Bacteria Few Urine Mucus Few Strands Ur Microscopic Review INDICATED Urine Culture Comments INDICATED PD MEDICAL DECISION MAKING - ED course Complexity details: reviewed old records, reviewed results, re-evaluated patient, considered differential, d/w patient, d/w family ED course: The patient's presentation is significant for dehydration and chemotherapy associated gastric distress. Her CBC reveals a normal white count and differential, and her chemistry panel reveals normal liver enzymes. Her BUN is elevated at 22, with a normal creatinine of 0.6, indicative of dehydration. Her abdominal exam does not reveal evidence of bowel obstruction or peritonitis. Urinalysis is negative for urinary Treatment in the emergency department included administration of normal saline 1 L IV, Zofran 4 mg IV, oxycodone 5 mg orally, and fentanyl 25 g IV. Following the above treatment she felt subjectively improved, and demonstrate ability to drink fluids without recurrent nausea. I discussed with her and her daughter the results of her workup, symptomatic treatment and outpatient follow-up, as well as potentially worrisome signs or symptoms that should prompt reevaluation in the emergency department. Departure - Departure Disposition: 01 Home, Self Care Clinical Impression: Dehydration, Colon cancer metastasized to multiple sites, Status post chemotherapy Abdominal pain Qualifiers: Abdominal location: upper abdomen, unspecified Qualified Code(s): R10.10 - Upper abdominal pain, unspecified Condition: Stable Instructions: ED Abdominal Pain Unkn Cause Follow-Up: Justyn Saucedo MD [Provider Admit Priv/Credential] - Comments: Drink plenty of fluids. Continue taking Zofran as needed for nausea. Continue taking oxycodone as previously prescribed if needed for pain. Follow-up with your oncologist this week as scheduled. Return to the emergency department if you develop increasing abdominal pain, persistent vomiting, recurrent dehydration, or otherwise worsening symptoms. Discharge Date/Time: 12/28/18 14:00
[2018-12-28 10:11] LABS: BASOPHILS % (AUTO) 0.5 %; EOSINOPHILS % (AUTO) 0.6 %; HGB - HEMOGLOBIN 12.6 g/dL (12.0-16.0); LYMPHOCYTES # (AUTO) 1.2 10^3/uL (1.5-3.5); LYMPHOCYTES % (AUTO) 17.7 %; MEAN CORPUSCULAR HEMOGLOBIN 36.6 pg (27.0-31.0); MEAN CORPUSCULAR HGB CONC 34.7 g/dL (32.0-36.0); MEAN CORPUSCULAR VOLUME 105.4 fL (81.0-99.0); MEAN PLATELET VOLUME 8.6 fL (7.9-10.8); MONOCYTES # (AUTO) 0.7 10^3/uL (0.0-1.0); MONOCYTES % (AUTO) 9.7 %; NEUTROPHILS # (AUTO) 4.8 10^3/uL (1.5-6.6); NEUTROPHILS % (AUTO) 71.5 %; PLT - PLATELET COUNT 89 10^3/uL (130-450); RED BLOOD COUNT 3.46 10^6/uL (4.20-5.40); RED CELL DISTRIBUTION WIDTH 18.1 % (12.0-15.0); WHITE BLOOD COUNT 6.8 x10^3/uL (4.8-10.8)
[2018-12-28 10:20] LABS: ALBUMIN 3.3 g/dL (3.2-5.5); ALBUMIN/GLOBULIN RATIO 1.3 (1.0-2.2); BILIRUBIN,TOTAL 0.8 mg/dL (0.2-1.0); CALCIUM 8.9 mg/dL (8.5-10.3); CREATININE 0.6 mg/dL (0.4-1.0); TOTAL PROTEIN 5.9 g/dL (6.7-8.2)
[2018-12-28 11:44] LABS: BILIRUBIN,URINE NEGATIVE (NEGATIVE); GLUCOSE, URINE (UA) NEGATIVE (NEGATIVE); KETONES,URINE (UA) NEGATIVE (NEGATIVE); LEUKOCYTE ESTERASE, URINE SMALL (NEGATIVE); NITRITE,URINE NEGATIVE (NEGATIVE); OCCULT BLOOD,URINE NEGATIVE (NEGATIVE); PROTEIN,URINE NEGATIVE (NEGATIVE); UROBILINOGEN,URINE 0.2 (NORMAL) E.U./dL (NORMAL)
[2018-12-28 11:47] LABS: CLARITY,URINE HAZY (CLEAR)
[2018-12-28 12:01] LABS: BACTERIA,URINE Few /HPF (None Seen); RBC,URINE 0-5 /HPF (0-5); SQUAMOUS EPITHELIAL CELL,UR FEW Squamous (<= Few)
[2018-12-28 12:02] LABS: MUCUS,URINE Few Strands
[2018-12-28] MEDS ORDERED: oxyCODONE 5 MG TABLET PO STA (12:04)
[2018-12-28 12:17] VITALS: BP 112/46
[2018-12-28] MEDS ORDERED: fentaNYL 100 MCG/2 ML VIAL IVP STA (12:51)
[2018-12-28] MEDS ORDERED: ONDANSETRON 4 MG/2 ML VIAL IVP STA (12:51)
== END 2018-12-28 14:00 | disposition home or self-care (01) ==
LOC: ED 08:19
DX: E86.0 Dehydration (principal); C7A.8 Other malignant neuroendocrine tumors; C7B.8 Other secondary neuroendocrine tumors; Z79.899 Other long term (current) drug therapy
CPT/HCPCS: 36415; 80053; 81001; 83690; 85025; 87086; 96361; 96374; 99283; 99284; A9270; 81003

== ENCOUNTER 2018-12-31 12:16 | Outpatient (CLI) | payer MEDICARE | END 2018-12-31 12:17 | disposition critical access hospital (66) | LOC: EMS 12:16 | PROVIDERS: ATTEND Surgery | DX: R53.1 Weakness (principal); R11.2 Nausea with vomiting, unspecified; R61 Generalized hyperhidrosis; R10.9 Unspecified abdominal pain; R53.83 Other fatigue; Z79.899 Other long term (current) drug therapy | CPT/HCPCS: A0425; A0427 ==

== ENCOUNTER 2018-12-31 12:32 | Inpatient (IN) | payer MEDICARE ==
--- NOTE | 2018-12-31 13:34 | ED Physician Documentation ---
PD HPI ALTERED MENTAL STATUS - Stated complaint Stated Complaint: LETHARGIC - Chief complaint Chief Complaint: Neuro - History obtained from History obtained from: Patient - History of Present Illness Timing - onset: How many weeks ago (1) Timing - duration: Weeks (1) Timing - details: Gradual onset, Still present (She is 2 weeks post chemotherapy for metastatic colon cancer. She was having upper abdominal pain, bloating, nausea and some vomiting. She was seen in the emergency room 4 days ago with the symptoms and was presumed to have a gastritis. She was improved with some antiemetic and given IV fluids. Her abdominal exam was non-peritoneal at that time. She has continued with abdominal discomfort and a feeling of bloating and distention associated with now vomiting several times today. She did see Dr. Jean, oncology, yesterday who felt her abdominal discomfort was not likely to be chemo related and was ordering a chest and abdomen CT to evaluate the degree of tumor and response to chemotherapy. She has the increased distention and vomiting today.) Quality / character: Less responsive. No: Confused Associated symptoms: NVD. No: Fever, Headache, Dyspnea, Cough Contributing factors: No: Recent med change, Recent illness Basline status: Alert and oriented X 3, Ambulatory Recently seen: Clinic (yesterday in Oncology.), Emergency Dept (4 days ago for similar symptoms) Review of Systems Ten Systems: 10 systems reviewed and negative Constitutional: denies: Fever, Chills, Myalgias Nose: denies: Rhinorrhea / runny nose, Congestion Throat: denies: Sore throat Respiratory: denies: Dyspnea GI: reports: Abdominal Pain, Abdominal Swelling, Nausea, Vomiting. denies: Constipation, Diarrhea (but has just small amount loose stool), Bloody / black stool : denies: Dysuria, Frequency Neurologic: reports: Generalized weakness, Altered mental status (slow thinking). denies: Focal weakness, Numbness, Confused, Headache PD PAST MEDICAL HISTORY - Past Medical History Cardiovascular: High cholesterol Respiratory: COPD Neuro: Other Endocrine/Autoimmune: HyPOthyroidism GI: GERD, Other VEST FINISHER: Other : Incontinence HEENT: Chronic vision loss, Chronic hearing loss Psych: Depression, Anxiety Musculoskeletal: Osteoporosis Derm: None - Past Surgical History Past Surgical History: Yes General: Colonoscopy /VEST FINISHER: Tubal ligation, Hysterectomy, Other HEENT: Cataracts, Tonsil/Adenoidectomy, Other - Present Medications Home Medications: Ambulatory Orders Medication Instructions Recorded Confirmed Alprazolam [Xanax] 0.25 mg PO Q8H PRN 05/29/18 12/30/18 Atenolol 25 mg PO DAILY 05/29/18 12/30/18 Levothyroxine [Synthroid] 100 mcg PO QDAC 05/29/18 12/30/18 Cucumber-3/Dha/Epa/Fish Oil [Fish Oil 1 gm PO BID 05/29/18 12/09/18 1,000 mg Softgel] buPROPion [Wellbutrin Sr] 150 mg PO BID 05/29/18 12/30/18 Ondansetron HCl [Zofran] 4 mg PO Q6HR PRN #20 tablet 07/04/18 12/30/18 Prochlorperazine Maleate 10 mg PO Q6H PRN #30 tablet 07/23/18 12/30/18 [Compazine] oxyCODONE [Roxicodone] 5 mg PO Q3HR PRN 07/25/18 12/30/18 Sennosides/Docusate Sodium 1 tab PO BID PRN 08/05/18 12/30/18 [Senna-Docusate Sodium Tablet] raNITIdine HCl [Ranitidine HCl] 150 mg PO BID 08/05/18 12/30/18 fentaNYL [Fentanyl 25mcg patch] 50 mcg TOP Q72H 08/11/18 12/30/18 Dexamethasone [Decadron] 4 mg PO DAILY PRN MDD chemo only 08/15/18 12/30/18 Loperamide HCl [Imodium A-D] 2 mg PO Q4HR PRN 09/26/18 12/30/18 Potassium Chloride [Klor-Con M20] 20 meq PO BID 10/22/18 12/30/18 Fluticasone/Salmeterol [Advair 1 puffs INH BID 11/14/18 12/30/18 100-50 Diskus] Calcium Carbonate [Tums (Calcium 200 mg PO DAILY 12/30/18 12/30/18 Carbonate 500mg)] Omeprazole 20 mg PO BID 12/31/18 - Allergies Allergies/Adverse Reactions: Allergies Allergy/AdvReac Type Severity Reaction Status Date / Time Penicillins Allergy Rash Verified 12/31/18 12:42 - Social History Does the pt smoke?: No Smoking Status: Never smoker Does the pt drink ETOH?: No Does the pt have substance abuse?: No - Immunizations Immunizations are current?: Yes - POLST Patient has POLST: Yes POLST Status: DNR PD ED PE NORMAL - Vitals Vital signs reviewed: Yes - General General: Alert and oriented X 3, Well developed/nourished - HEENT HEENT: Pharynx benign - Neck Neck: Supple, no meningeal sign, No adenopathy - Cardiac Cardiac: RRR (tachycardic), No murmur - Respiratory Respiratory: Clear bilaterally - Abdomen Abdomen: Soft, No organomegaly, Other (general tenderness but mostly upper abd with some abd fullness. Not tense. ). No: Normal bowel sounds (increased) - Female Female : Deferred - Rectal Rectal: Deferred - Back Back: No CVA TTP - Derm Derm: Normal color Results - Vitals Vitals: Vital Signs - 24 hr 12/31/18 12/31/18 12/31/18 12:38 12:44 12:52 Temperature 36.9 C Heart Rate 114 H Respiratory 18 Rate Blood Pressure 105/55 L O2 Saturation 89 L 90 L 93 12/31/18 12/31/18 12/31/18 13:09 13:31 14:29 Temperature Heart Rate 95 101 H 96 Respiratory 16 18 18 Rate Blood Pressure 105/47 L 101/52 L O2 Saturation 96 95 93 12/31/18 12/31/18 12/31/18 15:47 16:47 17:02 Temperature Heart Rate 84 83 84 Respiratory 18 18 18 Rate Blood Pressure 120/54 L 94/53 L 104/54 L O2 Saturation 94 94 94 12/31/18 12/31/18 12/31/18 17:28 18:11 18:37 Temperature Heart Rate 87 84 87 Respiratory 18 18 18 Rate Blood Pressure 109/44 L 98/54 L 109/54 L O2 Saturation 95 94 94 12/31/18 20:07 Temperature Heart Rate 83 Respiratory 14 Rate Blood Pressure 113/52 L O2 Saturation 93 Oxygen O2 Source Nasal cannula - Labs Labs: Laboratory Tests 12/31/18 12/31/18 12/31/18 14:25 14:25 19:35 WBC 21.7 H RBC 3.60 L Hgb 12.9 Hct 37.6 MCV 104.5 H MCH 35.8 H MCHC 34.3 RDW 17.3 H Plt Count 123 L MPV 7.7 L Neut # (Auto) Not Reportable Lymph # (Auto) Not Reportable [place] # (Auto) Not Reportable Eos # (Auto) Not Reportable Baso # (Auto) Not Reportable Absolute Nucleated RBC Not Reportable Total Counted 100 Band Neuts % (Manual) 24 H Abnorm Lymph % (Manual) 0 Nucleated RBC % Not Reportable Neutrophils # (Manual) 20.6 H Lymphocytes # (Manual) 0.2 L Monocytes # (Manual) 0.9 Eosinophils # (Manual) 0.0 Basophils # (Manual) 0.0 Differential Comment MANUAL DIFFERENTIAL Manual Slide Review Indicated WBC Morphology TOXIC GRANULATION Platelet Estimate DECREASED (<130,000) Platelet Morphology 1+ LARGE PLATELETS RBC Morph Micro Appear 1+ POLYCHROMASIA Sodium 137 Potassium 3.4 L Chloride 102 Carbon Dioxide 23 Anion Gap 12.0 BUN 23 H Creatinine 0.8 Estimated GFR (MDRD) 70 L Glucose 93 Lactic Acid 1.2 Calcium 7.9 L Magnesium 1.5 L Total Bilirubin 1.0 AST 29 ALT 19 Alkaline Phosphatase 65 Total Protein 4.9 L Albumin 2.9 L Globulin 2.0 L Albumin/Globulin Ratio 1.5 Lipase 19 L - Rads (name of study) abd CT Radiology: Prelim report reviewed (Stable appearance of majority of the tumor and metastases of the colon spine lungs and liver. There is additional new nodules in the right lung with some small right pulmonary effusion. There is a mild amount of ascites. The main abnormality is partial bowel obstruction with dilation of small bowel and transition at the tumor bulk of the colon.), See rad report PD MEDICAL DECISION MAKING - ED course Complexity details: reviewed results (Minimal change in the major amount of tumor in the got spine liver and lung with the exception of some increased nodules in the right lung field and a small right effusion. The main issue was a partial obstruction with dilated small bowel and transitioning at the tumor bulk in the colon.), considered differential, d/w patient, d/w family (daughter), d/w erp implementation consultant (Talked with on-call oncology (Dr. Jean was not still in the office) who said the treatment that they would do at their facility would be IV fluids and clear liquids and some gut rest to see if the partial obstruction would clear. Pain medication as needed. However given that the obstruction is coming from the tumor mass, if is not resolving or worsening then the option would be diverting colostomy rather than any attempt at debulking. This would need to be offered to the patient as palliative acutely if she does develop obstruction. Alternatively would be supportive care with NG tube and IV fluids but would be rather short-term. Alternative than would be just hospice with pain control and no hydration or such. I presented this range of options and's or alternatives to the patient and her daughter again with the initial approach being got rest and IV fluids. However they do need to consider the alternatives should she not improve or worsen.) Departure - Departure Disposition: 66 [facility] DC/Xfer Clinical Impression: Partial small bowel obstruction, Colon cancer metastasized to multiple sites Nausea & vomiting Qualifiers: Vomiting type: unspecified Vomiting Intractability: non-intractable Qualified Code(s): R11.2 - Nausea with vomiting, unspecified Abdominal pain Qualifiers: Abdominal location: upper abdomen, unspecified Qualified Code(s): R10.10 - Upper abdominal pain, unspecified Condition: Stable Record reviewed to determine appropriate education?: Yes Discharge Date/Time: 12/31/18 21:24
[2018-12-31] MEDS ORDERED: LIDOCAINE VISCOUS 2% 15 ML UDC MM STA (14:03)
[2018-12-31] MEDS ORDERED: SODIUM CHLORIDE 0.9% 1,000 ML IV ONE ×2 (14:03→14:04)
[2018-12-31] MEDS ORDERED: ONDANSETRON 4 MG/2 ML VIAL IVP STA (14:03)
[2018-12-31] MEDS ORDERED: MAG HYDROX/AL HYDROX/SIMETH 30 ML UDC PO STA (14:03)
[2018-12-31] MEDS ORDERED: FAMOTIDINE 20 MG/2 ML VIAL IVP STA (14:03)
[2018-12-31] MEDS ORDERED: DEXAMETHASONE 10 MG/ML VIAL IVP STA (14:06)
[2018-12-31] MEDS ORDERED: fentaNYL 100 MCG/2 ML VIAL IVP STA (14:06)
[2018-12-31] MEDS ORDERED: IOPAMIDOL-300 50 ML VIAL ONE (14:22)
[2018-12-31] MEDS ORDERED: IOPAMIDOL-300 100 ML VIAL ONE (14:22)
[2018-12-31 14:33] LABS: BASOPHILS % (AUTO) 0.2 %; HGB - HEMOGLOBIN 12.9 g/dL (12.0-16.0); LYMPHOCYTES % (AUTO) 2.1 %; MEAN CORPUSCULAR HEMOGLOBIN 35.8 pg (27.0-31.0); MEAN CORPUSCULAR HGB CONC 34.3 g/dL (32.0-36.0); MEAN CORPUSCULAR VOLUME 104.5 fL (81.0-99.0); MEAN PLATELET VOLUME 7.7 fL (7.9-10.8); MONOCYTES % (AUTO) 1.1 %; NEUTROPHILS % (AUTO) 96.6 %; PLT - PLATELET COUNT 123 10^3/uL (130-450); RED CELL DISTRIBUTION WIDTH 17.3 % (12.0-15.0); WHITE BLOOD COUNT 21.7 x10^3/uL (4.8-10.8)
[2018-12-31 14:45] LABS: ALBUMIN 2.9 g/dL (3.2-5.5); ALBUMIN/GLOBULIN RATIO 1.5 (1.0-2.2); CALCIUM 7.9 mg/dL (8.5-10.3); CREATININE 0.8 mg/dL (0.4-1.0); MAGNESIUM 1.5 mg/dL (1.7-2.8); TOTAL PROTEIN 4.9 g/dL (6.7-8.2)
[2018-12-31 15:00] LABS: ABNORMAL LYMPHS % (MANUAL) 0 %
[2018-12-31 15:01] LABS: BAND NEUTROPHILS % (MANUAL) 24 %; LYMPHOCYTES # (MANUAL) 0.2 10^3/uL (1.5-3.5); LYMPHOCYTES % (MANUAL) 1 %; MONOCYTES # (MANUAL) 0.9 10^3/uL (0.0-1.0); NEUTROPHILS # (MANUAL) 20.6 10^3/uL (1.5-6.6); NEUTROPHILS % (MANUAL) 71 %
[2018-12-31 15:02] LABS: DIFFERENTIAL COMMENT MANUAL DIFFERENTIAL; PLATELET ESTIMATE, MANUAL DECREASED (<130,000) (NORMAL); PLATELET MORPHOLOGY 1+ LARGE PLATELETS (NORMAL)
[2018-12-31] MEDS ORDERED: IOPAMIDOL-300 100 ML VIAL IVP ONE (15:30)
--- NOTE | 2018-12-31 15:53 | CT Report ---
Reason: eval of progression of colon CA/mets Procedure Date: 12/31/2018 Accession Number: [id number] / [id number] Procedure: CT - CHEST W CPT Code: FULL RESULT: EXAM: CT CHEST EXAM DATE: 12/31/2018 03:25 PM. CLINICAL HISTORY: Upper abdominal pain. Restaging of metastatic colon cancer. COMPARISONS: 10/29/2018. TECHNIQUE: Routine helical CT imaging was performed through the chest. IV contrast: 100 cc Isovue-300. This is the total amount of contrast utilized for the CT scans of the chest, abdomen and pelvis. Reconstructions: Coronal and sagittal. In accordance with CT protocol optimization, one or more of the following dose reduction techniques were utilized for this exam: automated exposure control, adjustment of mA and/or KV based on patient size, or use of iterative reconstructive technique. FINDINGS: Lungs/Pleura: Several 3-4 mm stable left upper lobe pulmonary nodules. No new left lung findings. New small to moderate right pleural effusion. Internal density measures 15 HU. New airspace and reticular nodular densities throughout the right middle and right lower lobes without endobronchial obstruction. Subsegmental peripheral density/infiltrate posterior segment right upper lobe. Obscuration of the previously noted discrete right lung nodules. Mediastinum: Increasing right posterior mediastinal adenopathy, axial image 33 series 2. Heart is of normal caliber. Interval development of a tiny pericardial effusion. Thoracic aorta is of normal caliber. Stable necrotic dominant right precarinal lymph node measuring 1.5 x 1.2 cm, axial image 27 series 2. Bones: Unremarkable. Visualized Abdomen: Please see separately dictated CT abdomen and pelvis report. Other: Left Port-A-Cath. IMPRESSION: 1. Several stable tiny left lung nodules. 2. Stable dominant necrotic precarinal node. 3. Increasing shotty right posterior mediastinal adenopathy. 4. New small to moderate right pleural effusion. 5. Extensive nonspecific reticular nodular and airspace opacities right lung, relatively sparing the right upper lobe, obscuring the previously noted discrete lung nodules. Indeterminate as to whether this represents progression of metastatic disease and/or superimposed infection. 6. New tiny pericardial effusion. RADIA
--- NOTE | 2018-12-31 16:06 | CT Report ---
Reason: upper abd pain; also eval on progress of colon CA Procedure Date: 12/31/2018 Accession Number: [id number] / [id number] Procedure: CT - Abdomen/Pelvis W CPT Code: FULL RESULT: EXAM: CT ABDOMEN AND PELVIS EXAM DATE: 12/31/2018 03:25 PM. CLINICAL HISTORY: Upper abdominal pain; also evaluate on progress of colon CA. COMPARISONS: None. TECHNIQUE: Routine helical CT imaging was performed through the abdomen and pelvis. IV contrast: ISOVUE 300 100mL. Enteric contrast: No. Reconstructions: Coronal and sagittal. In accordance with CT protocol optimization, one or more of the following dose reduction techniques were utilized for this exam: automated exposure control, adjustment of mA and/or KV based on patient size, or use of iterative reconstructive technique. FINDINGS: Lung Bases: Please see separately dictated CT chest report. Liver: Small caliber. Approximately 1 dozen stable well-defined low density lesions throughout both lobes of the liver measuring 2.5 cm and smaller. No new hepatic lesions. Gallbladder/Bile Ducts: Unremarkable. Spleen: Normal. Pancreas: Normal. Adrenal Glands: Normal. Kidneys: Normal. No masses or hydronephrosis. Peritoneal Cavity/Bowel: New small amount of free fluid. No free air. Grossly stable spiculated density right lower quadrant at the surgical site, suspect prior cecectomy. Diverticula off the colon. The colon is small in caliber. Interval development of moderate dilatation of the entirety of the small bowel without appreciable wall. Appendix not visualized. Pelvic Organs: New small amount of free fluid. Probable hysterectomy. The bladder and visualized pelvic organs are within normal limits. Vasculature: No aneurysms or other significant abnormality. Bones: Stable 3 cm sclerotic lesion left side L5 vertebral body. Large right S1 perineural cyst, incidental finding. Other: Left Port-A-Cath in place. New mild anasarca. IMPRESSION: 1. Stable hepatic lesions. 2. New mild anasarca. 3. New mild ascites. 4. New partial distal small bowel obstruction due to nonspecific spiculated mass and/or postoperative fibrosis right lower quadrant. 5. Bony metastatic disease. 6. Colonic diverticulosis. RADIA
[2018-12-31] MEDS ORDERED: CIPROFLOXACIN 400 MG/200 ML 200 ML IV ONE (19:23)
[2018-12-31] MEDS ORDERED: metroNIDAZOLE 500 MG/100 ML 500 MG/100 ML BAG IV ONE (19:23)
[2018-12-31] MEDS ORDERED: ONDANSETRON 4 MG/2 ML VIAL IVP PRN (20:44)
[2018-12-31] MEDS ORDERED: SODIUM CHLORIDE 0.9% 1,000 ML IV SCH (21:00)
[2018-12-31 22:46] LABS: GLUCOSE, URINE (UA) NEGATIVE (NEGATIVE); KETONES,URINE (UA) 15 mg/dL (NEGATIVE); LEUKOCYTE ESTERASE, URINE NEGATIVE (NEGATIVE); NITRITE,URINE NEGATIVE (NEGATIVE); OCCULT BLOOD,URINE NEGATIVE (NEGATIVE); PH,URINE 5.5 PH (5.0-7.5); PROTEIN,URINE NEGATIVE (NEGATIVE); UROBILINOGEN,URINE 0.2 (NORMAL) E.U./dL (NORMAL)
[2018-12-31 22:49] LABS: BILIRUBIN,URINE NEGATIVE (NEGATIVE); CLARITY,URINE CLEAR (CLEAR); ICTOTEST,URINE NEGATIVE
[2018-12-31] MEDS ORDERED: fentaNYL 50 MCG PATCH TOP SCH (23:00)
[2018-12-31] MEDS ORDERED: SODIUM CHLORIDE FLUSH 0.9% 10 ML SYRINGE ONE (23:00)
--- NOTE | 2019-01-01 00:42 | HISTORY & PHYSICAL EXAMINATION ---
Chief Complaint - Chief Complaint Chief Complaint: vomiting History of Present Illness - Admitted From Admitted From:: [facility] ED - History Obtained From Records Reviewed: yes History obtained from: patient - History of Present Illness HPI Comment/Other: Patient seen on 12/31/18 at 2000pm Patient is a 73 y/o female who presented to the ED with complain of nausea and vomiting which started yesterday. She also reports upper abdominal pain. She denies chest pain, LINETTE or fever. Her last bowel movement was while she was in the ED today and she described it as diarrhea. She has a background history of metastatic colon cancer with mets to liver, lungs, brain and bone. She did not undergo surgery for this. She is on palliative chemotherapy managed by Dr Jean. Last chemo was 2 weeks ago. Her scheduled chemotherapy for 12/30/18 was cancelled. She presented to the ED 4 days ago with upper abdominal pain, nausea and bloating but she was not vomiting at the time. At that time she had a WBC of 6. Today her WBC was 21.7 and she was mildly hypot ensive. CT scan of abd/pelvis showed tumor about the same. It also showed partial small bowel obstruction just proximal to the tumor with dilated small bowel loops. As a result of these, the patient is being admitted. History - Past Medical History Cardiovascular: reports: High cholesterol Respiratory: reports: COPD Neuro: reports: Other Endocrine/Autoimmune: reports: HyPOthyroidism GI: reports: GERD, Other PARANORMAL INVESTIGATOR: reports: Other : reports: Incontinence HEENT: reports: Chronic vision loss, Chronic hearing loss Psych: reports: Depression, Anxiety Musculoskeletal: reports: Osteoporosis Derm: reports: None MRSA Hx?: No Other Past Medical History: MET's to brain, lungs, spine, liver; neuroendocrine cancer. Last chemo 2 weeks ago - Past Surgical History General: reports: Colonoscopy /PARANORMAL INVESTIGATOR: reports: Tubal ligation, Hysterectomy, Other HEENT: reports: Cataracts, Tonsil/Adenoidectomy, Other - Family & Social History Family History Comment/Other: Mom at age 93 of old age. Dad at age 67 of complications of smoking with COPD. One brother of COPD. 2 sisters. One of COPD and dementia. The other sister of heart disease. 3 children are completely healthy. Living arrangement: At home (comfort measures) Living Situation: With family (daughter) Social History Notes: She is originally from [place] and then moved to [place]. Met her when she was in her late teens, early 20s when she was living in the [place] area. After a full life, he decided he wanted to retire to the [place] because that is where his family is from and he always wanted to live here. They came to live to [facility] around 30 years ago. She started smoking at the age of 14 and smoked 1-1/2 packs/day and quit approximately 1992. She has no history of alcohol abuse or recreational substance abuse. Her 3 years ago. She is been living with her daughter for about a year and a half. - Substance History Use: Uses substance without health or social issues: NONE - POLST Patient has POLST: Yes POLST Status: DNR Meds/Allgy - Home Medications Home Medications: Ambulatory Orders Medication Instructions Recorded Confirmed Alprazolam [Xanax] 0.25 mg PO Q8H PRN 05/29/18 12/30/18 Atenolol 25 mg PO DAILY 05/29/18 12/30/18 Levothyroxine [Synthroid] 100 mcg PO QDAC 05/29/18 12/30/18 Marcell-3/Dha/Epa/Fish Oil [Fish Oil 1 gm PO BID 05/29/18 12/09/18 1,000 mg Softgel] buPROPion [Wellbutrin Sr] 150 mg PO BID 05/29/18 12/30/18 Ondansetron HCl [Zofran] 4 mg PO Q6HR PRN #20 tablet 07/04/18 12/30/18 Prochlorperazine Maleate 10 mg PO Q6H PRN #30 tablet 07/23/18 12/30/18 [Compazine] oxyCODONE [Roxicodone] 5 mg PO Q3HR PRN 07/25/18 12/30/18 Sennosides/Docusate Sodium 1 tab PO BID PRN 08/05/18 12/30/18 [Senna-Docusate Sodium Tablet] raNITIdine HCl [Ranitidine HCl] 150 mg PO BID 08/05/18 12/30/18 fentaNYL [Fentanyl 25mcg patch] 50 mcg TOP Q72H 08/11/18 12/30/18 Dexamethasone [Decadron] 4 mg PO DAILY PRN MDD chemo only 08/15/18 12/30/18 Loperamide HCl [Imodium A-D] 2 mg PO Q4HR PRN 09/26/18 12/30/18 Potassium Chloride [Klor-Con M20] 20 meq PO BID 10/22/18 12/30/18 Fluticasone/Salmeterol [Advair 1 puffs INH BID 11/14/18 12/30/18 100-50 Diskus] Calcium Carbonate [Tums (Calcium 200 mg PO DAILY 12/30/18 12/30/18 Carbonate 500mg)] Omeprazole 20 mg PO BID 12/31/18 - Allergies Allergies/Adverse Reactions: Allergies Allergy/AdvReac Type Severity Reaction Status Date / Time Penicillins Allergy Rash Verified 12/31/18 12:42 Review of Systems - Constitutional Constitutional: reports: Fatigue, Poor appetite, Weight loss. denies: Fever, Chills, Diaphoresis - Eyes Eyes: denies: Blurred vision, Vision loss, Dipolpia - Ears, Nose & Throat Ears, Nose & Throat: denies: Vertigo, Nasal pain, Sore throat, Hoarseness - Cardiovascular Cariovascular: reports: Edema (mild). denies: Irregular heart rate, Palpitations, Chest pain, Syncope, Exertional dyspnea - Respiratory Respiratory: denies: Cough, Sputum production, Wheezing, SOB at rest - Gastrointestinal Gastrointestinal: reports: Abdominal pain (upper abdomen), Abdominal distention, Nausea, Vomiting - Genitourinary Genitourinary: denies: Dysuria, Frequency, Urgency, Hematuria - Musculoskeletal Musculoskeletal: denies: Muscle pain, Back pain, Muscle aches, Stiffness - Integumentary Integumentary: denies: Rash, Pruritis, Lesions, Dryness - Neurological Neurological: denies: Headache, Dizziness, Numbness, Abnormal gait - Psychiatric Psychiatric: denies: Depression, Anxiety - Endocrine Endocrine: denies: Polyuria, Polydypsia, Polyphagia - Hematologic/Lymphatic Hematologic/Lymphatic: denies: Anemia, Bruising, Petechiae Exam - Vital Signs Reviewed Vital Signs: Yes Vital Signs: Vital Signs x48h Temp Pulse Pulse Resp BP BP Pulse Ox 12/31/18 22:20 37 C 81 16 103/62 93 12/31/18 20:07 83 14 113/52 L 93 12/31/18 18:37 87 18 109/54 L 94 12/31/18 18:11 84 18 98/54 L 94 12/31/18 17:28 87 18 109/44 L 95 12/31/18 17:02 84 18 104/54 L 94 12/31/18 16:47 83 18 94/53 L 94 - Physical Exam General Appearance: positive: No acute distress, Alert Eyes Bilateral: positive: Normal inspection, PERRL ENT: positive: ENT inspection nml. negative: Oral lesions Neck: positive: Nml inspection, No JVD, Trachea midline Respiratory: positive: No respiratory distress, Breath sounds nml. negative: Wheezes, Rales, Rhonchi Cardiovascular: positive: Regular rate & rhythm Abdomen: positive: Non-tender, Nml bowel sounds. negative: No distention Back: positive: Nml inspection Skin: positive: Color nml, No rash, Warm Extremities: positive: Nml appearance, Pedal edema (trace to mild) Neurologic/Psychiatric: positive: Oriented x3 Sepsis Event Note (H) - Evaluation Current Stage of Sepsis: Sepsis Possible source of Sepsis: positive: GI tract/intra-abdominal - Sepsis Criteria Sepsis Criteria: Suspected or Documented, WBC count greater than 12,000 or less than 4000 Conclusion/Plan - Problem List (1) Partial small bowel obstruction Conclusion/Plan: Likely 2/2 colon cancer mass NPO, IV hydration. Pain management Hold atenolol Patient has a 50mcg fentanyl patch. Will add morphine prn Patient is declined suggestion of a possible diverting colostomy. As such we will consult hospice care. Patient currently on palliative care (2) Colon cancer metastasized to multiple sites Conclusion/Plan: Patient on palliative chemotherapy Please reach out to Dr Jean at the [facility] in the am for input (3) Leukocytosis Conclusion/Plan: ?Reactive vs Infectious Patient put on Cipro and flagyl for now. May de-escalate if patient becomes hospice (4) Nausea & vomiting Conclusion/Plan: Likely 2/2 obstruction from colon cancer. Patient NPO. IV hydration Zofran ordered Qualifiers: Vomiting type: unspecified Vomiting Intractability: non-intractable Qualified Code(s): R11.2 - Nausea with vomiting, unspecified (5) Depression with anxiety Conclusion/Plan: On xanax and wellbutrin (6) Hypothyroidism Conclusion/Plan: On synthroid - Lab Results Fish Bones: 12/31/18 14:25 12/31/18 14:25 Core Measures - Anticipated LOS I expect patient to be DC'd or transferred within 96 hours.: Yes - DVT/VTE - Prophylaxis VTE/DVT Device ordered at admit?: Yes
[2019-01-01] MEDS: SODIUM CHLORIDE FLUSH 0.9% 10 ML SYRINGE IVP SCH ×3 (02:03→21:10)
[2019-01-01] MEDS: metroNIDAZOLE 500 MG/100 ML 500 MG/100 ML BAG IV SCH ×2 (03:58→12:19)
[2019-01-01] MEDS: SODIUM CHLORIDE FLUSH 0.9% 10 ML SYRINGE IVP PRN ×2 (06:07→22:45)
[2019-01-01] MEDS: PANTOPRAZOLE 40 MG VIAL IVP SCH (06:07)
[2019-01-01 06:37] LABS: HGB - HEMOGLOBIN 9.3 g/dL (12.0-16.0); LYMPHOCYTES # (AUTO) 0.8 10^3/uL (1.5-3.5); LYMPHOCYTES % (AUTO) 4.1 %; MEAN CORPUSCULAR HEMOGLOBIN 35.7 pg (27.0-31.0); MEAN CORPUSCULAR HGB CONC 33.8 g/dL (32.0-36.0); MEAN CORPUSCULAR VOLUME 105.6 fL (81.0-99.0); MONOCYTES # (AUTO) 0.5 10^3/uL (0.0-1.0); MONOCYTES % (AUTO) 2.3 %; NEUTROPHILS # (AUTO) 18.5 10^3/uL (1.5-6.6); NEUTROPHILS % (AUTO) 93.6 %; PLT - PLATELET COUNT 102 10^3/uL (130-450); WHITE BLOOD COUNT 19.8 x10^3/uL (4.8-10.8)
[2019-01-01 06:50] LABS: CALCIUM 7.3 mg/dL (8.5-10.3); CREATININE 0.7 mg/dL (0.4-1.0)
[2019-01-01] MEDS: POLYETHYLENE GLYCOL 3350 17 GM PACKET PO SCH (08:28)
[2019-01-01] MEDS ORDERED: POTASSIUM CHLOR 20 MEQ/100 ML 20 MEQ/100 ML BAG IV ONE (08:45)
[2019-01-01] MEDS ORDERED: MAGNESIUM SULFATE 1 GM in SODIUM CHLORIDE 0.9% 50 ML IV ONE (09:00)
[2019-01-01] MEDS ORDERED: CIPROFLOXACIN 400 MG/200 ML 200 ML IV SCH (09:00)
[2019-01-01] MEDS: MORPHINE 2 MG/ML SYRINGE IVP PRN ×3 (09:50→22:38)
[2019-01-01] MEDS: SODIUM CHLORIDE 0.9% 1,000 ML IV SCH ×2 (10:17→23:58)
[2019-01-01] MEDS: oxyCODONE 5 MG TABLET PO PRN ×2 (12:17→23:57)
[2019-01-01] MEDS: ALPRAZolam 0.25 MG TABLET PO PRN ×2 (14:09→21:11)
[2019-01-01] MEDS: CEFEPIME 1 GM in SODIUM CHLORIDE 0.9% MINIBAG 100 ML IV SCH ×2 (14:11→22:44)
--- NOTE | 2019-01-01 16:44 | CONSULTATION NOTE ---
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 She has been complaining of increased right upper quadrant pain, has continued to do poorly with increased weight loss, poor appetite, and feeling significant more fatigue. She was in the ED over the weekend with dehydration, nausea and and increased RUQ pain more intense, but improved at time of discharge. She saw the oncologist on Saturday, the did not choose to treat her, but given her increased symptoms, had been ordered a stat CT scan of the abdomen. She was having increased diaphoresis and sweats, at the visit, and was quite tearful and overwhelmed. The home health nurse went to see her on Saturday, found her lethargic, confused, with increased pain and dehydrated again. She was sent Via ambulance into the ED, now presenting with nausea and vomiting, and escalating abdominal pain. She does not recall yesterday as she was quite confused, does understand in the context of her scans she had that she does have progressive disease. She was found to have increased right posterior mediastinal adenopathy, new small to moderate right pleural effusion, and extensive nodular and airspace opacities on the right lung, it was indeterminate if this was progression of disease or superimposed infection. Given her elevat ed white count was thought to most likely be pneumonia. She was also thought to have a bowel obstruction, her CT scan showed a partial distal small bowel obstruction due to nonspecific spiculated mass in her right lower quadrant. She also was shown to have a stable 3 cm lesion on the left side of her L5 vertebral body. Patient did move her bowels this morning, has been started on a soft diet, though is quite queasy at the time of our visit. She has not had any vomiting. She continues with fairly intermittent fluctuating right upper quadrant pain, has been using morphine, and started on oxycodone. She currently is on fentanyl 50 mcg patch this most likely likely needs to be titrated upward. Has spoken with both the patient and the nurse to medicate for comfort, as to be able to titrate appropriately tomorrow morning. Palliative care meeting with patient to discuss further goals of care, patient is quite overwhelmed and exhausted. She is quite clear she would not want a surgical intervention if she were to be obstructed, at this point in time she has had progression of disease on her current chemotherapy. Did initially have a good response, with improved pain, and shrinkage of tumor. Her quality of life over the last couple weeks though have been declining, and after much discussion, she is at this point wanting to transition to hospice. We did discuss in the context of meeting her goals, to treat her current infection, her electrolyte imbalances, and focus on improving her pain management prior to discharge. Social History - Living Situation Living arrangement: At home Living Situation: With family Support System: Patient lives with her daughter April, she has been there about a year and a half. They live in a fairly steep two-story townhouse, Bayron is . She also has her grandson and his girlfriend living with them as well. Salud, the girlfriend has been providing oversight and assistance for patient's care. There has been some tension regarding caregiving needs. Patient's daughter Carolynn, had been up for a couple weeks visit from [place]. She also has a son Dakota, who was up recently for visit as well. Medications/Allergies - Medications Active Medication List: Active Medications Alprazolam (Xanax) 0.25 mg PO Q8H PRN PRN Reason: Anxiety Last Admin: 01/01/19 14:09 Dose: 0.25 mg Bupropion HCl (Wellbutrin Sr) 150 mg PO BID [facility] Fentanyl (Duragesic) 1 patch TOP Q3D [facility] Last Admin: 01/01/19 00:47 Dose: 1 patch Sodium Chloride (Normal Saline 0.9%) 1,000 mls @ 75 mls/hr IV .[id number] [facility] Last Admin: 01/01/19 10:17 Dose: 75 mls/hr Cefepime HCl 1 gm/ Sodium (Chloride) 100 mls @ 200 mls/hr IV TID [facility] Last Infusion: 01/01/19 14:44 Dose: Infused Morphine Sulfate (Morphine) 2 mg IVP Q3H PRN PRN Reason: Pain 8 to 10 Last Admin: 01/01/19 13:01 Dose: 2 mg Ondansetron HCl (Zofran Inj) 4 mg IVP Q6HR PRN PRN Reason: Nausea / Vomiting Last Admin: 01/01/19 08:21 Dose: 4 mg Oxycodone HCl (Roxicodone) 5 mg PO Q4HR PRN PRN Reason: PAIN Last Admin: 01/01/19 12:17 Dose: 5 mg Pantoprazole Sodium (Protonix) 40 mg IVP QDAC [facility] Last Admin: 01/01/19 06:07 Dose: 40 mg Polyethylene Glycol (Miralax) 17 gm PO DAILY [facility] Last Admin: 01/01/19 08:28 Dose: Not Given Sodium Chloride (Normal Saline Flush 0.9%) 10 ml IVP PRN PRN PRN Reason: NEEDED PER PROVIDER ORDERS Last Admin: 01/01/19 06:07 Dose: 10 ml Sodium Chloride (Normal Saline Flush 0.9%) 10 ml IVP 0100,0900,1700 [facility] Last Admin: 01/01/19 06:07 Dose: 10 ml Alprazolam [Xanax] 0.25 mg PO Q8H PRN 05/29/18 Atenolol 25 mg PO DAILY 05/29/18 Levothyroxine [Synthroid] 100 mcg PO QDAC 05/29/18 [place]-3/Dha/Epa/Fish Oil [Fish Oil 1,000 mg Softgel] 1 gm PO DAILY 05/29/18 buPROPion [Wellbutrin Sr] 150 mg PO BID 05/29/18 oxyCODONE [Roxicodone] 5 - 10 mg PO Q4HR PRN 07/25/18 Sennosides/Docusate Sodium [Senna-Docusate Sodium Tablet] 1 tab PO BID PRN 08/05/18 fentaNYL [Fentanyl 25mcg patch] 50 mcg TOP Q72H 08/11/18 Dexamethasone [Decadron] 4 mg PO DAILY PRN MDD chemo only 08/15/18 Loperamide HCl [Imodium A-D] 2 mg PO Q4HR PRN 09/26/18 Potassium Chloride [Klor-Con M20] 20 meq PO BID 10/22/18 Fluticasone/Salmeterol [Advair 100-50 Diskus] 1 puffs INH BID 11/14/18 Calcium Carbonate [Tums (Calcium Carbonate 500mg)] 200 mg PO DAILY 12/30/18 Omeprazole 20 mg PO BID 12/31/18 Cyanocobalamin (Vitamin B-12) [Vitamin B-12] 1,000 mcg PO DAILY 01/01/19 Multivitamin [Multiple Vitamins] 1 tab PO DAILY 01/01/19 - Allergies Allergies/Adverse Reactions: Allergies Allergy/AdvReac Type Severity Reaction Status Date / Time Penicillins Allergy Rash Verified 12/31/18 12:42 Review of Systems - Constitutional Constitutional: reports: Fatigue, Weight loss - Eyes Eyes: reports: Vision loss, Corrective lenses - Ears, Nose & Throat Ears, Nose & Throat: reports: Dry mouth - Cardiovascular Cardiovascular: reports: Exertional dyspnea, Decr. exercise tolerance - Respiratory Respiratory: reports: SOB with exertion - Gastrointestinal Gastrointestinal: reports: Abdominal pain, Abdominal distention, Nausea, Bloating, Poor appetite. denies: Constipation (bowel movement this am large brown) - Musculoskeletal Musculoskeletal: reports: Muscle weakness (has been declining functionally over last couple of weeks) - Integumentary Integumentary: reports: Dryness, Hair changes - Neurological Neurological: reports: General weakness - Psychiatric Psychiatric: reports: Depression, Anxiety - All Other Systems All Other Systems: reports: Reviewed and negative Physical Exam - Vital Signs Vital Signs: Vital Signs x48h Temp Pulse Resp BP Pulse Ox 01/01/19 16:00 36.6 C 82 16 104/50 L 97 - Physical Exam General Appearance: positive: Moderate distress, Anxious Eyes Bilateral: positive: Normal inspection ENT: positive: Dry mucous membranes Neck: positive: No JVD, Trachea midline Cardiovascular: positive: Regular rate & rhythm Respiratory: positive: Diminished in bases (decreased RLL) Abdomen: positive: Abnml bowel sounds, Tenderness, Distended, Taut Skin: positive: Pallor, Dryness Extremities: positive: No pedal edema Neurologic/Psychiatric: positive: Oriented x3, Weakness, Depressed mood/affect, Other (tearful) Palliative Care - POLST Patient has POLST: Yes POLST Status: DNR, Comfort Measures Pain: Pain worsening, Location (Pain is in the right upper quadrant, tender to palpation. Fluctuates in nature. It is relieved when she lays down, worse when she sits up or puts pressure on it. Patient currently on fentanyl 50 mcg patch. She does have morphine for drink breakthrough pain, have initiated oxycodone oral 5 mg tabs, most likely needs higher dosing for breakthrough pain.) Tiredness/Fatigue: Severe (7-10) Drowsiness/Sedation: Mild (1-3) Nausea: Moderate (4-6) Depression: Moderate (4-6) Anxiety: Moderate (4-6) Dyspnea: Mild (1-3) (currently on oxygen; denies distress) Anorexia: Severe (7-10), Weight loss Sleep: Variable sleep pattern Constipation: Intermittent constipation (alternating with) Feelings of wellbeing/Perceived Quality of Life: Poor, Worsening Performance Status: Patient with increasing generalized weakness, has been spending most of her time in bed. Is needing increased assistance with her ADLs. I would put her at a PPS of 40% - Palliative Care Discussion: Met with patient, she is very tearful and feeling overwhelmed. Discussed at length patient's goals of care, patient understanding her cancer is progressing, she is quite exhausted. Though her bowels have moved, she does remain at high risk for recurring obstruction, she does not feel that she would be able to tolerate nor would want to pursue surgery. He does not want to disappoint her kids and "giving up", we did review though that she has been very committed and working very hard to these last few months with chemo. She did initially get a good response, and now as expected at some point, it would no longer be working. Her goals are to get relief of suffering, focus on comfort, she does want to be at home with hospice. She did have hospice for her , unfortunately he had had a catastrophic stroke, and is transition to end of life was fairly quick. We discussed short-term goals would be to treat her infection, get her pain under control, electrolytes imbalance that she feels as good as she can and discharged to hospice. This is communicated to the hospitalist, and she agreed I could speak with her daughters. April does work full-time, we were able to spend some time processing her anticipatory grief at the loss of her mother. We went over pragmatic details, equipment, prognostication depending on whether she abstracts versus continues to be able to eat and drink a little. This would be days to weeks if obstructs, and weeks to months if able to continue to have ability to eat and drink. They are going to have a family meeting dorita horne discuss caregiving needs. She does need to work for their financial health, she will explore other caregiving support. Spoke with Carolynn, other daughter, who is in [place]. She was planning to come visit for patient's birthday, discussed findings and conversation with patient. She is in support of patient's transition to hospice as well. Anticip atory guidance and psychosocial support provided. Results - Lab Results Lab results reviewed: Yes Fish Bones: 01/01/19 06:00 01/01/19 06:00 Lab and Imaging Results: Lab Results x24hrs 01/01/19 01/01/19 12/31/18 Range/Units 06:00 06:00 22:25 WBC 19.8 H (4.8-10.8) x10^3/uL RBC 2.60 L (4.20-5.40) 10^6/uL Hgb 9.3 L (12.0-16.0) g/dL Hct 27.4 L (37.0-47.0) % MCV 105.6 H (81.0-99.0) fL MCH 35.7 H (27.0-31.0) pg MCHC 33.8 (32.0-36.0) g/dL RDW 17.0 H (12.0-15.0) % Plt Count 102 L (130-450) 10^3/uL MPV 8.0 (7.9-10.8) fL Neut # (Auto) 18.5 H (1.5-6.6) 10^3/uL Lymph # (Auto) 0.8 L (1.5-3.5) 10^3/uL Lyman # (Auto) 0.5 (0.0-1.0) 10^3/uL Eos # (Auto) 0.0 (0.0-0.7) 10^3/uL Baso # (Auto) 0.0 (0.0-0.1) 10^3/uL Absolute Nucleated RBC 0.00 x10^3/uL Nucleated RBC % 0.0 /100WBC Sodium 136 (135-145) mmol/L Potassium 3.2 L (3.5-5.0) mmol/L Chloride 103 (101-111) mmol/L Carbon Dioxide 25 (21-32) mmol/L Anion Gap 8.0 (6-13) BUN 22 H (6-20) mg/dL Creatinine 0.7 (0.4-1.0) mg/dL Estimated GFR (MDRD) 82 L (>89) Glucose 119 H (70-100) mg/dL Lactic Acid (0.5-2.2) mmol/L Calcium 7.3 L (8.5-10.3) mg/dL Urine Color DARK YELLOW Urine Clarity CLEAR (CLEAR) Urine pH 5.5 (5.0-7.5) PH Ur Specific [place] 1.025 (1.002-1.030) Urine Protein NEGATIVE (NEGATIVE) mg/dL Urine Glucose (UA) NEGATIVE (NEGATIVE) mg/dL Urine Ketones 15 H (NEGATIVE) mg/dL Urine Occult Blood NEGATIVE (NEGATIVE) Urine Nitrite NEGATIVE (NEGATIVE) Urine Bilirubin NEGATIVE (NEGATIVE) Urine Urobilinogen 0.2 (NORMAL) (NORMAL) E.U./dL Ur Leukocyte Esterase NEGATIVE (NEGATIVE) Ur Microscopic Review NOT INDICATED Urine Culture Comments NOT INDICATED 12/31/18 Range/Units 19:35 WBC (4.8-10.8) x10^3/uL RBC (4.20-5.40) 10^6/uL Hgb (12.0-16.0) g/dL Hct (37.0-47.0) % MCV (81.0-99.0) fL MCH (27.0-31.0) pg MCHC (32.0-36.0) g/dL RDW (12.0-15.0) % Plt Count (130-450) 10^3/uL MPV (7.9-10.8) fL Neut # (Auto) (1.5-6.6) 10^3/uL Lymph # (Auto) (1.5-3.5) 10^3/uL Lyman # (Auto) (0.0-1.0) 10^3/uL Eos # (Auto) (0.0-0.7) 10^3/uL Baso # (Auto) (0.0-0.1) 10^3/uL Absolute Nucleated RBC x10^3/uL Nucleated RBC % /100WBC Sodium (135-145) mmol/L Potassium (3.5-5.0) mmol/L Chloride (101-111) mmol/L Carbon Dioxide (21-32) mmol/L Anion Gap (6-13) BUN (6-20) mg/dL Creatinine (0.4-1.0) mg/dL Estimated GFR (MDRD) (>89) Glucose (70-100) mg/dL Lactic Acid 1.2 (0.5-2.2) mmol/L Calcium (8.5-10.3) mg/dL Urine Color Urine Clarity (CLEAR) Urine pH (5.0-7.5) PH Ur Specific [place] (1.002-1.030) Urine Protein (NEGATIVE) mg/dL Urine Glucose (UA) (NEGATIVE) mg/dL Urine Ketones (NEGATIVE) mg/dL Urine Occult Blood (NEGATIVE) Urine Nitrite (NEGATIVE) Urine Bilirubin (NEGATIVE) Urine Urobilinogen (NORMAL) E.U./dL Ur Leukocyte Esterase (NEGATIVE) Ur Microscopic Review Urine Culture Comments Impression and Recommendations - Palliative Care Impression: This is a erik 73-year-old woman with metastatic large cell neuroendocrine cancer of the ascending colon, metastatic disease to the liver, progressive disease in her lungs, metastases to the brain, and now metastases to the bone. Patient acutely hospitalized for symptoms of partial bowel obstruction, and pneumonia. Patient presents with high symptom burden, uncontrolled pain, weight loss, and anxiety. Goals of care include treating current infection, addressing dehydration, focusing on pain control and transition to hospice at discharge. Recommendations/Counseling Done: 1. Acute on chronic pain. This is multifactorial in origin, including progression of cancer and partial bowel obstruction. She is currently on fentanyl 50 mcg patch, would recommend increasing oxycodone for breakthrough pain to 10 mg. Patient most likely needs to be titrated up on her patch, will do equal analgesic tomorrow with further recommendation. 2. Nausea, multifactorial in origin. Patient currently receiving ondansetron 4 mg every 6 hours, the patient remains without obstructive symptoms, would recommend adding Reglan 5 mg 4 times daily. 3. Depression. Counseling provided for normalizing feelings of grief and loss, recommended restarting Wellbutrin, as well as Xanax. 4. Advanced care planning. Goals of care conversation, with outcome of decision made to transition to hospice. Coordination of care with hospitalist, manager rental, ordered equipment reviewed with daughter for tub transfer bench, hospital bed, oxygen, over the bed table, and number given for delivery for Saturday. Time Spent: 75 minutes with greater than 50% done in counseling regarding goals of care, symptom management, and anticipatory guidance.
--- NOTE | 2019-01-01 17:08 | PROVIDER PROGRESS NOTE ---
Subjective - Prog Note Date Prog Note Date: 01/01/19 - Subjective Pt reports feeling: Improved Subjective: pt had a good bowel movement today morning. pt state she still feel very fatigue, loss of appetite. pt denies fever, chill, CP. Current Medications - Current Medications Current Medications: Active Medications Alprazolam (Xanax) 0.25 mg PO Q8H PRN PRN Reason: Anxiety Last Admin: 01/01/19 14:09 Dose: 0.25 mg Bupropion HCl (Wellbutrin Sr) 150 mg PO BID [facility] Fentanyl (Duragesic) 1 patch TOP Q3D [facility] Last Admin: 01/01/19 00:47 Dose: 1 patch Sodium Chloride (Normal Saline 0.9%) 1,000 mls @ 75 mls/hr IV .[id number] [facility] Last Admin: 01/01/19 10:17 Dose: 75 mls/hr Cefepime HCl 1 gm/ Sodium (Chloride) 100 mls @ 200 mls/hr IV TID [facility] Last Infusion: 01/01/19 14:44 Dose: Infused Morphine Sulfate (Morphine) 2 mg IVP Q3H PRN PRN Reason: Pain 8 to 10 Last Admin: 01/01/19 13:01 Dose: 2 mg Ondansetron HCl (Zofran Inj) 4 mg IVP Q6HR PRN PRN Reason: Nausea / Vomiting Last Admin: 01/01/19 08:21 Dose: 4 mg Oxycodone HCl (Roxicodone) 5 mg PO Q4HR PRN PRN Reason: PAIN Last Admin: 01/01/19 12:17 Dose: 5 mg Pantoprazole Sodium (Protonix) 40 mg IVP QDAC [facility] Last Admin: 01/01/19 06:07 Dose: 40 mg Polyethylene Glycol (Miralax) 17 gm PO DAILY [facility] Last Admin: 01/01/19 08:28 Dose: Not Given Sodium Chloride (Normal Saline Flush 0.9%) 10 ml IVP PRN PRN PRN Reason: NEEDED PER PROVIDER ORDERS Last Admin: 01/01/19 06:07 Dose: 10 ml Sodium Chloride (Normal Saline Flush 0.9%) 10 ml IVP 0100,0900,1700 [facility] Last Admin: 01/01/19 06:07 Dose: 10 ml Alprazolam [Xanax] 0.25 mg PO Q8H PRN 05/29/18 Atenolol 25 mg PO DAILY 05/29/18 Levothyroxine [Synthroid] 100 mcg PO QDAC 05/29/18 [place]-3/Dha/Epa/Fish Oil [Fish Oil 1,000 mg Softgel] 1 gm PO DAILY 05/29/18 buPROPion [Wellbutrin Sr] 150 mg PO BID 05/29/18 oxyCODONE [Roxicodone] 5 - 10 mg PO Q4HR PRN 07/25/18 Sennosides/Docusate Sodium [Senna-Docusate Sodium Tablet] 1 tab PO BID PRN 08/05/18 fentaNYL [Fentanyl 25mcg patch] 50 mcg TOP Q72H 08/11/18 Dexamethasone [Decadron] 4 mg PO DAILY PRN MDD chemo only 08/15/18 Loperamide HCl [Imodium A-D] 2 mg PO Q4HR PRN 09/26/18 Potassium Chloride [Klor-Con M20] 20 meq PO BID 10/22/18 Fluticasone/Salmeterol [Advair 100-50 Diskus] 1 puffs INH BID 11/14/18 Calcium Carbonate [Tums (Calcium Carbonate 500mg)] 200 mg PO DAILY 12/30/18 Omeprazole 20 mg PO BID 12/31/18 Cyanocobalamin (Vitamin B-12) [Vitamin B-12] 1,000 mcg PO DAILY 01/01/19 Multivitamin [Multiple Vitamins] 1 tab PO DAILY 01/01/19 Objective - Vital Signs/Intake & Output Reviewed Vital Signs: Yes Vital Signs: Vital Signs x48h Temp Pulse Resp BP Pulse Ox 01/01/19 16:00 36.6 C 82 16 104/50 L 97 Intake & Output: Intake & Output 12/29/18 12/30/18 12/31/18 01/01/19 23:59 23:59 23:59 23:59 Intake Total 2300 2286.167 Output Total 100 950 Balance 2200 1336.167 - Objective General Appearance: positive: No acute distress, Alert. negative: Lethargic Eyes Bilateral: positive: Normal inspection, PERRL, No lid inflammation, Conjunctivae nml ENT: positive: ENT inspection nml, Pharynx nml, No signs of dehydration. n egative: Purulent nasal drainage, Pharyngeal erythema, Oral lesions Neck: positive: Nml inspection, Thyroid nml, No JVD. negative: Trachea midline, Thyromegaly, Lymphadenopathy (R), Lymphadenopathy (L), Stiff neck, Swelling/bruising, Tracheal deviation Respiratory: positive: Chest non-tender, No respiratory distress. negative: Wheezes, Rales Cardiovascular: positive: Regular rate & rhythm, No murmur, No gallop. negativ e: Irregularly irregular, Extrasystoles, Tachycardia, Bradycardia, Systolic murmur, Diastolic murmur Peripheral Pulses: 2+ Radial (R), 2+ Radial (L), 2+ Dorsalis pedis (R), 2+ Dorsalis pedis (L) Abdomen: positive: Non-tender, No organomegaly, Nml bowel sounds, No distention. negative: Tenderness, Guarding, Rebound Back: positive: Nml inspection Skin: positive: Color nml, No rash, Warm, Dry. negative: Cyanosis, Diaphoresis, Pallor Extremities: positive: Non-tender, Full ROM, Nml appearance. negative: Calf tenderness, Saul's sign/cords Neurologic/Psychiatric: positive: Sensation nml, Mood/affect nml. negative: Weakness, Sensory loss, Facial droop, Slurred/abnml speech, Depressed mood/affect - Lab Results Fish Bones: 01/01/19 06:00 01/01/19 06:00 Other Labs: Lab Results x24hrs 01/01/19 01/01/19 12/31/18 Range/Units 06:00 06:00 22:25 WBC 19.8 H (4.8-10.8) x10^3/uL RBC 2.60 L (4.20-5.40) 10^6/uL Hgb 9.3 L (12.0-16.0) g/dL Hct 27.4 L (37.0-47.0) % MCV 105.6 H (81.0-99.0) fL MCH 35.7 H (27.0-31.0) pg MCHC 33.8 (32.0-36.0) g/dL RDW 17.0 H (12.0-15.0) % Plt Count 102 L (130-450) 10^3/uL MPV 8.0 (7.9-10.8) fL Neut # (Auto) 18.5 H (1.5-6.6) 10^3/uL Lymph # (Auto) 0.8 L (1.5-3.5) 10^3/uL [place] # (Auto) 0.5 (0.0-1.0) 10^3/uL Eos # (Auto) 0.0 (0.0-0.7) 10^3/uL Baso # (Auto) 0.0 (0.0-0.1) 10^3/uL Absolute Nucleated RBC 0.00 x10^3/uL Nucleated RBC % 0.0 /100WBC Sodium 136 (135-145) mmol/L Potassium 3.2 L (3.5-5.0) mmol/L Chloride 103 (101-111) mmol/L Carbon Dioxide 25 (21-32) mmol/L Anion Gap 8.0 (6-13) BUN 22 H (6-20) mg/dL Creatinine 0.7 (0.4-1.0) mg/dL Estimated GFR (MDRD) 82 L (>89) Glucose 119 H (70-100) mg/dL Lactic Acid (0.5-2.2) mmol/L Calcium 7.3 L (8.5-10.3) mg/dL Urine Color DARK YELLOW Urine Clarity CLEAR (CLEAR) Urine pH 5.5 (5.0-7.5) PH Ur Specific [place] 1.025 (1.002-1.030) Urine Protein NEGATIVE (NEGATIVE) mg/dL Urine Glucose (UA) NEGATIVE (NEGATIVE) mg/dL Urine Ketones 15 H (NEGATIVE) mg/dL Urine Occult Blood NEGATIVE (NEGATIVE) Urine Nitrite NEGATIVE (NEGATIVE) Urine Bilirubin NEGATIVE (NEGATIVE) Urine Urobilinogen 0.2 (NORMAL) (NORMAL) E.U./dL Ur Leukocyte Esterase NEGATIVE (NEGATIVE) Ur Microscopic Review NOT INDICATED Urine Culture Comments NOT INDICATED 12/31/18 Range/Units 19:35 WBC (4.8-10.8) x10^3/uL RBC (4.20-5.40) 10^6/uL Hgb (12.0-16.0) g/dL Hct (37.0-47.0) % MCV (81.0-99.0) fL MCH (27.0-31.0) pg MCHC (32.0-36.0) g/dL RDW (12.0-15.0) % Plt Count (130-450) 10^3/uL MPV (7.9-10.8) fL Neut # (Auto) (1.5-6.6) 10^3/uL Lymph # (Auto) (1.5-3.5) 10^3/uL [place] # (Auto) (0.0-1.0) 10^3/uL Eos # (Auto) (0.0-0.7) 10^3/uL Baso # (Auto) (0.0-0.1) 10^3/uL Absolute Nucleated RBC x10^3/uL Nucleated RBC % /100WBC Sodium (135-145) mmol/L Potassium (3.5-5.0) mmol/L Chloride (101-111) mmol/L Carbon Dioxide (21-32) mmol/L Anion Gap (6-13) BUN (6-20) mg/dL Creatinine (0.4-1.0) mg/dL Estimated GFR (MDRD) (>89) Glucose (70-100) mg/dL Lactic Acid 1.2 (0.5-2.2) mmol/L Calcium (8.5-10.3) mg/dL Urine Color Urine Clarity (CLEAR) Urine pH (5.0-7.5) PH Ur Specific [place] (1.002-1.030) Urine Protein (NEGATIVE) mg/dL Urine Glucose (UA) (NEGATIVE) mg/dL Urine Ketones (NEGATIVE) mg/dL Urine Occult Blood (NEGATIVE) Urine Nitrite (NEGATIVE) Urine Bilirubin (NEGATIVE) Urine Urobilinogen (NORMAL) E.U./dL Ur Leukocyte Esterase (NEGATIVE) Ur Microscopic Review Urine Culture Comments ABX Reporting Has patient been on IV antibiotics over the past 48 hours?: Yes Sepsis Event Note (H) - Evaluation Current Stage of Sepsis: Sepsis Possible source of Sepsis: positive: GI tract/intra-abdominal - Sepsis Criteria Sepsis Criteria: Suspected or Documented, WBC count greater than 12,000 or less than 4000 Assessment/Plan - Problem List (1) Partial small bowel obstruction Impression: 01/01 pt had bowel movement on today morning. pt's bowel obstruction seems reso lved now resume diet Likely 2/2 colon cancer mass NPO, IV hydration. Pain management Hold atenolol Patient has a 50mcg fentanyl patch. Will add morphine prn Patient is declined suggestion of a possible diverting colostomy. As such we will consult hospice care. Patient currently on palliative care (2) Colon cancer metastasized to multiple sites Conclusion/Plan: 01/01 consult with palliative care. Palliative care provider saw pt , and report pt is willing to choose hospice care refer to hospice care continue support for pt continue pain control Patient on palliative chemotherapy Please reach out to Dr Jean at the [facility] in the am for input (3) Leukocytosis Conclusion/Plan: CT of chest reveals possible pneumonia. pt had significant elevated WBC. pt had 97% sats on 4 liter of O2 Cefepime antibiotics daily lab monitor (4) Nausea & vomiting Conclusion/Plan: Likely 2/2 obstruction from colon cancer. Patient NPO. IV hydration Zofran ordered (5) Depression with anxiety Conclusion/Plan: On xanax and wellbutrin (6) Hypothyroidism Conclusion/Plan: 01/01 check TSH, followup On synthroid (7) Hospice care Palliative Jen already saw pt. pt choose to have hospice care. support pt refer to hospice care
[2019-01-01] MEDS: buPROPion SR 150 MG TABLET PO SCH (21:11)
[2019-01-02] MEDS: SODIUM CHLORIDE FLUSH 0.9% 10 ML SYRINGE IVP SCH ×3 (00:21→17:05)
[2019-01-02] MEDS: PANTOPRAZOLE 40 MG VIAL IVP SCH (06:21)
[2019-01-02] MEDS: CEFEPIME 1 GM in SODIUM CHLORIDE 0.9% MINIBAG 100 ML IV SCH ×3 (06:21→21:49)
[2019-01-02 06:25] LABS: EOSINOPHILS % (AUTO) 0.1 %; HGB - HEMOGLOBIN 9.5 g/dL (12.0-16.0); LYMPHOCYTES # (AUTO) 1.1 10^3/uL (1.5-3.5); LYMPHOCYTES % (AUTO) 5.3 %; MEAN CORPUSCULAR HEMOGLOBIN 35.6 pg (27.0-31.0); MEAN CORPUSCULAR HGB CONC 33.3 g/dL (32.0-36.0); MEAN PLATELET VOLUME 8.6 fL (7.9-10.8); MONOCYTES # (AUTO) 0.4 10^3/uL (0.0-1.0); MONOCYTES % (AUTO) 1.9 %; NEUTROPHILS # (AUTO) 18.5 10^3/uL (1.5-6.6); NEUTROPHILS % (AUTO) 92.7 %; PLT - PLATELET COUNT 103 10^3/uL (130-450); RED BLOOD COUNT 2.67 10^6/uL (4.20-5.40); RED CELL DISTRIBUTION WIDTH 17.1 % (12.0-15.0)
[2019-01-02 06:26] LABS: CALCIUM 7.8 mg/dL (8.5-10.3); CREATININE 0.5 mg/dL (0.4-1.0)
[2019-01-02] MEDS: MORPHINE 2 MG/ML SYRINGE IVP PRN (06:41)
[2019-01-02] MEDS: oxyCODONE 5 MG TABLET PO PRN ×3 (06:41→21:49)
[2019-01-02] MEDS: SODIUM CHLORIDE FLUSH 0.9% 10 ML SYRINGE IVP PRN (06:41)
[2019-01-02] MEDS: POLYETHYLENE GLYCOL 3350 17 GM PACKET PO SCH (08:52)
[2019-01-02] MEDS: buPROPion SR 150 MG TABLET PO SCH ×2 (08:52→21:49)
[2019-01-02] MEDS: LEVOTHYROXINE 125 MCG TABLET PO SCH (08:58)
[2019-01-02] MEDS ORDERED: oxyCODONE 5 MG TABLET PO PRN (10:11)
[2019-01-02] MEDS ORDERED: POTASSIUM CHLORIDE 20 MEQ TABLET PO ONE (10:11)
[2019-01-02] MEDS ORDERED: METOCLOPRAMIDE 10 MG TABLET PO PRN (10:24)
[2019-01-02] MEDS: SODIUM CHLORIDE 0.9% 1,000 ML IV SCH (13:43)
--- NOTE | 2019-01-02 13:49 | CONSULTATION NOTE ---
Palliative Care Follow Up - Referral Referring Provider: Bayron GUZMAN Time of Visit: 4981-4115 Referral setting: Hospitalized patient Referral Reason: Met Colon Cancer/Goals of Care - Information Sources Records reviewed: RN notes reviewed, Previous records reviewed History/Review of Systems obtained from: Patient Exam limitations: No limitations - History of Present Illness Update Brief HPI Update: Please see 01/01 HPI. 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 She was admitted acutely for altered mental status, elevated white count, pending partial bowel obstruction, dehydr ation, and escalated pain. Given the progression of her disease, ongoing failure to thrive symptoms of weight loss, anorexia, fatigue, and diminishing quality of life decision to transition to hospice was made, at time of discharge. Patient's goals currently include treating her current infection, her electric light imbalances, and focusing on improving her pain management to discharge. Palliative care meeting with patient today, to make recommendations regarding pain management, patient has had in the last 24 hours of morphine equivalent of 63 mg, this will translate to 25 mcg of fentanyl. In discussion with the patient, she does feel she is feeling better, agreement was to titrate up by 12 mcg. She does need more aggressive as needed dosing for her oxycodone given her baseline fentanyl dosing, would recommend oxycodone 10 mg every 3 hours. Social History - Living Situation Living arrangement: At home Living Situation: With family Support System: Home with her daughter April, she is up with her about a year and a half. I spoke with April, they did have a family meeting, both her grandson and his girlfriend present to help with care needs. Are looking at hiring some assistance as well. Given the proximity of April, did go ahead and update D POA with April Gainesn as per primary medical D POA. Medications/Allergies - Medications Active Medication List: Active Medications Alprazolam (Xanax) 0.25 mg PO Q8H PRN PRN Reason: Anxiety Last Admin: 01/01/19 21:11 Dose: 0.25 mg Bupropion HCl (Wellbutrin Sr) 150 mg PO BID [facility] Last Admin: 01/02/19 08:52 Dose: 150 mg Fentanyl (Duragesic) 1 patch TOP Q3D [facility] Last Admin: 01/01/19 00:47 Dose: 1 patch Sodium Chloride (Normal Saline 0.9%) 1,000 mls @ 75 mls/hr IV .[id number] [facility] Last Admin: 01/02/19 13:43 Dose: 75 mls/hr Cefepime HCl 1 gm/ Sodium (Chloride) 100 mls @ 200 mls/hr IV TID [facility] Last Infusion: 01/02/19 07:05 Dose: Infused Levothyroxine Sodium (Synthroid) 125 mcg PO QDAC [facility] Last Admin: 01/02/19 08:58 Dose: 125 mcg Metoclopramide HCl (Reglan) 5 mg PO QID PRN PRN Reason: Nausea / Vomiting Morphine Sulfate (Morphine) 2 mg IVP Q3H PRN PRN Reason: Pain 8 to 10 Last Admin: 01/02/19 06:41 Dose: 2 mg Ondansetron HCl (Zofran Inj) 4 mg IVP Q6HR PRN PRN Reason: Nausea / Vomiting Last Admin: 01/01/19 08:21 Dose: 4 mg Oxycodone HCl (Roxicodone) 10 mg PO Q4HR PRN PRN Reason: PAIN Last Admin: 01/02/19 11:08 Dose: 10 mg Pantoprazole Sodium (Protonix) 40 mg IVP QDAC [facility] Last Admin: 01/02/19 06:21 Dose: 40 mg Polyethylene Glycol (Miralax) 17 gm PO DAILY [facility] Last Admin: 01/02/19 08:52 Dose: Not Given Sodium Chloride (Normal Saline Flush 0.9%) 10 ml IVP PRN PRN PRN Reason: NEEDED PER PROVIDER ORDERS Last Admin: 01/02/19 06:41 Dose: 10 ml Sodium Chloride (Normal Saline Flush 0.9%) 10 ml IVP 0100,0900,1700 [facility] Last Admin: 01/02/19 08:52 Dose: 10 ml Alprazolam [Xanax] 0.25 mg PO Q8H PRN 05/29/18 Atenolol 25 mg PO DAILY 05/29/18 Levothyroxine [Synthroid] 100 mcg PO QDAC 05/29/18 [place]-3/Dha/Epa/Fish Oil [Fish Oil 1,000 mg Softgel] 1 gm PO DAILY 05/29/18 buPROPion [Wellbutrin Sr] 150 mg PO BID 05/29/18 oxyCODONE [Roxicodone] 5 - 10 mg PO Q4HR PRN 07/25/18 Sennosides/Docusate Sodium [Senna-Docusate Sodium Tablet] 1 tab PO BID PRN 08/05/18 fentaNYL [Fentanyl 25mcg patch] 50 mcg TOP Q72H 08/11/18 Dexamethasone [Decadron] 4 mg PO DAILY PRN MDD chemo only 08/15/18 Loperamide HCl [Imodium A-D] 2 mg PO Q4HR PRN 09/26/18 Potassium Chloride [Klor-Con M20] 20 meq PO BID 10/22/18 Fluticasone/Salmeterol [Advair 100-50 Diskus] 1 puffs INH BID 11/14/18 Calcium Carbonate [Tums (Calcium Carbonate 500mg)] 200 mg PO DAILY 12/30/18 Omeprazole 20 mg PO BID 12/31/18 Cyanocobalamin (Vitamin B-12) [Vitamin B-12] 1,000 mcg PO DAILY 01/01/19 Multivitamin [Multiple Vitamins] 1 tab PO DAILY 01/01/19 - Allergies Allergies/Adverse Reactions: Allergies Allergy/AdvReac Type Severity Reaction Status Date / Time Penicillins Allergy Rash Verified 12/31/18 12:42 Review of Systems - Constitutional Constitutional: reports: Fatigue, Poor appetite, Weight loss (patient presents today with some fluid gain). denies: Fever - Eyes Eyes: reports: Vision loss, Corrective lenses - Ears, Nose & Throat Ears, Nose & Throat: reports: Dry mouth - Cardiovascular Cardiovascular: reports: Exertional dyspnea, Decr. exercise tolerance. denies: Chest pain - Respiratory Respiratory: reports: SOB with exertion. denies: SOB at rest - Gastrointestinal Gastrointestinal: reports: Abdominal distention, Bloating, Poor appetite, Early satiety. denies: Nausea (improved), Reflux/heartburn - Genitourinary Genitourinary: reports: Frequency - Musculoskeletal Musculoskeletal: reports: Stiffness, Muscle weakness - Integumentary Integumentary: reports: Dryness, Hair changes (thinning from chemo) - Neurological Neurological: reports: General weakness, Memory problems (mild STM). denies: Headache - Psychiatric Psychiatric: reports: Depression (improved today; less tearful), Anxiety (improved with alprazalom) - Hematologic/Lymphatic Hematologic/Lymphatic: reports: Anemia (9.5) - All Other Systems All Other Systems: reports: Reviewed and negative Physical Exam - Vital Signs Vital Signs: Vital Signs x48h Temp Pulse Resp BP Pulse Ox 01/02/19 08:00 36.7 C 81 16 128/54 L 95 - Physical Exam General Appearance: positive: No acute distress, Alert Eyes Bilateral: positive: Normal inspection ENT: positive: Dry mucous membranes Neck: positive: No JVD, Trachea midline Cardiovascular: positive: Regular rate & rhythm Respiratory: positive: Other (Without BS right side up 1/2; some respiratory effort with conversation; does not perceive SOB) Abdomen: positive: Tenderness, Distended Skin: positive: Pallor, Dryness, Other (portacath drsg intact) Extremities: positive: Pedal edema (trace pedal edema up to mid calf) Neurologic/Psychiatric: positive: Oriented x3, Mood/affect nml, Flat affect Palliative Care - POLST Patient has POLST: Yes POLST Status: DNR, Comfort Measures Pain: Pain improved, Location (Patient reports pain in the lower abdomen as a dull, more intermittent and fluctuating in the right upper quadrant. Has been using morphine 2 mg IV and oxycodone 1 tab, reports 1 tab is not sufficient for her breakthrough pain. Her baseline is fentanyl 50 mcg patch,) Tiredness/Fatigue: Severe (7-10) Drowsiness/Sedation: Moderate (4-6) Nausea: Mild (1-3) Depression: Mild (1-3) Anxiety: Moderate (4-6) Dyspnea: Mild (1-3) Anorexia: Moderate (4-6), Weight loss Sleep: Variable sleep pattern Constipation: Yes, Opoid induced, Unmanaged Performance Status: Patient reports she has ambulated to the bathroom, does feel somewhat weak and shaky but is able to go short distances. Is feeling somewhat stronger today, but still severely fatigued. I would put her at a PPS of 40% - Palliative Care Discussion: Met with patient, she does feel better today. She is feeling less anxious, and physically feeling better as well. Time spent counseling regarding patient's response, pending hospice admission, and concerns regarding her children and end of life. Time spent reviewing her spirituality, her concerns, her goals for relief of suffering and easy transition to end of life. She is hopeful to have some time to spend with her family, counseling provided regarding hospice support and team. Follow-up with April, she is off today to help with facilitation of equipment, arranging space to facilitate her mom's return home. Answered questions, reviewed patient did update Taras PAEZ with her as primary. Copy is in medical records, as well as original given to patient with copies. Results - Lab Results Lab results reviewed: Yes Fish Bones: 01/02/19 05:40 01/02/19 05:40 Lab and Imaging Results: Lab Results x24hrs 01/02/19 01/02/19 01/02/19 Range/Units 05:40 05:40 05:40 WBC 20.0 H (4.8-10.8) x10^3/uL RBC 2.67 L (4.20-5.40) 10^6/uL Hgb 9.5 L (12.0-16.0) g/dL Hct 28.5 L (37.0-47.0) % MCV 107.0 H (81.0-99.0) fL MCH 35.6 H (27.0-31.0) pg MCHC 33.3 (32.0-36.0) g/dL RDW 17.1 H (12.0-15.0) % Plt Count 103 L (130-450) 10^3/uL MPV 8.6 (7.9-10.8) fL Neut # (Auto) 18.5 H (1.5-6.6) 10^3/uL Lymph # (Auto) 1.1 L (1.5-3.5) 10^3/uL [place] # (Auto) 0.4 (0.0-1.0) 10^3/uL Eos # (Auto) 0.0 (0.0-0.7) 10^3/uL Baso # (Auto) 0.0 (0.0-0.1) 10^3/uL Absolute Nucleated RBC 0.00 x10^3/uL Nucleated RBC % 0.0 /100WBC Sodium 139 (135-145) mmol/L Potassium 3.2 L (3.5-5.0) mmol/L Chloride 109 (101-111) mmol/L Carbon Dioxide 24 (21-32) mmol/L Anion Gap 6.0 (6-13) BUN 14 (6-20) mg/dL Creatinine 0.5 (0.4-1.0) mg/dL Estimated GFR (MDRD) 121 (>89) Glucose 98 (70-100) mg/dL Calcium 7.8 L (8.5-10.3) mg/dL TSH 25.56 H (0.34-5.60) uIU/mL Impression and Recommendations - Palliative Care Impression: This is a erik 73-year-old woman with metastatic large cell neuroendocrine cancer of the ascending colon, with metastatic disease to the liver, progressive disease in her lungs, metastases to the brain, and now metastases to the bone. Presenting today with improved symptoms, the pain meds need to be titrated, continues with significant fatigue and weakness. Goals are to stabilize current situation, and transition to hospice on discharge Recommendations/Counseling Done: 1. Pain of neoplastic origin. Counseling provided and recommendations made to hospitalist after patient's input, Duragesic/fentanyl 12 mcg patch to be added to 50 for a total of 62 mcg. Increase breakthrough pain medication dosing to 10 mg every 3 hours as needed. Encourage patient to use oral meds to facilitate evaluation of care plan and transitioning home. 2. Constipation. Patient will need aggressive bowel program, with MiraLAX daily, and I would recommend initiating senna 2 tabs twice daily, as patient does have history of constipation. 3. Nausea multifactorial in origin. Does appear improved today, if recurs would add Reglan 5 mg schedule IV times a day. 4. Anxiety. Patient reports she is doing better with initiation of her baseline dosing at home of alprazolam 0.25 mg as needed up to 3 times a day. Counseling provided and questions addressed regarding transitioning to hospice, anticipatory guidance provided, as well as support. Advanced care planning. Patient to transition to hospice on discharge tomorrow, continue coordination with hospitalist, accounting manager controller, equipment to be delivered to day. Patient at this point in time would be able to tolerate a car transfer. She does have 2 levels of stairs, second 1 does have a lift on it. Counseling provided regarding role of Taras PAEZ, patient wanting April who she is living with , to be the primary, new form completed and scanned into HIM and copy to hospice. Time Spent: Time spent 45 minutes with greater than 50% of this done in counseling providing anticipatory guidance, review of goals of care, recommendations regarding pain and symptom management and coordination of care with hospital care team
--- NOTE | 2019-01-02 16:55 | PROVIDER PROGRESS NOTE ---
Subjective - Prog Note Date Prog Note Date: 01/02/19 - Subjective Pt reports feeling: No change Subjective: pt report she ate about 20% her breakfast. she report she felt so tired. Current Medications - Current Medications Current Medications: Active Medications Alprazolam (Xanax) 0.25 mg PO Q8H PRN PRN Reason: Anxiety Last Admin: 01/01/19 21:11 Dose: 0.25 mg Bupropion HCl (Wellbutrin Sr) 150 mg PO BID [facility] Last Admin: 01/02/19 08:52 Dose: 150 mg Fentanyl (Duragesic) 1 patch TOP Q3D [facility] Last Admin: 01/01/19 00:47 Dose: 1 patch Sodium Chloride (Normal Saline 0.9%) 1,000 mls @ 75 mls/hr IV .[id number] [facility] Last Admin: 01/02/19 13:43 Dose: 75 mls/hr Cefepime HCl 1 gm/ Sodium (Chloride) 100 mls @ 200 mls/hr IV TID [facility] Last Admin: 01/02/19 14:32 Dose: 200 mls/hr Levothyroxine Sodium (Synthroid) 125 mcg PO QDAC [facility] Last Admin: 01/02/19 08:58 Dose: 125 mcg Metoclopramide HCl (Reglan) 5 mg PO QID PRN PRN Reason: Nausea / Vomiting Morphine Sulfate (Morphine) 2 mg IVP Q3H PRN PRN Reason: Pain 8 to 10 Last Admin: 01/02/19 06:41 Dose: 2 mg Ondansetron HCl (Zofran Inj) 4 mg IVP Q6HR PRN PRN Reason: Nausea / Vomiting Last Admin: 01/01/19 08:21 Dose: 4 mg Oxycodone HCl (Roxicodone) 10 mg PO Q3HR PRN PRN Reason: PAIN Pantoprazole Sodium (Protonix) 40 mg IVP QDAC [facility] Last Admin: 01/02/19 06:21 Dose: 40 mg Polyethylene Glycol (Miralax) 17 gm PO DAILY [facility] Last Admin: 01/02/19 08:52 Dose: Not Given Sodium Chloride (Normal Saline Flush 0.9%) 10 ml IVP PRN PRN PRN Reason: NEEDED PER PROVIDER ORDERS Last Admin: 01/02/19 06:41 Dose: 10 ml Sodium Chloride (Normal Saline Flush 0.9%) 10 ml IVP 0100,0900,1700 ISABEL Last Admin: 01/02/19 08:52 Dose: 10 ml Alprazolam [Xanax] 0.25 mg PO Q8H PRN 05/29/18 Atenolol 25 mg PO DAILY 05/29/18 Levothyroxine [Synthroid] 100 mcg PO QDAC 05/29/18 [place]-3/Dha/Epa/Fish Oil [Fish Oil 1,000 mg Softgel] 1 gm PO DAILY 05/29/18 buPROPion [Wellbutrin Sr] 150 mg PO BID 05/29/18 oxyCODONE [Roxicodone] 5 - 10 mg PO Q4HR PRN 07/25/18 Sennosides/Docusate Sodium [Senna-Docusate Sodium Tablet] 1 tab PO BID PRN 08/05/18 fentaNYL [Fentanyl 25mcg patch] 50 mcg TOP Q72H 08/11/18 Dexamethasone [Decadron] 4 mg PO DAILY PRN MDD chemo only 08/15/18 Loperamide HCl [Imodium A-D] 2 mg PO Q4HR PRN 09/26/18 Potassium Chloride [Klor-Con M20] 20 meq PO BID 10/22/18 Fluticasone/Salmeterol [Advair 100-50 Diskus] 1 puffs INH BID 11/14/18 Calcium Carbonate [Tums (Calcium Carbonate 500mg)] 200 mg PO DAILY 12/30/18 Omeprazole 20 mg PO BID 12/31/18 Cyanocobalamin (Vitamin B-12) [Vitamin B-12] 1,000 mcg PO DAILY 01/01/19 Multivitamin [Multiple Vitamins] 1 tab PO DAILY 01/01/19 Objective - Vital Signs/Intake & Output Reviewed Vital Signs: Yes Vital Signs: Vital Signs x48h Temp Pulse Resp BP Pulse Ox 01/02/19 15:28 37.7 C H 80 18 127/45 L 94 Intake & Output: Intake & Output 12/30/18 12/31/18 01/01/19 01/02/19 23:59 23:59 23:59 23:59 Intake Total 2300 3626.167 2080 Output Total 100 1850 575 Balance 2200 1021.168 0080 - Objective General Appearance: positive: No acute distress, Alert. negative: Lethargic Eyes Bilateral: positive: Normal inspection, PERRL, No lid inflammation, Conjunctivae nml ENT: positive: ENT inspection nml, Pharynx nml, No signs of dehydration. negative: Purulent nasal drainage, Pharyngeal erythema, Oral lesions Neck: positive: Nml inspection, Thyroid nml, No JVD, Trachea midline. negative: Thyromegaly, Lymphadenopathy (R), Lymphadenopathy (L), Stiff neck, Swelling/bruising, Tracheal deviation Respiratory: positive: Chest non-tender, No respiratory distress, Breath sounds nml. negative: Wheezes, Rales, Rhonchi Cardiovascular: positive: Regular rate & rhythm, No murmur, No gallop. negative: Irregularly irregular, Extrasystoles, Tachycardia, Bradycardia, JVD present, Systolic murmur, Diastolic murmur Peripheral Pulses: 2+ Radial (R), 2+ Radial (L), 2+ Dorsalis pedis (R), 2+ Dorsalis pedis (L) Abdomen: positive: Non-tender, No organomegaly, Nml bowel sounds, No distention. negative: Tenderness, Guarding, Rebound Back: positive: Nml inspection. negative: CVA tenderness (R), CVA tenderness (L) Skin: positive: Color nml, No rash, Warm, Dry. negative: Cyanosis, Diaphoresis, Pallor Extremities: positive: Non-tender, Nml appearance. negative: Calf tenderness, Saul's sign/cords Neurologic/Psychiatric: positive: Oriented x3, Sensation nml, Mood/affect nml. negative: Weakness, Sensory loss, Facial droop, Slurred/abnml speech, Depressed mood/affect - Lab Results Fish Bones: 01/02/19 05:40 01/02/19 05:40 Other Labs: Lab Results x24hrs 01/02/19 01/02/19 01/02/19 Range/Units 05:40 05:40 05:40 WBC 20.0 H (4.8-10.8) x10^3/uL RBC 2.67 L (4.20-5.40) 10^6/uL Hgb 9.5 L (12.0-16.0) g/dL Hct 28.5 L (37.0-47.0) % MCV 107.0 H (81.0-99.0) fL MCH 35.6 H (27.0-31.0) pg MCHC 33.3 (32.0-36.0) g/dL RDW 17.1 H (12.0-15.0) % Plt Count 103 L (130-450) 10^3/uL MPV 8.6 (7.9-10.8) fL Neut # (Auto) 18.5 H (1.5-6.6) 10^3/uL Lymph # (Auto) 1.1 L (1.5-3.5) 10^3/uL [place] # (Auto) 0.4 (0.0-1.0) 10^3/uL Eos # (Auto) 0.0 (0.0-0.7) 10^3/uL Baso # (Auto) 0.0 (0.0-0.1) 10^3/uL Absolute Nucleated RBC 0.00 x10^3/uL Nucleated RBC % 0.0 /100WBC Sodium 139 (135-145) mmol/L Potassium 3.2 L (3.5-5.0) mmol/L Chloride 109 (101-111) mmol/L Carbon Dioxide 24 (21-32) mmol/L Anion Gap 6.0 (6-13) BUN 14 (6-20) mg/dL Creatinine 0.5 (0.4-1.0) mg/dL Estimated GFR (MDRD) 121 (>89) Glucose 98 (70-100) mg/dL Calcium 7.8 L (8.5-10.3) mg/dL TSH 25.56 H (0.34-5.60) uIU/mL ABX Reporting Has patient been on IV antibiotics over the past 48 hours?: Yes Sepsis Event Note (H) - Evaluation Current Stage of Sepsis: Sepsis Possible source of Sepsis: positive: GI tract/intra-abdominal - Sepsis Criteria Sepsis Criteria: Suspected or Documented, WBC count greater than 12,000 or less than 4000 Assessment/Plan - Problem List (1) Partial small bowel obstruction Impression: 01/02 stable, no bowel today but had a big bowel movement on yesterday. plan d/c tomorrow with hospice care 01/01 pt had bowel movement on today morning. pt's bowel obstruction seems resolved now resume diet Likely 2/2 colon cancer mass NPO, IV hydration. Pain management Hold atenolol Patient has a 50mcg fentanyl patch. Will add morphine prn Patient is declined suggestion of a possible diverting colostomy. As such we will consult hospice care. Patient currently on palliative care (2) Colon cancer metastasized to multiple sites Conclusion/Plan: 01/02 continue pain control followup palliative care 01/01 consult with palliative care. Palliative care provider saw pt , and report pt is willing to choose hospice care refer to hospice care continue support for pt continue pain control Patient on palliative chemotherapy Please reach out to Dr Jean at the [facility] in the am for input (3) Leukocytosis Conclusion/Plan: CT of chest reveals possible pneumonia. pt had significant elevated WBC. pt had 97% sats on 4 liter of O2 Cefepime antibiotics daily lab monitor (4) Nausea & vomiting Conclusion/Plan: Likely 2/2 obstruction from colon cancer. Patient NPO. IV hydration Zofran ordered (5) Depression with anxiety Conclusion/Plan: On xanax and wellbutrin (6) Hypothyroidism Conclusion/Plan: 01/01 check TSH, followup On synthroid (7) Hospice care 01/02 pt plan to d/c on tomorrow for hospice care Palliative Jen already saw pt. pt choose to have hospice care. support pt refer to hospice care
[2019-01-03] MEDS: SODIUM CHLORIDE FLUSH 0.9% 10 ML SYRINGE IVP SCH ×2 (01:11→05:49)
[2019-01-03] MEDS: oxyCODONE 5 MG TABLET PO PRN (01:14)
[2019-01-03] MEDS: SODIUM CHLORIDE 0.9% 1,000 ML IV SCH (03:02)
[2019-01-03] MEDS: LEVOTHYROXINE 125 MCG TABLET PO SCH (05:48)
[2019-01-03] MEDS: CEFEPIME 1 GM in SODIUM CHLORIDE 0.9% MINIBAG 100 ML IV SCH (05:48)
[2019-01-03] MEDS: PANTOPRAZOLE 40 MG VIAL IVP SCH (05:49)
[2019-01-03] MEDS: SODIUM CHLORIDE FLUSH 0.9% 10 ML SYRINGE IVP PRN (05:49)
[2019-01-03 09:17] VITALS: BP 126/56
[2019-01-03] MEDS: buPROPion SR 150 MG TABLET PO SCH (09:36)
[2019-01-03] MEDS: POLYETHYLENE GLYCOL 3350 17 GM PACKET PO SCH (09:36)
--- NOTE | 2019-01-03 12:34 | Discharge Plan ---
Discharge Plan Disposition: 50 Hospice/Home DC/Xfer Condition: Stable Prescriptions: Fluticasone [Flonase] 1 sprays LINDA DAILY #1 bottle Morphine Sulfate [Morphine Sulf Oral (Roxanol)] 10 mg PO Q1H PRN #30 ml PRN Reason: Pain/Dyspnea Oxymetazoline HCl [Nasal [place]] 30 ml NS QID PRN #1 mist PRN Reason: Cold Symptons Oxymetazoline HCl [Afrin] 15 ml NS BID #1 spray Saliva Stimulant Comb. No.7 [Biotene Oralbalance] 42 gm MM QID PRN #1 gel..gram. PRN Reason: Mouth Sore Pain Simethicone [Gas Relief] 80 mg PO QID PRN #90 tab.chew PRN Reason: Nausea / Vomiting Diet: Regular Activity Restrictions: No Restrictions Shower Restrictions: No Weight Bearing: Full Weight Follow-Up Care: Hospice No Smoking: If you smoke, Please STOP! Call for help. Follow-up with: Justyn Saucedo MD [Primary Care Provider] -
--- NOTE | 2019-01-03 12:53 | DISCHARGE SUMMARY ---
Discharge Summary Admit Date: 12/31/18 Discharge Date: 01/03/19 Discharging Provider: MEGAN uG Primary Care Provider: Dr. Lugo Code Status: Do Not Attempt Resuscitation Condition at Discharge: Stable Discharge Disposition: 50 Hospice/Home DC/Xfer - DIAGNOSES Admission Diagnoses: Partial intestinal obstruction, unspecified as to cause (K56.600) Malignant neoplasm of colon, unspecified (C18.9) Elevated white blood cell count, unspecified (D72.829) Nausea with vomiting, unspecified (R11.2) Other specified anxiety disorders (F41.8) Hypothyroidism, unspecified (E03.9) Discharge Diagnoses with Status of Each Condition: Partial small bowel obstruction (K56.600) resolved, patient + BM upon discharge Colon cancer metastasized to multiple sites (C18.9) chronic, ongoing Leukocytosis (D72.829) chronic, stable Nausea and vomiting (R11.2) stable- meds prescribed Depression with anxiety (F41.8) chronic, stable Hypothyroidism (E03.9) chronic, stable Hospice care (Z51.5) ongoing, care to continue - HPI History of Present Illness: HPI per Dr. Mireles: Patient seen on 12/31/18 at 2000pm Patient is a 73 y/o female who presented to the ED with complain of nausea and vomiting which started yesterday. She also reports upper abdominal pain. She denies chest pain, LINETTE or fever. Her last bowel movement was while she was in the ED today and she described it as diarrhea. She has a background history of metastatic colon cancer with mets to liver, lungs, brain and bone. She did not undergo surgery for this. She is on palliative chemotherapy managed by Dr Jean. Last chemo was 2 weeks ago. Her scheduled chemotherapy for 12/30/18 was cancelled. She presented to the ED 4 days ago with upper abdominal pain, nausea and bloating but she was not vomiting at the time. At that time she had a WBC of 6. Today her WBC was 21.7 and she was mildly hypotensive. CT scan of abd/pelvis showed tumor about the same. It also showed partial small bowel obstruction just proximal to the tumor with dilated small bowel loops. As a result of these, the patient is being admitted. - HOSPITAL COURSE Hospital Course: Mayra's SBO resolved and she was discharged home via S home with Hospice with her usual oxygen. Liquid morphine was given to the family to fill while awaiting Hospice care services. - ALLERGIES Allergies/Adverse Reactions: Allergies Allergy/AdvReac Type Severity Reaction Status Date / Time Penicillins Allergy Rash Verified 12/31/18 12:42 - MEDICATIONS Home Medications: Ambulatory Orders Medication Instructions Recorded Confirmed Alprazolam [Xanax] 0.25 mg PO Q8H PRN 05/29/18 01/01/19 Atenolol 25 mg PO DAILY 05/29/18 01/01/19 Levothyroxine [Synthroid] 100 mcg PO QDAC 05/29/18 01/01/19 [place]-3/Dha/Epa/Fish Oil [Fish Oil 1 gm PO DAILY 05/29/18 01/01/19 1,000 mg Softgel] buPROPion [Wellbutrin Sr] 150 mg PO BID 05/29/18 01/01/19 Ondansetron HCl [Zofran] 4 mg PO Q6HR PRN #20 tablet 07/04/18 01/01/19 Prochlorperazine Maleate 10 mg PO Q6H PRN #30 tablet 07/23/18 01/01/19 [Compazine] oxyCODONE [Roxicodone] 5 - 10 mg PO Q4HR PRN 07/25/18 01/01/19 Sennosides/Docusate Sodium 1 tab PO BID PRN 08/05/18 01/01/19 [Senna-Docusate Sodium Tablet] Dexamethasone [Decadron] 4 mg PO DAILY PRN MDD chemo only 08/15/18 01/01/19 Loperamide HCl [Imodium A-D] 2 mg PO Q4HR PRN 09/26/18 01/01/19 Potassium Chloride [Klor-Con M20] 20 meq PO BID 10/22/18 01/01/19 Fluticasone/Salmeterol [Advair 1 puffs INH BID 11/14/18 01/01/19 100-50 Diskus] Calcium Carbonate [Tums (Calcium 200 mg PO DAILY 12/30/18 01/01/19 Carbonate 500mg)] Omeprazole 20 mg PO BID 12/31/18 01/01/19 Cyanocobalamin (Vitamin B-12) 1,000 mcg PO DAILY 01/01/19 01/01/19 [Vitamin B-12] Multivitamin [Multiple Vitamins] 1 tab PO DAILY 01/01/19 01/01/19 Fluticasone [Flonase] 1 sprays LINDA DAILY #1 bottle 01/03/19 Morphine Sulfate [Morphine Sulf 10 mg PO Q1H PRN #30 ml 01/03/19 Oral (Roxanol)] Oxymetazoline HCl [Afrin] 15 ml NS BID #1 spray 01/03/19 Oxymetazoline HCl [Nasal [place]] 30 ml NS QID PRN #1 mist 01/03/19 Saliva Stimulant Comb. No.7 42 gm MM QID PRN #1 gel..gram. 01/03/19 [Biotene Oralbalance] Simethicone [Gas Relief] 80 mg PO QID PRN #90 tab.chew 01/03/19 - PHYSICAL EXAM AT DISCHARGE General Appearance: positive: No acute distress, Alert, Anxious Eyes Bilateral: positive: PERRL ENT: positive: Pharynx nml, Dry mucous membranes Neck: positive: Thyroid nml, No JVD, Trachea midline Respiratory: positive: Chest non-tender, No respiratory distress, Breath sounds nml Cardiovascular: positive: Regular rate & rhythm, No gallop, Systolic murmur Peripheral Pulses: positive: 2+ Abdomen: positive: Tenderness, Guarding, Abnml bowel sounds Back: positive: Nml inspection Skin: positive: No rash, Warm, Dry Extremities: positive: Non-tender, Full ROM, Pedal edema, Joint swelling Neurologic/Psychiatric: positive: Oriented x3, CN's nml (2-12), Motor nml, Weakness, Sensory loss, Depressed mood/affect Reflexes: Bicep (R): 3+, Bicep (L): 3+ - LABS Result Diagrams: 01/02/19 05:40 01/02/19 05:40 - DIAGNOSTIC IMAGING Diagnostic Imaging Results: Final report reviewed Diagnostic Imaging Results Comments: CT ABDOMEN AND PELVIS 12/31/2018: FINDINGS: Lung Bases: Please see separately dictated CT chest report. Liver: Small caliber. Approximately 1 dozen stable well-defined low density lesions throughout both lobes of the liver measuring 2.5 cm and smaller. No new hepatic lesions. Gallbladder/Bile Ducts: Unremarkable. Spleen: Normal. Pancreas: Normal. Adrenal Glands: Normal. Kidneys: Normal. No masses or hydronephrosis. Peritoneal Cavity/Bowel: New small amount of free fluid. No free air. Grossly stable spiculated density right lower quadrant at the surgical site, suspect prior cecectomy. Diverticula off the colon. The colon is small in caliber. Interval development of moderate dilatation of the entirety of the small bowel without appreciable wall. Appendix not visualized. Pelvic Organs: New small amount of free fluid. Probable hysterectomy. The bladder and visualized pelvic organs are within normal limits. Vasculature: No aneurysms or other significant abnormality. Bones: Stable 3 cm sclerotic lesion left side L5 vertebral body. Large right S1 perineural cyst, incidental finding. Other: Left Port-A-Cath in place. New mild anasarca. IMPRESSION: 1. Stable hepatic lesions. 2. New mild anasarca. 3. New mild ascites. 4. New partial distal small bowel obstruction due to nonspecific spiculated mass and/or postoperative fibrosis right lower quadrant. 5. Bony metastatic disease. 6. Colonic diverticulosis. - SEPSIS Current Stage of Sepsis: Sepsis Possible source of Sepsis: GI tract/intra-abdominal Sepsis Criteria: Suspected or Documented, WBC count greater than 12,000 or less than 4000 - QUALITY (Female Hip Fx Only) Was patient sent home on osteoporosis medication?: No - FOLLOW UP Follow Up: Disposition: Hospice/Home DC Prescriptions: Fluticasone [Flonase] 1 sprays LINDA DAILY #1 bottle Morphine Sulfate [Morphine Sulf Oral (Roxanol)] 10 mg PO Q1H PRN #30 ml PRN Reason: Pain/Dyspnea Oxymetazoline HCl [Nasal [place]] 30 ml NS QID PRN #1 mist PRN Reason: Cold Symptons Oxymetazoline HCl [Afrin] 15 ml NS BID #1 spray Saliva Stimulant Comb. No.7 [Biotene Oralbalance] 42 gm MM QID PRN #1 gel..gram. PRN Reason: Mouth Sore Pain Simethicone [Gas Relief] 80 mg PO QID PRN #90 tab.chew PRN Reason: Nausea / Vomiting Follow-Up Care: Hospice Follow-up with: Justyn Saucedo MD - TIME SPENT Time Spent in Discharge (Minutes): 60
[2019-01-03] MEDS ORDERED: LORazepam 2 MG/ML VIAL IVP PRN (12:59)
[2019-01-03] MEDS: ALPRAZolam 0.25 MG TABLET PO PRN (13:17)
== END 2019-01-03 13:34 | disposition hospice, home (50) | DRG 388 ==
LOC: EDUNIT# → ED 12:32 → MS2 20:44
PROVIDERS: ADMIT Internal Medicine; ATTEND Nurse Practitioner
DX: K56.609 Unspecified intestinal obstruction, unspecified as to partial versus complete obstruction (principal); K56.600 Partial intestinal obstruction, unspecified as to cause; A41.9 Sepsis, unspecified organism; A09 Infectious gastroenteritis and colitis, unspecified; C18.9 Malignant neoplasm of colon, unspecified; C79.51 Secondary malignant neoplasm of bone; J44.9 Chronic obstructive pulmonary disease, unspecified; C78.7 Secondary malignant neoplasm of liver and intrahepatic bile duct; C78.02 Secondary malignant neoplasm of left lung; C79.31 Secondary malignant neoplasm of brain; D72.829 Elevated white blood cell count, unspecified; E03.9 Hypothyroidism, unspecified; F41.8 Other specified anxiety disorders; F32.9 Major depressive disorder, single episode, unspecified; R94.2 Abnormal results of pulmonary function studies; F41.9 Anxiety disorder, unspecified; K57.30 Diverticulosis of large intestine without perforation or abscess without bleeding; G89.3 Neoplasm related pain (acute) (chronic); K21.9 Gastro-esophageal reflux disease without esophagitis; E78.00 Pure hypercholesterolemia, unspecified; H91.90 Unspecified hearing loss, unspecified ear; H54.7 Unspecified visual loss; M81.0 Age-related osteoporosis without current pathological fracture; Z66 Do not resuscitate; Z51.5 Encounter for palliative care; Z79.891 Long term (current) use of opiate analgesic; Z79.899 Other long term (current) drug therapy
CPT/HCPCS: 36415; 71260; 74177; 80048; 80053; 81003; 83605; 83690; 83735; 84443; 85025; 96361; 96365; 96375; 99233; 99284; 99285; A9270; J2270; J7040; Q9967; 81001; 87086

== ENCOUNTER 2018-12-31 17:18 | Outpatient (CLI) | payer MEDICARE | END 2018-12-31 17:19 | disposition home or self-care (01) | LOC: DI 17:18 | PROVIDERS: ATTEND Internal Medicine Hematology & Oncology | DX: C7A.1 Malignant poorly differentiated neuroendocrine tumors (principal); C78.7 Secondary malignant neoplasm of liver and intrahepatic bile duct; C79.31 Secondary malignant neoplasm of brain; Z53.9 Procedure and treatment not carried out, unspecified reason ==

== ENCOUNTER 2019-01-03 13:21 | Outpatient (CLI) | payer MEDICARE | END 2019-01-03 13:22 | disposition home or self-care (01) | LOC: EMS 13:21 | PROVIDERS: ATTEND Surgery | DX: Z51.5 Encounter for palliative care (principal) | CPT/HCPCS: A0425; A0428 ==